=== PATIENT | female | born 1960 | race Caucasian/White ===

== ENCOUNTER 2018-01-28 08:03 | Inpatient (IN) | payer MEDICAID, SELFPAY ==
[2018-01-28 08:03] VITALS: BP 152/95; PULSE 106; RESP 16; TEMP 36.5; BMI 39.2
--- NOTE | 2018-01-28 08:17 | CT_ITS ---
STUDY: CT ABDOMEN AND PELVIS WITH CONTRAST REASON FOR EXAM: Female, 57 years old. Abdominal pain x months. Worse in the last 2 weeks. RADIATION DOSAGE (If Supplied By Facility): CTDIvol = ( 17.07 ) mGy, DLP = ( 1243.08 ) mGycm TECHNIQUE: Transaxial images were obtained from the dome of the diaphragm to the symphysis pubis with oral contrast. 100 ml of Isovue 300 contrast was administered. Sagittal and coronal images were reconstructed. Individualized dose optimization techniques were used for this CT. COMPARISON: None. FINDINGS: 11 mm pulmonary nodule versus infiltrate in the right lower lobe behind the left atrial chamber (series 2, image 1). Subsegmental atelectasis in the right posterior lung base with minimal groundglass infiltrate.. The visualized portions of the heart are within normal limits. Normal liver. Normal gallbladder and extrahepatic biliary system. Normal spleen. Normal pancreas. Left adrenal gland: Solid mass measuring 2.3 x 1.7 x 2.2 cm. Right adrenal gland: Normal. Normal right kidney. Normal left kidney. Suspicious thickening of the gastric antrum and possibly the duodenal bulb. Normal small intestine. Multiple diverticula along the sigmoid colon and fewer diverticula in the remainder of the colon. No diverticulitis. The appendix is visualized and appears normal. Normal abdominal aorta. Normal inferior vena cava. Normal retroperitoneum. Normal urinary bladder. Normal abdominal wall. Normal osseous structures. CT/Abdomen/Pelvis WITH Contrast IMPRESSION: 1. Suspicious thickening of the antral pyloric region and possibly the duodenal bulb. Endoscopy will be very helpful for further evaluation. 2. Colonic diverticulosis, more along the sigmoid colon and without diverticulitis. 2. 0.3 x 1.7 x 2.2 cm solid mass in the left adrenal gland. 3. 11 mm pulmonary nodule versus infiltrate in the right lower lobe behind the left atrial chamber (series 2, image 1). 4. Subsegmental atelectasis in right posterior lung base with minimal focal groundglass infiltrate. Electronically Signed: Abhishek Arizmendi MD at 10:44 EDT , Service support ,
[2018-01-28] MEDS: 0.9% Normal Saline 1,000 ML 1000 ML IV (08:50)
[2018-01-28 09:10] LABS: Prothrombin Time (Protime)PT. 13.4 SECONDS (11.7-14.9)
[2018-01-28 09:16] LABS: ALB/GLOB Ratio 0.7 RATIO (0.9-2.4); AST(SGOT) 17 U/L (15-37); Alanine Aminotransfer ALT/SGPT 13 U/L (13-56); Albumin, Serum 3.3 g/dL (3.2-5.0); Alkaline Phosphatase 79 U/L (45-117); Anion Gap 9 (5-15); BUN 19 mg/dL (7-18); Calcium,Total 8.2 mg/dL (8.5-10.1); Chloride 103 mmol/L (98-107); Creatinine, Serum 1.12 mg/dL (0.55-1.02); EST Glomerular Filtration Rate 53 mL/min (>60); Est Glom Filt Rate - Afr Amer 65 mL/min (>60); Estimated Creatinine Clearance 59.93 ml/min; Globulin 4.6 g/dL (2.2-4.2); Glucose 113 mg/dL (74-106); Lipase 5402 U/L (73-393); Potassium 4.5 mmol/L (3.5-5.1); Protein, Total 7.9 g/dL (6.4-8.2); Sodium Level 138 mmol/L (136-145)
[2018-01-28 09:28] LABS: Absolute Lymphocyte Count 0.88 X10^3/ul (0.83-4.51); Absolute Neutrophil Count 6.8 X10^3/uL (2.0-7.7); Basophil# 0.03 X10^3/uL; Basophil% 0.4 % (0-1); Eosinophil# 0.09 X10^3/uL; Eosinophils% 1.1 % (0-5); Hematocrit 40.5 % (37-47); Hemoglobin 12.8 g/dl (12.0-15.0); Lymphocyte # 0.88 X10^3/ul (4.0); Lymphocyte % 10.5 % (19-41); Mean Corp Hgb Conc 31.6 g/gl (32-36); Mean Corpuscular Hgb 28.1 pg (27.0-32.0); Mean Corpuscular Volume 88.8 fL (81-99); Mean Platelet Vol. 10.1 fl (6.2-12.0); Monocyte# 0.55 X10^3/uL; Monocyte% 6.5 % (0-10); Neutrophil # 6.83 X10^3/uL (2.7-7.7); Neutrophil % 81.1 % (47-70); Platelet Count 276 K/mm3 (150-450); RBC Distribution Width CV 14.6 % (11.6-14.6); RBC Distribution Width SD 46.5 fl (35.1-43.9); Red Blood Count 4.56 M/mm3 (4.2-5.4); White Blood Count 8.4 K/mm3 (4.4-11.0)
[2018-01-28 09:29] LABS: POSITIVE COUNT NO; POSITIVE DIFFERENTIAL NO; POSITIVE MORPHOLOGY NO
--- NOTE | 2018-01-28 10:57 | ED.VISSUMM ---
- ER Visit Summary Date of Service: 01/28/18 Chief Complaint: Abdominal pain History of Present Illness: The patient is a 57 F who complains of 2 weeks of abdominal pain. It is diffuse and nonfocal. She describes as sharp and dull and aching. She has had some relief with Mylanta. She also reports 2 weeks of loose watery diarrhea several episodes per day. She also notes that she has hemorrhoids. She has had bright red blood per rectum with increased bleeding recently. She denies any chest pain shortness of breath nausea vomiting fevers or chills. Physical Examination: Heart rate 106 vitals otherwise unremarkable Patient resting comfortably in no distress Moist mucous membranes Heart regular rhythm tachycardia Lungs are clear Abdomen soft nondistended she has diffuse nonfocal tenderness no guarding no rebound Rectal exam was tender there are multiple hemorrhoids light brown stool no gross blood Alert Test Results: Laboratory studies notable for BUN of 19 creatinine 1.12. Lipase is 5402 liver function tests otherwise normal. INR 1.0. Hemoccult positive. CT of the abdomen and pelvis shows suspicious thickening of the antral pyloric region and possibly of the duodenal bulb. There is diverticulosis. There is also an adrenal mass. There is a right lower lobe pulmonary nodule and a small area of groundglass infiltrate and atelectasis of the right posterior lung base. Pancreas was normal. Emergency Department Course and Treatment: Patient was treated with IV fluids Protonix morphine and Zofran. Given her thickening of the stomach and duodenal bulb as well as description of symptoms with relief with Mylanta this may be gastritis. It is possible that her pancreatitis is reactive. She will be admitted for further workup. She will also likely need an EGD. Patient to be discussed with the hospitalist and admitted to the medical service. Treatment Plan: [] Disposition: Admit Impression: Gastritis Pancreatitis Diarrhea This note was generated with [employer] dictation software. It may contain incorrect words, spelling, and punctuation that were not noted in review of the chart prior to signing ED Disposition - Plan for ED Patient: Chief Complaint: Abd Pain Referrals: Care Physician,No Primary [Primary Care Provider] -
--- NOTE | 2018-01-28 11:07 | PCM.HP.STD ---
Problem List (1) Acute pancreatitis Status: Acute (2) Acute gastritis Status: Acute (3) Tobacco dependence Status: Chronic (4) BMI 39.0-39.9,adult Status: Chronic History of Present Illness Date of Admission: 01/28/18 Chief Complaint: Abdominal pain The patient is a 57 year old F with past medical history significant for obesity with BMI of 39.2, tobacco dependence who presents with abdominal pain. Patient has experienced abdominal pain for almost a month pain is located in the epigastrium associated with nausea with some diarrhea. Patient denies any hematemesis, vomiting no melenic stools. Patient denies alcohol use. Denies any previous history of gallbladder disease issues. In view of the persistent nature of patient's symptoms she presented to the emergency department. Patient was found to have lipase levels greater than [address] of the abdomen obtained demonstrated Suspicious thickening of the antral pyloric region and possibly the duodenal bulb was started on Protonix and admitted to regular nursing floor for further management. Past Medical History Past Medical History (Chronic Problems): Chronic Problems Tobacco dependence (Chronic) BMI 39.0-39.9,adult (Chronic) Allergies Penicillins Allergy (Verified 01/28/18 08:05) Anaphylaxis Sulfa (Sulfonamide Antibiotics) Allergy (Verified 01/28/18 08:05) Unknown tetanus and diphtheria toxoids Allergy (Verified 01/28/18 08:05) Swelling Home Medications: Ambulatory Orders Medication Instructions Recorded NK [NK] 01/28/18 Smoking Status: Current every day smoker - *Family History Maternal History Items: No pertinent history Review of Systems Constitutional: Reports: Anorexia, Malaise HEENT: Denies: Head Aches, Sinus Congestion, Sinus Drainage Cardiovascular: Denies: Chest Pain, Orthopnea, Palpitations, Paroxysmal Noc. Dyspnea Respiratory: Denies: Cough, Shortness of breath at rest, Shortness of breath upon exertion, Sputum production Gastrointestinal: Reports: Abdominal Pain, Diarrhea, Nausea. Denies: Hematemesis, Hematochezia, Melena, Vomiting Genitourinary: Denies: Dysuria, Frequency, Hematuria, Urgency Musculoskeletal: Denies: Joint Pain, Joint Tenderness Skin: Denies: Rash Neurological: Denies: Focal weakness, Numbness, Tingling Psychiatric: Denies: Homicidal Ideations, Suicidal Ideations Hematologic/ Lymphatic: Denies: Easy Bruising, Easy Bleeding VTE Information - Inpt Only VTE Present on Admission: No VTE Mechan Device Prophylaxis: Knee High HARSH Hose VTE Pharm Prophylaxis ordered?: Yes Patient Problems: Active and Suspected Problems Acute pancreatitis (Acute) Acute gastritis (Acute) Subjective: GENERAL: cooperative HEENT: Clear conjunctiva, NECK; supple, normal thyroid, CHEST: Clear to auscultation bilaterally, HEART: Regular S1 S2, no audible murmurs ABDOMEN: Epigastric tenderness normoactive bowel sounds, RECTAL: deferred EXTREMITIES: No edema, no clubbing, no cyanosis. 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 SKIN: No Rash - Physical Exam Vital Signs Temp Pulse Resp BP 97.7 F L 106 H 16 152/95 H 01/28/18 08:03 01/28/18 08:03 01/28/18 08:03 01/28/18 08:03 Weight: 123.9 kg Body Mass Index (BMI) 39.2 Microbiology Past 72 Hours 01/28/18 08:40 Stool Occult Blood (MURALI) - Final Stool Occult Blood Positive Laboratory Tests Past 24 Hrs 01/28/18 01/28/18 01/28/18 08:35 08:35 08:35 WBC 8.4 RBC 4.56 Hgb 12.8 Hct 40.5 MCV 88.8 MCH 28.1 MCHC 31.6 L RDW 14.6 RDW Differential 46.5 H Plt Count 276 MPV 10.1 Immature Gran % (Auto) 0.400 Neut % (Auto) 81.1 H Lymph % (Auto) 10.5 L Carver % (Auto) 6.5 Eos % (Auto) 1.1 Baso % (Auto) 0.4 Absolute Neuts (auto) 6.8 Absolute Lymphs (auto) 0.88 Total Counted Not Reportable PT 13.4 INR 1.0 Sodium 138 Potassium 4.5 Chloride 103 Carbon Dioxide 26.0 Anion Gap 9 BUN 19 H Creatinine 1.12 H Estim Creat Clear Calc 59.93 Est GFR (MDRD) Af Amer 65 Est GFR (MDRD) Non-Af 53 L BUN/Creatinine Ratio 17.0 Glucose 113 H Calcium 8.2 L Total Bilirubin 0.30 AST 17 ALT 13 Alkaline Phosphatase 79 Total Protein 7.9 Albumin 3.3 Globulin 4.6 H Albumin/Globulin Ratio 0.7 L Lipase 5402 H Blood Type Antibody Screen 04/27/18 08:35 WBC RBC Hgb Hct MCV MCH MCHC RDW RDW Differential Plt Count MPV Immature Gran % (Auto) Neut % (Auto) Lymph % (Auto) Carver % (Auto) Eos % (Auto) Baso % (Auto) Absolute Neuts (auto) Absolute Lymphs (auto) Total Counted PT INR Sodium Potassium Chloride Carbon Dioxide Anion Gap BUN Creatinine Estim Creat Clear Calc Est GFR (MDRD) Af Amer Est GFR (MDRD) Non-Af BUN/Creatinine Ratio Glucose Calcium Total Bilirubin AST ALT Alkaline Phosphatase Total Protein Albumin Globulin Albumin/Globulin Ratio Lipase Blood Type B POSITIVE Antibody Screen NEGATIVE Assessment/Plan Active and Suspected Problems Acute pancreatitis (Acute) Acute gastritis (Acute) Patient is a 57-year-old lady presented with abdominal pain 1. Acute pancreatitis: Of undetermined etiology patient has been admitted to regular nursing floor kept n.p.o. started on IV fluids pain meds antinausea medication added ultrasound of the gallbladder for subsequent evaluation 2. Suspected gastritis. CT of the abdomen and pelvis demonstrated Suspicious thickening of the antral pyloric region and possibly the duodenal bulb also placed to general surgery for possible endoscopic evaluation prior to patient is discharged 3. 11 mm lung nodule patient informed plan is for her to follow-up with PCP for serial monitoring 4. Adrenal mass; patient informed plan is for her to follow-up with PCP for serial monitoring 4. Obesity with BMI of 39.2 low weight loss advised 5. Tobacco dependence counseled on cessation, offered nicotine patch for tobacco cravings 6. DVT prophylaxis; Lovenox Clinical Impression(s) from Imaging Studies Abdomen/Pelvis CT 01/28/18 08:17 IMPRESSION: 1. Suspicious thickening of the antral pyloric region and possibly the duodenal bulb. Endoscopy will be very helpful for further evaluation. 2. Colonic diverticulosis, more along the sigmoid colon and without diverticulitis. 2. 0.3 x 1.7 x 2.2 cm solid mass in the left adrenal gland. 3. 11 mm pulmonary nodule versus infiltrate in the right lower lobe behind the left atrial chamber (series 2, image 1). 4. Subsegmental atelectasis in right posterior lung base with minimal focal groundglass infiltrate. Electronically Signed: Abhishek Arizmendi MD at 10:44 EDT , Service support , Code Visit Inpatient E&M: 44155 Init Hosp L3
[2018-01-28] MEDS: Morphine 4 MG/ML Syringe IV (12:30)
[2018-01-28 12:33] VITALS: BP 162/91; PULSE 71; PULSE 74; RESP 16; RESP 17; O2SAT 96
[2018-01-28] MEDS: Ondansetron 4 MG/2 ML Vial IV ×2 (12:33→19:52)
[2018-01-28 13:12] VITALS: RESP 18; BMI 39.2
[2018-01-28 13:31] VITALS: BP 137/85; PULSE 81; RESP 18; TEMP 36.6; O2SAT 95
[2018-01-28] MEDS: Dext 5%-0.45% NS 1,000 ML 150 ML IV ×2 (15:00→21:24)
--- NOTE | 2018-01-28 15:11 | US_ITS ---
STUDY: ABDOMINAL ULTRASOUND - RIGHT UPPER QUADRANT REASON FOR VISIT: Female, 57 years old. Abdominal pain. TECHNIQUE: Ultrasound evaluation of the right upper quadrant was performed with real-time and static hudson-scale imaging. TECHNICAL QUALITY: Adequate. COMPARISON: CT scan 01/28/2018. FINDINGS: Liver: The liver measures 19.5 cm. There is increased echogenicity consistent with fatty infiltration. The bile ducts are mildly dilated. There is hepatic color flow. The direction of portal flow is hepatopetal. There is no demonstrated mass lesion. Gallbladder: There is a markedly distended gallbladder. The gallbladder wall measures 2 mm. There is a negative sonographic De La Garza's sign. There is no pericholecystic fluid. There are no gallstones. Common Bile Duct (C.B.D.): The common bile duct measures 18 mm. Echogenic material seen in the common bile duct. No definite focal stone. Pancreas: Normal size of the head, body and tail of the pancreas. There is normal echogenicity of the pancreas. There is no demonstrated pancreatic mass or cyst. Right Kidney: Normal size of the right kidney. The right kidney measures 11.7 cm. Normal renal cortex. The right cortex measures 1.2 cm. There is no demonstrated renal mass or cyst. There is no right hydronephrosis. US/Gallbladder IMPRESSION: Fatty liver and hepatomegaly with mild intrahepatic bile duct distention. Distended gallbladder without definite stones. Markedly distended common bile duct with some intraluminal echogenic material. Consider ERCP. Electronically Signed: Jose Alberto Garcia MD at 16:55 EDT , Service support ,
[2018-01-28] MEDS: Morphine 2 MG/ML Syringe IV ×2 (15:23→19:52)
[2018-01-28 19:38] VITALS: BP 109/58; PULSE 71; RESP 18; TEMP 37.6; O2SAT 92
[2018-01-29 01:45] VITALS: BP 122/83; PULSE 64; RESP 18; TEMP 37.1; O2SAT 92
[2018-01-29] MEDS: Morphine 2 MG/ML Syringe IV (04:29)
[2018-01-29] MEDS: Dext 5%-0.45% NS 1,000 ML 150 ML IV ×3 (04:29→18:24)
[2018-01-29 07:09] LABS: Hematocrit 37.4 % (37-47); Hemoglobin 11.4 g/dl (12.0-15.0); Mean Corp Hgb Conc 30.5 g/gl (32-36); Mean Corpuscular Hgb 27.3 pg (27.0-32.0); Mean Corpuscular Volume 89.7 fL (81-99); Mean Platelet Vol. 9.3 fl (6.2-12.0); Platelet Count 234 K/mm3 (150-450); RBC Distribution Width CV 14.5 % (11.6-14.6); RBC Distribution Width SD 47.4 fl (35.1-43.9); Red Blood Count 4.17 M/mm3 (4.2-5.4); White Blood Count 6.7 K/mm3 (4.4-11.0)
[2018-01-29 07:11] LABS: Scan Indicated on CBC? Y/N NO
--- NOTE | 2018-01-29 07:43 | PCM.PN.HOSP ---
Patient Problems: Active and Suspected Problems Acute pancreatitis (Acute) Acute gastritis (Acute) Subjective: Patient is a 57-year-old lady presented with abdominal pain patient had lipase levels greater than 5000. CT of the abdomen and pelvis obtained demonstrated features suspicious for gastritis admitted to regular nursing floor where patient is currently being managed. Consultation was placed to general surgery case discussed with Dr. Holcomb plan is for patient undergo endoscopic evaluation prior to discharge Objective: GENERAL: cooperative HEENT: Clear conjunctiva, NECK; supple, normal thyroid, CHEST: Clear to auscultation bilaterally, HEART: Regular S1 S2, no audible murmurs ABDOMEN: Epigastric tenderness normoactive bowel sounds, RECTAL: deferred EXTREMITIES: No edema, no clubbing, no cyanosis. 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 SKIN: No Rash Vitals/I&O's: Vital Signs Temp Pulse Resp BP Pulse Ox 98.8 F 64 18 122/83 H 92 01/29/18 01:45 01/29/18 01:45 01/29/18 01:45 01/29/18 01:45 01/29/18 01:45 Oxygen Delivery Method Room Air Weight: 123.831 kg Body Mass Index (BMI) 39.2 Intake and Output for Last 24 Hours 01/27/18 01/28/18 01/29/18 23:59 23:59 23:59 Intake Total 354 / 354 2102 Balance 354 / 354 2102 Laboratory Results 01/29/18 06:54: WBC 6.7, RBC 4.17 L, Hgb 11.4 L, Hct 37.4, MCV 89.7, MCH 27.3, MCHC 30.5 L, RDW 14.5, RDW Differential 47.4 H, Plt Count 234, MPV 9.3 01/29/18 06:54: Sodium Pending, Potassium Pending, Chloride Pending, Carbon Dioxide Pending, Anion Gap Pending, BUN Pending, Creatinine Pending, Est GFR (MDRD) Af Amer Pending, Est GFR (MDRD) Non-Af Pending, BUN/Creatinine Ratio Pending, Glucose Pending, Calcium Pending, Magnesium Pending, Lipase Pending Current Medications Acetaminophen (Tylenol) 650 mg PO Q6H PRN PRN PRN Reason: Mild Pain (scale 0-3)/T>100.7 Al Hydroxide/Mg Hydroxide (Mylanta Ii) 30 ml PO Q6H PRN PRN PRN Reason: Gastric Burning Docusate Sodium (Colace) 200 mg PO BID PRN PRN PRN Reason: Constipation Enoxaparin Sodium (Lovenox) 40 mg SC DAILY@1000 MARQUIS Dextrose/Sodium Chloride () 1,000 mls @ 150 mls/hr IV .Q6H40M [facility] Last Admin: 01/29/18 04:29 Dose: 150 mls/hr Pantoprazole Sodium 40 mg/ (Sodium Chloride) 110 mls @ 330 mls/hr IV Q12 [facility] Last Admin: 01/28/18 21:24 Dose: 330 mls/hr Magnesium Hydroxide (Milk Of Magnesia) 30 ml PO DAILY PRN PRN PRN Reason: Constipation Morphine Sulfate () 2 - 4 mg IV Q3H PRN PRN PRN Reason: Severe Pain (pain scale 6-10) Last Admin: 01/29/18 04:29 Dose: 2 mg Nicotine (Nicoderm Cq (Pbkc)) 21 mg TRANSDERM. DAILY [facility] Last Admin: 01/28/18 17:02 Dose: 21 mg Ondansetron HCl (Zofran) 4 mg IV Q8H PRN PRN PRN Reason: Nausea Last Admin: 01/28/18 19:52 Dose: 4 mg Oxycodone HCl (Oxyir) 5 mg PO Q4H PRN PRN PRN Reason: Moderate Pain (pain scale 4-5) Sodium Chloride () 5 - 30 ml IV UD PRN PRN Reason: SALINE FLUSH Zolpidem Tartrate (Ambien (Generic)) 5 mg PO QHS PRN PRN PRN Reason: INSOMNIA Medical Necessity - Tobacco Use Smoking Status: Current every day smoker Assessment/Plan Active and Suspected Problems Acute pancreatitis (Acute) Acute gastritis (Acute) Patient is a 57-year-old lady presented with abdominal pain 1. Acute pancreatitis: Of undetermined etiology patient has been admitted to regular nursing floor kept n.p.o. started on IV fluids pain meds antinausea medication added ultrasound of the gallbladder for subsequent evaluation 2. Suspected gastritis. CT of the abdomen and pelvis demonstrated Suspicious thickening of the antral pyloric region and possibly the duodenal bulb also placed to general surgery for possible endoscopic evaluation prior to patient is discharged 3. 11 mm lung nodule patient informed plan is for her to follow-up with PCP for serial monitoring 4. Adrenal mass; patient informed plan is for her to follow-up with PCP for serial monitoring 4. Obesity with BMI of 39.2 low weight loss advised 5. Tobacco dependence counseled on cessation, offered nicotine patch for tobacco cravings 6. DVT prophylaxis; Lovenox Clinical Impression(s) from Imaging Studies Abdomen/Pelvis CT 01/28/18 08:17 IMPRESSION: 1. Suspicious thickening of the antral pyloric region and possibly the duodenal bulb. Endoscopy will be very helpful for further evaluation. 2. Colonic diverticulosis, more along the sigmoid colon and without diverticulitis. 2. 0.3 x 1.7 x 2.2 cm solid mass in the left adrenal gland. 3. 11 mm pulmonary nodule versus infiltrate in the right lower lobe behind the left atrial chamber (series 2, image 1). 4. Subsegmental atelectasis in right posterior lung base with minimal focal groundglass infiltrate. Electronically Signed: Abhishek Arizmendi MD at 10:44 EDT , Service support , Code Visit Inpatient E&M: [id number] Subs Hosp L3
[2018-01-29 07:45] LABS: BUN 11 mg/dL (7-18); BUN/Creat Ratio 12.6 RATIO (10-20); Chloride 108 mmol/L (98-107); Creatinine, Serum 0.88 mg/dL (0.55-1.02); EST Glomerular Filtration Rate 71 mL/min (>60); Est Glom Filt Rate - Afr Amer 86 mL/min (>60); Estimated Creatinine Clearance 76.27 ml/min; Glucose 101 mg/dL (74-106); Lipase 3095 U/L (73-393); Magnesium 2.3 mg/dL (1.6-2.6); Potassium 4.3 mmol/L (3.5-5.1); Sodium Level 139 mmol/L (136-145)
[2018-01-29 07:46] LABS: Anion Gap 2 (5-15)
--- NOTE | 2018-01-29 07:52 | PN_ITS ---
Patient Problems: Active and Suspected Problems Acute pancreatitis (Acute) Acute gastritis (Acute) Subjective: Patient is a 57-year-old lady presented with abdominal pain patient had lipase levels greater than 5000. CT of the abdomen and pelvis obtained demonstrated features suspicious for gastritis admitted to regular nursing floor where patient is currently being managed. Consultation was placed to general surgery case discussed with Dr. Holcomb plan is for patient undergo endoscopic evaluation prior to discharge Objective: GENERAL: cooperative HEENT: Clear conjunctiva, NECK; supple, normal thyroid, CHEST: Clear to auscultation bilaterally, HEART: Regular S1 S2, no audible murmurs ABDOMEN: Epigastric tenderness normoactive bowel sounds, RECTAL: deferred EXTREMITIES: No edema, no clubbing, no cyanosis. 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 SKIN: No Rash Vitals/I&O's: Vital Signs Temp Pulse Resp BP Pulse Ox 98.8 F 64 18 122/83 H 92 01/29/18 01:45 01/29/18 01:45 01/29/18 01:45 01/29/18 01:45 01/29/18 01:45 Oxygen Delivery Method Room Air Weight: 123.831 kg Body Mass Index (BMI) 39.2 Intake and Output for Last 24 Hours 01/27/18 01/28/18 01/29/18 23:59 23:59 23:59 Intake Total 354 / 354 2102 Balance 354 / 354 2102 Laboratory Results 01/29/18 06:54: WBC 6.7, RBC 4.17 L, Hgb 11.4 L, Hct 37.4, MCV 89.7, MCH 27.3, MCHC 30.5 L, RDW 14.5, RDW Differential 47.4 H, Plt Count 234, MPV 9.3 01/29/18 06:54: Sodium Pending, Potassium Pending, Chloride Pending, Carbon Dioxide Pending, Anion Gap Pending, BUN Pending, Creatinine Pending, Est GFR ( MDRD) Af Amer Pending, Est GFR (MDRD) Non-Af Pending, BUN/Creatinine Ratio Pending, Glucose Pending, Calcium Pending, Magnesium Pending, Lipase Pending Current Medications Acetaminophen (Tylenol) 650 mg PO Q6H PRN PRN PRN Reason: Mild Pain (scale 0-3)/T>100.7 Al Hydroxide/Mg Hydroxide (Mylanta Ii) 30 ml PO Q6H PRN PRN PRN Reason: Gastric Burning Docusate Sodium (Colace) 200 mg PO BID PRN PRN PRN Reason: Constipation Enoxaparin Sodium (Lovenox) 40 mg SC DAILY@1000 MARQUIS Dextrose/Sodium Chloride () 1,000 mls @ 150 mls/hr IV .Q6H40M [facility] Last Admin: 01/29/18 04:29 Dose: 150 mls/hr Pantoprazole Sodium 40 mg/ (Sodium Chloride) 110 mls @ 330 mls/hr IV Q12 [facility] Last Admin: 01/28/18 21:24 Dose: 330 mls/hr Magnesium Hydroxide (Milk Of Magnesia) 30 ml PO DAILY PRN PRN PRN Reason: Constipation Morphine Sulfate () 2 - 4 mg IV Q3H PRN PRN PRN Reason: Severe Pain (pain scale 6-10) Last Admin: 01/29/18 04:29 Dose: 2 mg Nicotine (Nicoderm Cq (Pbkc)) 21 mg TRANSDERM. DAILY [facility] Last Admin: 01/28/18 17:02 Dose: 21 mg Ondansetron HCl (Zofran) 4 mg IV Q8H PRN PRN PRN Reason: Nausea Last Admin: 01/28/18 19:52 Dose: 4 mg Oxycodone HCl (Oxyir) 5 mg PO Q4H PRN PRN PRN Reason: Moderate Pain (pain scale 4-5) Sodium Chloride () 5 - 30 ml IV UD PRN PRN Reason: SALINE FLUSH Zolpidem Tartrate (Ambien (Generic)) 5 mg PO QHS PRN PRN PRN Reason: INSOMNIA Medical Necessity - Tobacco Use Smoking Status: Current every day smoker Assessment/Plan Active and Suspected Problems Acute pancreatitis (Acute) Acute gastritis (Acute) Patient is a 57-year-old lady presented with abdominal pain 1. Acute pancreatitis: Of undetermined etiology patient has been admitted to regular nursing floor kept n.p.o. started on IV fluids pain meds antinausea medication added ultrasound of the gallbladder for subsequent evaluation 2. Suspected gastritis. CT of the abdomen and pelvis demonstrated Suspicious thickening of the antral pyloric region and possibly the duodenal bulb also placed to general surgery for possible endoscopic evaluation prior to patient is discharged 3. 11 mm lung nodule patient informed plan is for her to follow-up with PCP for serial monitoring 4. Adrenal mass; patient informed plan is for her to follow-up with PCP for serial monitoring 4. Obesity with BMI of 39.2 low weight loss advised 5. Tobacco dependence counseled on cessation, offered nicotine patch for tobacco cravings 6. DVT prophylaxis; Lovenox Clinical Impression(s) from Imaging Studies Abdomen/Pelvis CT 01/28/18 08:17 IMPRESSION: 1. Suspicious thickening of the antral pyloric region and possibly the duodenal bulb. Endoscopy will be very helpful for further evaluation. 2. Colonic diverticulosis, more along the sigmoid colon and without diverticulitis. 2. 0.3 x 1.7 x 2.2 cm solid mass in the left adrenal gland. 3. 11 mm pulmonary nodule versus infiltrate in the right lower lobe behind the left atrial chamber (series 2, image 1). 4. Subsegmental atelectasis in right posterior lung base with minimal focal groundglass infiltrate. Electronically Signed: Abhishek Arizmendi MD at 10:44 EDT , Service support , Code Visit Inpatient E&M: [id number] Subs Hosp L3
[2018-01-29 08:58] VITALS: BP 119/59; PULSE 70; RESP 20; TEMP 36.8; O2SAT 92
--- NOTE | 2018-01-29 10:28 | PCM.CONS.GEN ---
Problem List (1) Acute pancreatitis Status: Acute Qualifiers: Pancreatitis type: unspecified pancreatitis type Acute pancreatitis complication: unspecified Qualified Code(s): K85.90 - Acute pancreatitis without necrosis or infection, unspecified (2) Acute gastritis Status: Acute Qualifiers: Gastritis type: unspecified gastritis Gastritis bleeding: with bleeding Qualified Code(s): K29.01 - Acute gastritis with bleeding Reason for Consult Date of Consultation: 01/29/18 History of Present Illness: The patient is a 57 year old F with past medical history significant for obesity with BMI of 39.2, tobacco dependence who presents with abdominal pain. Patient has experienced abdominal pain for almost a month pain is located in the epigastrium associated with nausea with some diarrhea. Patient denies any hematemesis, vomiting no melenic stools. Patient denies alcohol use. Denies any previous history of gallbladder disease issues. In view of the persistent nature of patient's symptoms she presented to the emergency department. Patient was found to have lipase levels greater than [address] of the abdomen obtained demonstrated Suspicious thickening of the antral pyloric region and possibly the duodenal bulb was started on Protonix and admitted to regular nursing floor for further management. Past Medical History Past Medical History (Chronic Problems): Chronic Problems Tobacco dependence (Chronic) BMI 39.0-39.9,adult (Chronic) Allergies Penicillins Allergy (Verified 01/28/18 08:05) Anaphylaxis Sulfa (Sulfonamide Antibiotics) Allergy (Verified 01/28/18 08:05) Unknown tetanus and diphtheria toxoids Allergy (Verified 01/28/18 08:05) Swelling Home Medications: Ambulatory Orders Medication Instructions Recorded NK [NK] 01/28/18 Smoking Status: Current every day smoker - *Family History Maternal History Items: No pertinent history Review of Systems Constitutional: Reports: Anorexia, Fatigue Cardiovascular: Denies: Chest Pain, Chest Pressure, Chest Tightness, Palpitations Respiratory: Denies: Cough, Hemoptysis, Shortness of breath at rest, Shortness of breath upon exertion, Wheezing Gastrointestinal: Reports: Abdominal Pain, Diarrhea, Hematochezia Genitourinary: Denies: Dysuria, Frequency, Hematuria, Urgency Musculoskeletal: Denies: Joint Pain Skin: Denies: Lesions, Rash, Wounds Patient Problems: Active and Suspected Problems Acute pancreatitis (Acute) Acute gastritis (Acute) - Physical Exam General: Alert, Oriented x3 Lungs: Clear to auscultation Cardiovascular: Regular rate, Regular Rhythm, No murmurs Abdomen: Tender - Patient has an obese abdomen. She is tender in the epigastric and right upper quadrant area. There is no rebound guarding or peritoneal signs identified. Extremities: No clubbing, No cyanosis, No edema Musculoskeletal: No Tenderness to Palpation of Joints or Extremities Neurological: Cranial nerves II-XII grossly intact Psych/Mental Status: Normal Affect, Appropriate Vital Signs Temp Pulse Resp BP Pulse Ox 98.3 F 70 20 H 119/59 L 92 01/29/18 08:58 01/29/18 08:58 01/29/18 08:58 01/29/18 08:58 01/29/18 08:58 Oxygen Delivery Method Room Air Weight: 273 lb 0.01 oz Body Mass Index (BMI) 39.2 Intake and Output for Last 24 Hours 01/27/18 01/28/18 01/29/18 23:59 23:59 23:59 Intake Total 354 / 354 2102 / 210 Balance 354 / 354 2102 / 2102 Laboratory Tests Past 24 Hrs 01/29/18 01/29/18 06:54 06:54 WBC 6.7 RBC 4.17 L Hgb 11.4 L Hct 37.4 MCV 89.7 MCH 27.3 MCHC 30.5 L RDW 14.5 RDW Differential 47.4 H Plt Count 234 MPV 9.3 Sodium 139 Potassium 4.3 Chloride 108 H Carbon Dioxide 29.0 Anion Gap 2 L BUN 11 Creatinine 0.88 Estim Creat Clear Calc 76.27 Est GFR (MDRD) Af Amer 86 Est GFR (MDRD) Non-Af 71 BUN/Creatinine Ratio 12.6 Glucose 101 Calcium 8.0 L Magnesium 2.3 Lipase 3095 H Assessment/Plan Active and Suspected Problems Acute pancreatitis (Acute) Acute gastritis (Acute) At this point I think am going to hold off on doing an upper endoscopy on her. Her common bile duct is 18 mm in diameter. Although her most likely diagnosis is having a duodenal ulcer here I think it would be best if we hold off to do the upper scope on Wednesday where if the duodenum is entirely normal she might undergo an ERCP to better evaluate the common bile duct.
[2018-01-29] MEDS: Enoxaparin 40 MG/0.4 ML Syringe SC (10:58)
[2018-01-29] MEDS: oxyCODONE 5 MG Tablet PO ×3 (12:52→21:58)
[2018-01-29 14:53] VITALS: BP 130/87; PULSE 72; RESP 20; TEMP 36.6; O2SAT 95
[2018-01-29] MEDS: Mag Hydrox/Al Hydrox/Simeth 30 ML UDC PO (18:36)
[2018-01-29 19:44] VITALS: BP 130/87; PULSE 70; RESP 16; TEMP 37; O2SAT 94
[2018-01-30] VITALS (9 sets, daily range): BP systolic 109–137; BP diastolic 62–91; PULSE 65–78; RESP 16–20; TEMP 36.7–36.9; O2SAT 92–97
[2018-01-30] MEDS: Dext 5%-0.45% NS 1,000 ML 150 ML IV ×3 (01:35→17:19)
[2018-01-30] MEDS: Morphine 2 MG/ML Syringe IV (02:45)
[2018-01-30 06:16] LABS: Hematocrit 33.5 % (37-47); Hemoglobin 10.5 g/dl (12.0-15.0); Mean Corp Hgb Conc 31.3 g/gl (32-36); Mean Corpuscular Hgb 28.2 pg (27.0-32.0); Mean Corpuscular Volume 89.8 fL (81-99); Mean Platelet Vol. 9.6 fl (6.2-12.0); Platelet Count 226 K/mm3 (150-450); RBC Distribution Width CV 14.5 % (11.6-14.6); RBC Distribution Width SD 46.2 fl (35.1-43.9); Red Blood Count 3.73 M/mm3 (4.2-5.4); White Blood Count 5.8 K/mm3 (4.4-11.0)
[2018-01-30 06:28] LABS: Anion Gap 5 (5-15); BUN 6 mg/dL (7-18); BUN/Creat Ratio 8.3 RATIO (10-20); Calcium,Total 7.8 mg/dL (8.5-10.1); Chloride 109 mmol/L (98-107); Creatinine, Serum 0.72 mg/dL (0.55-1.02); EST Glomerular Filtration Rate 88 mL/min (>60); Est Glom Filt Rate - Afr Amer 107 mL/min (>60); Estimated Creatinine Clearance 93.22 ml/min; Glucose 107 mg/dL (74-106); Potassium 3.8 mmol/L (3.5-5.1); Sodium Level 141 mmol/L (136-145)
[2018-01-30 06:43] LABS: Scan Indicated on CBC? Y/N NO
--- NOTE | 2018-01-30 07:54 | PCM.PN.HOSP ---
Patient Problems: Active and Suspected Problems Acute pancreatitis (Acute) Acute gastritis (Acute) Subjective: Patient seen currently rates in her pain 5 out of 10. Also has a cough which is persistent. Patient is scheduled to undergo EGD by Dr. Holcomb this a.m. Objective: GENERAL: cooperative HEENT: Clear conjunctiva, NECK; supple, normal thyroid, CHEST: Diminished to auscultation with some wheezing HEART: Regular S1 S2, no audible murmurs ABDOMEN: Epigastric tenderness normoactive bowel sounds, RECTAL: deferred EXTREMITIES: No edema, no clubbing, no cyanosis. [employer]ER: Awake, no lateralizing signs. SKIN: No Rash Vitals/I&O's: Vital Signs Temp Pulse Resp BP Pulse Ox 98.4 F 73 18 125/71 H 93 01/30/18 02:32 01/30/18 02:32 01/30/18 02:32 01/30/18 02:32 01/30/18 02:32 Oxygen Delivery Method Room Air Weight: 123.831 kg Body Mass Index (BMI) 39.2 Intake and Output for Last 24 Hours 01/28/18 01/29/18 01/30/18 23:59 23:59 23:59 Intake Total 354 / 354 3924 / 3924 1704 / 1704 Balance 354 / 354 3924 / 3924 1704 / 1704 Laboratory Results 01/30/18 05:48: WBC 5.8, RBC 3.73 L, Hgb 10.5 L, Hct 33.5 L, MCV 89.8, MCH 28.2, MCHC 31.3 L, RDW 14.5, RDW Differential 46.2 H, Plt Count 226, MPV 9.6 01/30/18 05:48: Sodium 141, Potassium 3.8, Chloride 109 H, Carbon Dioxide 27.0, Anion Gap 5, BUN 6 L, Creatinine 0.72, Estim Creat Clear Calc 93.22, Est GFR (MDRD) Af Amer 107, Est GFR (MDRD) Non-Af 88, BUN/Creatinine Ratio 8.3 L, Glucose 107 H, Calcium 7.8 L Current Medications Acetaminophen (Tylenol) 650 mg PO Q6H PRN PRN PRN Reason: Mild Pain (scale 0-3)/T>100.7 Al Hydroxide/Mg Hydroxide (Mylanta Ii) 30 ml PO Q6H PRN PRN PRN Reason: Gastric Burning Last Admin: 01/29/18 18:36 Dose: 30 ml Docusate Sodium (Colace) 200 mg PO BID PRN PRN PRN Reason: Constipation Enoxaparin Sodium (Lovenox) 40 mg SC DAILY@1000 [facility] Last Admin: 01/30/18 07:34 Dose: Not Given Dextrose/Sodium Chloride () 1,000 mls @ 150 mls/hr IV .Q6H40M [facility] Last Admin: 01/30/18 01:35 Dose: 150 mls/hr Pantoprazole Sodium 40 mg/ (Sodium Chloride) 110 mls @ 330 mls/hr IV Q12 [facility] Last Admin: 01/29/18 21:58 Dose: 330 mls/hr Magnesium Hydroxide (Milk Of Magnesia) 30 ml PO DAILY PRN PRN PRN Reason: Constipation Morphine Sulfate () 2 - 4 mg IV Q3H PRN PRN PRN Reason: Severe Pain (pain scale 6-10) Last Admin: 01/30/18 02:45 Dose: 2 mg Nicotine (Nicoderm Cq (Pbkc)) 21 mg TRANSDERM. DAILY [facility] Last Admin: 01/29/18 11:06 Dose: 21 mg Ondansetron HCl (Zofran) 4 mg IV Q8H PRN PRN PRN Reason: Nausea Last Admin: 01/28/18 19:52 Dose: 4 mg Oxycodone HCl (Oxyir) 5 mg PO Q4H PRN PRN PRN Reason: Moderate Pain (pain scale 4-5) Last Admin: 01/29/18 21:58 Dose: 5 mg Sodium Chloride () 5 - 30 ml IV UD PRN PRN Reason: SALINE FLUSH Zolpidem Tartrate (Ambien (Generic)) 5 mg PO QHS PRN PRN PRN Reason: INSOMNIA Medical Necessity - Tobacco Use Smoking Status: Current every day smoker Assessment/Plan Active and Suspected Problems Acute pancreatitis (Acute) Acute gastritis (Acute) Patient is a 57-year-old lady presented with abdominal pain 1. Acute pancreatitis: Of undetermined etiology patient has been admitted to regular nursing floor kept n.p.o. started on IV fluids pain meds antinausea medication added ultrasound of the gallbladder for subsequent evaluation. Patient's gallbladder obtained on admission demonstrated fatty liver and hepatomegaly with mild intrahepatic bile duct distention. Distended gallbladder without definite stones. Markedly distended common bile duct with some intraluminal echogenic material. Case was subsequently discussed with Dr. Holcomb who recommended obtaining consultation from Dr. Culver for possible ERCP on 01/31/[address]. [address] of the abdomen and pelvis demonstrated Suspicious thickening of the antral pyloric region and possibly the duodenal bulb also placed to general surgery for possible endoscopic evaluation prior to patient is discharged 3. 11 mm lung nodule patient informed plan is for her to follow-up with PCP for serial monitoring 4. Adrenal mass; patient informed plan is for her to follow-up with PCP for serial monitoring 4. Obesity with BMI of 39.2 low weight loss advised 5. Tobacco dependence counseled on cessation, offered nicotine patch for tobacco cravings 6. DVT prophylaxis; Lovenox 7. Suspected COPD given her years of smoking. Whezing this a.m. patient was started on inhaled bronchodilator therapy Clinical Impression(s) from Imaging Studies Abdomen/Pelvis CT 01/28/18 08:17 IMPRESSION: 1. Suspicious thickening of the antral pyloric region and possibly the duodenal bulb. Endoscopy will be very helpful for further evaluation. 2. Colonic diverticulosis, more along the sigmoid colon and without diverticulitis. 2. 0.3 x 1.7 x 2.2 cm solid mass in the left adrenal gland. 3. 11 mm pulmonary nodule versus infiltrate in the right lower lobe behind the left atrial chamber (series 2, image 1). 4. Subsegmental atelectasis in right posterior lung base with minimal focal groundglass infiltrate. Electronically Signed: Abhishek Arizmendi MD at 10:44 EDT , Service support , Gallbladder Ultrasound 01/28/18 15:11 IMPRESSION: Fatty liver and hepatomegaly with mild intrahepatic bile duct distention. Distended gallbladder without definite stones. Markedly distended common bile duct with some intraluminal echogenic material. Consider ERCP. Electronically Signed: Jose Alberto Garcia MD at 16:55 EDT , Service support , Code Visit Inpatient E&M: [id number] Subs Hosp L3
--- NOTE | 2018-01-30 07:57 | PN_ITS ---
Patient Problems: Active and Suspected Problems Acute pancreatitis (Acute) Acute gastritis (Acute) Subjective: Patient seen currently rates in her pain 5 out of 10. Also has a cough which is persistent. Patient is scheduled to undergo EGD by Dr. Holcomb this a.m. Objective: GENERAL: cooperative HEENT: Clear conjunctiva, NECK; supple, normal thyroid, CHEST: Diminished to auscultation with some wheezing HEART: Regular S1 S2, no audible murmurs ABDOMEN: Epigastric tenderness normoactive bowel sounds, RECTAL: deferred EXTREMITIES: No edema, no clubbing, no cyanosis. PROP SETTER: Awake, no lateralizing signs. SKIN: No Rash Vitals/I&O's: Vital Signs Temp Pulse Resp BP Pulse Ox 98.4 F 73 18 125/71 H 93 01/30/18 02:32 01/30/18 02:32 01/30/18 02:32 01/30/18 02:32 01/30/18 02:32 Oxygen Delivery Method Room Air Weight: 123.831 kg Body Mass Index (BMI) 39.2 Intake and Output for Last 24 Hours 01/28/18 01/29/18 01/30/18 23:59 23:59 23:59 Intake Total 354 / 354 3924 / 3924 1704 / 1704 Balance 354 / 354 3924 / 3924 1704 / 1704 Laboratory Results 01/30/18 05:48: WBC 5.8, RBC 3.73 L, Hgb 10.5 L, Hct 33.5 L, MCV 89.8, MCH 28.2 , MCHC 31.3 L, RDW 14.5, RDW Differential 46.2 H, Plt Count 226, MPV 9.6 01/30/18 05:48: Sodium 141, Potassium 3.8, Chloride 109 H, Carbon Dioxide 27.0, Anion Gap 5, BUN 6 L, Creatinine 0.72, Estim Creat Clear Calc 93.22, Est GFR ( MDRD) Af Amer 107, Est GFR (MDRD) Non-Af 88, BUN/Creatinine Ratio 8.3 L, Glucose 107 H, Calcium 7.8 L Current Medications Acetaminophen (Tylenol) 650 mg PO Q6H PRN PRN PRN Reason: Mild Pain (scale 0-3)/T>100.7 Al Hydroxide/Mg Hydroxide (Mylanta Ii) 30 ml PO Q6H PRN PRN PRN Reason: Gastric Burning Last Admin: 01/29/18 18:36 Dose: 30 ml Docusate Sodium (Colace) 200 mg PO BID PRN PRN PRN Reason: Constipation Enoxaparin Sodium (Lovenox) 40 mg SC DAILY@1000 [facility] Last Admin: 01/30/18 07:34 Dose: Not Given Dextrose/Sodium Chloride () 1,000 mls @ 150 mls/hr IV .Q6H40M [facility] Last Admin: 01/30/18 01:35 Dose: 150 mls/hr Pantoprazole Sodium 40 mg/ (Sodium Chloride) 110 mls @ 330 mls/hr IV Q12 [facility] Last Admin: 01/29/18 21:58 Dose: 330 mls/hr Magnesium Hydroxide (Milk Of Magnesia) 30 ml PO DAILY PRN PRN PRN Reason: Constipation Morphine Sulfate () 2 - 4 mg IV Q3H PRN PRN PRN Reason: Severe Pain (pain scale 6-10) Last Admin: 01/30/18 02:45 Dose: 2 mg Nicotine (Nicoderm Cq (Pbkc)) 21 mg TRANSDERM. DAILY [facility] Last Admin: 01/29/18 11:06 Dose: 21 mg Ondansetron HCl (Zofran) 4 mg IV Q8H PRN PRN PRN Reason: Nausea Last Admin: 01/28/18 19:52 Dose: 4 mg Oxycodone HCl (Oxyir) 5 mg PO Q4H PRN PRN PRN Reason: Moderate Pain (pain scale 4-5) Last Admin: 01/29/18 21:58 Dose: 5 mg Sodium Chloride () 5 - 30 ml IV UD PRN PRN Reason: SALINE FLUSH Zolpidem Tartrate (Ambien (Generic)) 5 mg PO QHS PRN PRN PRN Reason: INSOMNIA Medical Necessity - Tobacco Use Smoking Status: Current every day smoker Assessment/Plan Active and Suspected Problems Acute pancreatitis (Acute) Acute gastritis (Acute) Patient is a 57-year-old lady presented with abdominal pain 1. Acute pancreatitis: Of undetermined etiology patient has been admitted to regular nursing floor kept n.p.o. started on IV fluids pain meds antinausea medication added ultrasound of the gallbladder for subsequent evaluation. Patient's gallbladder obtained on admission demonstrated fatty liver and hepatomegaly with mild intrahepatic bile duct distention. Distended gallbladder without definite stones. Markedly distended common bile duct with some intraluminal echogenic material. Case was subsequently discussed with Dr. Holcomb who recommended obtaining consultation from Dr. Culver for possible ERCP on 01/31/[address]. [address] of the abdomen and pelvis demonstrated Suspicious thickening of the antral pyloric region and possibly the duodenal bulb also placed to general surgery for possible endoscopic evaluation prior to patient is discharged 3. 11 mm lung nodule patient informed plan is for her to follow-up with PCP for serial monitoring 4. Adrenal mass; patient informed plan is for her to follow-up with PCP for serial monitoring 4. Obesity with BMI of 39.2 low weight loss advised 5. Tobacco dependence counseled on cessation, offered nicotine patch for tobacco cravings 6. DVT prophylaxis; Lovenox 7. Suspected COPD given her years of smoking. Whezing this a.m. patient was started on inhaled bronchodilator therapy Clinical Impression(s) from Imaging Studies Abdomen/Pelvis CT 01/28/18 08:17 IMPRESSION: 1. Suspicious thickening of the antral pyloric region and possibly the duodenal bulb. Endoscopy will be very helpful for further evaluation. 2. Colonic diverticulosis, more along the sigmoid colon and without diverticulitis. 2. 0.3 x 1.7 x 2.2 cm solid mass in the left adrenal gland. 3. 11 mm pulmonary nodule versus infiltrate in the right lower lobe behind the left atrial chamber (series 2, image 1). 4. Subsegmental atelectasis in right posterior lung base with minimal focal groundglass infiltrate. Electronically Signed: Abhishek Arizmendi MD at 10:44 EDT , Service support , Gallbladder Ultrasound 01/28/18 15:11 IMPRESSION: Fatty liver and hepatomegaly with mild intrahepatic bile duct distention. Distended gallbladder without definite stones. Markedly distended common bile duct with some intraluminal echogenic material. Consider ERCP. Electronically Signed: Jose Alberto Garcia MD at 16:55 EDT , Service support , Code Visit Inpatient E&M: 24904 Subs Hosp L3
[2018-01-30] MEDS: Morphine 4 MG/ML Syringe IV (08:12)
--- NOTE | 2018-01-30 10:05 | NURSING ---
Gave verbal report to Endo at bedside upon roller picker.
--- NOTE | 2018-01-30 10:25 | PCM.OPRPT ---
Problem List (1) Acute pancreatitis Status: Acute Qualifiers: Pancreatitis type: unspecified pancreatitis type Acute pancreatitis complication: unspecified Qualified Code(s): K85.90 - Acute pancreatitis without necrosis or infection, unspecified (2) Acute gastritis Status: Acute Qualifiers: Gastritis type: unspecified gastritis Gastritis bleeding: with bleeding Qualified Code(s): K29.01 - Acute gastritis with bleeding Report of Operation Date of Procedure: 01/30/18 Pre-Operative Diagnosis: k85.90 pancreatitis. k29.01 acute gastritis with bleeding Post-Operative Diagnosis: Same with large duodenal ulcer Surgery/Procedure Performed:: [id number] esophagogastroduodenoscopy with biopsy Type of Anesthesia:: MAC Anesthesiologist: Chandu Pedro Description of Procedure: Patient was brought into the endoscopy suite. Back of her throat was sprayed with Cetacaine spray. A bite-block was placed. Patient was placed on the left lateral decubitus position. She was given graded anesthesia. The scope was inserted into the back of the oropharynx and directed down into the esophagus into the stomach and into the duodenum. Operative findings: 1. Duodenum: Large duodenal ulcer was located immediately upon entering the duodenal bulb on the posterior aspect. There was no visible vessel. It was not actively bleeding. There was no blood located within the duodenum or the duodenal bulb. There was no blood coming out of the ampulla. 2. Stomach: Gastritis in the prepyloric area was identified biopsy for H. pylori was obtained retroflexion did not show any signs of mass lesions there was no hiatal hernia identified. 3. Esophagus: Normal appearance no mass lesions no signs of esophagitis. The scope was withdrawn and the patient tolerated the procedure well. Patient will need to be placed on proton pump inhibitors as well as Carafate. With regards to her dilatation of her common bile duct given the fact that she has an active duodenal ulcer there are 2 ways we can go about this we can work her up as an outpatient possibly obtaining an MRCP or we can reevaluate the common bile duct with an ultrasound once we have treated her appropriately with proton pump inhibitors. - Admit VTE Documentation VTE Present on Admission: No VTE Mechan Device Prophylaxis: None VTE Pharm Prophylaxis ordered?: No Reason prophylaxis not ordered:: Treatment Not Indicated
[2018-01-30] MEDS: Doxycycline 100 MG CAPSULE PO (11:04)
[2018-01-30] MEDS: oxyCODONE 5 MG Tablet PO ×3 (12:59→22:02)
[2018-01-30] MEDS: Budesonide Respules 0.5 MG/2 ML AMPUL.NEB. INHALATION (18:30)
[2018-01-30] MEDS: Ipratropium/Albuterol Sulfate 3 ML AMPUL.NEB INHALATION (18:30)
[2018-01-30] MEDS: Sucralfate 1 GM Tablet PO (21:23)
[2018-01-31] MEDS: Dext 5%-0.45% NS 1,000 ML 150 ML IV ×2 (01:42→08:43)
[2018-01-31 03:14] VITALS: BP 128/80; PULSE 78; RESP 16; TEMP 36.8; O2SAT 97
[2018-01-31] MEDS: oxyCODONE 5 MG Tablet PO ×3 (03:21→13:06)
[2018-01-31 06:41] LABS: AST(SGOT) 13 U/L (15-37); Alanine Aminotransfer ALT/SGPT 12 U/L (13-56); Albumin, Serum 2.6 g/dL (3.2-5.0); Alkaline Phosphatase 61 U/L (45-117); Anion Gap 4 (5-15); BUN 8 mg/dL (7-18); BUN/Creat Ratio 10.1 RATIO (10-20); Bilirubin, Direct < 0.05 mg/dL (0.00-0.30); Chloride 109 mmol/L (98-107); Creatinine, Serum 0.79 mg/dL (0.55-1.02); EST Glomerular Filtration Rate 79 mL/min (>60); Est Glom Filt Rate - Afr Amer 96 mL/min (>60); Estimated Creatinine Clearance 84.96 ml/min; Globulin 3.9 g/dL (2.2-4.2); Glucose 100 mg/dL (74-106); Potassium 4.3 mmol/L (3.5-5.1); Protein, Total 6.5 g/dL (6.4-8.2); Sodium Level 143 mmol/L (136-145)
[2018-01-31] MEDS: Sucralfate 1 GM Tablet PO ×2 (06:43→11:39)
[2018-01-31 07:10] VITALS: PULSE 69; RESP 15
[2018-01-31] MEDS: Budesonide Respules 0.5 MG/2 ML AMPUL.NEB. INHALATION (07:18)
[2018-01-31] MEDS: Ipratropium/Albuterol Sulfate 3 ML AMPUL.NEB INHALATION (07:18)
[2018-01-31 08:46] VITALS: BP 113/70; PULSE 81; RESP 18; TEMP 37.9; O2SAT 93
[2018-01-31] MEDS: Enoxaparin 40 MG/0.4 ML Syringe SC (08:52)
--- NOTE | 2018-01-31 10:10 | PCM.PN.HOSP ---
Patient Problems: Active and Suspected Problems Acute pancreatitis (Acute) Acute gastritis (Acute) Subjective: Tolerating diet but still with some abdominal discomfort after she eats but overall much and improved. Vitals/I&O's: Vital Signs Temp Pulse Resp BP Pulse Ox 37.9 C H 81 18 113/70 93 01/31/18 08:46 01/31/18 08:46 01/31/18 08:46 01/31/18 08:46 01/31/18 08:46 Oxygen Delivery Method Room Air Weight: 123.831 kg Body Mass Index (BMI) 39.2 Intake and Output for Last 24 Hours 01/29/18 01/30/18 01/31/18 23:59 23:59 23:59 Intake Total 3924 / 3924 3873 / 3873 2427 / 2427 Balance 3924 / 3924 3873 / 3873 2427 / 2427 General: Alert, Cooperative, No apparent distress HEENT: Atraumatic, Normocephalic Oral: Moist Mucosa, - - Poor dentition Neck: No Nodes, Thyroid Normal Size and Texture Lungs: Clear to auscultation, Normal air movement, No rhonchi, No wheeze Cardiovascular: Regular rate, Regular Rhythm, Normal S1, Normal S2, No murmurs Abdomen: Bowel Sounds Present, Soft, Non-Distended, No Hepato-splenomegaly, - - Some mild epigastric discomfort Extremities: No edema, No Calf Tenderness Skin: No rashes, No breakdown Laboratory Results 01/31/18 05:40: Sodium 143, Potassium 4.3, Chloride 109 H, Carbon Dioxide 30.0, Anion Gap 4 L, BUN 8, Creatinine 0.79, Estim Creat Clear Calc 84.96, Est GFR (MDRD) Af Amer 96, Est GFR (MDRD) Non-Af 79, BUN/Creatinine Ratio 10.1, Glucose 100, Calcium 8.0 L, Total Bilirubin 0.10 L, Direct Bilirubin < 0.05, AST 13 L, ALT 12 L, Alkaline Phosphatase 61, Total Protein 6.5, Albumin 2.6 L, Globulin 3.9 Current Medications Acetaminophen (Tylenol) 650 mg PO Q6H PRN PRN PRN Reason: Mild Pain (scale 0-3)/T>100.7 Al Hydroxide/Mg Hydroxide (Mylanta Ii) 30 ml PO Q6H PRN PRN PRN Reason: Gastric Burning Last Admin: 01/29/18 18:36 Dose: 30 ml Albuterol Sulfate (Ventolin Aerosols) 2.5 mg INHALATION Q2H PRN PRN PRN Reason: DYSPNEA/WHEEZING/SOB Albuterol/Ipratropium (Duoneb) 3 ml INHALATION Q6HWA.RT [facility] Last Admin: 01/31/18 07:18 Dose: 3 ml Budesonide (Pulmicort Aerosol) 0.5 mg INHALATION BID.RT [facility] Last Admin: 01/31/18 07:18 Dose: 0.5 mg Docusate Sodium (Colace) 200 mg PO BID PRN PRN PRN Reason: Constipation Enoxaparin Sodium (Lovenox) 40 mg SC DAILY@1000 [facility] Last Admin: 01/31/18 08:52 Dose: 40 mg Dextrose/Sodium Chloride () 1,000 mls @ 150 mls/hr IV .Q6H40M [facility] Last Admin: 01/31/18 08:43 Dose: 150 mls/hr Pantoprazole Sodium 40 mg/ (Sodium Chloride) 110 mls @ 330 mls/hr IV Q12 [facility] Last Admin: 01/31/18 08:51 Dose: 330 mls/hr Magnesium Hydroxide (Milk Of Magnesia) 30 ml PO DAILY PRN PRN PRN Reason: Constipation Morphine Sulfate () 2 - 4 mg IV Q3H PRN PRN PRN Reason: Severe Pain (pain scale 6-10) Last Admin: 01/30/18 02:45 Dose: 2 mg Morphine Sulfate () 2 - 4 mg IV Q3H PRN PRN PRN Reason: Severe Pain (pain scale 6-10) Last Admin: 01/30/18 08:12 Dose: 2 mg Nicotine (Nicoderm Cq (Pbkc)) 21 mg TRANSDERM. DAILY [facility] Last Admin: 01/31/18 08:52 Dose: 21 mg Ondansetron HCl (Zofran) 4 mg IV Q8H PRN PRN PRN Reason: Nausea Last Admin: 01/28/18 19:52 Dose: 4 mg Oxycodone HCl (Oxyir) 5 mg PO Q4H PRN PRN PRN Reason: Moderate Pain (pain scale 4-5) Last Admin: 01/31/18 08:51 Dose: 5 mg Sodium Chloride () 5 - 30 ml IV UD PRN PRN Reason: SALINE FLUSH Sucralfate (Carafate) 1 gm PO 1HR_ACHS [facility] Last Admin: 01/31/18 06:43 Dose: 1 gm Zolpidem Tartrate (Ambien (Generic)) 5 mg PO QHS PRN PRN PRN Reason: INSOMNIA Medical Necessity - Tobacco Use Smoking Status: Current every day smoker Assessment/Plan Active and Suspected Problems Acute pancreatitis (Acute) Acute gastritis (Acute) 1. Acute pancreatitis Weekly improving. Lipase was down to 3095 from 5402 on the . No subsequent lipase levels have been checked but patient overall is feeling better. Noted mild intrahepatic bile duct distention and a markedly distended, bile duct with some intraluminal echogenic material. Outpt MRCP, and then depending on results, possibly an ERCP DW Dr. Culver, no urgency for an ERCP in the absence of stones and normal LFTs 2. PUD: on PPI and carafate pt was taking 8-12 Ibuprofen/day. advised to stop completely, for the time being. follow up EGD w Dr. Holcomb in 8 weeks 3. Gastritis: as above for PUD 4. Lung nodule 11mm nodule v infiltrate follow up CT in 3 months 5. Left adrenal incidentaloma follow up CT in 6-12 months.
--- NOTE | 2018-01-31 10:26 | PN_ITS ---
Patient Problems: Active and Suspected Problems Acute pancreatitis (Acute) Acute gastritis (Acute) Subjective: Tolerating diet but still with some abdominal discomfort after she eats but overall much and improved. Vitals/I&O's: Vital Signs Temp Pulse Resp BP Pulse Ox 37.9 C H 81 18 113/70 93 01/31/18 08:46 01/31/18 08:46 01/31/18 08:46 01/31/18 08:46 01/31/18 08:46 Oxygen Delivery Method Room Air Weight: 123.831 kg Body Mass Index (BMI) 39.2 Intake and Output for Last 24 Hours 01/29/18 01/30/18 01/31/18 23:59 23:59 23:59 Intake Total 3924 / 3924 3873 / 3873 2427 / 2427 Balance 3924 / 3924 3873 / 3873 2427 / 2427 General: Alert, Cooperative, No apparent distress HEENT: Atraumatic, Normocephalic Oral: Moist Mucosa, - - Poor dentition Neck: No Nodes, Thyroid Normal Size and Texture Lungs: Clear to auscultation, Normal air movement, No rhonchi, No wheeze Cardiovascular: Regular rate, Regular Rhythm, Normal S1, Normal S2, No murmurs Abdomen: Bowel Sounds Present, Soft, Non-Distended, No Hepato-splenomegaly, - - Some mild epigastric discomfort Extremities: No edema, No Calf Tenderness Skin: No rashes, No breakdown Laboratory Results 01/31/18 05:40: Sodium 143, Potassium 4.3, Chloride 109 H, Carbon Dioxide 30.0, Anion Gap 4 L, BUN 8, Creatinine 0.79, Estim Creat Clear Calc 84.96, Est GFR ( MDRD) Af Amer 96, Est GFR (MDRD) Non-Af 79, BUN/Creatinine Ratio 10.1, Glucose 100, Calcium 8.0 L, Total Bilirubin 0.10 L, Direct Bilirubin < 0.05, AST 13 L, ALT 12 L, Alkaline Phosphatase 61, Total Protein 6.5, Albumin 2.6 L, Globulin 3.9 Current Medications Acetaminophen (Tylenol) 650 mg PO Q6H PRN PRN PRN Reason: Mild Pain (scale 0-3)/T>100.7 Al Hydroxide/Mg Hydroxide (Mylanta Ii) 30 ml PO Q6H PRN PRN PRN Reason: Gastric Burning Last Admin: 01/29/18 18:36 Dose: 30 ml Albuterol Sulfate (Ventolin Aerosols) 2.5 mg INHALATION Q2H PRN PRN PRN Reason: DYSPNEA/WHEEZING/SOB Albuterol/Ipratropium (Duoneb) 3 ml INHALATION Q6HWA.RT [facility] Last Admin: 01/31/18 07:18 Dose: 3 ml Budesonide (Pulmicort Aerosol) 0.5 mg INHALATION BID.RT [facility] Last Admin: 01/31/18 07:18 Dose: 0.5 mg Docusate Sodium (Colace) 200 mg PO BID PRN PRN PRN Reason: Constipation Enoxaparin Sodium (Lovenox) 40 mg SC DAILY@1000 [facility] Last Admin: 01/31/18 08:52 Dose: 40 mg Dextrose/Sodium Chloride () 1,000 mls @ 150 mls/hr IV .Q6H40M [facility] Last Admin: 01/31/18 08:43 Dose: 150 mls/hr Pantoprazole Sodium 40 mg/ (Sodium Chloride) 110 mls @ 330 mls/hr IV Q12 [facility] Last Admin: 01/31/18 08:51 Dose: 330 mls/hr Magnesium Hydroxide (Milk Of Magnesia) 30 ml PO DAILY PRN PRN PRN Reason: Constipation Morphine Sulfate () 2 - 4 mg IV Q3H PRN PRN PRN Reason: Severe Pain (pain scale 6-10) Last Admin: 01/30/18 02:45 Dose: 2 mg Morphine Sulfate () 2 - 4 mg IV Q3H PRN PRN PRN Reason: Severe Pain (pain scale 6-10) Last Admin: 01/30/18 08:12 Dose: 2 mg Nicotine (Nicoderm Cq (Pbkc)) 21 mg TRANSDERM. DAILY [facility] Last Admin: 01/31/18 08:52 Dose: 21 mg Ondansetron HCl (Zofran) 4 mg IV Q8H PRN PRN PRN Reason: Nausea Last Admin: 01/28/18 19:52 Dose: 4 mg Oxycodone HCl (Oxyir) 5 mg PO Q4H PRN PRN PRN Reason: Moderate Pain (pain scale 4-5) Last Admin: 01/31/18 08:51 Dose: 5 mg Sodium Chloride () 5 - 30 ml IV UD PRN PRN Reason: SALINE FLUSH Sucralfate (Carafate) 1 gm PO 1HR_ACHS [facility] Last Admin: 01/31/18 06:43 Dose: 1 gm Zolpidem Tartrate (Ambien (Generic)) 5 mg PO QHS PRN PRN PRN Reason: INSOMNIA Medical Necessity - Tobacco Use Smoking Status: Current every day smoker Assessment/Plan Active and Suspected Problems Acute pancreatitis (Acute) Acute gastritis (Acute) 1. Acute pancreatitis * Weekly improving. Lipase was down to 3095 from 5402 on the . No subsequent lipase levels have been checked but patient overall is feeling better. * Noted mild intrahepatic bile duct distention and a markedly distended, bile duct with some intraluminal echogenic material. * Outpt MRCP, and then depending on results, possibly an ERCP * DW Dr. Culver, no urgency for an ERCP in the absence of stones and normal LFTs 2. PUD: * on PPI and carafate * pt was taking 8-12 Ibuprofen/day. advised to stop completely, for the time being. * follow up EGD w Dr. Holcomb in 8 weeks 3. Gastritis: * as above for PUD 4. Lung nodule * 11mm * nodule v infiltrate * follow up CT in 3 months 5. Left adrenal incidentaloma * follow up CT in 6-12 months.
--- NOTE | 2018-01-31 10:34 | PCM.DC ---
- Discharge Diagnoses Current Active Problems: Current Active and Chronic Problems Acute pancreatitis (Acute) Acute gastritis (Acute) Tobacco dependence (Chronic) BMI 39.0-39.9,adult (Chronic) You will use the following diet at home:: Other - bland, advance as tolerated. Your food should be the consistency of: Regular Your liquids should be the consistency of: Regular/Thin Call your doctor if you observe: Fever of 101 or Higher, Shortness of breath, - - blood in stool. dark, tarry stools. Additional Instructions: Do not take ibuprofen, nor naprosyn Allergies/Adverse Reactions: Allergies Penicillins Allergy (Verified 01/28/18 08:05) Anaphylaxis Sulfa (Sulfonamide Antibiotics) Allergy (Verified 01/28/18 08:05) Unknown tetanus and diphtheria toxoids Allergy (Verified 01/28/18 08:05) Swelling Medications to take at Discharge Acetaminophen [Tylenol Tablet] 650 mg PO Q6H PRN PRN tablet 01/31/18 Albuterol Inhaler [Ventolin Hfa] 1 - 2 puff INHALATION Q4H PRN PRN #1 inhaler 01/31/18 Oxycodone [Oxyir] 5 mg PO Q6H PRN 3 Days #12 tablet 01/31/18 Pantoprazole Sodium [Protonix] 40 mg PO BID #60 tab 01/31/18 Sucralfate [Carafate] 1 gm PO 1HR_ACHS #30 tab 01/31/18 The following prescriptions were given: Albuterol Inhaler [Ventolin Hfa] 1 - 2 puff INHALATION Q4H PRN PRN #1 inhaler PRN Reason: Shortness Of Breath Sucralfate [Carafate] 1 gm PO 1HR_ACHS #30 tab Pantoprazole Sodium [Protonix] 40 mg PO BID #60 tab Oxycodone [Oxyir] 5 mg PO Q6H PRN 3 Days #12 tablet PRN Reason: Moderate Pain (pain scale 4-5) Primary Care Physician: Care Physician,No Primary [Primary Care Provider] - Please Follow Up With: Rashawn Holcomb MD When: 6-8 weeks Proposed Discharge Date: 01/31/18
--- NOTE | 2018-01-31 10:35 | PCM.PN.SRG ---
Patient Problems: Active and Suspected Problems Acute pancreatitis (Acute) Acute gastritis (Acute) Subjective: Patient evaluated resting comfortably in bed. She notes minimal epigastric discomfort. She notes this is much improved since admission. She denies nausea, vomiting. Dr. Holcomb performed an upper scope on 01/30/18 which demonstrated a large duodenal ulcer. She was placed on Carafate and PPI. - Physical Exam General: Alert, Oriented x3, Cooperative Abdomen: Soft, Hypoactive Bowel Sounds, Obese, Tender - slight tenderness epigastric region Vital Signs Temp Pulse Resp BP Pulse Ox 100.2 F H 81 18 113/70 93 01/31/18 08:46 01/31/18 08:46 01/31/18 08:46 01/31/18 08:46 01/31/18 08:46 Oxygen Delivery Method Room Air Weight: 273 lb 0.01 oz Body Mass Index (BMI) 39.2 Intake and Output for Last 24 Hours 01/29/18 01/30/18 01/31/18 23:59 23:59 23:59 Intake Total 3924 / 3924 3873 / 3873 2427 / 2427 Balance 3924 / 3924 3873 / 3873 2427 / 2427 Laboratory Tests Past 24 Hrs 01/31/18 05:40 Sodium 143 Potassium 4.3 Chloride 109 H Carbon Dioxide 30.0 Anion Gap 4 L BUN 8 Creatinine 0.79 Estim Creat Clear Calc 84.96 Est GFR (MDRD) Af Amer 96 Est GFR (MDRD) Non-Af 79 BUN/Creatinine Ratio 10.1 Glucose 100 Calcium 8.0 L Total Bilirubin 0.10 L Direct Bilirubin < 0.05 AST 13 L ALT 12 L Alkaline Phosphatase 61 Total Protein 6.5 Albumin 2.6 L Globulin 3.9 Medical Necessity - Tobacco Use Smoking Status: Current every day smoker Assessment/Plan Active and Suspected Problems Acute pancreatitis (Acute) Acute gastritis (Acute) I am following this patient in conjunction with Dr. Holcomb Impression: Epigastric pain. Large duodenal ulcer found on EGD. Acute pancreatitis. Discussed patient with Dr. Holcmob Labs reviewed Continue PPI and Carafate Follow-up for repeat EGD in 6-8 weeks Obtain MRCP at that time
[2018-01-31 10:36] VITALS: BP 142/73; PULSE 83; RESP 18; TEMP 37.7; O2SAT 94
--- NOTE | 2018-01-31 10:37 | PCM.DC.SUM ---
Discharge Date and Diagnosis - Problem List Patient Problems: Active and Suspected Problems Peptic ulcer disease (Acute) Acute pancreatitis (Acute) Acute gastritis (Acute) Date of Admission: 01/28/18 Date of Discharge: 01/31/18 - Primary Discharge Diagnosis Active and Suspected Problems Peptic ulcer disease (Acute) Acute pancreatitis (Acute) Acute gastritis (Acute) - Secondary Discharge Diagnosis Chronic Problems Tobacco dependence (Chronic) BMI 39.0-39.9,adult (Chronic) Hospital Course and Treatment Imaging Results: Clinical Impression(s) from Imaging Studies Abdomen/Pelvis CT 01/28/18 08:17 IMPRESSION: 1. Suspicious thickening of the antral pyloric region and possibly the duodenal bulb. Endoscopy will be very helpful for further evaluation. 2. Colonic diverticulosis, more along the sigmoid colon and without diverticulitis. 2. 0.3 x 1.7 x 2.2 cm solid mass in the left adrenal gland. 3. 11 mm pulmonary nodule versus infiltrate in the right lower lobe behind the left atrial chamber (series 2, image 1). 4. Subsegmental atelectasis in right posterior lung base with minimal focal groundglass infiltrate. Electronically Signed: Abhishek Arizmendi MD at 10:44 EDT , Service support , Gallbladder Ultrasound 01/28/18 15:11 IMPRESSION: Fatty liver and hepatomegaly with mild intrahepatic bile duct distention. Distended gallbladder without definite stones. Markedly distended common bile duct with some intraluminal echogenic material. Consider ERCP. Electronically Signed: Jose Alberto Garcia MD at 16:55 EDT , Service support , Operations: None Procedures: EGD Summary of Care Provided: The patient is a 57 year old F My with acute pancreatitis. CAT scan was unremarkable ultrasound showed mildly dilated intrahepatic ducts but also dilated common bile duct. No stones were needed noted. CAT scan also showed a pulmonary nodule as well incidental [place]. This shows some possible gastritis. Patient underwent an EGD that showed gastritis but also a duodenal ulcer. Patient noted taking ibuprofen approximately 8-12 tablets per day. Patient was started on Protonix as well as Carafate. Patient is currently tolerating diet and is having some discomfort but overall feels better. Patient will need follow-up with her primary care doctor in regards to having follow-up in regards to his scans for the nodules in her adrenal gland and lung. Patient also need follow-up with Dr. Holcomb regards to repeat EGD. At a later point patient will require an MRCP to evaluate the etiology of her pancreatitis but that will be on hold until patient has a repeat EGD. 1. Acute pancreatitis Weekly improving. Lipase was down to 3095 from 5402 on the . No subsequent lipase levels have been checked but patient overall is feeling better. Noted mild intrahepatic bile duct distention and a markedly distended, bile duct with some intraluminal echogenic material. Outpt MRCP, and then depending on results, possibly an ERCP DW Dr. Culver, no urgency for an ERCP in the absence of stones and normal LFTs 2. PUD: on PPI and carafate pt was taking 8-12 Ibuprofen/day. advised to stop completely, for the time being. follow up EGD w Dr. Holcomb in 8 weeks 3. Gastritis: as above for PUD 4. Lung nodule 11mm nodule v infiltrate follow up CT in 3 months 5. Left adrenal incidentaloma follow up CT in 6-12 months.[] Discharge Diet: No Restrictions Discharge Activity: Return to Normal Activity Call your doctor if you observe: Fever of 101 or Higher, Shortness of breath, - - blood in stool. dark, tarry stools. Home Medications: Medications to take at Discharge Acetaminophen [Tylenol Tablet] 650 mg PO Q6H PRN PRN tablet 01/31/18 Albuterol Inhaler [Ventolin Hfa] 1 - 2 puff INHALATION Q4H PRN PRN #1 inhaler 01/31/18 Oxycodone [Oxyir] 5 mg PO Q6H PRN 3 Days #12 tablet 01/31/18 Pantoprazole Sodium [Protonix] 40 mg PO BID #60 tab 01/31/18 Sucralfate [Carafate] 1 gm PO 1HR_ACHS #30 tab 01/31/18 Following Prescrptions Were Given to Patient: Albuterol Inhaler [Ventolin Hfa] 1 - 2 puff INHALATION Q4H PRN PRN #1 inhaler PRN Reason: Shortness Of Breath Sucralfate [Carafate] 1 gm PO 1HR_ACHS #30 tab Pantoprazole Sodium [Protonix] 40 mg PO BID #60 tab Oxycodone [Oxyir] 5 mg PO Q6H PRN 3 Days #12 tablet PRN Reason: Moderate Pain (pain scale 4-5) Primary Care Physician: Care Physician,No Primary [Primary Care Provider] - Please Follow Up With: Rashawn Holcomb MD When: 6-8 weeks Disposition: Home Minutes spent on discharge:: 35 Patient Condition:: Good Medical Necessity - Tobacco Use Smoking Status: Current every day smoker Meaningful Use Info Meaningful Use Diagnoses (Choose all that apply): None applicable Code Visit Inpatient E&M: 45624 Disch Hosp
--- NOTE | 2018-01-31 10:40 | DS.PCM_ITS ---
Discharge Date and Diagnosis - Problem List Patient Problems: Active and Suspected Problems Peptic ulcer disease (Acute) Acute pancreatitis (Acute) Acute gastritis (Acute) Date of Admission: 01/28/18 Date of Discharge: 01/31/18 - Primary Discharge Diagnosis Active and Suspected Problems Peptic ulcer disease (Acute) Acute pancreatitis (Acute) Acute gastritis (Acute) - Secondary Discharge Diagnosis Chronic Problems Tobacco dependence (Chronic) BMI 39.0-39.9,adult (Chronic) Hospital Course and Treatment Imaging Results: Clinical Impression(s) from Imaging Studies Abdomen/Pelvis CT 01/28/18 08:17 IMPRESSION: 1. Suspicious thickening of the antral pyloric region and possibly the duodenal bulb. Endoscopy will be very helpful for further evaluation. 2. Colonic diverticulosis, more along the sigmoid colon and without diverticulitis. 2. 0.3 x 1.7 x 2.2 cm solid mass in the left adrenal gland. 3. 11 mm pulmonary nodule versus infiltrate in the right lower lobe behind the left atrial chamber (series 2, image 1). 4. Subsegmental atelectasis in right posterior lung base with minimal focal groundglass infiltrate. Electronically Signed: Abhishek Arizmendi MD at 10:44 EDT , Service support , Gallbladder Ultrasound 01/28/18 15:11 IMPRESSION: Fatty liver and hepatomegaly with mild intrahepatic bile duct distention. Distended gallbladder without definite stones. Markedly distended common bile duct with some intraluminal echogenic material. Consider ERCP. Electronically Signed: Jose Alberto Garcia MD at 16:55 EDT , Service support , Operations: None Procedures: EGD Summary of Care Provided: The patient is a 57 year old F My with acute pancreatitis. CAT scan was unremarkable ultrasound showed mildly dilated intrahepatic ducts but also dilated common bile duct. No stones were needed noted. CAT scan also showed a pulmonary nodule as well incidental [place]. This shows some possible gastritis. Patient underwent an EGD that showed gastritis but also a duodenal ulcer. Patient noted taking ibuprofen approximately 8-12 tablets per day. Patient was started on Protonix as well as Carafate. Patient is currently tolerating diet and is having some discomfort but overall feels better. Patient will need follow-up with her primary care doctor in regards to having follow-up in regards to his scans for the nodules in her adrenal gland and lung. Patient also need follow-up with Dr. Holcomb regards to repeat EGD. At a later point patient will require an MRCP to evaluate the etiology of her pancreatitis but that will be on hold until patient has a repeat EGD. 1. Acute pancreatitis * Weekly improving. Lipase was down to 3095 from 5402 on the . No subsequent lipase levels have been checked but patient overall is feeling better. * Noted mild intrahepatic bile duct distention and a markedly distended, bile duct with some intraluminal echogenic material. * Outpt MRCP, and then depending on results, possibly an ERCP * DW Dr. Culver, no urgency for an ERCP in the absence of stones and normal LFTs 2. PUD: * on PPI and carafate * pt was taking 8-12 Ibuprofen/day. advised to stop completely, for the time being. * follow up EGD w Dr. Holcomb in 8 weeks 3. Gastritis: * as above for PUD 4. Lung nodule * 11mm * nodule v infiltrate * follow up CT in 3 months 5. Left adrenal incidentaloma * follow up CT in 6-12 months.[] Discharge Diet: No Restrictions Discharge Activity: Return to Normal Activity Call your doctor if you observe: Fever of 101 or Higher, Shortness of breath, - - blood in stool. dark, tarry stools. Home Medications: Medications to take at Discharge Acetaminophen [Tylenol Tablet] 650 mg PO Q6H PRN PRN tablet 01/31/18 Albuterol Inhaler [Ventolin Hfa] 1 - 2 puff INHALATION Q4H PRN PRN #1 inhaler Oxycodone [Oxyir] 5 mg PO Q6H PRN 3 Days #12 tablet 01/31/18 Pantoprazole Sodium [Protonix] 40 mg PO BID #60 tab 01/31/18 Sucralfate [Carafate] 1 gm PO 1HR_ACHS #30 tab 01/31/18 Following Prescrptions Were Given to Patient: Albuterol Inhaler [Ventolin Hfa] 1 - 2 puff INHALATION Q4H PRN PRN #1 inhaler PRN Reason: Shortness Of Breath Sucralfate [Carafate] 1 gm PO 1HR_ACHS #30 tab Pantoprazole Sodium [Protonix] 40 mg PO BID #60 tab Oxycodone [Oxyir] 5 mg PO Q6H PRN 3 Days #12 tablet PRN Reason: Moderate Pain (pain scale 4-5) Primary Care Physician: Care Physician,No Primary [Primary Care Provider] - Please Follow Up With: Rashawn Holcomb MD When: 6-8 weeks Disposition: Home Minutes spent on discharge:: 35 Patient Condition:: Good Medical Necessity - Tobacco Use Smoking Status: Current every day smoker Meaningful Use Info Meaningful Use Diagnoses (Choose all that apply): None applicable Code Visit Inpatient E&M: 20662 Disch Hosp
[2018-01-31 13:02] VITALS: BP 142/73; PULSE 83; RESP 18; TEMP 37.7; O2SAT 94
== END 2018-01-31 13:10 | disposition home or self-care (01) | DRG 204 ==
LOC: ED 08:33 → MS2 11:38 → MS3 01-29 14:20
PROVIDERS: Surgery; Admitting Provider Internal Medicine; Emergency Provider Emergency Medicine
PROC: 0DJD8ZZ Inspection of Lower Intestinal Tract, Via Natural or Artificial Opening Endoscopic (ICD-10-PCS; CPT 45378; principal; 2018-01-30 10:00)
DX: K85.90 Acute pancreatitis without necrosis or infection, unspecified (principal); J44.9 Chronic obstructive pulmonary disease, unspecified; K29.01 Acute gastritis with bleeding; K26.3 Acute duodenal ulcer without hemorrhage or perforation; E66.9 Obesity, unspecified; Z68.39 Body mass index [BMI] 39.0-39.9, adult; E27.8 Other specified disorders of adrenal gland; R91.1 Solitary pulmonary nodule; F17.200 Nicotine dependence, unspecified, uncomplicated; G25.81 Restless legs syndrome; M06.9 Rheumatoid arthritis, unspecified; F12.90 Cannabis use, unspecified, uncomplicated
CPT/HCPCS: 36415; 74177; 76705; 80048; 80053; 80076; 82274; 83690; 83735; 85025; 85027; 85610; 86850; 86900; 93005; 94640; 97802; 99284; 99406; J7030; Q9967; A4216; J2405; J7799

== ENCOUNTER → 2018-02-18 11:11 | Outpatient (CLI) | payer MEDICAID, SELFPAY ==
[2018-02-18 11:33] LABS: Absolute Lymphocyte Count 0.89 X10^3/ul (0.83-4.51); Absolute Neutrophil Count 5.8 X10^3/uL (2.0-7.7); Basophil# 0.04 X10^3/uL; Basophil% 0.5 % (0-1); Eosinophil# 0.16 X10^3/uL; Eosinophils% 2.1 % (0-5); Hematocrit 40.5 % (37-47); Hemoglobin 12.3 g/dl (12.0-15.0); Lymphocyte # 0.89 X10^3/ul (4.0); Lymphocyte % 11.9 % (19-41); Mean Corp Hgb Conc 30.4 g/gl (32-36); Mean Corpuscular Volume 85.6 fL (81-99); Mean Platelet Vol. 9.1 fl (6.2-12.0); Monocyte# 0.55 X10^3/uL; Monocyte% 7.4 % (0-10); Neutrophil # 5.82 X10^3/uL (2.7-7.7); Platelet Count 270 K/mm3 (150-450); RBC Distribution Width CV 14.6 % (11.6-14.6); RBC Distribution Width SD 46.3 fl (35.1-43.9); Red Blood Count 4.73 M/mm3 (4.2-5.4); White Blood Count 7.5 K/mm3 (4.4-11.0)
[2018-02-18 11:34] LABS: POSITIVE COUNT NO; POSITIVE DIFFERENTIAL NO; POSITIVE MORPHOLOGY NO
[2018-02-18 12:09] LABS: ALB/GLOB Ratio 0.7 RATIO (0.9-2.4); AST(SGOT) 12 U/L (15-37); Alanine Aminotransfer ALT/SGPT 13 U/L (13-56); Albumin, Serum 3.4 g/dL (3.2-5.0); Alkaline Phosphatase 91 U/L (45-117); Anion Gap 3 (5-15); BUN 14 mg/dL (7-18); BUN/Creat Ratio 14.5 RATIO (10-20); Calcium,Total 8.6 mg/dL (8.5-10.1); Chloride 107 mmol/L (98-107); Creatinine, Serum 0.96 mg/dL (0.55-1.02); EST Glomerular Filtration Rate 63 mL/min (>60); Est Glom Filt Rate - Afr Amer 77 mL/min (>60); Globulin 4.9 g/dL (2.2-4.2); Glucose 104 mg/dL (74-106); Potassium 4.6 mmol/L (3.5-5.1); Protein, Total 8.3 g/dL (6.4-8.2); Sodium Level 140 mmol/L (136-145)
== END ==
PROVIDERS: Family Provider Internal Medicine; PCP Internal Medicine; Visit Provider Internal Medicine
DX: K85.90 Acute pancreatitis without necrosis or infection, unspecified (principal)
CPT/HCPCS: 36415; 80053; 85025

== ENCOUNTER → 2018-04-23 08:33 | Outpatient (CLI) | payer MEDICAID, SELFPAY ==
--- NOTE | 2018-04-23 08:30 | MASS_PTH ---
PATIENT: DANIEL BURTON LOC: [facility] U#:[id number] AGE/SX: 64/F ROOM: RE04/23/[address]: Dr. Rashawn Holcomb MD : 1960 BED: DIS: SPEC #: [id number] RECD: 04/23/18 11:19 STATUS: JONATHON ELLEN #: [id number] KALEE: 04/23/18 08:[address]: Rashawn Holcomb DEPT: SURGICAL PATHOLOGY RECD BY: Carlota Adamson ENTERED: 04/25/18 11:03 SP TYPE: Mass OTHR DR: Dr. Chino Encinas MD Tissues: Shoulder, NOS Procedures: Surgery Specimen Level IV HEADER OPERATION: Excision of right shoulder subcutaneous mass PRE-OP DIAGNOSIS: Subcutaneous mass TISSUE SUBMITTED: Right shoulder subcutaneous mass MICROSCOPIC DIAGNOSIS Right shoulder subcutaneous mass, excision: Mature adipose tissue, consistent with lipoma. SJ:lucía 7/24/18 MICROSCOPIC DESCRIPTION Slides are reviewed. GROSS DESCRIPTION Received in fixative is one container labeled with the patient's name and designated right shoulder subcutaneous mass. The specimen consists of two pieces of yellow adipose tissue measuring in aggregate 7 x 6 x 4 cm. Sections reveal yellow adipose cut surfaces without area of hemorrhage, necrosis or cystic degeneration. [employer] sections are submitted in two cassettes. / SJ:lucía 04/25/18 TC:1 CPT: 75674
== END ==
PROVIDERS: Family Provider Internal Medicine; PCP Internal Medicine; Visit Provider Surgery
DX: R22.31 Localized swelling, mass and lump, right upper limb (principal)
CPT/HCPCS: 88305

== ENCOUNTER 2018-05-11 05:55 | Day surgery (SDC) | payer MEDICAID, SELFPAY ==
[2018-05-11 06:14] VITALS: BP 125/90; PULSE 82; RESP 16; TEMP 36.4; O2SAT 93; BMI 42.8
[2018-05-11 07:30] VITALS: BP 106/71; BP 125/90; PULSE 74; RESP 16; TEMP 36.4; O2SAT 97
--- NOTE | 2018-05-11 07:30 | PCM.OPRPT ---
Problem List (1) Anorectal hemorrhage Status: Acute (2) Duodenal ulcer Status: Acute Report of Operation Date of Procedure: 05/11/18 Pre-Operative Diagnosis: K62.5 rectal bleeding. K26.9 duodenal ulcer Post-Operative Diagnosis: Same Surgery/Procedure Performed:: 23345 esophagogastroduodenoscopy. 46148 colonoscopy Type of Anesthesia:: MAC Description of Procedure: Patient was brought into the endoscopy suite. Back of her throat was sprayed with Cetacaine spray. Bite-block was placed. He was placed in the left lateral decubitus position. Rated anesthesia was given. Scope was inserted into the back of the oropharynx and directed down through the esophagus into the stomach and into the duodenum without difficulty. Operative findings: 1. Duodenum: Area with previous ulcer was identified is completely healed duodenum looks good there is no signs of ulcers is no signs of mass lesions there is no signs of any recent bleeding. 2. Stomach: Normal appearance no mass lesions no ulcerations. 3. Esophagus: Normal appearance no mass lesions normal ZE line no signs of esophagitis no signs of ulcers. Colonoscope was inserted into the rectum directed to the rectum, sigmoid colon, descending colon, transverse colon, ascending colon, to the cecum. Operative findings: 1. Cecum: Normal appearance no mass lesions normal ileocecal valve. 2. Ascending colon: Normal appearance no mass lesions. 3. Transverse colon: Normal appearance no mass lesions. 4. Descending colon: Normal appearance no mass lesions. #5 sigmoid colon: Normal appearance no mass lesions. 6. Rectum: Normal appearance retroflexion did so some irritation in the perianal area and internal hemorrhoids were identified. I would say this is the most obvious source of her rectal bleeding. This could be treated conservatively with Anusol HC suppositories. She will need another colonoscopy in 10 years. - Admit VTE Documentation VTE Present on Admission: No VTE Mechan Device Prophylaxis: None VTE Pharm Prophylaxis ordered?: No Reason prophylaxis not ordered:: Treatment Not Indicated
[2018-05-11 07:35] VITALS: BP 125/90; BP 131/92; PULSE 77; RESP 16; O2SAT 96
[2018-05-11 07:40] VITALS: BP 111/82; BP 125/90; PULSE 69; RESP 16; O2SAT 95
[2018-05-11 07:45] VITALS: BP 124/74; BP 125/90; PULSE 65; RESP 16; TEMP 36.3; O2SAT 98
[2018-05-11 08:06] VITALS: BP 125/90
== END 2018-05-11 08:07 | disposition home or self-care (01) ==
LOC: EN 05:56 → AC 05:58
PROVIDERS: Family Provider Internal Medicine; PCP Internal Medicine; Visit Provider Surgery
PROC: 0DJD8ZZ Inspection of Lower Intestinal Tract, Via Natural or Artificial Opening Endoscopic (ICD-10-PCS; CPT 45378; principal; 2018-05-11 06:55)
DX: K26.9 Duodenal ulcer, unspecified as acute or chronic, without hemorrhage or perforation (principal); K64.8 Other hemorrhoids; K62.5 Hemorrhage of anus and rectum; J44.9 Chronic obstructive pulmonary disease, unspecified; F41.9 Anxiety disorder, unspecified; F32.9 Major depressive disorder, single episode, unspecified; E66.01 Morbid (severe) obesity due to excess calories; Z68.41 Body mass index [BMI] 40.0-44.9, adult; Z87.891 Personal history of nicotine dependence; Z79.51 Long term (current) use of inhaled steroids; Z79.899 Other long term (current) drug therapy
CPT/HCPCS: 43235; 45378; J7120

== ENCOUNTER → 2019-08-03 | Outpatient (CLI) | payer MEDICAID, SELFPAY ==
[2019-07-24 14:07] VITALS: BMI 45.8
--- NOTE | 2019-08-03 12:13 | BI_ITS ---
MAMMOGRAPHY - BILATERAL SCREENING REASON FOR EXAM: Female, 58 years old. Routine annual screening examination. PERTINENT HISTORY: Non-contributory. TECHNIQUE: Digital bilateral breast kirill (3D mammographic acquisition) in the CC and MLO projections. 2-D mediolateral oblique (MLO) and craniocaudad (CC) views of both breasts were obtained. CAD: Full Field Digital Mammography with Computer Added Detection was performed. COMPARISON: Comparison is made with prior examination dated October 18, 2012. FINDINGS: Breast Composition: The breasts are heterogeneously dense, which may obscure small masses. 1 significant, there is asymmetry of breast tissue with more breast tissue is seen in the upper-outer quadrant of the left breast as compared to the right side. A tissue clip marker is once again seen in the upper outer aspect of the left breast. No other significant abnormalities are identified. There has been no significant change since the prior study. BI/SCREEN MAMM (CAD) W/KIRILL BILAT IMPRESSION: Stable bilateral screening mammogram. Yearly follow-up mammogram recommended. (A) ASSESSMENT CATEGORY: BIRADS Category 2: Benign. A letter regarding these results will be sent to the patient by the facility within 30 days. Approximately 10% of breast cancers are not detected by mammography. A normal mammogram should not delay biopsy of a clinically suspicious abnormality. [id number] Electronically Signed: Isauro Sterling, at 14:58 EDT , Service support ,
== END | disposition home or self-care (01) ==
LOC: OPBI 12:11
PROVIDERS: Family Provider Internal Medicine; PCP Internal Medicine; Referring Provider Internal Medicine; Visit Provider Internal Medicine
DX: Z12.31 Encounter for screening mammogram for malignant neoplasm of breast (principal)
CPT/HCPCS: 77063; 77067

== ENCOUNTER → 2019-08-15 | Outpatient (CLI) | payer MEDICAID, SELFPAY ==
[2019-07-24 14:07] VITALS: BMI 45.8
[2019-08-15 13:03] VITALS: BMI 46.7
--- NOTE | 2019-08-15 13:38 | CT_ITS ---
STUDY: LOW DOSE CT LUNG CANCER SCREENING REASON FOR EXAM: Female, 58 years old. Patient has a history of 40+ years of smoking half a pack per day. RADIATION DOSAGE (If Supplied By Facility): CTDIvol = ( 4.02 ) mGy, DLP = ( 132.90 ) mGycm TECHNIQUE: No contrast was administered. Low dose technique was utilized (average mAS-38 and kVp 120). 1.25 mm axial source images with a slice interval of 1.25-mm were reconstructed in lung windows. 2.5 mm axial source images with a slice interval of 2.5-mm were reconstructed in lung windows. 5.0 mm axial source images with a slice interval of 5.0-mm were reconstructed in soft tissue windows. Nodule measured using lung windows on PACS and/or independent workstation with automated measurement of minimum and maximum diameter. Nodule measurement reported as average diameter rounded to the nearest whole number. Growth is defined as an increase ins size of greater than 1.5 mm. COMPARISON: None. NODULES: There is a 9.2 mm x 9.4 mm well-defined rounded nodular density with faint calcifications in the anterior aspect of the left upper lobe. This may present a partially calcified granuloma. Emphysema: Minimal degree of emphysematous changes. Increased markings at the lung bases suggestive of scarring. Aorta: Atherosclerotic calcification of the aortic arch. Coronary arteries: Coronary artery calcification. Mediastinal nodes: Small needs tunnel lymph nodes. Other chest and abdominal findings: Small hiatal hernia. CT/Low Dose CT Lung Screening IMPRESSION: Lung-RADS category 3 - Continue screening with LDCT in 6 months. IMPORTANT NOTES FOR USE: ACR Lung-RADS Version 1.0 Assessment Categories Release Date: January 29, 2014 Category: Coded 0-4 bases on nodule(s) with highest degree of suspicion. Negative screen is defined as categories 1 and 2; a positive screen is defined as categories 3 and 4. Category 3 and 4A nodules that are unchanged on interval CT should be coded as category 2, and individuals returned to screening in 12 months. Category 4X: Category 3 or 4 nodules with additional imaging findings that increase the suspicion of lung cancer, such as spiculation, GGN that doubles in size in 1 year, enlarged lymph notes, etc. Category Modifiers: S (significant finding unrelated to lung cancer) and C (prior history of treated lung cancer) may be added to the 0-4 Lung-RADS Electronically Signed: Isauro Sterling, at 14:34 EST , Service support ,
== END | disposition home or self-care (01) ==
LOC: CT 13:37
PROVIDERS: Family Provider Internal Medicine; PCP Internal Medicine; Referring Provider Internal Medicine; Visit Provider Internal Medicine
DX: Z87.891 Personal history of nicotine dependence (principal); Z12.2 Encounter for screening for malignant neoplasm of respiratory organs
CPT/HCPCS: G0297

== ENCOUNTER → 2019-08-22 07:37 | Outpatient (CLI) | payer MEDICAID, SELFPAY ==
[2019-08-16 08:19] VITALS: BMI 46.6
[2019-08-22 08:02] LABS: Absolute Lymphocyte Count 0.58 X10^3/uL (0.83-4.51); Absolute Neutrophil Count 7.1 X10^3/uL (2.0-7.7); Basophil# 0.06 X10^3/uL; Basophil% 0.7 % (0-1); Eosinophil# 0.07 X10^3/uL; Eosinophils% 0.8 % (0-5); Hematocrit 48.4 % (37-47); Hemoglobin 12.9 g/dL (12.0-15.0); Lymphocyte # 0.58 X10^3/ul (4.0); Lymphocyte % 6.8 % (19-41); Mean Corp Hgb Conc 26.7 g/dL (32-36); Mean Corpuscular Volume 86.4 fL (81-99); Mean Platelet Vol. 9.5 fl (6.2-12.0); Monocyte# 0.73 X10^3/uL; Monocyte% 8.5 % (0-10); NRBC Flagged by Analyzer 0.5 % (0-5); Neutrophil # 7.07 X10^3/uL (2.7-7.7); Neutrophil % 82.5 % (47-70); POSITIVE DIFFERENTIAL YES; Platelet Count 258 K/mm3 (150-450); RBC Distribution Width CV 18.6 % (11.6-14.6); RBC Distribution Width SD 55.9 fl (35.1-43.9); White Blood Count 8.6 K/mm3 (4.4-11.0)
[2019-08-22 08:04] LABS: Differential Indicated SCAN CRITERIA MET
[2019-08-22 08:08] LABS: Prothrombin Time (Protime)PT. 13.4 SECONDS (11.7-14.9)
[2019-08-22 08:19] LABS: Hemoglobin A1c 6.3 % (4.2-6.3)
[2019-08-22 08:21] LABS: ALB/GLOB Ratio 0.6 RATIO (0.9-2.4); AST(SGOT) 15 U/L (15-37); Alanine Aminotransfer ALT/SGPT 15 U/L (13-56); Albumin, Serum 2.9 g/dL (3.2-5.0); Alkaline Phosphatase 78 U/L (45-117); Anion Gap 4 (5-15); BUN 23 mg/dL (7-18); BUN/Creat Ratio 20.9 RATIO (10-20); Calcium,Total 7.9 mg/dL (8.5-10.1); Chloride 104 mmol/L (98-107); Cholesterol 142 mg/dL (200); EST Glomerular Filtration Rate 54 mL/min (>60); Est Glom Filt Rate - Afr Amer 65 mL/min (>60); Globulin 4.8 g/dL (2.2-4.2); Glucose 118 mg/dL (74-106); High Density Lipoprotein 37 mg/dL; Potassium 4.8 mmol/L (3.5-5.1); Protein, Total 7.7 g/dL (6.4-8.2); Sodium Level 140 mmol/L (136-145); Triglycerides 149 mg/dL; Very Low Density Lipoprotein 30 mg/dL (5-40)
--- NOTE | 2019-08-22 08:25 | NURSING ---
Pt's SPO2 on room air was between 74-79%. Pt took deep breaths able to bring SPO2 to 84%. Immediately placed on 2L NC and SPO2 was up to 88%. KAITLYNN Frank then placed pt on 4L NC and SPO2 at 99%. Pt reports feeling more short of breath than normal. Denies feeling dizzy. Pt reports having multiple episodes of randomly falling asleep for the past few months.
[2019-08-22 08:31] VITALS: BP 144/84; PULSE 75; RESP 24; TEMP 37.1; O2SAT 98; BMI 46.3
--- NOTE | 2019-08-22 09:03 | NURSING ---
After initially checking in patient, KAITLYNN Frank called Dr. Hernandes's office. Dr. Hernandes wants the patient to go to ER and not have the biopsy done. KAITLYNN Frank called report to ED, told patient and patient's that they will be going to ED for further evaluation. Dr. Sterling, CT and XRay teams made aware that biopsy is cancelled.
== END ==
PROVIDERS: Family Provider Internal Medicine; PCP Internal Medicine; Referring Provider Internal Medicine Critical Care Medicine; Visit Provider Internal Medicine Critical Care Medicine
DX: R91.1 Solitary pulmonary nodule (principal); J44.9 Chronic obstructive pulmonary disease, unspecified; K58.9 Irritable bowel syndrome, unspecified; E66.01 Morbid (severe) obesity due to excess calories; Z68.42 Body mass index [BMI] 45.0-49.9, adult
CPT/HCPCS: 36415; 80053; 80061; 83036; 85025; 85610

== ENCOUNTER 2019-08-22 08:58 | Inpatient (IN) | payer MEDICAID, SELFPAY ==
[2019-08-22] VITALS (15 sets, daily range): BP systolic 104–156; BP diastolic 73–96; PULSE 69–91; RESP 14–24; TEMP 36.6–37.3; O2SAT 85–100; BMI 46.3; BMI 45.4; BMI 46.4
--- NOTE | 2019-08-22 09:06 | RAD_ITS ---
STUDY: X-RAY CHEST REASON FOR EXAM: Female, 58 years old. Shortness of breath, hypoxia TECHNIQUE: Single AP portable view of the chest. COMPARISON: 02/23/2005 FINDINGS: Poor inspiration with some bibasilar atelectasis. There is no demonstrated pleural abnormality. There is moderate cardiac enlargement. Normal mediastinum and dipika. Normal visualized pulmonary arteries. Normal visualized aortic arch and descending thoracic aorta. Normal visualized thoracic spine. Normal visualized ribs, clavicles, and shoulders. There is no demonstrated abnormality of the visualized soft tissue structures of the upper abdomen. RAD/Chest 1 View (Portable) IMPRESSION: Poor inspiration with some bibasilar atelectasis. Electronically Signed: Osmany Trinidad MD at 9:57 EST Tel , Service support ,
--- NOTE | 2019-08-22 09:06 | EKG12_ITS ---
Test Reason : SOB Blood Pressure : / mmHG Vent. Rate : 071 BPM Atrial Rate : 071 BPM P-R Int : 162 ms QRS Dur : 082 ms QT Int : 370 ms P-R-T Axes : 058 052 053 degrees QTc Int : 402 ms Normal sinus rhythm Possible Left atrial enlargement Borderline ECG Confirmed by AYDEE MAURICE, TALAT ([id number]), rewrite editor JESSICA SORIANO ([id number]) on 08/25/2019 12:17:46 PM Referred By: Memo Garner Confirmed By:JJ BAJWA MD
[2019-08-22] MEDS: MethylPREDNISolone 125 MG/2 ML Vial 60 MG IV (09:22)
[2019-08-22] MEDS: Ipratropium/Albuterol Sulfate 3 ML AMPUL.NEB INHALATION ×4 (09:24→23:24)
[2019-08-22] MEDS: Albuterol 2.5 MG/3 ML VIAL.NEB. INHALATION (09:24)
[2019-08-22 09:40] LABS: Absolute Neutrophil Count 6.4 X10^3/uL (2.0-7.7); Basophil# 0.05 X10^3/uL; Basophil% 0.6 % (0-1); Differential Indicated SCAN CRITERIA MET; Eosinophil# 0.08 X10^3/uL; Hematocrit 48.4 % (37-47); Hemoglobin 12.9 g/dL (12.0-15.0); Lymphocyte % 7.7 % (19-41); Mean Corp Hgb Conc 26.7 g/dL (32-36); Mean Corpuscular Hgb 22.9 pg (27.0-32.0); Mean Platelet Vol. 8.8 fl (6.2-12.0); Monocyte# 0.63 X10^3/uL; NRBC Flagged by Analyzer 0.5 % (0-5); Neutrophil # 6.42 X10^3/uL (2.7-7.7); Neutrophil % 81.9 % (47-70); POSITIVE DIFFERENTIAL YES; Platelet Count 237 K/mm3 (150-450); RBC Distribution Width SD 54.9 fl (35.1-43.9); Red Blood Count 5.63 M/mm3 (4.2-5.4); White Blood Count 7.8 K/mm3 (4.4-11.0)
[2019-08-22 09:46] LABS: Anion Gap 3 (5-15); BUN 23 mg/dL (7-18); BUN/Creat Ratio 21.5 RATIO (10-20); Calcium,Total 7.8 mg/dL (8.5-10.1); Chloride 104 mmol/L (98-107); Creatinine, Serum 1.07 mg/dL (0.55-1.02); EST Glomerular Filtration Rate 56 mL/min (>60); Est Glom Filt Rate - Afr Amer 68 mL/min (>60); Estimated Creatinine Clearance 61.97 ml/min; Glucose 104 mg/dL (74-106); Sodium Level 142 mmol/L (136-145)
[2019-08-22 09:57] LABS: D-Dimer Quantitative (DVT/PE) 1.42 FEU/ug/m (0.27-0.49)
--- NOTE | 2019-08-22 09:58 | CT_ITS ---
STUDY: CTA CHEST REASON FOR EXAM: Female, 58 years old. Hypoxia, rheumatoid arthritis, smoking RADIATION DOSAGE (If Supplied By Facility): CTDIvol = ( 19.79 ) mGy, DLP = ( 516.40 ) mGycm TECHNIQUE: The examination was performed with the intravenous administration of IV Isovue 370 100mL. Post-processing of the angiographic images was performed, with multiplanar reformation and 3D reconstruction. Individualized dose optimization techniques were used for this CT. COMPARISON: 08/15/2019 FINDINGS: Normal enhancement of the main pulmonary artery and right and left pulmonary arteries. Normal enhancement of the bilateral peripheral pulmonary arteries. There is no demonstrated pulmonary embolism. Normal thoracic aorta and visualized great vessels. There is no demonstrated aortic dissection. Normal heart and pericardium. Normal mediastinum. Normal hilar regions. Normal visualized trachea and bronchi. The lungs are well expanded. Mild emphysematous changes with some subpleural blebs. 1 cm noncalcified nodule in the lingula of the left lung on image 151 and correlation with PET CT scan is recommended. Normal pleura. Normal chest wall structures. Normal osseous structures. Normal visualized upper abdomen. CT/CTA Chest W/WO Contrast IMPRESSION: 1. Normal CTA chest examination, without a demonstrated pulmonary embolism or arterial dissection. 2. Mild emphysema with a 1 cm noncalcified lingular nodule for which PET CT scan is recommended. Electronically Signed: Osmany Trinidad MD at 10:59 EST Tel , Service support ,
[2019-08-22 10:10] LABS: BNP,B-Type NATRIURETIC PEPTIDE 533.2 pg/mL (0-100)
--- NOTE | 2019-08-22 11:29 | NURSING ---
MED SURG COPD EXAM, ACUTE HYPOXIC RESP FAILURE МАРИНА
--- NOTE | 2019-08-22 11:36 | ED.DCSUM_ITS ---
- ER Visit Summary Date of Service: 08/22/19 Chief Complaint: [Shortness of breath] History of Present Illness: The patient is a 58 F [the emergency department with increasing shortness of breath over the last 2 months. Little bit of a cough and at times bringing up some light-colored green to brown sputum. Patient is noticed some swelling in her legs over last 3 months. Patient denies any chest pain. She does complain of dyspnea on exertion. Patient complains of generalized fatigue. She was in outpatient radiology and was about to have a lung biopsy when it was noted that her oxygen sat was in the 70s and she was referred to the emergency department. Patient does not wear home O2. Patient d oes have history of asthma as well as COPD. Patient has history of depression, IBS, and pancreatitis. Patient does see a portal administrator Dr. Hernandes. Denies recent travel or surgery. She has no history of PE or DVT.] Physical Examination: [HEENT-PERRLA, EOMI. Cranial nerves II through XII grossly intact. TMs clear. Mucous membranes moist. No adenopathy. Cardiovascular-regular rate and rhythm without murmur or ectopy Lungs-diminished breath sounds bilaterally with some faint expiratory wheezes noted. Patient has some rales in the right base especially. Mild tachypnea. No accessory muscle use or retractions. Abdomen-normoactive bowel sounds, soft, nontender, no rebound or rigidity, no peritoneal signs. Extremities-intact ?4, normal range of motion, normal pulses, atraumatic] patient has trace edema both lower extremities. Test Results: [EKG obtained on arrival showed a sinus rhythm with a ventricular rate of 71 bpm with left atrial enlargement. CBC with differential shows a white count 7.8, hemoglobin 12.9, hematocrit 48, platelets 237. History is unremarkable. BUN 23 and creatinine 1.07. Troponin was less than 0.15. D-dimer was elevated 1.42. Chest x-ray showed poor inspiration and bibasilar atelectasis. CTA of the chest obtained showed no evidence of PE or dissection. Patient did have a mediastinal enlarged node.] Emergency Department Course and Treatment: [She was given DuoNeb aerosol. Patient given Solu-Medrol 60 mg IV. Patient placed on continuous personnel monitor and placed on oxygen at 4 L.] Treatment Plan: [Admit] Disposition: [Admit] Impression: [COPD exacerbation Hypoxemia] This note was generated with [employer] dictation software. It may contain incorrect words, spelling, and punctuation that were not noted in review of the chart prior to signing ED Disposition - Plan for ED Patient: Referrals: Chino Encinas MD [Primary Care Provider] -
--- NOTE | 2019-08-22 12:14 | NURSING ---
pt admits to falling at home due to falling asleep in a chair and falling out.
--- NOTE | 2019-08-22 12:44 | PCM.HP.STD ---
Problem List (1) COPD exacerbation Status: Acute (2) Acute hypoxic respiratory failure Status: Acute (3) Anorectal hemorrhage Status: Chronic (4) Depression Status: Chronic (5) Tobacco abuse counseling Status: Chronic (6) Duodenal ulcer Status: Chronic (7) History of pneumonia Status: Inactive Comment: with complications that required drainage tubes in the lungs, 1992 (8) Chronic bronchitis Status: Chronic (9) COPD (chronic obstructive pulmonary disease) Status: Chronic (10) Frequent headaches Status: Acute (11) IBS (irritable bowel syndrome) Status: Chronic (12) Asthma Status: Chronic (13) Peptic ulcer disease Status: Chronic (14) Acute pancreatitis Status: Inactive Qualifiers: (15) Acute gastritis Status: Chronic Qualifiers: (16) Tobacco dependence Status: Chronic (17) BMI 39.0-39.9,adult Status: Chronic History of Present Illness Date of Admission: 08/22/19 Chief Complaint: Found hypoxic in CT biopsy suite. The patient is a 58 year old F with history of chronic smoking 2 packs/day for 45 years cut down to half pack daily was admitted from ER after she was found hypoxic in CAT scan biopsy suite for CT-guided lung nodule biopsy. She has 9.2 x 9.4 mm well-differentiated rounded nodular density left upper lobe as per CT on 08/15/2019. she was scheduled for left upper lobe nodule biopsy referred from Dr. Hernandes office. She also has chronic cough which has gotten worse in last 1 week, productive in nature brownish-yellow in color. She has shortness of breath on exertion but not at rest. Denies fever or chills, postnasal drip or sore throat. In ED, she was found 85% on room air and 93% on 3 L of oxygen. D-dimer was positive therefore's CTPA was done which was negative for PE. Other findings were similar to previous CT chest. Mild emphysema with 1 cm noncalcified lingular nodule. Past Medical History Past Medical History (Chronic Problems): Chronic Problems (Last Reviewed 08/16/19 @ 12:40 by Nita Owusu) Anorectal hemorrhage (Chronic) Depression (Chronic) Tobacco abuse counseling (Chronic) Duodenal ulcer (Chronic) Chronic bronchitis (Chronic) COPD (chronic obstructive pulmonary disease) (Chronic) IBS (irritable bowel syndrome) (Chronic) Asthma (Chronic) Peptic ulcer disease (Chronic) Acute gastritis (Chronic) Tobacco dependence (Chronic) BMI 39.0-39.9,adult (Chronic) Medical History: Medical History (Last Reviewed 08/16/19 @ 12:40 by Nita Owusu) History of pneumonia (Acute) Z87.01 with complications that required drainage tubes in the lungs, 1992 Chronic bronchitis (Chronic) J42 COPD (chronic obstructive pulmonary disease) (Chronic) J44.9 Frequent headaches (Acute) R51 IBS (irritable bowel syndrome) (Chronic) K58.9 Asthma (Chronic) J45.909 Normal colonoscopy 2017 Allergies Latex, Natural Rubber Allergy (Severe, Verified 08/22/19 09:04) unknown Penicillins Allergy (Verified 08/22/19 09:04) Anaphylaxis Sulfa (Sulfonamide Antibiotics) Allergy (Verified 08/22/19 09:04) Unknown tetanus and diphtheria toxoids Allergy (Verified 08/22/19 09:04) Swelling Home Medications: Ambulatory Orders Medication Instructions Recorded Acetaminophen [Tylenol Tablet] 650 mg PO Q6H PRN PRN tab 01/31/18 Hydrocortisone [Anusol Hc] 25 mg RECTAL BID PRN PRN #20 05/11/18 suppos. compression stocking,knee See Rx Instructions .ROUTE 07/07/19 high,regular,large circumfer. .MEDSUPPLY #2 ea famotidine 20 mg tablet 20 mg PO DAILY #90 tab 07/07/19 bupropion HCl SR 150 mg tablet,12 150 mg PO BID #180 tab 07/24/19 hr sustained-release fluticasone furoate 100 1 inh INHALATION QDAY #60 ea 07/24/19 mcg-vilanterol 25 mcg/dose inhalation powder albuterol sulfate HFA 90 2 puff INHALATION Q4H PRN #1 device 08/16/19 mcg/actuation aerosol inhaler Surgical History: Surgical History (Last Reviewed 08/16/19 @ 12:40 by Nita Owusu) History of breast biopsy Z98.890 History of removal of cyst Z98.890 Rt Scapular area 2018 History of tonsillectomy Z90.89 history of right hand surgery Smoking Status: Current every day smoker - *Family History Maternal Family History: Family History (Last Reviewed 08/16/19 @ 12:40 by Nita Owusu) Other Adopted History Items: No pertinent history Review of Systems Constitutional: Denies: Chills, Fever, Weight Change HEENT: Denies: Head Aches, Sinus Congestion, Sinus Drainage Cardiovascular: Denies: Chest Pain, Palpitations Respiratory: Reports: Cough, Shortness of breath upon exertion, Sputum production. Denies: Shortness of breath at rest Gastrointestinal: Denies: Abdominal Pain, Nausea, Vomiting Genitourinary: Denies: Dysuria Musculoskeletal: Reports: Joint Pain. Denies: Joint Tenderness Skin: Denies: Rash, Wounds Neurological: Denies: Numbness, Tingling, Focal weakness Psychiatric: Denies: Anxiety, Depression, Homicidal Ideations, Suicidal Ideations Hematologic/ Lymphatic: Denies: Easy Bruising, Easy Bleeding VTE Information - Inpt Only VTE Present on Admission: No VTE Mechan Device Prophylaxis: None VTE Pharm Prophylaxis ordered?: Yes Patient Problems: Active and Suspected Problems (Last Reviewed 08/16/19 @ 12:40 by Nita Owusu) COPD exacerbation (Acute) Acute hypoxic respiratory failure (Acute) - Physical Exam Vitals/I&O's: Vital Signs Temp Pulse Resp BP Pulse Ox 98.5 F 78 18 156/90 H 94 08/22/19 12:13 08/22/19 12:13 08/22/19 12:13 08/22/19 12:13 08/22/19 12:13 Oxygen Flow Rate (L/min) 3 Oxygen Delivery Method Nasal Cannula Weight: 313 lb 15.012 oz Body Mass Index (BMI) 46.3 General: Alert, Oriented x3, Cooperative HEENT: Atraumatic, PERRLA, EOMI, Normocephalic Oral: Dry Mucosa Neck: Supple, No JVD, Negative Carotid Bruits Lungs: Diminished - Air entry is diminished in all lung marques., Rhonchi - Expiratory rhonchi present Cardiovascular: Regular rate, Regular Rhythm, Normal S1, Normal S2, No murmurs Abdomen: Bowel Sounds Present, Soft, Non Tender, Non-Distended Extremities: No edema, Capillary Refill Less than 3 Seconds Skin: No rashes, No breakdown Musculoskeletal: No Tenderness to Palpation of Joints or Extremities, Arthritic Changes Neurological: Cranial nerves II-XII grossly intact, Deep Tendon Reflexes 2+/4 and Symmetrical, Neuro grossly intact Psych/Mental Status: Normal Affect, Appropriate Laboratory Results 08/22/19 09:15: WBC 7.8, RBC 5.63 H, Hgb 12.9, Hct 48.4 H, MCV 86.0, MCH 22.9 L, MCHC 26.7 L, RDW Std Deviation 54.9 H, RDW Coeff of Seble 18.0 H, Plt Count 237, MPV 8.8, Immature Gran % (Auto) 0.800, Neut % (Auto) 81.9 H, Lymph % (Auto) 7.7 L, Meriwether % (Auto) 8.0, Eos % (Auto) 1.0, Baso % (Auto) 0.6, Absolute Neuts (auto) 6.4, Absolute Lymphs (auto) 0.60 L, Nucleated RBC % 0.5, Differential Comment COMMENT 08/22/19 09:15: D-Dimer Quant (PE/DVT) 1.42 H* 08/22/19 09:15: Sodium 142, Potassium 5.0, Chloride 104, Carbon Dioxide 35.0 H, Anion Gap 3 L, BUN 23 H, Creatinine 1.07 H, Estim Creat Clear Calc 61.97, Est GFR (MDRD) Af Amer 68, Est GFR (MDRD) Non-Af 56 L, BUN/Creatinine Ratio 21.5 H, Glucose 104, Calcium 7.8 L, Troponin I < 0.015 08/22/19 09:15: B-Natriuretic Peptide 533.2 H Current Medications Acetaminophen (Tylenol) 650 mg PO Q6H PRN PRN PRN Reason: Pain Score 1-3/Temp > 100.7 F Albuterol Sulfate (Ventolin Aerosols) 2.5 mg INHALATION Q2H PRN PRN PRN Reason: SOB/Wheezing Albuterol/Ipratropium (Duoneb) 3 ml INHALATION Q4H [facility] Bisacodyl (Dulcolax) 10 mg RECTAL DAILY PRN PRN PRN Reason: Constipation Bupropion HCl (Wellbutrin Sr (150mg Tablets)) 150 mg PO BID [facility] Dextrose (D50w Syringe) 0 gm IV X1 PRN; Protocol PRN Reason: Hypoglycemia Docusate Sodium (Colace) 200 mg PO BID PRN PRN PRN Reason: Constipation Enoxaparin Sodium (Lovenox) 40 mg SC DAILY [facility] Famotidine (Pepcid) 20 mg PO DAILY [facility] Glucagon () 1 mg IM .X1 PRN PRN Reason: Hypoglycemia Guaifenesin (Mucinex) 1,200 mg PO BID [facility] Influenza Virus Vaccine Quadrival (Flucelvax /Fluzone ) 0.5 ml IM .ONCE ONE Stop: 08/22/19 12:12 Melatonin (Melatonin) 3 mg PO QHS PRN PRN PRN Reason: INSOMNIA Methylprednisolone (Solu-Medrol) 40 mg IV Q8 [place] Morphine Sulfate () 2 mg IV Q3H PRN PRN PRN Reason: Pain Score 6-10/10 Nitroglycerin (Nitrostat) 0.4 mg SUBLINGUAL Q5M PRN PRN Reason: CARDIAC/CHEST PAIN Non-Formulary Medication (Hydrocortisone [Anusol Hc]) 25 mg RECTAL BID PRN PRN PRN Reason: BLEEDING Oxycodone HCl (Oxyir) 5 mg PO Q4H PRN PRN PRN Reason: Pain Score 4-5/10 Polyethylene Glycol (Miralax) 17 gm PO DAILY [facility] Prochlorperazine Edisylate (Compazine Iv) 5 mg IV Q4H PRN PRN PRN Reason: Breakthrough Nausea/Vomiting Sodium Chloride () 10 - 40 ml IV UD PRN PRN Reason: SALINE FLUSH Assessment/Plan All Active Problems (Last Reviewed 08/16/19 @ 12:40 by Nita Owusu) COPD exacerbation (Acute) Acute hypoxic respiratory failure (Acute) Frequent headaches (Acute) The patient is a 58 year old F with history of chronic smoking 2 packs/day for 45 years cut down to half pack daily was admitted from ER after she was found hypoxic in CAT scan biopsy suite for CT-guided lung nodule biopsy. She has 9.2 x 9.4 mm well-differentiated rounded nodular density left upper lobe as per CT on 08/15/2019. she was scheduled for left upper lobe nodule biopsy referred from Dr. Hernandes office. She also has chronic cough which has gotten worse in last 1 week, productive in nature brownish-yellow in color. She has shortness of breath on exertion but not at rest. Denies fever or chills, postnasal drip or sore throat. In ED, she was found 85% on room air and 93% on 3 L of oxygen. D-dimer was positive therefore's CTPA was done which was negative for PE. Other findings were similar to previous CT chest. Mild emphysema with 1 cm noncalcified lingular nodule. 1. Acute hypoxic respiratory failure mostly secondary to COPD/asthma exacerbation: Patient is being admitted in PCU. Started on bronchodilator every 4 hourly, albuterol as needed, IV Solu-Medrol, incentive spirometry and chest physiotherapy. Respiratory panel ordered. Sputum culture ordered. Patient does not have fever. CT chest reviewed and negative for pulmonary consolidation. 2. Asthmatic/COPD exacerbation: As mentioned above 3. Chronic smoker active with nicotine dependence: Encouraged smoking cessation. On Wellbutrin. Patient prefers, can use nicotine patch 4. She was admitted in January 2018 for acute pancreatitis/gastritis and was found duodenal ulcer and gastritis and EGD. She denies drinking alcohol. Please stable no abdominal pain. Also has history of pneumonia. 5. Other chronic comorbidities include IBS, frequent headache and anorectal hemorrhage: Home medication reconciliation done. Patient is on hemorrhoidal cream. DVT prophylaxis: Lovenox 40 Mg subcu daily. Laboratory Results 08/22/19 09:15: WBC 7.8, RBC 5.63 H, Hgb 12.9, Hct 48.4 H, MCV 86.0, MCH 22.9 L, MCHC 26.7 L, RDW Std Deviation 54.9 H, RDW Coeff of Seble 18.0 H, Plt Count 237, MPV 8.8, Immature Gran % (Auto) 0.800, Neut % (Auto) 81.9 H, Lymph % (Auto) 7.7 L, Meriwether % (Auto) 8.0, Eos % (Auto) 1.0, Baso % (Auto) 0.6, Absolute Neuts (auto) 6.4, Absolute Lymphs (auto) 0.60 L, Nucleated RBC % 0.5, Differential Comment COMMENT 08/22/19 09:15: D-Dimer Quant (PE/DVT) 1.42 H* 08/22/19 09:15: Sodium 142, Potassium 5.0, Chloride 104, Carbon Dioxide 35.0 H, Anion Gap 3 L, BUN 23 H, Creatinine 1.07 H, Estim Creat Clear Calc 61.97, Est GFR (MDRD) Af Amer 68, Est GFR (MDRD) Non-Af 56 L, BUN/Creatinine Ratio 21.5 H, Glucose 104, Calcium 7.8 L, Troponin I < 0.015 08/22/19 09:15: B-Natriuretic Peptide 533.2 H Clinical Impression(s) from Imaging Studies Chest X-Ray 08/22/19 09:06 IMPRESSION: Poor inspiration with some bibasilar atelectasis. Chest CTA 08/22/19 09:58 IMPRESSION: 1. Normal CTA chest examination, without a demonstrated pulmonary embolism or arterial dissection. 2. Mild emphysema with a 1 cm noncalcified lingular nodule for which PET CT scan is recommended. Code Visit Inpatient E&M: 10826 Init Hosp L3
[2019-08-22] MEDS: Enoxaparin 40 MG/0.4 ML Syringe SC (14:05)
[2019-08-22] MEDS: Famotidine 20 MG Tablet PO (14:05)
[2019-08-22] MEDS: buPROPion (SR) 150 MG Tablet.SA PO ×2 (14:05→21:30)
[2019-08-22] MEDS: Docusate Sodium 100 MG Capsule 200 MG PO (14:07)
--- NOTE | 2019-08-22 16:13 | ECHOD_ITS ---
Reason For Study: SOB Procedure This was a 2D Doppler, Color Flow transthoracic echocardiogram. The study was technically difficult. The study was technically limited. Exam performed portable in patient room. Left Ventricle Normal size and thickness. D shaped septum in diastole. The estimated ejection fraction is 65 %. Stage 1 diastolic dysfunction. No regional wall motion abnormalities noted. Right Ventricle Severely dilated right ventricle. A moderator band is seen in the right ventricle. Mild global right ventricular systolic dysfunction. Atria The left atrium is moderately enlarged. The right atrium is moderately enlarged. Normal atrial septum. Mitral Valve The mitral valve is structurally normal. No prolapse or stenosis seen. Tricuspid Valve Normal tricuspid valve. Moderate (2+) tricuspid valve insufficiency. Right ventricular systolic pressure estimated to be 63 mmHg. Severe pulmonary hypertension. Aortic Valve Trisinus/trileaflet aortic valve. Normal aortic valve. Pulmonic Valve Normal pulmonic valve. Great Vessels Normal aortic root. Normal arch. The inferior vena cava is dilated. No collapse of the inferior vena cava. Pericardium/Pleural No pericardial effusion. Medication Unable to administer Definity due to elevated PAP. MMode/2D Measurements & Calculations LVIDd: 6.0 cm IVSd: 1.2 cm Ao root diam: 3.8 cm LVIDs: 4.0 cm LVPWd: 1.2 cm RVDd: 4.8 cm FS: 33.6 % LAV(MOD-bp): 73.8 ml LA A4 area: 24.4 cm2 LA dimension(2D): 5.5 cm LAV(MOD-bp) Indexed: 29.5 ml/m2 LAV(MOD-sp2): 68.9 ml LAV(MOD-sp4): 74.6 ml RA A4 area: 22.7 cm2 Doppler Measurements & Calculations Lat Peak E' Logan: 9.4 cm/sec Med Peak E' Logan: 5.8 cm/sec PA V2 max: 129.8 cm/sec TR max logan: 380.7 cm/sec TR max P.1 mmHg Interpretation Summary D shaped septum in diastole. The estimated ejection fraction is 65 %. Stage 1 diastolic dysfunction. Severely dilated right ventricle. Mild global right ventricular systolic dysfunction. The left atrium is moderately enlarged. The right atrium is moderately enlarged. Moderate (2+) tricuspid valve insufficiency. Right ventricular systolic pressure estimated to be 63 mmHg. Severe pulmonary hypertension. The inferior vena cava is dilated There is no comparison study available. Ordering Physician: Memo Garner Referring Physician: Chino Encinas Performed By: Kaleigh Low RDCS, RVT
[2019-08-22] MEDS: 0.9% Normal Saline 1,000 ML 50 ML IV (16:38)
[2019-08-22] MEDS: Acetaminophen 325 MG Tablet 650 MG PO (19:59)
[2019-08-22] MEDS: oxyCODONE 5 MG Tablet PO (19:59)
[2019-08-22] MEDS: guaiFENesin 1,200 MG Tablet 1200 MG PO (21:30)
[2019-08-23] VITALS (10 sets, daily range): BP systolic 121–134; BP diastolic 70–83; PULSE 73–88; RESP 16–20; TEMP 36.8–36.9; O2SAT 73–96
[2019-08-23] MEDS: oxyCODONE 5 MG Tablet PO ×3 (03:43→20:32)
[2019-08-23] MEDS: Acetaminophen 325 MG Tablet 650 MG PO ×2 (03:43→14:18)
[2019-08-23] MEDS: Ipratropium/Albuterol Sulfate 3 ML AMPUL.NEB INHALATION ×6 (04:11→22:53)
[2019-08-23 06:45] LABS: Anion Gap 0 (5-15); BUN 23 mg/dL (7-18); BUN/Creat Ratio 27.5 RATIO (10-20); Calcium,Total 7.7 mg/dL (8.5-10.1); Chloride 105 mmol/L (98-107); Creatinine, Serum 0.84 mg/dL (0.55-1.02); EST Glomerular Filtration Rate 74 mL/min (>60); Est Glom Filt Rate - Afr Amer 90 mL/min (>60); Estimated Creatinine Clearance 76.29 ml/min; Glucose 128 mg/dL (74-106); Potassium 5.3 mmol/L (3.5-5.1); Sodium Level 138 mmol/L (136-145); Thyroid Stim Hormone (TSH) 0.43 uIU/mL (0.358-3.74)
[2019-08-23] MEDS: Enoxaparin 40 MG/0.4 ML Syringe SC (09:22)
[2019-08-23] MEDS: Polyethylene Glycol 3350 17 GM PACKET PO (09:22)
[2019-08-23] MEDS: buPROPion (SR) 150 MG Tablet.SA PO ×2 (09:22→21:00)
[2019-08-23] MEDS: guaiFENesin 1,200 MG Tablet 1200 MG PO ×2 (09:23→21:00)
[2019-08-23] MEDS: Famotidine 20 MG Tablet PO (09:23)
--- NOTE | 2019-08-23 11:13 | CPS ---
pt was found with nasal cannula in nose however, tubing had become disconnected from humidifier. pt was 73%. tubing reconnected and saturation up to 93%. Dr Garner aware
--- NOTE | 2019-08-23 12:52 | CASEMGMT ---
KAITLYNN PATEL assessment: Face to Face with patient for initial transition planning/care coordination assessment. KAITLYNN PATEL introduced self and role at [facility], pt voices understanding and consents to assessment at this time. Pt is sitting up in bed in no distress at this time. Pt is A/Ox4 at this time and answers all questions appropriately at this time. Pt's daughter is at bedside during assessment. Care providers, pharmacy, and demographics verified/updated at this time. PCP: Huang Specialists: seth Hernandes Preferred Pharmacy: [facility] Insurance: [facility] Prescription Benefit: [facility] Living Will/HPOA: Pt states does not have LW/HPOA and declines info at this time. Pt is aware that [facility] SW can complete for her, if she prefers, voices understanding. LNOK: Jg Resendiz, ; Irish Resendiz, daughter Living Arrangements: Pt states lives with and daughter in 1 story duplex with 3 steps in and states no concerns at home at this time. Pt states is normally independent with ADL's. Transportation: Pt states drives self and states no transportation concerns at this time. DME/HHC: Pt states no current DME and denies need for any at this time. Pt may qualify for home oxygen at discharge and this KAITLYNN PATEL provided list of in-network DME companies to pt at this time. Pt states no hx of HHC or SNF in the past. Pt states no concerns with going home at time of discharge. Pt states is currently unemployed. Pt states smokes about 1/2pk/day but plans on quitting and denies ETOH abuse. Pt states no further questions/concerns/needs at this time. CM to follow for home oxygen qualification and for any further discharge planning/needs. Advised pt to ask for CM if any further questions/concerns/needs arise, voices understanding. Pt Goal: Home Plan: Home w/ possible home oxygen, pending qualification. [place] KAITLYNN PATEL
[2019-08-23] MEDS: 0.9% Saline Lock 10 ML Syringe IV (14:18)
--- NOTE | 2019-08-23 15:18 | PCM.PN.HOSP ---
Patient Problems: Active and Suspected Problems (Last Reviewed 08/16/19 @ 12:40 by Nita Owusu) COPD exacerbation (Acute) Acute hypoxic respiratory failure (Acute) Subjective: CC: Follow-up for COPD exacerbation with hypoxia, acute hypoxic respiratory insufficiency. Patient was found short of breath and wheezing. On bronchodilator. Still hypoxic. Vitals/I&O's: Vital Signs Temp Pulse Resp BP Pulse Ox 98.4 F 88 16 125/78 H 96 08/23/19 14:29 08/23/19 14:29 08/23/19 14:29 08/23/19 14:29 08/23/19 14:29 Oxygen Flow Rate (L/min) 3 Oxygen Delivery Method Nasal Cannula Weight: 319 lb 0.142 oz Body Mass Index (BMI) 46.3 Intake and Output for Last 24 Hours 08/21/19 08/22/19 08/23/19 23:59 23:59 23:59 Intake Total 1264.17 / 1264.17 970.83 / 970.83 Balance 1264.17 / 1264.17 970.83 / 970.83 General: Alert, Oriented x3, Cooperative HEENT: Atraumatic, PERRLA, EOMI, Normocephalic Neck: Supple, No JVD, Negative Carotid Bruits Lungs: Diminished - Air entry is diminished bilaterally., Rhonchi - Expiratory rhonchi and wheezing present, Short of Breath, Wheezes, - - On 3 L of oxygen Cardiovascular: Regular rate, Regular Rhythm, Normal S1, Normal S2, No murmurs Abdomen: Bowel Sounds Present, Soft, Non Tender, Non-Distended Extremities: No edema, Capillary Refill Less than 3 Seconds Skin: No rashes, No breakdown Musculoskeletal: No Tenderness to Palpation of Joints or Extremities Neurological: Cranial nerves II-XII grossly intact Psych/Mental Status: Normal Affect, Appropriate Microbiology Past 72 Hours 08/22/19 19:40 Sputum, Expectorated/Coughed Gram Stain - Final 08/22/19 19:40 Sputum, Expectorated/Coughed Respiratory Culture - Preliminary Appears to be normal respiratory jimmy. Further studies to follow. 08/22/19 14:31 Mucosa - Nasopharyngeal Respiratory Panel (PCR) - Final Laboratory Results 08/23/19 05:55: Sodium 138, Potassium 5.3 H, Chloride 105, Carbon Dioxide 33.0 H, Anion Gap 0 L, BUN 23 H, Creatinine 0.84, Estim Creat Clear Calc 76.29, Est GFR (MDRD) Af Amer 90, Est GFR (MDRD) Non-Af 74, BUN/Creatinine Ratio 27.5 H, Glucose 128 H, Calcium 7.7 L, TSH 0.43 Current Medications Acetaminophen (Tylenol) 650 mg PO Q6H PRN PRN PRN Reason: Pain Score 1-3/Temp > 100.7 F Last Admin: 08/23/19 14:18 Dose: 650 mg Documented by: Albuterol Sulfate (Ventolin Aerosols) 2.5 mg INHALATION Q2H PRN PRN PRN Reason: SOB/Wheezing Albuterol/Ipratropium (Duoneb) 3 ml INHALATION Q4H.RT [facility] Last Admin: 08/23/19 14:47 Dose: 3 ml Documented by: Bisacodyl (Dulcolax) 10 mg RECTAL DAILY PRN PRN PRN Reason: Constipation Bupropion HCl (Wellbutrin Sr (150mg Tablets)) 150 mg PO BID [facility] Last Admin: 08/23/19 09:22 Dose: 150 mg Documented by: Dextrose (D50w Syringe) 0 gm IV X1 PRN; Protocol PRN Reason: Hypoglycemia Docusate Sodium (Colace) 200 mg PO BID PRN PRN PRN Reason: Constipation Last Admin: 08/22/19 14:07 Dose: 200 mg Documented by: Enoxaparin Sodium (Lovenox) 40 mg SC DAILY [facility] Last Admin: 08/23/19 09:22 Dose: 40 mg Documented by: Famotidine (Pepcid) 20 mg PO DAILY [facility] Last Admin: 08/23/19 09:23 Dose: 20 mg Documented by: Glucagon () 1 mg IM .X1 PRN PRN Reason: Hypoglycemia Guaifenesin (Mucinex) 1,200 mg PO BID [facility] Last Admin: 08/23/19 09:23 Dose: 1,200 mg Documented by: Hydrocortisone Acetate (Anusol Hc) 25 mg RECTAL BID PRN PRN Reason: BLEEDING Melatonin (Melatonin) 3 mg PO QHS PRN PRN PRN Reason: INSOMNIA Methylprednisolone (Solu-Medrol) 40 mg IV Q8 [facility] Last Admin: 08/23/19 14:15 Dose: 40 mg Documented by: Morphine Sulfate () 2 mg IV Q3H PRN PRN PRN Reason: Pain Score 6-10/10 Nitroglycerin (Nitrostat) 0.4 mg SUBLINGUAL Q5M PRN PRN Reason: CARDIAC/CHEST PAIN Oxycodone HCl (Oxyir) 5 mg PO Q4H PRN PRN PRN Reason: Pain Score 4-5/10 Last Admin: 08/23/19 14:18 Dose: 5 mg Documented by: Polyethylene Glycol (Miralax) 17 gm PO DAILY [facility] Last Admin: 08/23/19 09:22 Dose: 17 gm Documented by: Prochlorperazine Edisylate (Compazine Iv) 5 mg IV Q4H PRN PRN PRN Reason: Breakthrough Nausea/Vomiting Sodium Chloride () 10 - 40 ml IV UD PRN PRN Reason: SALINE FLUSH Last Admin: 08/23/19 14:18 Dose: 10 ml Documented by: STROKE Vital Signs/Narrative: Vital Signs Temp Pulse Resp BP Pulse Ox 08/23/19 14:29 98.4 F 88 16 125/78 H 96 Medical Necessity - Tobacco Use Smoking Status: Current every day smoker Assessment/Plan All Active Problems (Last Reviewed 08/16/19 @ 12:40 by Nita Owusu) COPD exacerbation (Acute) Acute hypoxic respiratory failure (Acute) Frequent headaches (Acute) The patient is a 58 year old F with history of chronic smoking 2 packs/day for 45 years cut down to half pack daily was admitted from ER after she was found hypoxic in CAT scan biopsy suite for CT-guided lung nodule biopsy. She has 9.2 x 9.4 mm well-differentiated rounded nodular density left upper lobe as per CT on 08/15/2019. she was scheduled for left upper lobe nodule biopsy referred from Dr. Hernandes office. She also has chronic cough which has gotten worse in last 1 week, productive in nature brownish-yellow in color. She has shortness of breath on exertion but not at rest. Denies fever or chills, postnasal drip or sore throat. In ED, she was found 85% on room air and 93% on 3 L of oxygen. D-dimer was positive therefore's CTPA was done which was negative for PE. Other findings were similar to previous CT chest. Mild emphysema with 1 cm noncalcified lingular nodule. 1. Acute hypoxic respiratory failure mostly secondary to COPD/asthma exacerbation: Patient is being admitted in PCU. Started on bronchodilator every 4 hourly, albuterol as needed, IV Solu-Medrol, incentive spirometry and chest physiotherapy. Respiratory panel ordered. Sputum culture ordered. Patient does not have fever. CT chest reviewed and negative for pulmonary consolidation. 08/23: Patient is still on 3 L of oxygen short of breath. Continue bronchodilator, IV Solu-Medrol, Mucinex. Sputum culture preliminary appears to be normal respiratory jimmy. Respiratory panel negative. Urinary antigens ordered. Zithromax 500 mg daily for 3 days. 2. Asthmatic/COPD exacerbation: As mentioned above. CT chest is suggestive of emphysema 3. Chronic smoker active with nicotine dependence: Encouraged smoking cessation. On Wellbutrin. Patient prefers, can use nicotine patch 4. Left upper lobe nodule about 1 cm as mentioned above: Discussed with Dr. Hernandes in the preferred inpatient CT-guided lung biopsy as patient gets short of breath and difficulty with food as patient. I called Dr. Wetzel and he agreed to do it while inpatient. If patient respiratory status is stable, CT-guided lung biopsy for tomorrow. 5. She was admitted in January 2018 for acute pancreatitis/gastritis and was found duodenal ulcer and gastritis and EGD. She denies drinking alcohol. Please stable no abdominal pain. Also has history of pneumonia. 6. Other chronic comorbidities include IBS, frequent headache and anorectal hemorrhage: Home medication reconciliation done. Patient is on hemorrhoidal cream. DVT prophylaxis: Lovenox 40 Mg subcu daily. Microbiology Past 72 Hours 08/22/19 19:40 Sputum, Expectorated/Coughed Gram Stain - Final 08/22/19 19:40 Sputum, Expectorated/Coughed Respiratory Culture - Preliminary Appears to be normal respiratory jimmy. Further studies to follow. 08/22/19 14:31 Mucosa - Nasopharyngeal Respiratory Panel (PCR) - Final Laboratory Results 08/23/19 05:55: Sodium 138, Potassium 5.3 H, Chloride 105, Carbon Dioxide 33.0 H, Anion Gap 0 L, BUN 23 H, Creatinine 0.84, Estim Creat Clear Calc 76.29, Est GFR (MDRD) Af Amer 90, Est GFR (MDRD) Non-Af 74, BUN/Creatinine Ratio 27.5 H, Glucose 128 H, Calcium 7.7 L, TSH 0.43 Clinical Impression(s) from Imaging Studies Chest X-Ray 08/22/19 09:06 IMPRESSION: Poor inspiration with some bibasilar atelectasis. Chest CTA 08/22/19 09:58 IMPRESSION: 1. Normal CTA chest examination, without a demonstrated pulmonary embolism or arterial dissection. 2. Mild emphysema with a 1 cm noncalcified lingular nodule for which PET CT scan is recommended. Code Visit Inpatient E&M: 01475 Subs Hosp L2
[2019-08-23] MEDS: Sodium Polystyrene Sulfonate 15 GM/60 ML UDC PO (15:53)
[2019-08-23] MEDS: Azithromycin 250 MG Tablet 500 MG PO (15:53)
[2019-08-24] VITALS (9 sets, daily range): BP systolic 135–158; BP diastolic 59–102; PULSE 73–86; RESP 16–20; TEMP 36.4–36.8; O2SAT 92–97
[2019-08-24] MEDS: Acetaminophen 325 MG Tablet 650 MG PO (03:54)
[2019-08-24 05:32] LABS: Prothrombin Time (Protime)PT. 12.8 SECONDS (11.7-14.9)
[2019-08-24 05:37] LABS: Anion Gap 2 (5-15); BUN 24 mg/dL (7-18); BUN/Creat Ratio 26.4 RATIO (10-20); Calcium,Total 7.5 mg/dL (8.5-10.1); Chloride 103 mmol/L (98-107); Creatinine, Serum 0.91 mg/dL (0.55-1.02); EST Glomerular Filtration Rate 68 mL/min (>60); Est Glom Filt Rate - Afr Amer 82 mL/min (>60); Estimated Creatinine Clearance 70.42 ml/min; Glucose 120 mg/dL (74-106); Potassium 5.1 mmol/L (3.5-5.1); Sodium Level 140 mmol/L (136-145)
[2019-08-24] MEDS: Ipratropium/Albuterol Sulfate 3 ML AMPUL.NEB INHALATION ×4 (07:17→21:33)
[2019-08-24] MEDS: buPROPion (SR) 150 MG Tablet.SA PO ×2 (09:39→22:59)
[2019-08-24] MEDS: guaiFENesin 1,200 MG Tablet 1200 MG PO ×2 (09:39→22:59)
[2019-08-24] MEDS: Famotidine 20 MG Tablet PO (09:39)
[2019-08-24] MEDS: Azithromycin 250 MG Tablet 500 MG PO (09:45)
[2019-08-24] MEDS: oxyCODONE 5 MG Tablet PO ×2 (09:45→23:05)
[2019-08-24] MEDS: 0.9% Saline Lock 10 ML Syringe IV ×3 (15:54→23:01)
--- NOTE | 2019-08-24 16:47 | PN_ITS ---
Patient Problems: Active and Suspected Problems (Last Reviewed 08/16/19 @ 12:40 by Nita Owusu) COPD exacerbation (Acute) Acute hypoxic respiratory failure (Acute) Subjective: CC: Follow-up for hypoxia with COPD exacerbation, cor pulmonale seems acute on chronic with severe pulmonary hypertension Patient still has cough and wheezing shortness of breath but it is getting better. BNP elevated. Echo reviewed. Vitals/I&O's: Vital Signs Temp Pulse Resp BP Pulse Ox 98 F 81 16 149/59 H 93 08/24/19 14:15 08/24/19 15:25 08/24/19 15:25 08/24/19 14:15 08/24/19 14:15 Oxygen Flow Rate (L/min) 4 Oxygen Delivery Method Nasal Cannula Weight: 320 lb 15.889 oz Body Mass Index (BMI) 46.3 Intake and Output for Last 24 Hours 08/22/19 08/23/19 08/24/19 23:59 23:59 23:59 Intake Total 1264.17 / 1264.17 1430.83 / 1730.83 540 / 540 Balance 1264.17 / 1264.17 1430.83 / 1730.83 540 / 540 General: Alert, Oriented x3, Cooperative HEENT: Atraumatic, PERRLA, EOMI, Normocephalic Neck: Supple, No JVD, Negative Carotid Bruits Lungs: Diminished - Air entry is diminished in both lung bases but bilateral equal, Rhonchi, Short of Breath, Wheezes Cardiovascular: Regular rate, Regular Rhythm, Normal S1, Normal S2, Murmur - Systolic murmur present over left lower sternal border Abdomen: Bowel Sounds Present, Soft, Non Tender, Non-Distended Extremities: No edema, Capillary Refill Less than 3 Seconds Skin: No rashes, No breakdown Musculoskeletal: No Tenderness to Palpation of Joints or Extremities, Arthritic Changes Neurological: Cranial nerves II-XII grossly intact, Deep Tendon Reflexes 2+/4 and Symmetrical, Neuro grossly intact Psych/Mental Status: Normal Affect, Appropriate Microbiology Past 72 Hours 08/22/19 19:40 Sputum, Expectorated/Coughed Gram Stain - Final 08/22/19 19:40 Sputum, Expectorated/Coughed Respiratory Culture - Preliminary Appears to be normal respiratory jimmy. Further studies to follow. 08/23/19 Unknown Urine, Clean Catch Streptococcus pneumoniae Antigen (M - Final 08/23/19 Unknown Urine, Clean Catch Legionella Antigen - Final 08/22/19 14:31 Mucosa - Nasopharyngeal Respiratory Panel (PCR) - Final Laboratory Results 08/24/19 05:10: PT 12.8, INR 1.0 08/24/19 05:10: Sodium 140, Potassium 5.1, Chloride 103, Carbon Dioxide 35.0 H, Anion Gap 2 L, BUN 24 H, Creatinine 0.91, Estim Creat Clear Calc 70.42, Est GFR (MDRD) Af Amer 82, Est GFR (MDRD) Non-Af 68, BUN/Creatinine Ratio 26.4 H, Glucose 120 H, Calcium 7.5 L Current Medications Acetaminophen (Tylenol) 650 mg PO Q6H PRN PRN PRN Reason: Pain Score 1-3/Temp > 100.7 F Last Admin: 08/24/19 03:54 Dose: 650 mg Documented by: Albuterol Sulfate (Ventolin Aerosols) 2.5 mg INHALATION Q2H PRN PRN PRN Reason: SOB/Wheezing Albuterol/Ipratropium (Duoneb) 3 ml INHALATION Q4H.RT [facility] Last Admin: 08/24/19 15:25 Dose: 3 ml Documented by: Azithromycin (Zithromax) 500 mg PO Q24 [facility] Stop: 08/25/19 10:01 Last Admin: 08/24/19 09:45 Dose: 500 mg Documented by: Bisacodyl (Dulcolax) 10 mg RECTAL DAILY PRN PRN PRN Reason: Constipation Bupropion HCl (Wellbutrin Sr (150mg Tablets)) 150 mg PO BID [facility] Last Admin: 08/24/19 09:39 Dose: 150 mg Documented by: Dextrose (D50w Syringe) 0 gm IV X1 PRN; Protocol PRN Reason: Hypoglycemia Docusate Sodium (Colace) 200 mg PO BID PRN PRN PRN Reason: Constipation Last Admin: 08/22/19 14:07 Dose: 200 mg Documented by: Enoxaparin Sodium (Lovenox) 40 mg SC DAILY [facility] Last Admin: 08/24/19 09:38 Dose: Not Given Documented by: Famotidine (Pepcid) 20 mg PO DAILY [facility] Last Admin: 08/24/19 09:39 Dose: 20 mg Documented by: Furosemide (Lasix) 40 mg IV DAILY [facility] Glucagon () 1 mg IM .X1 PRN PRN Reason: Hypoglycemia Guaifenesin (Mucinex) 1,200 mg PO BID [facility] Last Admin: 08/24/19 09:39 Dose: 1,200 mg Documented by: Hydrocortisone Acetate (Anusol Hc) 25 mg RECTAL BID PRN PRN Reason: BLEEDING Melatonin (Melatonin) 3 mg PO QHS PRN PRN PRN Reason: INSOMNIA Methylprednisolone (Solu-Medrol) 40 mg IV Q8 [facility] Last Admin: 08/24/19 15:54 Dose: 40 mg Documented by: Morphine Sulfate () 2 mg IV Q3H PRN PRN PRN Reason: Pain Score 6-10/10 Nitroglycerin (Nitrostat) 0.4 mg SUBLINGUAL Q5M PRN PRN Reason: CARDIAC/CHEST PAIN Oxycodone HCl (Oxyir) 5 mg PO Q4H PRN PRN PRN Reason: Pain Score 4-5/10 Last Admin: 08/24/19 09:45 Dose: 5 mg Documented by: Polyethylene Glycol (Miralax) 17 gm PO DAILY PRN PRN Reason: Constipation Prochlorperazine Edisylate (Compazine Iv) 5 mg IV Q4H PRN PRN PRN Reason: Breakthrough Nausea/Vomiting Sodium Chloride () 10 - 40 ml IV UD PRN PRN Reason: SALINE FLUSH Last Admin: 08/24/19 15:54 Dose: 10 ml Documented by: STROKE Vital Signs/Narrative: Vital Signs Temp Pulse Resp BP Pulse Ox 08/24/19 15:25 81 16 08/24/19 14:15 98 F 84 16 149/59 H 93 Medical Necessity - Tobacco Use Smoking Status: Current every day smoker Assessment/Plan All Active Problems (Last Reviewed 08/16/19 @ 12:40 by Nita Owusu) COPD exacerbation (Acute) Acute hypoxic respiratory failure (Acute) Frequent headaches (Acute) The patient is a 58 year old F with history of chronic smoking 2 packs/day for 45 years cut down to half pack daily was admitted from ER after she was found hypoxic in CAT scan biopsy suite for CT-guided lung nodule biopsy. She has 9.2 x 9.4 mm well-differentiated rounded nodular density left upper lobe as per CT on 08/15/2019. she was scheduled for left upper lobe nodule biopsy referred from Dr. Hernandes office. She also has chronic cough which has gotten worse in last 1 week, productive in nature brownish-yellow in color. She has shortness of breath on exertion but not at rest. Denies fever or chills, postnasal drip or sore throat. In ED, she was found 85% on room air and 93% on 3 L of oxygen. D-dimer was positive therefore's CTPA was done which was negative for PE. Other findings were similar to previous CT chest. Mild emphysema with 1 cm noncal cified lingular nodule. 1. Acute hypoxic respiratory failure mostly secondary to COPD/asthma exacerbation and right-sided systolic heart failure with acute on chronic cor pulmonale and pulmonary hypertension: Patient is being admitted in PCU. Started on bronchodilator every 4 hourly, albuterol as needed, IV Solu-Medrol, incentive spirometry and chest physiotherapy. Respiratory panel ordered. Sputum culture ordered. Patient does not have fever. CT chest reviewed and negative for pulmonary consolidation. 08/23: Patient is still on 3 L of oxygen short of breath. Continue bronchodilator, IV Solu-Medrol, Mucinex. Sputum culture preliminary appears to be normal respiratory jimmy. Respiratory panel negative. Urinary antigens ordered. Zithromax 500 mg daily for 3 days. 08/24: BNP is elevated. 2D echo reviewed. Shows severely dilated RV with mild global RV systolic dysfunction. Moderate or banding RV. Moderate RA and LA enlargement. 2+ TR, RVSP 63 mmHg's history of severe pulmonary hypertension. Started on Lasix 40 mg IV daily first dose now. Monitor intake and output. CT-guided biopsy tomorrow a.m. 2. Asthmatic/COPD exacerbation: As mentioned above. CT chest is suggestive of emphysema 3. Chronic smoker active with nicotine dependence: Encouraged smoking cessation. On Wellbutrin. Patient prefers, can use nicotine patch 4. Left upper lobe nodule about 1 cm as mentioned above: Discussed with Dr. Hernandes in the preferred inpatient CT-guided lung biopsy as patient gets short of breath and difficulty with food as patient. I called Dr. Wetzel and he agreed to do it while inpatient. 08/24 if patient respiratory status is stable, CT-guided lung biopsy for tomorrow. 5. She was admitted in January 2018 for acute pancreatitis/gastritis and was found duodenal ulcer and gastritis and EGD. She denies drinking alcohol. Please stable no abdominal pain. Also has history of pneumonia. 6. Other chronic comorbidities include IBS, frequent headache and anorectal hemorrhage: Home medication reconciliation done. Patient is on hemorrhoidal cream. DVT prophylaxis: Lovenox 40 Mg subcu daily. Signout: Echo reviewed. Patient has severe pulmonary hypertension with severe RV dysfunction and dilatation. On Lasix. Already discussed with Dr. Sterling and plan for CT-guided biopsy. Microbiology Past 72 Hours 08/22/19 19:40 Sputum, Expectorated/Coughed Gram Stain - Final 08/22/19 19:40 Sputum, Expectorated/Coughed Respiratory Culture - Preliminary Appears to be normal respiratory jimmy. Further studies to follow. 08/22/19 14:31 Mucosa - Nasopharyngeal Respiratory Panel (PCR) - Final Laboratory Results 08/23/19 05:55: Sodium 138, Potassium 5.3 H, Chloride 105, Carbon Dioxide 33.0 H , Anion Gap 0 L, BUN 23 H, Creatinine 0.84, Estim Creat Clear Calc 76.29, Est GFR (MDRD) Af Amer 90, Est GFR (MDRD) Non-Af 74, BUN/Creatinine Ratio 27.5 H, Glucose 128 H, Calcium 7.7 L, TSH 0.43 08/24/19 05:10: PT 12.8, INR 1.0 08/24/19 05:10: Sodium 140, Potassium 5.1, Chloride 103, Carbon Dioxide 35.0 H, Anion Gap 2 L, BUN 24 H, Creatinine 0.91, Estim Creat Clear Calc 70.42, Est GFR (MDRD) Af Amer 82, Est GFR (MDRD) Non-Af 68, BUN/Creatinine Ratio 26.4 H, Glucose 120 H, Calcium 7.5 L Clinical Impression(s) from Imaging Studies Chest X-Ray 08/22/19 09:06 IMPRESSION: Poor inspiration with some bibasilar atelectasis. Chest CTA 08/22/19 09:58 IMPRESSION: 1. Normal CTA chest examination, without a demonstrated pulmonary embolism or arterial dissection. 2. Mild emphysema with a 1 cm noncalcified lingular nodule for which PET CT scan is recommended. Code Visit Inpatient E&M: 43856 Subs Hosp L2
[2019-08-24] MEDS: Furosemide 40 MG/4 ML Vial IV (18:03)
[2019-08-25] VITALS (20 sets, daily range): BP systolic 91–181; BP diastolic 62–115; PULSE 71–92; RESP 16–30; TEMP 36.1–37.1; O2SAT 87–98; BMI 46.4
[2019-08-25] MEDS: Ipratropium/Albuterol Sulfate 3 ML AMPUL.NEB INHALATION ×5 (01:15→23:47)
[2019-08-25 05:58] LABS: Absolute Lymphocyte Count 0.26 X10^3/uL (0.83-4.51); Absolute Neutrophil Count 8.1 X10^3/uL (2.0-7.7); Basophil# 0.02 X10^3/uL; Basophil% 0.2 % (0-1); Hematocrit 46.8 % (37-47); Hemoglobin 12.4 g/dL (12.0-15.0); Lymphocyte # 0.26 X10^3/ul (4.0); Lymphocyte % 2.9 % (19-41); Mean Corp Hgb Conc 26.5 g/dL (32-36); Mean Corpuscular Hgb 23.1 pg (27.0-32.0); Mean Corpuscular Volume 87.2 fL (81-99); Mean Platelet Vol. 9.4 fl (6.2-12.0); Monocyte# 0.45 X10^3/uL; NRBC Flagged by Analyzer 0.2 % (0-5); Neutrophil # 8.07 X10^3/uL (2.7-7.7); Neutrophil % 90.2 % (47-70); POSITIVE DIFFERENTIAL YES; Platelet Count 231 K/mm3 (150-450); RBC Distribution Width SD 55.3 fl (35.1-43.9); Red Blood Count 5.37 M/mm3 (4.2-5.4)
[2019-08-25 06:15] LABS: Anion Gap 1 (5-15); BUN 24 mg/dL (7-18); BUN/Creat Ratio 25.3 RATIO (10-20); Calcium,Total 7.9 mg/dL (8.5-10.1); Chloride 99 mmol/L (98-107); Creatinine, Serum 0.95 mg/dL (0.55-1.02); EST Glomerular Filtration Rate 64 mL/min (>60); Est Glom Filt Rate - Afr Amer 78 mL/min (>60); Estimated Creatinine Clearance 67.46 ml/min; Glucose 132 mg/dL (74-106); Potassium 5.2 mmol/L (3.5-5.1); Sodium Level 139 mmol/L (136-145)
[2019-08-25] MEDS: 0.9% Saline Lock 10 ML Syringe IV (06:27)
[2019-08-25 06:35] LABS: Differential Indicated SCAN CRITERIA MET
[2019-08-25] MEDS: oxyCODONE 5 MG Tablet PO ×2 (06:35→18:12)
--- NOTE | 2019-08-25 11:00 | CT_ITS ---
PROCEDURE: CT GUIDED CORE NEEDLE BIOPSY OF A left upper lobe LUNG LESION INDICATION: Female, 58 years old. Left upper lobe nodule. PHYSICIAN: Dr. Asher Cuenca CONSENT: Written informed consent was obtained having explained the risks, benefits and alternatives in detail with the patient who accepted the risks and agreed to proceed. Laboratory review and clinical assessment was performed. CONSCIOUS SEDATION PROTOCOL: The Drugs used were: 2 mg Versed, IV., and 50 mcg Fentanyl, IV. The sedation time was: 15 minutes. Conscious sedation was started 11:16 AM and terminated at 11:30 AM. The conscious sedation protocol was independently monitored. RADIATION DOSAGE (If Supplied By Facility): CTDIvol = ( 18.7 ) mGy, DLP = ( 490.42 ) mGycm Individualized dose optimization techniques were used for this CT. TECHNIQUE: The patient was placed in the supine position. A noncontrast CT was performed to localize the lesion in the left upper lobe . The skin surface was prepped and draped in a sterile fashion. 1% lidocaine was used for local anesthesia. Using CT guidance, a 20-gauge coaxial biopsy device, several attempts were made to access the small nodule in the left upper lobe. Due to the position of the nodule deep to a rib and the patient's respiratory condition, the biopsy was not successful. A post procedure CT demonstrated no adverse sequelae or pneumothorax. The patient tolerated the procedure well without adverse event. CT/Limited or Localized F/U CT IMPRESSION: 1. Attempted biopsy of the left upper lobe nodule. 2. Conscious Sedation protocol utilized with independent monitoring. Electronically Signed: Isauro Sterling, at 13:52 EST , Service support ,
[2019-08-25] MEDS: Midazolam 2 MG/2 ML Syringe IV (11:16)
[2019-08-25] MEDS: fentaNYL 100 MCG/2 ML Ampul IV (11:18)
--- NOTE | 2019-08-25 12:10 | RAD_ITS ---
STUDY: X-RAY CHEST REASON FOR EXAM: Female, 58 years old. Lung biopsy. Evaluate for pneumothorax. TECHNIQUE: Frontal view of the chest COMPARISON: 08/22/2019 FINDINGS: There are mild congestive changes noted. The lungs are otherwise clear. There are no pleural effusions. There is no pneumothorax. The heart is enlarged, but stable. The visualized osseous structures are within normal limits. RAD/Chest Insp/Exp 2 View IMPRESSION: Mild pulmonary vascular congestion. Stable cardiomegaly. No pneumothorax. Electronically Signed: Scott Ritter, at 10:55 EST Tel , Service support ,
[2019-08-25] MEDS: Morphine 2 MG/ML Syringe IV (12:44)
[2019-08-25] MEDS: Furosemide 40 MG/4 ML Vial IV ×2 (12:45→18:12)
[2019-08-25] MEDS: guaiFENesin 1,200 MG Tablet 1200 MG PO ×2 (12:46→21:43)
[2019-08-25] MEDS: Azithromycin 250 MG Tablet 500 MG PO (12:46)
[2019-08-25] MEDS: buPROPion (SR) 150 MG Tablet.SA PO ×2 (12:47→21:43)
[2019-08-25] MEDS: Famotidine 20 MG Tablet PO (12:47)
--- NOTE | 2019-08-25 13:18 | NURSING ---
Report called to KAITLYNN Rosales at 1205. KAITLYNN Rosales is aware biopsy was attempted, but unsuccessful due to location of nodule. KAITLYNN Frank advised KAITLYNN Rosales to complete recovery vs at 1235. Pt reported 10/10 left upper chest pain during recovery. Per Dr. Sterling pt initial chest xray shows no signs of pneumothorax.
--- NOTE | 2019-08-25 14:26 | CASEMGMT ---
Pt states that she would like [facility] for DME company, if/when she qualifies for home oxygen at discharge. Pt had previously been given list of in-network DME companies. Green sheet on chart for home oxygen qualification with home oxygen instructions, facesheet, and order with highlighted areas that need to be completed. Pt states that lung bx was not able to be completed at this time. Pt states no further concerns/needs at this time. Charlotte CALDERÓN CM
[2019-08-25] MEDS: metOLazone 5 MG Tablet PO (18:12)
--- NOTE | 2019-08-25 19:54 | PN_ITS ---
Patient Problems: Active and Suspected Problems (Last Reviewed 08/16/19 @ 12:40 by Nita Owusu) COPD exacerbation (Acute) Acute hypoxic respiratory failure (Acute) Subjective: Seen and examined today, she went down for a CT-guided needle biopsy but a good window was unable to be obtained and this biopsy was not performed. I have reviewed the patient's echocardiogram which shows evidence of pulmonary hypertension, I have decided to increase the patient's Lasix and give her 1 dose of Zaroxolyn today. Patient still requires supplemental O2 via nasal cannula, she will more than likely need oxygen when she is discharged home. I briefly talked with her today, patient does not want to go to a residential facility and she is walking without assistance according to the patient today. - Physical Exam Vitals/I&O's: Vital Signs Temp Pulse Resp BP Pulse Ox 97 F L 92 20 H 138/76 H 94 08/25/19 18:14 08/25/19 18:14 08/25/19 18:14 08/25/19 18:14 08/25/19 18:14 Oxygen Flow Rate (L/min) [5] 15 Oxygen Flow Rate (L/min) [4] 6 Oxygen Flow Rate (L/min) [3] 6 Oxygen Flow Rate (L/min) [2] 4 Oxygen Flow Rate (L/min) [1 ( 4 Initial Baseline)] Oxygen Flow Rate (L/min) 4 Oxygen Delivery Method [5] Non-Rebreather Oxygen Delivery Method [4] Nasal Cannula Oxygen Delivery Method [3] Nasal Cannula Oxygen Delivery Method [2] Nasal Cannula Oxygen Delivery Method [1 ( Nasal Cannula Initial Baseline)] Oxygen Delivery Method Nasal Cannula Weight: 142.7 kg Body Mass Index (BMI) 46.4 Intake and Output for Last 24 Hours 08/23/19 08/24/19 08/25/19 23:59 23:59 23:59 Intake Total 1430.83 / 1730.83 930 / 930 439.17 / 439.17 Balance 1430.83 / 1730.83 930 / 930 439.17 / 439.17 General: Alert, Oriented x3, Cooperative, No apparent distress HEENT: Atraumatic, PERRLA, EOMI, Normocephalic Oral: Moist Mucosa Neck: Supple, Trachea Midline, Thyroid Normal Size and Texture Lungs: Clear to auscultation, No rhonchi, No wheeze, No rales, Diminished Cardiovascular: Regular rate, Regular Rhythm, Normal S1, Normal S2, No murmurs Abdomen: Bowel Sounds Present, Soft, Non Tender, Non-Distended, Obese Extremities: No clubbing, No cyanosis, No edema, Capillary Refill Less than 3 Seconds Skin: No rashes, No breakdown Musculoskeletal: No Tenderness to Palpation of Joints or Extremities Neurological: Cranial nerves II-XII grossly intact, Neuro grossly intact, Sensory exam intact to light touch and pain, Coordination normal Psych/Mental Status: Normal Affect, Appropriate, Alert and oriented to time, place, person, mood and affect Microbiology Past 72 Hours 08/22/19 19:40 Sputum, Expectorated/Coughed Gram Stain - Final 08/22/19 19:40 Sputum, Expectorated/Coughed Respiratory Culture - Final 08/23/19 Unknown Urine, Clean Catch Streptococcus pneumoniae Antigen (M - Final 08/23/19 Unknown Urine, Clean Catch Legionella Antigen - Final 08/22/19 14:31 Mucosa - Nasopharyngeal Respiratory Panel (PCR) - Final Laboratory Results 08/25/19 05:25: WBC 9.0, RBC 5.37, Hgb 12.4, Hct 46.8, MCV 87.2, MCH 23.1 L, MCHC 26.5 L, RDW Std Deviation 55.3 H, RDW Coeff of Seble 18.0 H, Plt Count 231, MPV 9.4, Immature Gran % (Auto) 1.700 H, Neut % (Auto) 90.2 H, Lymph % (Auto) 2.9 L, Mellette % (Auto) 5.0, Eos % (Auto) 0.0, Baso % (Auto) 0.2, Absolute Neuts (auto) 8.1 H, Absolute Lymphs (auto) 0.26 L, Nucleated RBC % 0.2 08/25/19 05:25: Sodium 139, Potassium 5.2 H, Chloride 99, Carbon Dioxide 39.0 H, Anion Gap 1 L, BUN 24 H, Creatinine 0.95, Estim Creat Clear Calc 67.46, Est GFR (MDRD) Af Amer 78, Est GFR (MDRD) Non-Af 64, BUN/Creatinine Ratio 25.3 H, Glucose 132 H, Calcium 7.9 L Current Medications Acetaminophen (Tylenol) 650 mg PO Q6H PRN PRN PRN Reason: Pain Score 1-3/Temp > 100.7 F Last Admin: 08/24/19 03:54 Dose: 650 mg Documented by: Albuterol Sulfate (Ventolin Aerosols) 2.5 mg INHALATION Q2H PRN PRN PRN Reason: SOB/Wheezing Albuterol/Ipratropium (Duoneb) 3 ml INHALATION Q4H.RT [facility] Last Admin: 08/25/19 15:07 Dose: 3 ml Documented by: Bisacodyl (Dulcolax) 10 mg RECTAL DAILY PRN PRN PRN Reason: Constipation Bupropion HCl (Wellbutrin Sr (150mg Tablets)) 150 mg PO BID [facility] Last Admin: 08/25/19 12:47 Dose: 150 mg Documented by: Dextrose (D50w Syringe) 0 gm IV X1 PRN; Protocol PRN Reason: Hypoglycemia Docusate Sodium (Colace) 200 mg PO BID PRN PRN PRN Reason: Constipation Last Admin: 08/22/19 14:07 Dose: 200 mg Documented by: Enoxaparin Sodium (Lovenox) 40 mg SC DAILY [facility] Last Admin: 08/24/19 09:38 Dose: Not Given Documented by: Famotidine (Pepcid) 20 mg PO DAILY [facility] Last Admin: 08/25/19 12:47 Dose: 20 mg Documented by: Furosemide (Lasix) 40 mg IV BID@1000,1800 [facility] Last Admin: 08/25/19 18:12 Dose: 40 mg Documented by: Glucagon () 1 mg IM .X1 PRN PRN Reason: Hypoglycemia Guaifenesin (Mucinex) 1,200 mg PO BID [facility] Last Admin: 08/25/19 12:46 Dose: 1,200 mg Documented by: Hydrocortisone Acetate (Anusol Hc) 25 mg RECTAL BID PRN PRN Reason: BLEEDING Sodium Chloride () 500 mls @ 0 mls/hr IV .Q0M [facility] Stop: 08/25/19 23:59 Last Infusion: 08/25/19 15:09 Dose: Infused Documented by: Melatonin (Melatonin) 3 mg PO QHS PRN PRN PRN Reason: INSOMNIA Methylprednisolone (Solu-Medrol) 40 mg IV Q8 [facility] Last Admin: 08/25/19 12:45 Dose: 40 mg Documented by: Morphine Sulfate () 2 mg IV Q3H PRN PRN PRN Reason: Pain Score 6-10/10 Last Admin: 08/25/19 12:44 Dose: 2 mg Documented by: Nicotine (Nicoderm Cq (Pbkc)) 21 mg TRANSDERM. DAILY [facility] Last Admin: 08/25/19 12:46 Dose: 21 mg Documented by: Nitroglycerin (Nitrostat) 0.4 mg SUBLINGUAL Q5M PRN PRN Reason: CARDIAC/CHEST PAIN Oxycodone HCl (Oxyir) 5 mg PO Q4H PRN PRN PRN Reason: Pain Score 4-5/10 Last Admin: 08/25/19 18:12 Dose: 5 mg Documented by: Polyethylene Glycol (Miralax) 17 gm PO DAILY PRN PRN Reason: Constipation Prochlorperazine Edisylate (Compazine Iv) 5 mg IV Q4H PRN PRN PRN Reason: Breakthrough Nausea/Vomiting Sodium Chloride () 10 - 40 ml IV UD PRN PRN Reason: SALINE FLUSH Last Admin: 08/25/19 06:27 Dose: 10 ml Documented by: Medical Necessity - Tobacco Use Smoking Status: Current every day smoker Assessment/Plan All Active Problems (Last Reviewed 08/16/19 @ 12:40 by Nita Owusu) COPD exacerbation (Acute) Acute hypoxic respiratory failure (Acute) Frequent headaches (Acute) #1 acute COPD exacerbation-continue present medications #2 severe pulmonary hypertension #3 acute diastolic congestive heart failure continue IV Lasix, monitor urine output #4 hypoxia secondary to COPD exacerbation-patient may need home O2 when she is discharged home #5 left lung nodule-not able to be biopsied via CT needle guided biopsy, follow- up with pulmonary medicine #6 morbid obesity Code Visit Inpatient E&M: 59894 Subs Hosp L2
[2019-08-25] MEDS: Acetaminophen 325 MG Tablet 650 MG PO (21:49)
[2019-08-26] VITALS (11 sets, daily range): BP systolic 102–135; BP diastolic 63–85; PULSE 74–90; RESP 18–94; TEMP 36.6–37.5; O2SAT 90–95
[2019-08-26] MEDS: oxyCODONE 5 MG Tablet PO ×4 (03:32→19:29)
[2019-08-26] MEDS: 0.9% Saline Lock 10 ML Syringe IV ×5 (05:25→22:18)
[2019-08-26 07:16] LABS: Anion Gap 3 (5-15); BUN 35 mg/dL (7-18); BUN/Creat Ratio 30.4 RATIO (10-20); Calcium,Total 8.1 mg/dL (8.5-10.1); Chloride 97 mmol/L (98-107); Creatinine, Serum 1.15 mg/dL (0.55-1.02); EST Glomerular Filtration Rate 51 mL/min (>60); Est Glom Filt Rate - Afr Amer 62 mL/min (>60); Estimated Creatinine Clearance 55.73 ml/min; Glucose 114 mg/dL (74-106); Potassium 4.6 mmol/L (3.5-5.1); Sodium Level 137 mmol/L (136-145)
[2019-08-26] MEDS: Ipratropium/Albuterol Sulfate 3 ML AMPUL.NEB INHALATION ×5 (07:22→23:30)
[2019-08-26] MEDS: Enoxaparin 40 MG/0.4 ML Syringe SC (08:46)
[2019-08-26] MEDS: Furosemide 40 MG/4 ML Vial IV ×3 (08:46→22:19)
[2019-08-26] MEDS: guaiFENesin 1,200 MG Tablet 1200 MG PO ×2 (08:46→22:17)
[2019-08-26] MEDS: Famotidine 20 MG Tablet PO (08:48)
[2019-08-26] MEDS: buPROPion (SR) 150 MG Tablet.SA PO ×2 (08:49→22:17)
[2019-08-26] MEDS: Acetaminophen 325 MG Tablet 650 MG PO ×2 (08:58→22:17)
--- NOTE | 2019-08-26 11:43 | PCM.PROGNOTE ---
Patient Problems: Active and Suspected Problems (Last Reviewed 08/16/19 @ 12:40 by Nita Owusu) COPD exacerbation (Acute) Acute hypoxic respiratory failure (Acute) Subjective: Patient was seen and examined today, she is still requiring 4 L nasal cannula oxygen. Patient's chest x-ray today showed continued vascular congestion, I feel she remains in diastolic CHF and I have decided to increase her IV Lasix. Patient will need to go home on oxygen, I notified her of this. Objective: General: Alert, Oriented x3, Cooperative, No apparent distress HEENT: Atraumatic, PERRLA, EOMI, Normocephalic Oral: Moist Mucosa Neck: Supple, Trachea Midline, Thyroid Normal Size and Texture Lungs: Clear to auscultation, No rhonchi, No wheeze, No rales, Diminished Cardiovascular: Regular rate, Regular Rhythm, Normal S1, Normal S2, No murmurs Abdomen: Bowel Sounds Present, Soft, Non Tender, Non-Distended, Obese Extremities: No clubbing, No cyanosis, No edema, Capillary Refill Less than 3 Seconds Skin: No rashes, No breakdown Musculoskeletal: No Tenderness to Palpation of Joints or Extremities Neurological: Cranial nerves II-XII grossly intact, Neuro grossly intact, Sensory exam intact to light touch and pain, Coordination normal Psych/Mental Status: Normal Affect, Appropriate, Alert and oriented to time, place, person, mood and affect - Physical Exam Vitals/I&O's: Vital Signs Temp Pulse Resp BP Pulse Ox 98.4 F 84 18 102/63 93 08/26/19 10:10 08/26/19 10:10 08/26/19 10:10 08/26/19 10:10 08/26/19 10:10 Oxygen Flow Rate (L/min) [5] 15 Oxygen Flow Rate (L/min) [4] 6 Oxygen Flow Rate (L/min) [3] 6 Oxygen Flow Rate (L/min) [2] 4 Oxygen Flow Rate (L/min) [1 ( 4 Initial Baseline)] Oxygen Flow Rate (L/min) 4 Oxygen Delivery Method [5] Non-Rebreather Oxygen Delivery Method [4] Nasal Cannula Oxygen Delivery Method [3] Nasal Cannula Oxygen Delivery Method [2] Nasal Cannula Oxygen Delivery Method [1 ( Nasal Cannula Initial Baseline)] Oxygen Delivery Method Nasal Cannula Weight: 142.9 kg Body Mass Index (BMI) 46.4 Intake and Output for Last 24 Hours 08/24/19 08/25/19 08/26/19 23:59 23:59 23:59 Intake Total 930 / 930 679.17 / 679.17 120 / 120 Output Total 225 / 225 700 / 700 Balance 930 / 930 454.17 / 454.17 -580 / -580 Microbiology Past 72 Hours 08/22/19 19:40 Sputum, Expectorated/Coughed Gram Stain - Final 08/22/19 19:40 Sputum, Expectorated/Coughed Respiratory Culture - Final 08/23/19 Unknown Urine, Clean Catch Streptococcus pneumoniae Antigen (M - Final 08/23/19 Unknown Urine, Clean Catch Legionella Antigen - Final 08/22/19 14:31 Mucosa - Nasopharyngeal Respiratory Panel (PCR) - Final Laboratory Results 08/26/19 06:08: Sodium 137, Potassium 4.6, Chloride 97 L, Carbon Dioxide 37.0 H, Anion Gap 3 L, BUN 35 H, Creatinine 1.15 H, Estim Creat Clear Calc 55.73, Est GFR (MDRD) Af Amer 62, Est GFR (MDRD) Non-Af 51 L, BUN/Creatinine Ratio 30.4 H, Glucose 114 H, Calcium 8.1 L Current Medications Acetaminophen (Tylenol) 650 mg PO Q6H PRN PRN PRN Reason: Pain Score 1-3/Temp > 100.7 F Last Admin: 08/26/19 08:58 Dose: 650 mg Documented by: Albuterol Sulfate (Ventolin Aerosols) 2.5 mg INHALATION Q2H PRN PRN PRN Reason: SOB/Wheezing Albuterol/Ipratropium (Duoneb) 3 ml INHALATION Q4H.RT [facility] Last Admin: 08/26/19 11:39 Dose: 3 ml Documented by: Bisacodyl (Dulcolax) 10 mg RECTAL DAILY PRN PRN PRN Reason: Constipation Bupropion HCl (Wellbutrin Sr (150mg Tablets)) 150 mg PO BID [facility] Last Admin: 08/26/19 08:49 Dose: 150 mg Documented by: Dextrose (D50w Syringe) 0 gm IV X1 PRN; Protocol PRN Reason: Hypoglycemia Docusate Sodium (Colace) 200 mg PO BID PRN PRN PRN Reason: Constipation Last Admin: 08/22/19 14:07 Dose: 200 mg Documented by: Enoxaparin Sodium (Lovenox) 40 mg SC DAILY [facility] Last Admin: 08/26/19 08:46 Dose: 40 mg Documented by: Famotidine (Pepcid) 20 mg PO DAILY [facility] Last Admin: 08/26/19 08:48 Dose: 20 mg Documented by: Furosemide (Lasix) 40 mg IV Q8 [facility] Glucagon () 1 mg IM .X1 PRN PRN Reason: Hypoglycemia Guaifenesin (Mucinex) 1,200 mg PO BID [facility] Last Admin: 08/26/19 08:46 Dose: 1,200 mg Documented by: Hydrocortisone Acetate (Anusol Hc) 25 mg RECTAL BID PRN PRN Reason: BLEEDING Melatonin (Melatonin) 3 mg PO QHS PRN PRN PRN Reason: INSOMNIA Methylprednisolone (Solu-Medrol) 40 mg IV Q8 [facility] Last Admin: 08/26/19 05:25 Dose: 40 mg Documented by: Morphine Sulfate () 2 mg IV Q3H PRN PRN PRN Reason: Pain Score 6-10/10 Last Admin: 08/25/19 12:44 Dose: 2 mg Documented by: Nicotine (Nicoderm Cq (Pbkc)) 21 mg TRANSDERM. DAILY [facility] Last Admin: 08/26/19 08:47 Dose: 21 mg Documented by: Nitroglycerin (Nitrostat) 0.4 mg SUBLINGUAL Q5M PRN PRN Reason: CARDIAC/CHEST PAIN Oxycodone HCl (Oxyir) 5 mg PO Q4H PRN PRN PRN Reason: Pain Score 4-5/10 Last Admin: 08/26/19 08:39 Dose: 5 mg Documented by: Polyethylene Glycol (Miralax) 17 gm PO DAILY PRN PRN Reason: Constipation Prochlorperazine Edisylate (Compazine Iv) 5 mg IV Q4H PRN PRN PRN Reason: Breakthrough Nausea/Vomiting Sodium Chloride () 10 - 40 ml IV UD PRN PRN Reason: SALINE FLUSH Last Admin: 08/26/19 08:49 Dose: 10 ml Documented by: Medical Necessity - Tobacco Use Smoking Status: Current every day smoker Assessment/Plan All Active Problems (Last Reviewed 08/16/19 @ 12:40 by Nita Owusu) COPD exacerbation (Acute) Acute hypoxic respiratory failure (Acute) Frequent headaches (Acute) #1 acute COPD exacerbation-continue present medications #2 severe pulmonary hypertension #3 acute diastolic congestive heart failure continue IV Lasix, increase to every 8 hours, monitor urine output #4 hypoxia secondary to COPD exacerbation-patient may need home O2 when she is discharged home #5 left lung nodule-not able to be biopsied via CT needle guided biopsy, follow-up with pulmonary medicine #6 morbid obesity Code Visit Inpatient E&M: 99144 Subs Hosp L2
[2019-08-26 14:31] LABS: Anion Gap 4 (5-15); BUN 39 mg/dL (7-18); BUN/Creat Ratio 32.8 RATIO (10-20); Calcium,Total 7.9 mg/dL (8.5-10.1); Chloride 98 mmol/L (98-107); Creatinine, Serum 1.19 mg/dL (0.55-1.02); EST Glomerular Filtration Rate 49 mL/min (>60); Est Glom Filt Rate - Afr Amer 60 mL/min (>60); Estimated Creatinine Clearance 53.85 ml/min; Glucose 128 mg/dL (74-106); Magnesium 2.2 mg/dL (1.6-2.6); Potassium 4.3 mmol/L (3.5-5.1); Sodium Level 139 mmol/L (136-145)
--- NOTE | 2019-08-26 14:42 | NURSING ---
This nurse reviewed charting of [facility]
--- NOTE | 2019-08-26 14:48 | NURSING ---
This nurse reviewed charting of [facility]
--- NOTE | 2019-08-26 14:56 | NURSING ---
pt voided 4 times today since 6am but only 100cc in measuring hat. pt stated I keep missing the hat. Dr. Dalton aware of this.
--- NOTE | 2019-08-26 14:58 | NURSING ---
Aware that MG and potassium are wnl.
[2019-08-26] MEDS: diazePAM 5 MG Tablet PO (17:40)
[2019-08-26] MEDS: Morphine 2 MG/ML Syringe IV (22:18)
[2019-08-27] VITALS (11 sets, daily range): BP systolic 118–161; BP diastolic 60–83; PULSE 74–91; RESP 16–20; TEMP 36.6–36.8; O2SAT 71–100
[2019-08-27] MEDS: oxyCODONE 5 MG Tablet PO ×2 (00:06→05:51)
[2019-08-27] MEDS: 0.9% Saline Lock 10 ML Syringe IV ×3 (02:30→14:12)
[2019-08-27] MEDS: Morphine 2 MG/ML Syringe IV (02:30)
[2019-08-27] MEDS: Ipratropium/Albuterol Sulfate 3 ML AMPUL.NEB INHALATION ×4 (02:47→15:29)
[2019-08-27] MEDS: Furosemide 40 MG/4 ML Vial IV ×2 (05:50→14:12)
[2019-08-27] MEDS: Famotidine 20 MG Tablet PO (10:25)
[2019-08-27] MEDS: buPROPion (SR) 150 MG Tablet.SA PO (10:25)
[2019-08-27] MEDS: guaiFENesin 1,200 MG Tablet 1200 MG PO (10:25)
[2019-08-27] MEDS: Enoxaparin 40 MG/0.4 ML Syringe SC (10:25)
--- NOTE | 2019-08-27 13:08 | DCINST_ITS ---
- Discharge Diagnoses Current Active Problems: Current Active and Chronic Problems (Last Reviewed 08/16/19 @ 12:40 by Nita Owusu) COPD exacerbation (Acute) Acute hypoxic respiratory failure (Acute) You will use the following diet at home:: No restrictions Your food should be the consistency of: Regular Your liquids should be the consistency of: Regular/Thin Discharge Activity: Return to Normal Activity Weight Bearing Status: Full weight bearing Instructions: CT-Guided Lung Biopsy, Discharge Instructions Needle Biopsy: Lung Additional Instructions: use oxygen continuously at prescribed setting Allergies/Adverse Reactions: Allergies Latex, Natural Rubber Allergy (Severe, Verified 08/22/19 09:04) unknown Penicillins Allergy (Verified 08/22/19 09:04) Anaphylaxis Sulfa (Sulfonamide Antibiotics) Allergy (Verified 08/22/19 09:04) Unknown tetanus and diphtheria toxoids Allergy (Verified 08/22/19 09:04) Swelling Medications to take at Discharge Acetaminophen [Tylenol Tablet] 650 mg PO Q6H PRN PRN tab 01/31/18 Hydrocortisone [Anusol Hc] 25 mg RECTAL BID PRN PRN #20 suppos. 05/11/18 compression stocking,knee high,regular,large circumfer. See Rx Instructions .ROUTE .MEDSUPPLY #2 ea 07/07/19 famotidine 20 mg tablet 20 mg PO DAILY #90 tab 07/07/19 bupropion HCl SR 150 mg tablet,12 hr sustained-release 150 mg PO BID #180 tab 07/24/19 fluticasone furoate 100 mcg-vilanterol 25 mcg/dose inhalation powder 1 inh INHALATION QDAY #60 ea 07/24/19 albuterol sulfate HFA 90 mcg/actuation aerosol inhaler 2 puff INHALATION Q4H PRN #1 device 08/16/19 Acetaminophen [Tylenol Tablet] 650 mg PO Q6H PRN PRN tablet 08/27/19 Furosemide [Lasix] 40 mg PO BIDLX #60 tab 08/27/19 Nicotine [Nicoderm Cq] 21 mg TRANSDERM. DAILY #30 patch 08/27/19 Potassium Chloride 20 meq PO DAILY #60 capsule.er 08/27/19 The following prescriptions were given: Furosemide [Lasix] 40 mg PO BIDLX #60 tab Transmission Status: Pending to [id number] Nicotine [Nicoderm Cq] 21 mg TRANSDERM. DAILY #30 patch [facility]: [id number] Potassium Chloride 20 meq PO DAILY #60 capsule.er Transmission Status: Pending to [facility] Primary Care Physician: Chino Encinas MD [Primary Care Provider] - Test Results: Test results from this visit will be discussed in further detail at your follow- up appointment, if applicable. Please Follow Up With: Chino Encinas MD Please Follow Up With: Koko Hernandse, DO When: in two weeks
--- NOTE | 2019-08-27 14:04 | NURSING ---
Oxygen ordered from [facility].
--- NOTE | 2019-08-27 18:19 | PCM.DC.SUM ---
Discharge Date and Diagnosis Date of Admission: 08/22/19 Date of Discharge: 08/27/19 - Primary Discharge Diagnosis #1 acute COPD exacerbation #2 severe pulmonary hypertension #3 acute diastolic congestive heart failure #4 hypoxia secondary to COPD exacerbation #5 left lung nodule-not able to be biopsied via CT needle guided biopsy #6 morbid obesity - Secondary Discharge Diagnosis Chronic Problems (Last Reviewed 08/16/19 @ 12:40 by Nita Owusu) Anorectal hemorrhage (Chronic) Depression (Chronic) Tobacco abuse counseling (Chronic) Duodenal ulcer (Chronic) Chronic bronchitis (Chronic) COPD (chronic obstructive pulmonary disease) (Chronic) IBS (irritable bowel syndrome) (Chronic) Asthma (Chronic) Peptic ulcer disease (Chronic) Acute gastritis (Chronic) Tobacco dependence (Chronic) BMI 39.0-39.9,adult (Chronic) Hospital Course and Treatment Operations: None Procedures: 2-D Echocardiogram Summary of Care Provided: The patient is a 58 year old F was seen in the emergency room at [facility] with a chief complaint of shortness of breath x2 months. She was due to have a lung biopsy performed and her oxygen sat was 74% on room air in outpatient radiology and she was referred to the emergency room for evaluation. Lab obtained in the emergency room showed a normal CBC, BUN was 23 creatinine was 1.07, d-dimer was elevated at 1.42, CT of the chest was obtained and showed no evidence of PE or aortic dissection, there was noted to be mild emphysema with a 1 cm noncalcified lingular nodule. She was placed on 4 L of oxygen with an increase in her O2 sat above 90%, she received IV Solu-Medrol and was given a DuoNeb aerosol. Patient was admitted to PCU for further treatment, she was given aggressive aerosol treatments and IV Solu-Medrol, and attempt was made to perform a lung biopsy but an adequate window could not be acquired in the lung biopsy was not performed. Patient had an echocardiogram which showed severe pulmonary hypertension, patient was given IV Lasix with some suggestive improvement of her shortness of breath. On 08/27/2019, patient was seen and examined: On examination she appeared in good health and spirits. Vital signs as documented. Skin warm and dry and without overt rashes. Neck without JVD. Lungs-breath sounds are distant bilaterally. Heart exam notable for regular rhythm, normal sounds and absence of murmurs, rubs or gallops. Abdomen unremarkable and without evidence of organomegaly, masses, or abdominal aortic enlargement. Extremities nonedematous. Neuro: Cranial nerves II through XII are grossly intact, no focal motor deficits were noted, sensation to light touch and pinprick is intact. Psych: Patient is alert and oriented x3, she does not appear anxious or depressed On 08/27/2019, patient was seen and examined and felt to be stable for discharge home, she required 4 L of O2 to maintain her pulse ox at rest, her pulse ox on room air was 71, on ambulation, patient required 6 L via nasal cannula to maintain her pulse ox. Patient was set up for home oxygen and was expected to use home oxygen at rest and on ambulation, she was expected to use oxygen outside the home when ambulating. - Physical Exam Vitals/I&O's: Vital Signs Temp Pulse Resp BP Pulse Ox 98 F 85 20 H 126/65 H 97 08/27/19 14:00 08/27/19 15:29 08/27/19 15:29 08/27/19 14:00 08/27/19 14:00 Oxygen Flow Rate (L/min) [5] 15 Oxygen Flow Rate (L/min) [4] 6 Oxygen Flow Rate (L/min) [3] 6 Oxygen Flow Rate (L/min) [2] 4 Oxygen Flow Rate (L/min) [1 ( 4 Initial Baseline)] Oxygen Flow Rate (L/min) [ 6 AMBULATION with Oxygen] Oxygen Flow Rate (L/min) [At 0 REST on Room Air] Oxygen Flow Rate (L/min) 4 Oxygen Delivery Method [5] Non-Rebreather Oxygen Delivery Method [4] Nasal Cannula Oxygen Delivery Method [3] Nasal Cannula Oxygen Delivery Method [2] Nasal Cannula Oxygen Delivery Method [1 ( Nasal Cannula Initial Baseline)] Oxygen Delivery Method Nasal Cannula Weight: 139.4 kg Body Mass Index (BMI) 46.4 Intake and Output for Last 24 Hours 08/25/19 08/26/19 08/27/19 23:59 23:59 23:59 Intake Total 679.17 / 679.17 420 / 1110 860 / 860 Output Total 225 / 225 1350 / 4050 4600 / 4600 Balance 454.17 / 454.17 -930 / -2940 -3740 / -3740 Microbiology Past 72 Hours 08/22/19 19:40 Sputum, Expectorated/Coughed Gram Stain - Final 08/22/19 19:40 Sputum, Expectorated/Coughed Respiratory Culture - Final Discharge Activity: Return to Normal Activity Weight Bearing Status: Full weight bearing Home Medications: Medications to take at Discharge Acetaminophen [Tylenol Tablet] 650 mg PO Q6H PRN PRN tab 01/31/18 Hydrocortisone [Anusol Hc] 25 mg RECTAL BID PRN PRN #20 suppos. 05/11/18 compression stocking,knee high,regular,large circumfer. See Rx Instructions .ROUTE .MEDSUPPLY #2 ea 07/07/19 famotidine 20 mg tablet 20 mg PO DAILY #90 tab 07/07/19 bupropion HCl SR 150 mg tablet,12 hr sustained-release 150 mg PO BID #180 tab 07/24/19 fluticasone furoate 100 mcg-vilanterol 25 mcg/dose inhalation powder 1 inh INHALATION QDAY #60 ea 07/24/19 albuterol sulfate HFA 90 mcg/actuation aerosol inhaler 2 puff INHALATION Q4H PRN #1 device 08/16/19 Acetaminophen [Tylenol Tablet] 650 mg PO Q6H PRN PRN tab 08/27/19 Furosemide [Lasix] 40 mg PO BIDLX #60 tab 08/27/19 Nicotine [Nicoderm Cq] 21 mg TRANSDERM. DAILY #30 patch 08/27/19 Potassium Chloride 20 meq PO DAILY #60 capsule.er 08/27/19 Following Prescrptions Were Given to Patient: Furosemide [Lasix] 40 mg PO BIDLX #60 tab Transmission Status: Received by [id number] Nicotine [Nicoderm Cq] 21 mg TRANSDERM. DAILY #30 patch Transmission Status: Received by [id number] Potassium Chloride 20 meq PO DAILY #60 capsule.er Transmission Status: Received by [facility] Primary Care Physician: Chino Encinas MD [Primary Care Provider] - Please Follow Up With: Chino Encinas MD Please Follow Up With: Koko Hernandes DO When: in two weeks Patient Instructions: CT-Guided Lung Biopsy, Discharge Instructions Needle Biopsy: Lung Disposition: Home Minutes spent on discharge:: 34 Patient Condition:: Stable Medical Necessity - Tobacco Use Smoking Status: Current every day smoker Meaningful Use Info Meaningful Use Diagnoses (Choose all that apply): None applicable Code Visit Inpatient E&M: 14343 Disch Hosp
--- NOTE | 2019-08-28 14:16 | CASEMGMT ---
KAITLYNN PATEL DC PHONE CALL DC DATE: 08/27/19 DC Disposition: Home Diagnosis on Discharge: COPD exacerbation LACE/STRATA: 09/06 Intro role of CM to patient's family member. Per family member pt is doing fine, is sleeping and can not speak at this time. Ngozi LAMBN RN ACM
== END 2019-08-27 17:26 | disposition home or self-care (01) | DRG 140 ==
LOC: ED 11:13 → PCU 11:46
PROVIDERS: Admitting Provider Internal Medicine; Emergency Provider Emergency Medicine; Family Provider Internal Medicine; PCP Internal Medicine; Referring Provider Internal Medicine; Visit Provider Internal Medicine
DX: J44.1 Chronic obstructive pulmonary disease with (acute) exacerbation (principal); J96.01 Acute respiratory failure with hypoxia; I50.31 Acute diastolic (congestive) heart failure; J45.901 Unspecified asthma with (acute) exacerbation; I27.20 Pulmonary hypertension, unspecified; F17.210 Nicotine dependence, cigarettes, uncomplicated; Z23 Encounter for immunization; E66.01 Morbid (severe) obesity due to excess calories; K58.9 Irritable bowel syndrome, unspecified; R91.1 Solitary pulmonary nodule; F32.9 Major depressive disorder, single episode, unspecified; Z68.42 Body mass index [BMI] 45.0-49.9, adult
CPT/HCPCS: 36415; 71045; 71046; 71275; 76380; 80048; 80053; 80061; 83036; 83735; 83880; 84443; 84484; 85025; 85379; 85610; 87070; 87205; 87449; 87633; 93005; 93306; 94640; 94667; 94668; 99156; 99251; 99285; 99406; J7030; J7040; Q9957; Q9967; 90686; A4216; G0463; J1940

== ENCOUNTER → 2019-08-29 10:32 | Outpatient (CLI) | payer MEDICAID, SELFPAY ==
[2019-08-29 09:51] VITALS: BMI 44.1
[2019-08-29 13:17] LABS: Anion Gap 2 (5-15); BUN 29 mg/dL (7-18); BUN/Creat Ratio 28.2 RATIO (10-20); Calcium,Total 8.2 mg/dL (8.5-10.1); Chloride 94 mmol/L (98-107); Creatinine, Serum 1.03 mg/dL (0.55-1.02); EST Glomerular Filtration Rate 58 mL/min (>60); Est Glom Filt Rate - Afr Amer 71 mL/min (>60); Glucose 96 mg/dL (74-106); Potassium 4.6 mmol/L (3.5-5.1); Sodium Level 140 mmol/L (136-145)
== END ==
PROVIDERS: Family Provider Internal Medicine; PCP Internal Medicine; Visit Provider Nurse Practitioner Family
DX: I27.20 Pulmonary hypertension, unspecified (principal)
CPT/HCPCS: 36415; 80048

== ENCOUNTER → 2019-08-30 09:02 | Outpatient (CLI) | payer MEDICAID, SELFPAY ==
[2019-08-16 08:19] VITALS: BMI 46.6
[2019-08-29 09:51] VITALS: BMI 44.1
[2019-08-30 09:27] VITALS: PULSE 100; PULSE 81; PULSE 85; PULSE 94; PULSE 95; PULSE 96; PULSE 97; O2SAT 82; O2SAT 88; O2SAT 89; O2SAT 90; O2SAT 94; O2SAT 96
--- NOTE | 2019-08-30 15:10 | PCM.PSN.6M ---
PSN 6 Minute Walk Test - 6 Minute Walk Test 6 Minute Walk Test: 6 Minute Walk Test PSN:6-Minute Walk Test Start: 08/30/19 09:27 Freq: Status: Active Protocol: RESP.6MINW Document 08/30/19 09:27 [facility] (Rec: 08/30/19 09:30 B [id number]) 6 Minute Walk Test Date Performed 08/30/19 Time Performed 09:09 Height 5 ft 9 in Weight: 136.078 kg Weight in Pounds 300.[address]: Koko Hernandes Assistive device used: None Pre-test Oxygen Flow Rate (L/min) (L/min) 2 Oxygen Delivery Method Nasal Cannula Pulse Ox (%) 94 Pulse Rate (60-100 beats/min) 81 Dyspnea Shawn Scale (0-10) 0 Exertion Shawn Scale (6-20) 11 1st minute Oxygen Flow Rate (L/min) (L/min) 4 Oxygen Delivery Method Nasal Cannula Pulse Ox (%) 82 Pulse Rate (60-100 beats/min) 100 2nd minute Oxygen Flow Rate (L/min) (L/min) 6 Oxygen Delivery Method Nasal Cannula Pulse Ox (%) 89 Pulse Rate (60-100 beats/min) 94 3rd minute Oxygen Flow Rate (L/min) (L/min) 6 Oxygen Delivery Method Nasal Cannula Pulse Ox (%) 90 Pulse Rate (60-100 beats/min) 94 4th minute Oxygen Flow Rate (L/min) (L/min) 6 Oxygen Delivery Method Nasal Cannula Pulse Ox (%) 88 Pulse Rate (60-100 beats/min) 97 5th minute Oxygen Flow Rate (L/min) (L/min) 6 Oxygen Delivery Method Nasal Cannula Pulse Ox (%) 90 Pulse Rate (60-100 beats/min) 95 6th minute Oxygen Flow Rate (L/min) (L/min) 6 Oxygen Delivery Method Nasal Cannula Pulse Ox (%) 89 Pulse Rate (60-100 beats/min) 96 Post-test Oxygen Flow Rate (L/min) (L/min) 6 Oxygen Delivery Method Nasal Cannula Pulse Ox (%) 96 Pulse Rate (60-100 beats/min) 85 Dyspnea Shawn Scale (0-10) 3 Exertion Shawn Scale (6-20) 12 Full Laps Walked 12 Partial Lap, Number of Tiles Walked 19 Total Distance Walked (ft) 727 - Interpretation Interpretation: The patient was able to ambulate 727 feet over the course of 6 minutes. The patient was noted to be 87% on room air and was placed on 2 L nasal cannula with improvement to 94%. The patient required 6 L/min to maintain saturations of 88% or above. No significant tachycardia was noted. These findings are consistent with a respiratory limitation exercise tolerance. - Recommendations Recommendations: The patient requires 2 L nasal cannula oxygen at rest, but should be using 6 L/min with any ambulation.
== END ==
PROVIDERS: Family Provider Internal Medicine; PCP Internal Medicine; Referring Provider Internal Medicine Critical Care Medicine; Visit Provider Internal Medicine Critical Care Medicine
DX: R91.1 Solitary pulmonary nodule (principal)
CPT/HCPCS: 94618

== ENCOUNTER → 2019-09-01 07:50 | Outpatient (CLI) | payer MEDICAID, SELFPAY ==
[2019-08-16 08:19] VITALS: BMI 46.6
[2019-08-29 09:51] VITALS: BMI 44.1
--- NOTE | 2019-09-02 09:32 | PFTCOMP ---
COMPLETE PULMONARY FUNCTION TEST INTERPRETATION Brief HPI: Patient is a 58 year old female, currently under the care of Dr. Hernandes, who presents to [facility] for complete pulmonary function tests secondary to diagnosis of lung nodule. Respiratory therapist reports good effort and reproducible results. Interpretation: Forced expiration spirometry shows no large airways obstructive ventilatory defect with an FEV1 of 55% predicted. There is no significant bronchodilator response by strict ATS criteria. Spirograms are of good quality and plateau normally. The respiratory flow volume loop shows a normal pattern. Lung volumes by body plethysmography show a decreased total lung capacity at 4.53 L, 77% predicted. All other lung volumes are reduced symmetrically. Diffusion capacity by carbon monoxide is decreased at 50% predicted. The airway resistance is elevated. No previous pulmonary function tests were available for review. Impression: Mild restrictive ventilatory defect with reduction in diffusion capacity and a pattern consistent with interstitial lung disease
== END ==
PROVIDERS: Family Provider Internal Medicine; PCP Internal Medicine; Referring Provider Internal Medicine Critical Care Medicine; Visit Provider Internal Medicine Critical Care Medicine
DX: R91.1 Solitary pulmonary nodule (principal)
CPT/HCPCS: 94060; 94726; 94729

== ENCOUNTER → 2019-09-14 20:23 | Outpatient (CLI) | payer MEDICAID, SELFPAY ==
[2019-08-29 09:51] VITALS: BMI 44.1
[2019-09-14 08:34] VITALS: BMI 44.1
== END ==
PROVIDERS: Family Provider Internal Medicine; PCP Internal Medicine; Referring Provider Nurse Practitioner Family; Visit Provider Nurse Practitioner Family
DX: G47.10 Hypersomnia, unspecified (principal); R06.83 Snoring
CPT/HCPCS: 95811

== ENCOUNTER → 2019-09-25 08:04 | Outpatient (CLI) | payer MEDICAID, SELFPAY ==
[2019-09-14 08:34] VITALS: BMI 44.1
--- NOTE | 2019-09-25 08:00 | PET_ITS ---
EXAMINATION: FDG PET/CT INDICATIONS: A 68-year-old female with reported history of pulmonary nodularity. COMPARISON EXAMINATION: CT of the chest report dated 08/22/19 TECHNIQUE: Following the intravenous administration of 16.96 mCi of F-18 deoxyglucose via the left antecubital fossa, multiplanar image acquisitions of the neck, chest, abdomen and pelvis to level of mid thigh, obtained at one hour post radiopharmaceutical administration contemporaneously interpreted with the current CT of the neck, chest, abdomen and pelvis to level of mid thigh, dated 09/25/[address] of the chest report dated 08/22/19 reveal: SERUM GLUCOSE LEVEL: 114 mg/dl. HEIGHT: 69 inches. WEIGHT: 300 lbs. FINDINGS: 1. There is no quantitative scintigraphic evidence of abnormal increased glucose metabolism to correlate with an approximately 10.1-mm non-calcified ovoid shaped parenchymal density noted in the left lower anteromedial lung-lingula on review of coregistered CT of the chest dated 09/25/19. 2. Normal physiologic distribution of the radiopharmaceutical is apparent in the hepatic and splenic parenchyma, both renal units, bladder and visualized intestinal tract. The visualized portion of the cerebral cortex demonstrate symmetric and preserved glucose metabolism. Diffuse radiopharmaceutical concentration is noted in all four quadrants of the abdomen and pelvis. Prominent radiopharmaceutical concentration is demonstrated in the left ventricular myocardium. Pertinent CT findings are as follows: CHEST: Interfissural fluid in the left hemithorax major fissure demonstrates no evidence of facilitated quantitatively significant increased FDG concentration. Bilateral axillary soft tissue densities with fatty hilus are ametabolic. There is atherosclerotic calcification defined in the thoracic aorta without evidence of dilatation-aneurysm formation. ABDOMEN AND PELVIS: There is atherosclerotic calcification defined in the abdominal aorta without evidence of dilatation-aneurysm formation. Pelvic arterial calcification is observed. Colonic diverticulosis is defined with evidence of diverticulitis. Bilateral subcentimeter inguinal soft tissue densities are ametabolic. SKELETAL: Degenerative changes are noted in the cervical, thoracic and lumbar spine. PET/PET/CT Tumor Base -Thigh Init IMPRESSION: 1. NEGATIVE EXAMINATION. There is no quantitative scintigraphic evidence of abnormal increased glucose metabolism to correlate with an approximately 10.1-cm non-calcified ovoid shaped parenchymal density noted in the left lower anteromedial lung-lingula on review of coregistered CT of the chest dated 09/25/19. 2. Anatomic stability may be ensured in the nonglucose avid left hemithorax pulmonary parenchymal density with repeat CT of the thorax in 3-6 months. (Darrell, Seminars in Thoracic and Cardiovascular Surgery 14:292, 2002). Electronic Signature Osmany Jamil D.O. Electronically Signed: Osmany Jamil DO at 19:24 EST Tel , Service support ,
== END ==
PROVIDERS: Family Provider Internal Medicine; PCP Internal Medicine; Referring Provider Nurse Practitioner Acute Care; Visit Provider Nurse Practitioner Acute Care
DX: R91.8 Other nonspecific abnormal finding of lung field (principal)
CPT/HCPCS: 78815; A9552

== ENCOUNTER → 2019-10-02 11:00 | Outpatient (CLI) | payer MEDICAID, SELFPAY ==
[2019-09-14 08:34] VITALS: BMI 44.1
== END ==
PROVIDERS: Family Provider Internal Medicine; PCP Internal Medicine; Referring Provider Nurse Practitioner Family; Visit Provider Nurse Practitioner Family
DX: Z46.89 Encounter for fitting and adjustment of other specified devices (principal)

== ENCOUNTER → 2019-10-26 11:43 | Outpatient (CLI) | payer MEDICAID, SELFPAY ==
[2019-10-26 09:21] VITALS: BMI 45.0
[2019-10-26 12:24] LABS: Absolute Lymphocyte Count 0.65 X10^3/uL (0.83-4.51); Absolute Neutrophil Count 4.7 X10^3/uL (2.0-7.7); Basophil# 0.03 X10^3/uL; Basophil% 0.5 % (0-1); Eosinophil# 0.19 X10^3/uL; Hematocrit 36.3 % (37-47); Hemoglobin 11.3 g/dL (12.0-15.0); Lymphocyte # 0.65 X10^3/ul (4.0); Lymphocyte % 10.3 % (19-41); Mean Corp Hgb Conc 31.1 g/dL (32-36); Mean Corpuscular Hgb 27.1 pg (27.0-32.0); Mean Corpuscular Volume 87.1 fL (81-99); Mean Platelet Vol. 9.9 fl (6.2-12.0); Monocyte# 0.69 X10^3/uL; NRBC Flagged by Analyzer 0 % (0-5); Neutrophil % 74.6 % (47-70); POSITIVE MORPHOLOGY YES; Platelet Count 216 K/mm3 (150-450); RBC Distribution Width CV 20.8 % (11.6-14.6); RBC Distribution Width SD 65.5 fl (35.1-43.9); Red Blood Count 4.17 M/mm3 (4.2-5.4); White Blood Count 6.3 K/mm3 (4.4-11.0)
[2019-10-26 12:25] LABS: Differential Indicated SCAN CRITERIA MET
[2019-10-26 13:04] LABS: ALB/GLOB Ratio 0.8 RATIO (0.9-2.4); AST(SGOT) 10 U/L (15-37); Alanine Aminotransfer ALT/SGPT 15 U/L (13-56); Albumin, Serum 3.5 g/dL (3.2-5.0); Alkaline Phosphatase 92 U/L (45-117); Anion Gap 3 (5-15); BUN 24 mg/dL (7-18); BUN/Creat Ratio 22.2 RATIO (10-20); Calcium,Total 8.9 mg/dL (8.5-10.1); Chloride 108 mmol/L (98-107); Creatinine, Serum 1.08 mg/dL (0.55-1.02); EST Glomerular Filtration Rate 55 mL/min (>60); Est Glom Filt Rate - Afr Amer 67 mL/min (>60); Globulin 4.6 g/dL (2.2-4.2); Glucose 90 mg/dL (74-106); Potassium 4.7 mmol/L (3.5-5.1); Protein, Total 8.1 g/dL (6.4-8.2); Sodium Level 138 mmol/L (136-145)
[2019-10-26 13:08] LABS: AST(SGOT) 11 U/L (15-37); Alanine Aminotransfer ALT/SGPT 16 U/L (13-56); Albumin, Serum 3.4 g/dL (3.2-5.0); Alkaline Phosphatase 94 U/L (45-117); Bilirubin, Direct 0.12 mg/dL (0.00-0.30); Globulin 4.7 g/dL (2.2-4.2); Protein, Total 8.1 g/dL (6.4-8.2); Rheumatoid Factor < 10.0 IU/mL (<15)
[2019-10-26 13:09] LABS: Anisocytosis 1+; Hypochromasia RARE
[2019-10-27 14:08] LABS: ANTINUCLEAR ANTIBODIES DIRECT Positive (Negative); Anti-Centromere B Ab <0.2 AI (0.0-0.9); Anti-Chromatin 0.3 AI (0.0-0.9); Anti-Jo <0.2 AI (0.0-0.9); Anti-Scleroderma-70 AB <0.2 AI (0.0-0.9); RNP Ab 0.5 AI (0.0-0.9); SJOGREN'S Anti-SS-A test < 0.2 AI (0.0-0.9); SJOGREN'S Anti-SS-B test < 0.2 AI (0.0-0.9); Smith Ab 0.3 AI (0.0-0.9)
[2019-10-27 17:14] LABS: Anti-dsDNA Ab 2 IU/mL (0-9)
[2019-10-28 04:09] LABS: Cytoplasmic Ab (C-ANCA) <1:20 titer (Neg:<1:20)
[2019-10-29 10:34] LABS: CCP IgG Antibodies 16 units (0-19); Perinuclear Ab (P-ANCA) <1:20 titer (Neg:<1:20)
== END ==
PROVIDERS: PCP Internal Medicine; Referring Provider Internal Medicine Critical Care Medicine; Visit Provider Internal Medicine Critical Care Medicine
DX: I27.20 Pulmonary hypertension, unspecified (principal); G47.33 Obstructive sleep apnea (adult) (pediatric)
CPT/HCPCS: 36415; 80053; 80076; 85025; 86038; 86200; 86225; 86235; 86256; 86431

== ENCOUNTER → 2019-10-30 12:36 | Outpatient (CLI) | payer MEDICAID, SELFPAY ==
[2019-10-26 09:21] VITALS: BMI 45.0
--- NOTE | 2019-10-30 12:49 | RAD_ITS ---
STUDY: X-RAY - LUMBAR SPINE REASON FOR EXAM: Female, 58 years old. LOWER BACK PAIN. TECHNIQUE: 3 view(s) of the lumbar spine were obtained. COMPARISON: None FINDINGS: Normal lumbar lordosis. There is no substantial scoliosis. There is a normal alignment of the vertebrae. There is multilevel endplate spondylosis of the lumbar vertebrae. There is multi-level degenerative disc disease with multi-level disc space narrowing. There is no demonstrated fracture. The soft tissue structures are unremarkable. RAD/Lumbar Spine 2 or 3 Views IMPRESSION: Degenerative changes of the spine, as detailed above. Electronically Signed: Ki Kim DO at 12:51 EST Tel , Service support ,
--- NOTE | 2019-10-30 12:49 | RAD_ITS ---
STUDY: X-RAY - LEFT KNEE REASON FOR EXAM: Female, 58 years old. Bilateral knee pain. TECHNIQUE: 2 view(s) of the knee. COMPARISON: None. FINDINGS: Normal visualized distal femur. Normal visualized proximal tibia and fibula. Normal proximal tibiofibular articulation. There is no acute fracture, dislocation or destructive osseous pathology. Normal medial femorotibial compartment. Normal lateral femorotibial compartment. There is mild degenerative arthrosis of the patellofemoral articulation. There is no demonstrated joint effusion. The soft tissue structures are unremarkable. RAD/Knee 1 or 2 Views IMPRESSION: Mild arthrosis of patellofemoral pain. Electronically Signed: Jg Andrea DO at 23:57 EST Tel [phone], Service support ,
--- NOTE | 2019-10-30 12:53 | RAD_ITS ---
STUDY: X-RAY - RIGHT KNEE REASON FOR EXAM: Female, 58 years old. Bilateral knee pain. TECHNIQUE: 2 view(s) of the knee. COMPARISON: None. FINDINGS: Normal visualized distal femur. Normal visualized proximal tibia and fibula. Normal proximal tibiofibular articulation. There is no acute fracture, dislocation or destructive osseous pathology. Normal medial femorotibial compartment. Normal lateral femorotibial compartment. There is mild degenerative arthrosis of the patellofemoral articulation. There is no demonstrated joint effusion. The soft tissue structures are unremarkable. RAD/Knee 1 or 2 Views IMPRESSION: Mild arthrosis of the patellofemoral joint. Electronically Signed: Jg Andrea DO at 23:58 EST Tel [phone], Service support ,
[2019-10-30 13:34] LABS: Amphetamine Urine VISTA NEGATIVE (<1000 ng/mL); Barbiturate Urine VISTA NEGATIVE (< 200 ng/mL); Benzodiazepine Urine VISTA NEGATIVE (< 200 ng/mL); Cocaine Urine VISTA NEGATIVE (< 300 ng/mL); Ecstacy Urine VISTA POSITIVE (< 500 ng/mL); Methadone Urine VISTA NEGATIVE (< 300 ng/mL); PCP Urine VISTA NEGATIVE (< 25 ng/mL); THC Urine VISTA POSITIVE (< 50 ng/mL); Vista UDS pH Range 5
== END ==
PROVIDERS: PCP Internal Medicine; Referring Provider Anesthesiology Pain Medicine; Visit Provider Anesthesiology Pain Medicine
DX: F11.20 Opioid dependence, uncomplicated (principal); M54.9 Dorsalgia, unspecified; M25.562 Pain in left knee; M25.561 Pain in right knee
CPT/HCPCS: 72100; 73560; 80307

== ENCOUNTER → 2019-11-03 09:42 | Outpatient (CLI) | payer MEDICAID, SELFPAY ==
[2019-10-26 09:21] VITALS: BMI 45.0
--- NOTE | 2019-11-03 09:43 | NM_ITS ---
CLINICAL: Female, 58 years old. Short of Breath -- Former Smoker -- Spot seen on Lung NUCLEAR VENTILATION/PERFUSION - LUNG TECHNIQUE: The patient was administered 5 mCi of Tc MAA followed by a perfusion lung scan. The patient was administered 50 mCi of Tc DTPA aerosol followed by a ventilation lung scan. Comparison made to prior chest radiograph dated November 03, 2019. FINDINGS: The pulmonary perfusion study demonstrates uniform perfusion throughout both lung marques. There are no demonstrated segmental or subsegmental perfusion defects The ventilation study demonstrates uniform ventilation throughout both lung marques. There are no segmental or subsegmental ventilation abnormalities. NM/Lung Scan Vent/Perf IMPRESSION: Normal 99m Tc MAA pulmonary perfusion Tc DTPA aerosol ventilation imaging survey, according to revised PIOPED interpretive criteria. Electronically Signed: Isauro Sterling, at 11:10 EST , Service support ,
--- NOTE | 2019-11-03 10:34 | RAD_ITS ---
STUDY: X-RAY CHEST REASON FOR EXAM: Female, 58 years old. SOB/DYSPNEA; -- LEFT LUNG MASS, ASTHMA TECHNIQUE: PA and lateral views of the chest. COMPARISON: 08/22/2019. FINDINGS: The lungs are normally expanded with fullness of the central markings suggestive of mild vascular congestion. There is minimal bilateral basilar atelectasis. There is no demonstrated pleural abnormality. There is mild cardiac enlargement. Normal mediastinum and dipika. There is atherosclerotic calcification of the aortic arch with tortuosity. There is demineralization of the osseous structures. There is degenerative osteoarthritis of the bilateral shoulders and spine. There is no demonstrated abnormality of the visualized soft tissue structures of the upper abdomen. RAD/Chest PA and Lateral IMPRESSION: Mild vascular congestion with minimal bilateral basilar atelectasis. Overall improved aeration in the interval. Electronically Signed: Brittni Naidu MD at 4:02 EST , Service support ,
== END ==
PROVIDERS: PCP Internal Medicine; Referring Provider Internal Medicine Critical Care Medicine; Visit Provider Internal Medicine Critical Care Medicine
DX: R91.8 Other nonspecific abnormal finding of lung field (principal); I27.20 Pulmonary hypertension, unspecified
CPT/HCPCS: 71046; 78582; 78598; A9540; A9567

== ENCOUNTER → 2019-11-13 12:00 | Outpatient (CLI) | payer MEDICAID, SELFPAY ==
[2019-10-26 09:21] VITALS: BMI 45.0
[2019-11-13 13:20] LABS: Amphetamine Urine VISTA NEGATIVE (<1000 ng/mL); Barbiturate Urine VISTA NEGATIVE (< 200 ng/mL); Benzodiazepine Urine VISTA NEGATIVE (< 200 ng/mL); Cocaine Urine VISTA NEGATIVE (< 300 ng/mL); Ecstacy Urine VISTA POSITIVE (< 500 ng/mL); Methadone Urine VISTA NEGATIVE (< 300 ng/mL); PCP Urine VISTA NEGATIVE (< 25 ng/mL); THC Urine VISTA NEGATIVE (< 50 ng/mL); Vista UDS pH Range 5
== END ==
PROVIDERS: PCP Internal Medicine; Referring Provider Anesthesiology Pain Medicine; Visit Provider Anesthesiology Pain Medicine
DX: F11.20 Opioid dependence, uncomplicated (principal)
CPT/HCPCS: 80307

== ENCOUNTER → 2019-12-04 12:10 | Outpatient (CLI) | payer MEDICAID, SELFPAY ==
[2019-11-20 11:57] VITALS: BMI 45.0
[2019-12-04 13:05] LABS: Amphetamine Urine VISTA NEGATIVE (<1000 ng/mL); Barbiturate Urine VISTA NEGATIVE (< 200 ng/mL); Benzodiazepine Urine VISTA NEGATIVE (< 200 ng/mL); Cocaine Urine VISTA NEGATIVE (< 300 ng/mL); Ecstacy Urine VISTA POSITIVE (< 500 ng/mL); Methadone Urine VISTA NEGATIVE (< 300 ng/mL); PCP Urine VISTA NEGATIVE (< 25 ng/mL); THC Urine VISTA NEGATIVE (< 50 ng/mL); Vista UDS pH Range 5
== END ==
PROVIDERS: PCP Internal Medicine; Referring Provider Anesthesiology Pain Medicine; Visit Provider Anesthesiology Pain Medicine
DX: F11.20 Opioid dependence, uncomplicated (principal)
CPT/HCPCS: 80307

== ENCOUNTER → 2020-03-06 16:19 | Outpatient (CLI) | payer MEDICAID, SELFPAY ==
[2020-03-06 09:48] VITALS: BMI 45.0
[2020-03-09 13:08] LABS: HPV APTIMA, High Risk Negative (Negative)
== END ==
PROVIDERS: PCP Internal Medicine; Referring Provider Obstetrics & Gynecology; Visit Provider Obstetrics & Gynecology
DX: Z12.4 Encounter for screening for malignant neoplasm of cervix (principal)
CPT/HCPCS: 87624; 88175; G0145

== ENCOUNTER → 2020-04-22 11:11 | Outpatient (CLI) | payer MEDICAID, SELFPAY ==
[2019-11-20 11:57] VITALS: BMI 45.0
[2020-04-22 10:42] VITALS: BMI 45.0
[2020-04-22 12:54] LABS: Anion Gap 5 (5-15); BUN 26 mg/dL (7-18); BUN/Creat Ratio 21.1 RATIO (10-20); Calcium,Total 8.8 mg/dL (8.5-10.1); Chloride 105 mmol/L (98-107); Creatinine, Serum 1.23 mg/dL (0.55-1.02); EST Glomerular Filtration Rate 47 mL/min (>60); Est Glom Filt Rate - Afr Amer 57 mL/min (>60); Glucose 130 mg/dL (74-106); Potassium 4.5 mmol/L (3.5-5.1); Sodium Level 139 mmol/L (136-145)
--- NOTE | 2020-04-22 14:00 | CT_ITS ---
STUDY: CT CHEST WITHOUT CONTRAST REASON FOR EXAM: Female, 59 years old. LUNG NODULE, LEFT RADIATION DOSAGE (If Supplied By Facility): CTDIvol = ( 20.15 ) mGy, DLP = ( 760.27 ) mGycm TECHNIQUE: Transaxial imaging was performed without the administration of intravenous contrast material. Individualized dose optimization techniques were used for this CT. COMPARISON: 08/15/2019 FINDINGS: Lung windows again show a well-defined 9 mm nodule in the anterior left upper lobe best seen on axial image 57. Little significant interval change in its appearance. No new suspicious nodule no organized infiltrate or effusion. Soft tissue windows show normal-appearing thyroid gland. No suspicious axillary, mediastinal or perihilar adenopathy. Normal mediastinum. Normal hilar regions. Normal unenhanced pulmonary arteries. Normal aorta arch and descending thoracic aorta. There are multi-level degenerative changes of the thoracic spine. Limited cuts to the upper abdomen show a stable 2.2 cm left adrenal adenoma CT/Chest without Contrast IMPRESSION: Stable 9 mm noncalcified nodule in the anterior left upper lobe. Another six-month follow-up recommended to assure stability No new suspicious nodule, organized infiltrate or groundglass opacifications Degenerative bony changes Stable 2.2 cm left adrenal nodule Electronically Signed: Chet Reyes MD at 14:31 EDT , Service support ,
== END ==
PROVIDERS: PCP Internal Medicine; Referring Provider Internal Medicine Critical Care Medicine; Visit Provider Internal Medicine Critical Care Medicine
DX: F32.9 Major depressive disorder, single episode, unspecified (principal); I27.20 Pulmonary hypertension, unspecified; R91.1 Solitary pulmonary nodule
CPT/HCPCS: 36415; 71250; 80048

== ENCOUNTER → 2020-08-05 09:01 | Outpatient (CLI) | payer MEDICAID, SELFPAY ==
[2020-02-19 10:21] VITALS: BMI 45.0
[2020-08-05 08:19] VITALS: BMI 50.8
--- NOTE | 2020-08-05 09:01 | BI_ITS ---
MAMMOGRAPHY - BILATERAL SCREENING REASON FOR EXAM: Female, 59 years old. Routine annual screening examination. PERTINENT HISTORY: Non-contributory. TECHNIQUE: Digital bilateral breast kirill (3D mammographic acquisition) in the CC and MLO projections. 2-D mediolateral oblique (MLO) and craniocaudad (CC) views of both breasts were obtained. CAD: Full Field Digital Mammography with Computer Added Detection was performed. COMPARISON: Comparison is made with prior study 08/03/2019 and 06/09/2013. FINDINGS: Breast Composition: The breasts are heterogeneously dense, which may obscure small masses. There are no dominant masses or suspicious calcifications. Once again, there is stable asymmetry of breast tissue with more breast tissue is seen in the upper outer quadrant of the left breast as compared to the right side. A tissue clip marker is once again seen in the upper outer aspect of the left breast. No other significant abnormalities are identified. There has been no significant change since the prior study. BI/SCREEN MAMM (CAD) W/KIRILL BILAT IMPRESSION: Stable bilateral screening mammogram. Yearly follow-up mammogram recommended. (A) ASSESSMENT CATEGORY: BIRADS Category 2: Benign. A letter regarding these results will be sent to the patient by the facility within 30 days. Approximately 10% of breast cancers are not detected by mammography. A normal mammogram should not delay biopsy of a clinically suspicious abnormality. [id number] Pending Final Proof Editing
== END ==
PROVIDERS: PCP Internal Medicine; Referring Provider Nurse Practitioner Women's Health; Visit Provider Nurse Practitioner Women's Health
DX: Z12.31 Encounter for screening mammogram for malignant neoplasm of breast (principal)
CPT/HCPCS: 77063; 77067

== ENCOUNTER → 2020-10-21 11:24 | Outpatient (CLI) | payer MEDICAID, SELFPAY ==
[2020-10-21 10:41] VITALS: BMI 48.9
[2020-10-21 12:54] LABS: Absolute Lymphocyte Count 0.81 X10^3/uL (0.83-4.51); Absolute Neutrophil Count 4.3 X10^3/uL (2.0-7.7); Basophil# 0.04 X10^3/uL; Basophil% 0.7 % (0-1); Eosinophil# 0.13 X10^3/uL; Eosinophils% 2.2 % (0-5); Hematocrit 32.4 % (37-47); Hemoglobin 9.2 g/dL (12.0-15.0); Lymphocyte # 0.81 X10^3/ul (4.0); Lymphocyte % 13.8 % (19-41); Mean Corp Hgb Conc 28.4 g/dL (32-36); Mean Corpuscular Hgb 23.7 pg (27.0-32.0); Mean Corpuscular Volume 83.3 fL (81-99); Mean Platelet Vol. 9.7 fl (6.2-12.0); Monocyte# 0.52 X10^3/uL; Monocyte% 8.9 % (0-10); NRBC Flagged by Analyzer 0 % (0-5); Neutrophil # 4.32 X10^3/uL (2.7-7.7); Neutrophil % 73.9 % (47-70); Platelet Count 355 K/mm3 (150-450); RBC Distribution Width CV 15.9 % (11.6-14.6); RBC Distribution Width SD 48.3 fl (35.1-43.9); Red Blood Count 3.89 M/mm3 (4.2-5.4); White Blood Count 5.9 K/mm3 (4.4-11.0)
[2020-10-21 13:09] LABS: Hemoglobin A1c 6.1 % (3.8-5.6)
[2020-10-21 13:19] LABS: ALB/GLOB Ratio 0.7 RATIO (0.9-2.4); AST(SGOT) 12 U/L (15-37); Alanine Aminotransfer ALT/SGPT 18 U/L (13-56); Albumin, Serum 3.4 g/dL (3.2-5.0); Alkaline Phosphatase 85 U/L (45-117); Anion Gap 6 (5-15); BUN 21 mg/dL (7-18); BUN/Creat Ratio 16.5 RATIO (10-20); Calcium,Total 8.4 mg/dL (8.5-10.1); Chloride 108 mmol/L (98-107); Cholesterol 195 mg/dL (200); Creatinine, Serum 1.27 mg/dL (0.55-1.02); EST Glomerular Filtration Rate 46 mL/min (>60); Est Glom Filt Rate - Afr Amer 55 mL/min (>60); Globulin 4.6 g/dL (2.2-4.2); Glucose 110 mg/dL (74-106); High Density Lipoprotein 41 mg/dL; Potassium 4.2 mmol/L (3.5-5.1); Sodium Level 141 mmol/L (136-145); Triglycerides 275 mg/dL; Very Low Density Lipoprotein 55 mg/dL (5-40)
== END ==
PROVIDERS: PCP Internal Medicine; Visit Provider Internal Medicine
DX: J44.9 Chronic obstructive pulmonary disease, unspecified (principal); G47.33 Obstructive sleep apnea (adult) (pediatric); E66.01 Morbid (severe) obesity due to excess calories; Z68.42 Body mass index [BMI] 45.0-49.9, adult
CPT/HCPCS: 36415; 80053; 80061; 83036; 85025

== ENCOUNTER → 2020-10-22 13:10 | Outpatient (CLI) | payer MEDICAID, SELFPAY ==
[2020-10-21 10:41] VITALS: BMI 48.9
[2020-10-22 16:02] LABS: Amphetamine Urine VISTA NEGATIVE (<1000 ng/mL); Barbiturate Urine VISTA NEGATIVE (< 200 ng/mL); Benzodiazepine Urine VISTA NEGATIVE (< 200 ng/mL); Cocaine Urine VISTA NEGATIVE (< 300 ng/mL); Ecstacy Urine VISTA POSITIVE (< 500 ng/mL); Methadone Urine VISTA NEGATIVE (< 300 ng/mL); PCP Urine VISTA NEGATIVE (< 25 ng/mL); THC Urine VISTA POSITIVE (< 50 ng/mL); Vista UDS pH Range 6
== END ==
PROVIDERS: PCP Internal Medicine; Referring Provider Anesthesiology Pain Medicine; Visit Provider Anesthesiology Pain Medicine
DX: F11.20 Opioid dependence, uncomplicated (principal)
CPT/HCPCS: 80307

== ENCOUNTER → 2020-11-12 13:00 | Outpatient (CLI) | payer MEDICAID, SELFPAY ==
[2020-11-05 09:51] VITALS: BMI 48.7
== END ==
PROVIDERS: PCP Internal Medicine; Visit Provider Internal Medicine Critical Care Medicine
DX: Z46.89 Encounter for fitting and adjustment of other specified devices (principal)
CPT/HCPCS: 98960; G0463

== ENCOUNTER → 2021-01-20 08:59 | Outpatient (CLI) | payer MEDICAID, SELFPAY ==
[2021-01-20 08:59] VITALS: BMI 48.9
[2021-01-20 09:01] LABS: Mucous, Urine 0 SEEN /hpf (<or=2+); White Blood Cells 0 SEEN /hpf (0-5)
[2021-01-20 12:45] LABS: Color, Urine Yellow (Yellow); Glucose, Dipstick Normal (Normal); Ketone-Dipstick Negative (Negative); Leukocyte Esterase-Dipstick Negative /ul (Negative); Nitrite-Dipstick Negative (Negative); Occult Blood-Urine 10 /ul (Negative); Protein-Dipstick Negative (Negative); Urine Bilirubin Dipstick Negative (Negative); Urine Clarity Clear (Clear); Urine Urobilinogen Normal (Normal)
[2021-01-20 13:01] LABS: Hemoglobin A1c 5.9 % (3.8-5.6)
[2021-01-20 13:02] LABS: Ferritin 4 ng/mL (8-252); Iron 20 ug/dL (50-170); Iron Binding Capacity,Total 418 ug/dL (250-450)
[2021-01-20 13:08] LABS: Bacteria RARE /hpf (None Seen); Red Blood Cells-Urine 0-5 SEEN /hpf (0-5); Squamous Epithelial Cells - UA 0-5 SEEN /hpf (5-10)
[2021-01-20 13:13] LABS: Anion Gap 5 (5-15); BUN 22 mg/dL (7-18); Calcium,Total 8.4 mg/dL (8.5-10.1); Chloride 106 mmol/L (98-107); EST Glomerular Filtration Rate 54 mL/min (>60); Est Glom Filt Rate - Afr Amer 65 mL/min (>60); Glucose 133 mg/dL (74-106); Potassium 4.6 mmol/L (3.5-5.1); Sodium Level 141 mmol/L (136-145)
== END ==
PROVIDERS: PCP Internal Medicine; Referring Provider Internal Medicine; Visit Provider Internal Medicine
DX: I10 Essential (primary) hypertension (principal); D64.9 Anemia, unspecified; R73.03 Prediabetes
CPT/HCPCS: 36415; 80048; 81001; 82728; 83036; 83540; 83550

== ENCOUNTER → 2021-04-21 11:18 | Outpatient (CLI) | payer MEDICAID, SELFPAY ==
[2021-04-21 10:44] VITALS: BMI 48.9
[2021-04-21 12:25] LABS: Absolute Lymphocyte Count 0.79 X10^3/uL (0.83-4.51); Absolute Neutrophil Count 5.8 X10^3/uL (2.0-7.7); Basophil# 0.05 X10^3/uL; Basophil% 0.7 % (0-1); Eosinophil# 0.15 X10^3/uL; Hematocrit 31.2 % (37-47); Hemoglobin 8.8 g/dL (12.0-15.0); Lymphocyte # 0.79 X10^3/ul (0.83-4.51); Lymphocyte % 10.6 % (19-41); Mean Corp Hgb Conc 28.2 g/dL (32-36); Mean Corpuscular Hgb 21.8 pg (27.0-32.0); Mean Corpuscular Volume 77.2 fL (81-99); Mean Platelet Vol. 9.4 fl (6.2-12.0); Monocyte# 0.68 X10^3/uL; Monocyte% 9.1 % (0-10); NRBC Flagged by Analyzer 0 % (0-5); Neutrophil # 5.77 X10^3/uL (2.7-7.7); Neutrophil % 77.2 % (47-70); Platelet Count 309 K/mm3 (150-450); RBC Distribution Width CV 18.3 % (11.6-14.6); RBC Distribution Width SD 50.7 fl (35.1-43.9); Red Blood Count 4.04 M/mm3 (4.2-5.4); White Blood Count 7.5 K/mm3 (4.4-11.0)
[2021-04-21 12:42] LABS: ALB/GLOB Ratio 0.7 RATIO (0.9-2.4); AST(SGOT) 10 U/L (15-37); Alanine Aminotransfer ALT/SGPT 20 U/L (13-56); Albumin, Serum 3.5 g/dL (3.2-5.0); Alkaline Phosphatase 75 U/L (45-117); Anion Gap 6 (5-15); BUN 27 mg/dL (7-18); BUN/Creat Ratio 19.9 RATIO (10-20); Calcium,Total 8.7 mg/dL (8.5-10.1); Chloride 104 mmol/L (98-107); Creatinine, Serum 1.36 mg/dL (0.55-1.02); EST Glomerular Filtration Rate 42 mL/min (>60); Est Glom Filt Rate - Afr Amer 51 mL/min (>60); Globulin 4.7 g/dL (2.2-4.2); Glucose 104 mg/dL (74-106); Potassium 4.4 mmol/L (3.5-5.1); Protein, Total 8.2 g/dL (6.4-8.2); Sodium Level 137 mmol/L (136-145)
[2021-04-21 12:46] LABS: Hemoglobin A1c 5.4 % (3.8-5.6)
[2021-04-22 09:58] LABS: Ferritin 4 ng/mL (8-252); Iron 26 ug/dL (50-170); Iron Binding Capacity,Total 450 ug/dL (250-450)
== END ==
PROVIDERS: PCP Internal Medicine; Visit Provider Internal Medicine
DX: D64.9 Anemia, unspecified (principal); F32.9 Major depressive disorder, single episode, unspecified; R73.03 Prediabetes; F41.9 Anxiety disorder, unspecified
CPT/HCPCS: 36415; 80053; 82728; 83036; 83540; 83550; 85025

== ENCOUNTER → 2021-06-04 12:48 | Outpatient (CLI) | payer MEDICAID, SELFPAY ==
[2021-06-04 14:01] LABS: Amphetamine Urine VISTA NEGATIVE (<1000 ng/mL); Barbiturate Urine VISTA NEGATIVE (< 200 ng/mL); Benzodiazepine Urine VISTA NEGATIVE (< 200 ng/mL); Cocaine Urine VISTA NEGATIVE (< 300 ng/mL); Ecstacy Urine VISTA POSITIVE (< 500 ng/mL); Methadone Urine VISTA NEGATIVE (< 300 ng/mL); PCP Urine VISTA NEGATIVE (< 25 ng/mL); THC Urine VISTA POSITIVE (< 50 ng/mL); Vista UDS pH Range 5
== END ==
PROVIDERS: PCP Internal Medicine; Referring Provider Anesthesiology Pain Medicine; Visit Provider Anesthesiology Pain Medicine
DX: F11.20 Opioid dependence, uncomplicated (principal)
CPT/HCPCS: 80307

== ENCOUNTER → 2021-07-22 11:11 | Outpatient (CLI) | payer MEDICAID, SELFPAY ==
[2021-07-22 12:31] LABS: Absolute Lymphocyte Count 0.74 X10^3/uL (0.83-4.51); Absolute Neutrophil Count 5.1 X10^3/uL (2.0-7.7); Basophil# 0.04 X10^3/uL; Basophil% 0.6 % (0-1); Eosinophil# 0.19 X10^3/uL; Eosinophils% 2.9 % (0-5); Hematocrit 38.3 % (37-47); Hemoglobin 11.5 g/dL (12.0-15.0); Lymphocyte # 0.74 X10^3/ul (0.83-4.51); Lymphocyte % 11.1 % (19-41); Mean Corpuscular Hgb 27.1 pg (27.0-32.0); Mean Corpuscular Volume 90.1 fL (81-99); Mean Platelet Vol. 9.8 fl (6.2-12.0); Monocyte# 0.56 X10^3/uL; Monocyte% 8.4 % (0-10); NRBC Flagged by Analyzer 0 % (0-5); Neutrophil # 5.11 X10^3/uL (2.7-7.7); Neutrophil % 76.7 % (47-70); Platelet Count 232 K/mm3 (150-450); RBC Distribution Width CV 17.5 % (11.6-14.6); RBC Distribution Width SD 58.1 fl (35.1-43.9); Red Blood Count 4.25 M/mm3 (4.2-5.4); White Blood Count 6.7 K/mm3 (4.4-11.0)
== END ==
PROVIDERS: PCP Internal Medicine; Referring Provider Internal Medicine; Visit Provider Internal Medicine
DX: D64.9 Anemia, unspecified (principal)
CPT/HCPCS: 36415; 85025

== ENCOUNTER → 2021-07-29 08:15 | Outpatient (CLI) | payer MEDICAID, SELFPAY ==
--- NOTE | 2021-07-29 08:17 | CT_ITS ---
STUDY: CT CHEST WITHOUT CONTRAST REASON FOR EXAM: Female, 60 years old. Continued surveillance on known 9 mm nodule RADIATION DOSAGE (If Supplied By Facility): CTDIvol = ( 20.10 ) mGy, DLP = ( 713.36 ) mGycm TECHNIQUE: Transaxial imaging was performed without the administration of intravenous contrast material. Multiplanar coronal and sagittal images were reformatted. Individualized dose optimization techniques were used for this CT. COMPARISON: Comparison is made with prior examination dated 04/22/2020. FINDINGS: Stable small benign-appearing bilateral axillary lymph nodes. The previously seen nodule in the medial anterior aspect of the left upper lobe has increased in size. It presently measures 10.8 mm. Mild linear scarring at the lung bases. There is no demonstrated pleural abnormality. There are calcifications of the coronary arteries. There are multiple small lymph nodes within the mediastinum, which are normal in size and morphology most compatible with reactive lymph hyperplasia. Normal hilar regions. Normal unenhanced pulmonary arteries. There is atherosclerotic calcification of the aortic arch with tortuosity and elongation of the aortic arch and descending thoracic aorta. There are multi-level degenerative changes of the thoracic spine. Stable 2.2 sono hypodense nodule in the left adrenal gland suggestive of an adrenal adenoma. CT/Chest without Contrast IMPRESSION: Interval increase in size of the left upper lobe nodule presently measuring 10.2 mm. Electronically Signed: Isauro Sterling MD at 15:12 EDT , Service support ,
== END ==
PROVIDERS: PCP Internal Medicine Critical Care Medicine; Referring Provider Nurse Practitioner Acute Care; Visit Provider Nurse Practitioner Acute Care
DX: R91.1 Solitary pulmonary nodule (principal)
CPT/HCPCS: 71250

== ENCOUNTER → 2021-08-07 10:33 | Outpatient (CLI) | payer MEDICAID, SELFPAY ==
--- NOTE | 2021-08-08 07:33 | PFT ---
INTRODUCTION: The patient is a 60-year-old female that presents for pulmonary function studies secondary to a diagnosis of asthma. Respiratory therapy reported good patient effort. Bronchodilators were used during testing. INTERPRETATION: Forced expiration spirometry demonstrates no evidence of a large airways obstructive ventilatory defect. There was no significant response to aerosolized bronchodilators. Spirograms are of good quality and plateau normally. Body plethysmography was performed and revealed evidence of hyperinflation and air trapping. Diffusing capacity by single breath CO is moderately reduced at 55% of predicted. IMPRESSION: Stigmata of small airways disease with associated hyperinflation and air trapping. Diffusing capacity is moderately reduced.
== END ==
PROVIDERS: PCP Internal Medicine Critical Care Medicine; Referring Provider Nurse Practitioner Acute Care; Visit Provider Nurse Practitioner Acute Care
DX: J45.909 Unspecified asthma, uncomplicated (principal)
CPT/HCPCS: 94060; 94726; 94729

== ENCOUNTER → 2021-09-10 12:33 | Outpatient (CLI) | payer MEDICAID, SELFPAY ==
[2021-09-10 13:01] VITALS: PULSE 74; PULSE 78; PULSE 81; PULSE 92; PULSE 93; PULSE 94; PULSE 95; O2SAT 86; O2SAT 87; O2SAT 90; O2SAT 92; O2SAT 95
--- NOTE | 2021-09-10 13:05 | CPS ---
PATIENT BEGAN TESTING ON ROOM AIR. 2 REST BREAKS TAKEN, TO APPLY AND INCREASE OXYGEN FLOW. MILD INCREASE IN WOB NOTED BY PATIENT, OTHERWISE ASYMPTOMATIC. SPO2 MAINTAINED AT 90% ON 2LPM DURING WALK TEST. SHE OBTAINS OXYGEN FROM [facility] IN [place], HER BIPAP IS THROUGH [employer] [facility]
--- NOTE | 2021-09-10 14:56 | PCM.PSN.6M ---
PSN 6 Minute Walk Test 6 Minute Walk Test 6 Minute Walk Test: 6 Minute Walk Test PSN:6-Minute Walk Test Start: 09/10/21 13:01 Freq: Status: Active Protocol: RESP.6MINW Document 09/10/21 13:01 [facility] (Rec: 09/10/21 13:07 [facility] [id number]) 6 Minute Walk Test Date Performed 09/10/21 Time Performed 12:30 Height 5 ft 9 in Weight: 136.078 kg Weight in Pounds 300.[address]: Koko Hernandes Assistive device used: None Pre-test Oxygen Delivery Method Room Air Pulse Ox (%) 95 Pulse Rate (60-100 beats/min) 78 Dyspnea Shawn Scale (0-10) 0 1st minute Oxygen Delivery Method Room Air Pulse Ox (%) 92 Pulse Rate (60-100 beats/min) 81 Dyspnea Shawn Scale (0-10) 0 Number of Rests Taken 0 2nd minute Oxygen Delivery Method Room Air Pulse Ox (%) 86 Pulse Rate (60-100 beats/min) 93 Dyspnea Shawn Scale (0-10) 2 Number of Rests Taken 1 Reported Symptoms Increased Work of Breathing 3rd minute Oxygen Flow Rate (L/min) (L/min) 1 Oxygen Delivery Method Nasal Cannula Pulse Ox (%) 87 Pulse Rate (60-100 beats/min) 92 Dyspnea Shawn Scale (0-10) 2 Number of Rests Taken 1 Reported Symptoms Increased Work of Breathing 4th minute Oxygen Flow Rate (L/min) (L/min) 2 Oxygen Delivery Method Nasal Cannula Pulse Ox (%) 90 Pulse Rate (60-100 beats/min) 93 Dyspnea Shawn Scale (0-10) 2 Number of Rests Taken 0 Reported Symptoms Increased Work of Breathing 5th minute Oxygen Flow Rate (L/min) (L/min) 2 Oxygen Delivery Method Nasal Cannula Pulse Ox (%) 90 Pulse Rate (60-100 beats/min) 95 Dyspnea Shawn Scale (0-10) 2 Number of Rests Taken 0 Reported Symptoms Increased Work of Breathing 6th minute Oxygen Flow Rate (L/min) (L/min) 2 Oxygen Delivery Method Nasal Cannula Pulse Ox (%) 90 Pulse Rate (60-100 beats/min) 94 Dyspnea Shawn Scale (0-10) 2 Number of Rests Taken 0 Reported Symptoms Increased Work of Breathing Post-test Oxygen Flow Rate (L/min) (L/min) 2 Oxygen Delivery Method Nasal Cannula Pulse Ox (%) 95 Pulse Rate (60-100 beats/min) 74 Dyspnea Shawn Scale (0-10) 0 Full Laps Walked 16 Partial Lap, Number of Tiles Walked 13 Total Distance Walked (ft) 957 09/10/21 13:05 [facility] by [facility] [employer] PATIENT BEGAN TESTING ON ROOM AIR. 2 REST BREAKS TAKEN, TO APPLY AND INCREASE OXYGEN FLOW. MILD INCREASE IN WOB NOTED BY PATIENT, OTHERWISE ASYMPTOMATIC. SPO2 MAINTAINED AT 90% ON 2LPM DURING WALK TEST. SHE OBTAINS OXYGEN FROM [facility] IN [place], HER BIPAP IS THROUGH [employer] Initialized on 09/10/21 13:05 - END OF NOTE Interpretation Interpretation: The patient was noted to be 95% on room air, but desaturated to 86% in the second minute. The patient required 2 L nasal cannula to complete ambulation. In total, the patient traveled 957 feet over the course of 6 minutes with the assistance of 2 breaks, but no assistive devices. No significant tachycardia was noted. These findings are consistent with a respiratory limitation exercise tolerance. Recommendations Recommendations: No supplemental oxygen is indicated at rest, but patient should be using 2 L nasal cannula with any exertion.
== END ==
PROVIDERS: PCP Internal Medicine; Referring Provider Nurse Practitioner Acute Care; Visit Provider Nurse Practitioner Acute Care
DX: J96.11 Chronic respiratory failure with hypoxia (principal)
CPT/HCPCS: 94618

== ENCOUNTER 2021-10-22 11:11 | Outpatient (CLI) | payer MEDICAID, SELFPAY ==
[2021-10-22 12:41] LABS: Hemoglobin A1c 5.5 % (3.8-5.6)
[2021-10-22 12:57] LABS: Anion Gap 5 (5-15); BUN 23 mg/dL (7-18); BUN/Creat Ratio 19.2 RATIO (10-20); Calcium,Total 8.3 mg/dL (8.5-10.1); Chloride 106 mmol/L (98-107); EST Glomerular Filtration Rate 49 mL/min (>60); Est Glom Filt Rate - Afr Amer 59 mL/min (>60); Glucose 108 mg/dL (74-106); Potassium 4.3 mmol/L (3.5-5.1); Sodium Level 139 mmol/L (136-145)
== END 2021-10-22 23:59 | disposition short-term general hospital (02) ==
LOC: BIMLAB 11:12
PROVIDERS: PCP Internal Medicine; Referring Provider Internal Medicine; Visit Provider Internal Medicine
DX: I10 Essential (primary) hypertension (principal); R73.03 Prediabetes
CPT/HCPCS: 36415; 80048; 83036

== ENCOUNTER 2021-11-27 14:26 | Outpatient (CLI) | payer MEDICAID, SELFPAY ==
--- NOTE | 2021-11-27 14:28 | BI_ITS ---
MAMMOGRAPHY - BILATERAL SCREENING REASON FOR EXAM: Female, 60 years old. Routine annual screening examination. PERTINENT HISTORY: Non-contributory. TECHNIQUE: Digital bilateral breast kirill (3D mammographic acquisition) in the CC and MLO projections. 2-D mediolateral oblique (MLO) and craniocaudad (CC) views of both breasts were obtained. CAD: Full Field Digital Mammography with Computer Added Detection was performed. COMPARISON: Comparison is made with prior study dated 08/05/2020 and 08/03/2019. FINDINGS: Breast Composition: The breasts are heterogeneously dense, which may obscure small masses. There are no dominant masses or suspicious calcifications. Once again, there is stable asymmetry of breast tissue where more breast tissue seen in the upper-outer quadrant of the left breast as compared to right side. Interstitial markings once again seen in the upper outer aspect of the left breast. No other significant abnormalities are identified. There has been no significant change since the prior study. BI/SCRN MAMM (CAD)W/KIRILL BILAT IMPRESSION: Stable bilateral screening mammogram. Yearly follow-up mammogram recommended. (A) ASSESSMENT CATEGORY: BIRADS Category 2: Benign. A letter regarding these results will be sent to the patient by the facility within 30 days. Approximately 10% of breast cancers are not detected by mammography. A normal mammogram should not delay biopsy of a clinically suspicious abnormality. [id number] Electronically Signed: Isauro Sterling MD at 15:42 EST ,
--- NOTE | 2021-11-27 14:31 | BD_ITS ---
STUDY: DUAL ENERGY X-RAY ABSORPTIOMETRY / DXA REASON FOR EXAM: Female, 60 years old. Post Menopausal TECHNIQUE: Bone Mineral Density (BMD) measurements of lumbar spine and bilateral hips were obtained. COMPARISON: None. FINDINGS: Lumbar Spine (L1-L4): g/cm2 (0.919) / T-score (-1.7) / Z-score (-0.1) Findings are suggestive of osteopenia with a moderate fracture risk. Left Femur Total: g/cm2 (0.985) / T-score (0.4) / Z-score (1.4) Left Femoral Neck: g/cm2 (0.681) / T-score (-1.5) / Z-score (-0.2) Right Femur Total: g/cm2 (0.977) / T-score (0.3) / Z-score (1.3) Right Femoral Neck: g/cm2 (0.714) / T-score (-1.2) / Z-score (0.1) BD/Dexa Bone Density Study IMPRESSION: The patient is considered osteopenic as outlined below according to World A[employer] Organization (WHO) criteria with a moderate fracture risk. Reference Information: The T-score is the number of standard deviations above or below the standard which is normal for young adults at their peak bone mineral density. The World Health Organization (WHO) interprets the T-scores as follows: Above -1 Normal bone density Between -1 and -2.5 Osteopenia Equal to / or below -2.5 Osteoporosis As a practical clinical guideline, osteopenia may be graded as follows: Mild -1 through -1.5 Moderate -1.6 through -2.0 Severe -2.1 through -2.4 The Z-score is the number of standard deviations above or below age-matched controls. A Z-score of less than -1.5 would be considered abnormal. References: 1. NIH Osteoporosis and Related Bone Diseases www osteo.org 2. International Society for Clinical Densitometry www iscd.org 3. National Osteoporosis Foundation www nof.org Electronically Signed: Isauro Sterling MD at 8:42 EST ,
== END 2021-11-27 23:59 | disposition home or self-care (01) ==
LOC: OPBD 14:27
PROVIDERS: PCP Internal Medicine; Visit Provider Internal Medicine
DX: Z78.0 Asymptomatic menopausal state (principal); Z12.31 Encounter for screening mammogram for malignant neoplasm of breast
CPT/HCPCS: 77063; 77067; 77080

== ENCOUNTER → 2022-02-23 | Outpatient (CLI) | payer MEDICAID, SELFPAY ==
[2022-02-23 13:01] LABS: Anion Gap 3 (5-15); BUN 26 mg/dL (7-18); BUN/Creat Ratio 20.2 RATIO (10-20); Calcium,Total 8.9 mg/dL (8.5-10.1); Chloride 106 mmol/L (98-107); Creatinine, Serum 1.29 mg/dL (0.55-1.02); EST Glomerular Filtration Rate 45 mL/min (>60); Est Glom Filt Rate - Afr Amer 54 mL/min (>60); Glucose 106 mg/dL (74-106); Magnesium 2.5 mg/dL (1.6-2.6); Potassium 4.8 mmol/L (3.5-5.1); Sodium Level 138 mmol/L (136-145)
== END | disposition home or self-care (01) ==
LOC: BIMLAB 10:53
PROVIDERS: PCP Internal Medicine; Referring Provider Internal Medicine; Visit Provider Internal Medicine
DX: I10 Essential (primary) hypertension (principal)
CPT/HCPCS: 36415; 80048; 83735

== ENCOUNTER → 2022-03-05 | Outpatient (CLI) | payer MEDICAID, SELFPAY ==
[2022-03-05 16:01] LABS: Cholesterol 198 mg/dL (200); High Density Lipoprotein 48 mg/dL; Triglycerides 221 mg/dL; Very Low Density Lipoprotein 44 mg/dL (5-40)
== END | disposition home or self-care (01) ==
PROVIDERS: PCP Internal Medicine; Referring Provider Physician Assistant; Visit Provider Physician Assistant
DX: H02.61 Xanthelasma of right upper eyelid (principal); H02.64 Xanthelasma of left upper eyelid; D22.39 Melanocytic nevi of other parts of face; L81.4 Other melanin hyperpigmentation; L82.1 Other seborrheic keratosis; L90.5 Scar conditions and fibrosis of skin; D22.5 Melanocytic nevi of trunk
CPT/HCPCS: 36415; 80061

== ENCOUNTER → 2022-07-20 | Outpatient (CLI) | payer MEDICAID, SELFPAY ==
--- NOTE | 2022-07-20 07:56 | CT_ITS ---
STUDY: LOW DOSE CT LUNG CANCER SCREENING REASON FOR EXAM: Female, 61 years old. Smoker and gt; 40 pack years RADIATION DOSAGE (If Supplied By Facility): CTDIvol = ( 4.02 ) mGy, DLP = ( 139.44 ) mGycm TECHNIQUE: No contrast was administered. Low dose technique was utilized (average mAS-38 and kVp 120). 1.25 mm axial source images with a slice interval of 1.25-mm were reconstructed in lung windows. 2.5 mm axial source images with a slice interval of 2.5-mm were reconstructed in lung windows. 5.0 mm axial source images with a slice interval of 5.0-mm were reconstructed in soft tissue windows. COMPARISON: Comparison is made with prior study 07/29/2021. NODULES: Stable noncalcified 1 cm nodule in the medial anterior aspect of the left upper lobe as seen on axial image #105 and coronal image #119. Emphysema: Stable mild degree of emphysematous changes. Stable mild scarring at the lung bases. Endobronchial lesion: None Aorta: Mild degree of atherosclerotic plaque formation of the aortic arch. CORONARY ARTERIES: Coronary artery calcification is seen. Heart: Unremarkable Pulmonary artery: Unremarkable Mediastinal nodes: Unremarkable Other chest and abdominal findings: Stable 2.2 cm hypodense nodule in the left adrenal gland suggestive of adenoma. CT/Low Dose CT Lung Screening IMPRESSION: Lung-RADS category 2 - Continue annual screening with LDCT in 12 months. IMPORTANT NOTES FOR USE: ACR Lung-RADS Version 1.1 Assessment Categories Release Date: 2018 Category: Coded 0-4 bases on nodule(s) with highest degree of suspicion. Negative screen is defined as categories 1 and 2; a positive screen is defined as categories 3 and 4. Category 3 and 4A nodules that are unchanged on interval CT should be coded as category 2, and individuals returned to screening in 12 months. Category 4X: Category 3 or 4 nodules with additional imaging findings that increase the suspicion of lung cancer, such as spiculation, GGN that doubles in size in 1 year, enlarged lymph notes, etc. Category Modifiers: S (significant finding unrelated to lung cancer) Electronically Signed: Isauro Sterling MD at 14:06 EDT ,
== END | disposition home or self-care (01) ==
LOC: CT 07:55
PROVIDERS: PCP Internal Medicine; Referring Provider Nurse Practitioner Acute Care; Visit Provider Nurse Practitioner Acute Care
DX: F17.210 Nicotine dependence, cigarettes, uncomplicated (principal)
CPT/HCPCS: 71271

== ENCOUNTER → 2022-12-03 | Outpatient (CLI) | payer MEDICAID, SELFPAY ==
[2022-12-03 13:59] LABS: Amphetamine Urine VISTA NEGATIVE (<1000 ng/mL); Barbiturate Urine VISTA NEGATIVE (< 200 ng/mL); Benzodiazepine Urine VISTA NEGATIVE (< 200 ng/mL); Cocaine Urine VISTA NEGATIVE (< 300 ng/mL); Ecstacy Urine VISTA POSITIVE (< 500 ng/mL); Methadone Urine VISTA NEGATIVE (< 300 ng/mL); PCP Urine VISTA NEGATIVE (< 25 ng/mL); THC Urine VISTA POSITIVE (< 50 ng/mL); Vista UDS pH Range 5
== END | disposition home or self-care (01) ==
LOC: LAB 13:12
PROVIDERS: PCP Internal Medicine; Referring Provider Anesthesiology Pain Medicine; Visit Provider Anesthesiology Pain Medicine
DX: F11.20 Opioid dependence, uncomplicated (principal)
CPT/HCPCS: 80307

== ENCOUNTER 2023-02-08 04:51 | Inpatient (IN) | payer MEDICAID, SELFPAY ==
[2023-02-08] VITALS (10 sets, daily range): BP systolic 113–153; BP diastolic 54–84; PULSE 64–102; RESP 14–20; TEMP 36–38.1; O2SAT 93–96; BMI 40.6; BMI 41.3
--- NOTE | 2023-02-08 05:09 | CT_ITS ---
INDICATION: abscess -- left perirectal/gluteal EXAMINATION: CT PELVIS BONE - CT Pelvis W/O Contrast Injection TECHNIQUE: Routine noncontrast CT of the pelvis with sagittal and coronal reconstructed images. Individualized dose optimization techniques were used for this CT. IV Contrast dosage and agent: None. COMPARISON: None. FINDINGS: URINARY BLADDER: The unopacified bladder and distal ureters are unremarkable. BOWEL: Diverticulosis with no evidence of diverticulitis. PERITONEUM: No intrapelvic free fluid or free air. LYMPH NODES: No pathologically enlarged mesenteric or retroperitoneal lymph nodes. PELVIC WALL: No pelvic wall or inguinal hernia. Left perirectal/left gluteal soft tissue stranding and foci of gas. No organized fluid collection identified, given limitations of noncontrast technique. BONES: No fracture. Femoroacetabular joint spaces are normal an symmetric. The sacroiliac joints are unremarkable. No focal osseous abnormality. Gallstone seen in the partially visualized gallbladder with no evidence of cholecystitis. CT/Pelvis without IV Contrast IMPRESSION: 1. Extensive fat stranding and foci of air in the left perirectal/left gluteal soft tissues with no well-formed fluid collection identified. Findings are consistent with a gas-forming infectious process with phlegmonous changes and likely represents a developing abscess. 2. Cholelithiasis. 3. Diverticulosis. Electronically Signed: Familia Zavala DO at 6:27 EDT ,
--- NOTE | 2023-02-08 05:11 | EX.ED.DYSGE1 ---
HPI History of Present Illness Chief Complaint: Abscess Informant: patient Narrative Narrative: Increasing abscess left gluteal region over 2 days. Unclear fevers. Nondiabetic. Has had small ones in the past with spontaneous drainage. No history of I&D's. Allergy to penicillin and Bactrim however states has done Keflex in the past. [facility] Medical History Abdominal pannus Acute hypoxic respiratory failure Anemia Anxiety and depression Asthma Borderline type 2 diabetes mellitus Change in skin mole Chronic bronchitis COPD (chronic obstructive pulmonary disease) COPD exacerbation COVID-19 Flu vaccine need Frequent headaches History of COVID-19 History of pneumonia Hypertension IBS (irritable bowel syndrome) Insomnia Morbid obesity Normal colonoscopy Post-menopausal Home Medications acetaminophen 325 mg tablet 650 mg PO Q6H PRN PRN Pain Score 1-3/Temp > 100.7 F 08/27/19 [Rx Last Taken Unknown] hydrocortisone acetate 25 mg rectal suppository 25 mg [place] DAILY 03/06/20 [History Last Taken Unknown] Disability Placard #1 ea 08/05/20 [Rx Last Taken Unknown] albuterol sulfate 90 mcg/actuation aerosol inhaler 2 puff inhalation Q4H PRN shortness of breath or wheezing #1 device 11/05/20 [Rx Last Taken Unknown] fluticasone propionate 50 mcg/actuation nasal spray,suspension 2 spray intranasal DAILY #16 grams 02/10/22 [Rx Last Taken Unknown] potassium chloride 10 mEq capsule,extended release 10 meq PO BID #180 caps 04/16/22 [Rx Last Taken Unknown] triamcinolone acetonide 0.1 % topical cream 1 applic topical BID #80 grams 04/24/22 [Rx Last Taken Unknown] furosemide 20 mg tablet 20 mg PO BID #180 tabs 05/27/22 [Rx Last Taken Unknown] trazodone 100 mg tablet 100 mg PO QHS PRN insomnia 3 months #90 tabs 07/21/22 [Rx Last Taken Unknown] bupropion HCl 200 mg tablet,12 hr sustained-release 200 mg PO BID mood #180 ea 08/26/22 [Rx Last Taken Unknown] budesonide-formoterol HFA 160 mcg-4.5 mcg/actuation aerosol inhaler (Symbicort) 2 puff inhalation BID #1 ea 09/15/22 [Rx Last Taken Unknown] tiotropium bromide 2.5 mcg/actuation mist for inhalation (Spiriva Respimat) 2 puff inhalation QDAY #1 ea 09/15/22 [Rx Last Taken Unknown] fluoxetine 20 mg capsule 20 mg PO DAILY #90 caps 11/04/22 [Rx Last Taken Unknown] loratadine 10 mg capsule 10 mg PO QDAY #90 caps 11/20/22 [Rx Last Taken Unknown] famotidine 20 mg tablet 20 mg PO DAILY #90 tabs 11/24/22 [Rx Last Taken Unknown] Allergy/AdvReac Type Severity Reaction Status Date / Time Latex, Natural Rubber Allergy Severe Hives Verified 02/08/23 04:56 Penicillins Allergy Severe Anaphylaxis Verified 02/08/23 04:56 Sulfa (Sulfonamide Allergy Cannot Verified 02/08/23 04:56 Antibiotics) remember tetanus and diphtheria Allergy Swelling Verified 02/08/23 04:56 toxoids Family History Other Adopted Surgical History History of breast biopsy History of lung surgery History of removal of cyst history of right hand surgery History of tonsillectomy Social History Smoking Status: Former smoker Tobacco: How many years used: 42 how long ago did patient quit smokin months. second hand exposure: Yes quit status: has quit before counseling given: provider counseling alcohol intake: never substance use type: marijuana caffeine: Yes what type of physical activity do you participate in: walking seatbelt use: never do you feel safe at home: Yes additional social history: Jg- disability ROS ROS ED Constitutional Constitutional ED: Denies chills, fever(s) or sweats Eyes Eyes: Denies change in vision ENT ENT ED: Denies dysphagia or sore throat Cardiovascular Cardiovascular: Denies chest pain, leg edema, palpitations or racing heartbeat Respiratory/Chest Respiratory/Chest: Denies cough, dyspnea or dyspnea on exertion Gastrointestinal Gastrointestinal: Denies abdominal pain, diarrhea, nausea or vomiting Genitourinary Genitourinary ED: Denies dysuria, hematuria or urinary frequency Musculoskeletal Musculoskeletal: Denies back pain, extremity pain or neck pain Integumentary Reports abscess; Denies rash or wounds Neurologic Neurologic: Denies headache(s), paresthesias or weakness EXAM Physical Exam Const Vital Signs: 02/08/23 04:52 02/08/23 05:09 Temperature 96.8 F L Temperature Source Temporal Pulse Rate 94 Respiratory Rate 15 Blood Pressure 153/79 H Blood Pressure Mean 103 Pulse Ox 95 94 Oxygen Delivery Method Room Air Room Air Positive well nourished and well developed General Appearance ED: well developed and NAD HEENT Reports moist mucous membranes normocephalic and atraumatic Eyes PERRL, EOMs intact bilaterally and conjunctivae normal General Eye ED: Yes normal appearance of both eyes Neck no lymphadenopathy and supple General: Negative for tenderness Chest Wall Chest: Negative for tenderness Resp normal respiratory effort and normal air movement Effort and Inspection: symmetric chest movement; Negative for respiratory distress Cardio regular rate, regular rhythm and no murmurs Peripheral Pulses: pulses 2+ throughout GI normal to inspection, nondistended, normoactive bowel sounds and non-tender Palpation: Negative for guarding or rebound tenderness present Back/Spine no CVA tenderness and no thoracic nor lumbar tenderness Extremity normal to inspection General Extremety ED: Negative for edema or tenderness General Extremity: Negative for edema Neuro oriented x3 and no sensory deficits noted Sensorium / Orientation: awake and alert Skin Skin Narrative: Buttocks: There is left gluteal erythema induration more inferior with fluctuance near the perirectal region. There is no fluctuance of the rectum. No active drainage. MDM MDM MDM Narrative Medical decision making narrative: Interventions / MDM: Differential diagnosis: Gluteal abscess, perirectal abscess, cellulitis Diagnosis considered but do not suspect: N/A My EKG interpretation: N/A Imaging independently reviewed and interpreted by myself: CT pelvis without contrast: Inflammatory changes left gluteal, soft tissue bubbles noted, no loculations. Of note this CT was performed after the I&D with flushing. External documents reviewed: N/A Test considered but not ordered:N/A ED course: Patient extensive cellulitis left gluteal extending to the perirectal area, there is induration and fluctuance. Heart was 94, sepsis labs was ordered. I performed the I&D with wound cultures. Allergic to penicillin however tolerated Keflex. She is covered with Rocephin and vancomycin. Labs returning white count 10.6 lactic 0.7 creatinine 1.54 slightly higher than her previous 1.2. CT scan per radiology extensive inflammatory findings with stranding, foci air. This was read after the I&D. Blood pressure stable. I discussed with hospitalist Dr. Presley for admission to the medical floor. Re-evaluation: stable Disposition discussed with patient/family/significant other: Patient and family Case discussed with consulting clinician: Hospitalist Dr. Presley Lab Data Attestation: I reviewed the patient's lab results. Labs: Laboratory Results - last 24 hr 02/08/23 02/08/23 02/08/23 05:25 05:25 05:25 WBC 10.6 RBC 4.01 L Hgb 10.9 L Hct 34.1 L MCV 85.0 MCH 27.2 MCHC 32.0 RDW Std Deviation 47.6 H RDW Coeff of Seble 15.2 H Plt Count 253 MPV 9.6 Immature Gran % (Auto) 0.600 Neut % (Auto) 84.1 H Lymph % (Auto) 5.1 L [place] % (Auto) 7.2 Eos % (Auto) 2.7 Baso % (Auto) 0.3 Absolute Neuts (auto) 8.9 H Absolute Lymphs (auto) 0.54 L Nucleated RBC % 0 Anisocytosis 1+ Sodium 138 Potassium 3.9 Chloride 105 Carbon Dioxide 26.0 Anion Gap 7 BUN 37 H Creatinine 1.54 H Estim Creat Clear Calc 39.58 Est GFR (MDRD) Af Amer 44 L Est GFR (MDRD) Non-Af 36 L BUN/Creatinine Ratio 24.0 H Glucose 127 H Lactic Acid 0.7 Calcium 8.9 Total Bilirubin 0.30 AST 8 L ALT 18 Alkaline Phosphatase 66 Total Protein 8.1 Albumin 2.9 L Globulin 5.2 H Albumin/Globulin Ratio 0.6 L Radiography Diagnostic Testing: Clinical Impression(s) from Imaging Studies Pelvis CT 02/08/23 05:09 IMPRESSION: 1. Extensive fat stranding and foci of air in the left perirectal/left gluteal soft tissues with no well-formed fluid collection identified. Findings are consistent with a gas-forming infectious process with phlegmonous changes and likely represents a developing abscess. 2. Cholelithiasis. 3. Diverticulosis. Electronically Signed: Familia Zavala DO at 6:27 EDT , Discharge Plan Triage Chief Complaint: Abscess ED Provider: [facility] Dx/Rx/DC Orders Clinical Impression: Abscess, gluteal, left, Veronica-rectal abscess, Encounter for incision and drainage procedure Prescriptions: No Action hydrocortisone acetate 25 mg suppository 25 mg RC DAILY (DME) Disability Placard 0 .Route .MEDSUPPLY Qty: 1 0RF Rx Instructions: As directed albuterol sulfate 90 mcg/actuation HFA aerosol inhaler 2 puff inhalation Q4H PRN (Reason: shortness of breath or wheezing) Qty: 1 11RF Rx Instructions: administer with spacer furosemide 20 mg tablet 20 mg PO BID Qty: 180 3RF triamcinolone acetonide 0.1 % cream 1 applic topical BID Qty: 80 0RF bupropion HCl 200 mg tablet sustained-release 12 hr 200 mg PO BID Qty: 180 2RF Rx Instructions: Take 1 tablet by mouth twice daily budesonide-formoterol [Symbicort] 160-4.5 mcg/actuation HFA aerosol inhaler 2 puff inhalation BID Qty: 1 3RF Rx Instructions: administer with spacer, rinse mouth after each use Spiriva Respimat 2.5 mcg/actuation mist 2 puff inhalation QDAY Qty: 1 6RF Rx Instructions: administer at approximately the same time(s) each day acetaminophen 325 MG tablet 650 mg PO Q6H PRN PRN (Reason: Pain Score 1-3/Temp > 100.7 F) 0RF fluticasone propionate 50 mcg/actuation spray,suspension 2 spray intranasal DAILY Qty: 16 3RF potassium chloride 10 mEq capsule, extended release 10 meq PO BID Qty: 180 3RF trazodone 100 mg tablet 100 mg PO QHS PRN (Reason: insomnia) 90 Days Qty: 90 3RF fluoxetine 20 mg capsule 20 mg PO DAILY Qty: 90 1RF loratadine 10 mg capsule 10 mg PO QDAY Qty: 90 3RF famotidine 20 mg tablet 20 mg PO DAILY Qty: 90 3RF Primary Care Provider: Chino Encinas Referrals: Chino Encinas MD [Primary Care Provider] - Disposition Disposition: Acute Care Hospital [facility]
[2023-02-08 05:35] LABS: Absolute Lymphocyte Count 0.54 X10^3/uL (0.83-4.51); Absolute Neutrophil Count 8.9 X10^3/uL (2.0-7.7); Basophil# 0.03 X10^3/uL; Basophil% 0.3 % (0-1); Eosinophil# 0.29 X10^3/uL; Eosinophils% 2.7 % (0-5); Hematocrit 34.1 % (37-47); Hemoglobin 10.9 g/dL (12.0-15.0); Lymphocyte # 0.54 X10^3/ul (0.83-4.51); Lymphocyte % 5.1 % (19-41); Mean Corpuscular Hgb 27.2 pg (27.0-32.0); Mean Platelet Vol. 9.6 fl (6.2-12.0); Monocyte# 0.76 X10^3/uL; Monocyte% 7.2 % (0-10); NRBC Flagged by Analyzer 0 % (0-5); Neutrophil # 8.94 X10^3/uL (2.7-7.7); Neutrophil % 84.1 % (47-70); POSITIVE DIFFERENTIAL YES; Platelet Count 253 K/mm3 (150-450); RBC Distribution Width CV 15.2 % (11.6-14.6); RBC Distribution Width SD 47.6 fl (35.1-43.9); Red Blood Count 4.01 M/mm3 (4.2-5.4); White Blood Count 10.6 K/mm3 (4.4-11.0)
[2023-02-08 05:55] LABS: ALB/GLOB Ratio 0.6 RATIO (0.9-2.4); AST(SGOT) 8 U/L (15-37); Alanine Aminotransfer ALT/SGPT 18 U/L (13-56); Albumin, Serum 2.9 g/dL (3.2-5.0); Alkaline Phosphatase 66 U/L (45-117); Anion Gap 7 (5-15); BUN 37 mg/dL (7-18); Calcium,Total 8.9 mg/dL (8.5-10.1); Chloride 105 mmol/L (98-107); Creatinine, Serum 1.54 mg/dL (0.55-1.02); EST Glomerular Filtration Rate 36 mL/min (>60); Est Glom Filt Rate - Afr Amer 44 mL/min (>60); Estimated Creatinine Clearance 39.58 ml/min; Globulin 5.2 g/dL (2.2-4.2); Glucose 127 mg/dL (74-106); Potassium 3.9 mmol/L (3.5-5.1); Protein, Total 8.1 g/dL (6.4-8.2); Sodium Level 138 mmol/L (136-145)
[2023-02-08] MEDS: Lidocaine 1% /Epi 1:100 (20ml) 20 ML Vial INFILT (05:56)
[2023-02-08 06:10] LABS: Lactic Acid 0.7 mmol/L (0.4-1.9)
[2023-02-08 06:47] LABS: Differential Indicated SCAN CRITERIA MET
--- NOTE | 2023-02-08 07:06 | NURSING ---
MED SURG HUFF GLUTEAL ABSCESS
[2023-02-08 07:19] LABS: Anisocytosis 1+
--- NOTE | 2023-02-08 07:34 | PCM.HP.STD ---
HPI - General General Date of Admission: 02/08/23 Date of Service: 02/08/23 Chief Complaint: Left buttock pain and reddness HPI Narrative DANIEL BURTON, is a 62-year-old female history of anxiety and depression, CKD stage IIIb, asthma on 2L home O2, morbid obesity, pulmonary hypertension, SIM presented to [facility] 02/08/2023 with increasing gluteal abscess over 2 days. Said small areas that have opened and drained spontaneously however given the worsening with no drainage she presented. In the ED labs overall unremarkable and vitally stable. Given need for IV antibiotics hospitalist consulted for admission. Saw patient at bedside and she endorses history of boils that loss on tediously drain but she has had worsening erythema and pain over the past several days and due to the pain and not draining she presented to the hospital. She does not note any fevers at home but reports that she had been cold. Drinking water but poor p.o. intake as she is just felt somewhat fatigued and tired. No changes in bowel movements, no changes in urination. Denied any other acute complaints. [facility] Medical History (Updated 02/08/23 @ 08:45 by Cindy Reynolds) Abdominal pannus Acute hypoxic respiratory failure Anemia Anxiety and depression Asthma BiPAP (biphasic positive airway pressure) dependence Borderline type 2 diabetes mellitus Change in skin mole Chronic bronchitis COPD (chronic obstructive pulmonary disease) COPD exacerbation COVID-19 Flu vaccine need Former smoker Frequent headaches History of COVID-19 History of pneumonia Hypertension IBS (irritable bowel syndrome) Insomnia Kidney disease Marijuana use Morbid obesity Normal colonoscopy Post-menopausal Home Medications acetaminophen 325 mg tablet 650 mg PO Q6H PRN PRN Pain Score 1-3/Temp > 100.7 F 08/27/19 [Rx Last Taken Unknown] hydrocortisone acetate 25 mg rectal suppository 25 mg [place] DAILY PRN hemmorroids 03/06/20 [History Last Taken Unknown] Disability Placard #1 ea 08/05/20 [Rx Last Taken Unknown] albuterol sulfate 90 mcg/actuation aerosol inhaler 2 puff inhalation Q4H PRN shortness of breath or wheezing #1 device 11/05/20 [Rx Last Taken Unknown] fluticasone propionate 50 mcg/actuation nasal spray,suspension 2 spray intranasal DAILY #16 grams 02/10/22 [Rx Last Taken Unknown] potassium chloride 10 mEq capsule,extended release 10 meq PO BID #180 caps 04/16/22 [Rx Last Taken Unknown] furosemide 20 mg tablet 20 mg PO BID #180 tabs 05/27/22 [Rx Last Taken Unknown] trazodone 100 mg tablet 100 mg PO QHS PRN insomnia 3 months #90 tabs 07/21/22 [Rx Last Taken Unknown] bupropion HCl 200 mg tablet,12 hr sustained-release 200 mg PO BID mood #180 ea 08/26/22 [Rx Last Taken Unknown] budesonide-formoterol HFA 160 mcg-4.5 mcg/actuation aerosol inhaler (Symbicort) 2 puff inhalation BID #1 ea 09/15/22 [Rx Last Taken Unknown] tiotropium bromide 2.5 mcg/actuation mist for inhalation (Spiriva Respimat) 2 puff inhalation QDAY #1 ea 09/15/22 [Rx Last Taken Unknown] fluoxetine 20 mg capsule 20 mg PO DAILY #90 caps 11/04/22 [Rx Last Taken Unknown] loratadine 10 mg capsule 10 mg PO QDAY #90 caps 11/20/22 [Rx Last Taken Unknown] famotidine 20 mg tablet 20 mg PO DAILY #90 tabs 11/24/22 [Rx Last Taken Unknown] buprenorphine 5 mcg/hour weekly transdermal patch (Butrans) 5 mcg topical .WEDNESDAY PAIN 02/08/23 [History Last Taken Unknown] triamcinolone acetonide 0.1 % topical cream 1 applic topical BID PRN Skin Irritation 02/08/23 [History Last Taken Unknown] Allergy/AdvReac Type Severity Reaction Status Date / Time Latex, Natural Rubber Allergy Severe Hives Verified 02/08/23 04:56 Penicillins Allergy Severe Anaphylaxis Verified 02/08/23 04:56 Sulfa (Sulfonamide Allergy Cannot Verified 02/08/23 04:56 Antibiotics) remember tetanus and diphtheria Allergy Swelling Verified 02/08/23 04:56 toxoids Family History Other Adopted Surgical History History of breast biopsy History of lung surgery History of removal of cyst history of right hand surgery History of tonsillectomy Social History Smoking Status: Former smoker Tobacco: How many years used: 42 how long ago did patient quit smokin months. second hand exposure: Yes quit status: has quit before counseling given: provider counseling alcohol intake: never substance use type: marijuana caffeine: Yes what type of physical activity do you participate in: walking seatbelt use: never do you feel safe at home: Yes additional social history: Jg- disability ROS ROS Narrative General: Has been feeling cold HENT: Chronic intermittent headaches, denies stuffy nose, denies sore throat EYES: Denies changes in vision Resp: Denies cough, denies changes in shortness of breath Cardiac: Denies chest pain GI: Denies abdominal pain, denies changes in bowel, denies nausea/vomiting, left gluteal pain : Denies changes in urination Extremity: Denies swelling MSK: Denies weakness Neuro: Denies any numbness/tingling Heme: Denies any bleeding or bruising Skin: Erythema and left buttock area Psychiatric: No complaints voiced Vital Signs Vital Signs Vital Signs: 02/08/23 04:52 02/08/23 05:09 Temperature 96.8 F L Temperature Source Temporal Pulse Rate 94 Respiratory Rate 15 Blood Pressure 153/79 H Blood Pressure Mean 103 Pulse Ox 95 94 Oxygen Delivery Method Room Air Room Air Weight Weight: 124.738 kg Body Mass Index (BMI) 40.6 Physical Exam Narrative General: Alert, oriented, lying on her side HEENT: Atraumatic, normocephalic Eyes: Anicteric, normal conjunctiva, extraocular movements grossly intact Neck: Supple Respiratory: Clear to auscultation bilaterally, normal respiratory effort Cardiovascular: Regular rate and rhythm GI: Soft, nontender, nondistended Extremities: No edema Musculoskeletal: Moving all extremities Neuro: No overt focal neurological deficits Skin: Left buttock erythema with purulent drainage and tender to palpation Psych: Cooperative Results Lab / Micro Data Result Diagrams: 02/08/23 05:25 02/08/23 05:25 Labs: Laboratory Results - last 24 hr 02/08/23 05:25: WBC 10.6, RBC 4.01 L, Hgb 10.9 L, Hct 34.1 L, MCV 85.0, MCH 27.2, MCHC 32.0, RDW Std Deviation 47.6 H, RDW Coeff of Seble 15.2 H, Plt Count 253, MPV 9.6, Immature Gran % (Auto) 0.600, Neut % (Auto) 84.1 H, Lymph % (Auto) 5.1 L, [place] % (Auto) 7.2, Eos % (Auto) 2.7, Baso % (Auto) 0.3, Absolute Neuts (auto) 8.9 H, Absolute Lymphs (auto) 0.54 L, Nucleated RBC % 0, Anisocytosis 1+ 02/08/23 05:25: Sodium 138, Potassium 3.9, Chloride 105, Carbon Dioxide 26.0, Anion Gap 7, BUN 37 H, Creatinine 1.54 H, Estim Creat Clear Calc 39.58, Est GFR (MDRD) Af Amer 44 L, Est GFR (MDRD) Non-Af 36 L, BUN/Creatinine Ratio 24.0 H, Glucose 127 H, Calcium 8.9, Total Bilirubin 0.30, AST 8 L, ALT 18, Alkaline Phosphatase 66, Total Protein 8.1, Albumin 2.9 L, Globulin 5.2 H, Albumin/Globulin Ratio 0.6 L 02/08/23 05:25: Lactic Acid 0.[address] 02/08/23 05:09 IMPRESSION: 1. Extensive fat stranding and foci of air in the left perirectal/left gluteal soft tissues with no well-formed fluid collection identified. Findings are consistent with a gas-forming infectious process with phlegmonous changes and likely represents a developing abscess. 2. Cholelithiasis. 3. Diverticulosis. Electronically Signed: Familia Zavala DO at 6:27 EDT , Assessment & Plan Assessment/Plan (1) Abscess, gluteal, left: PLAN: Plan #Left perirectal abscess -Status post I&D in the ED -Pelvic CT done after I&D, discussed with ED physician and given his report of I&D and CT findings it is felt that the air was introduced during procedure and CT did not show any formed fluid collection is likely that I&D was sufficient -Culture sent and pending -Received Vanco and Rocephin in the ED due to penicillin allergy but has tolerated cephalosporins before -Continue vancomycin, start Metro and Cipro -MRSA swab -Consult wound care -Discussed with surgery, consult placed -Encourage showers and good hygiene, Epsom salt after discharge #CKD stage IIIb -Slightly elevated from baseline at 1.54 with most recent 1 year ago 1.29, will gently hydrate with fluids #SIM -Has seen Dr. Hernandes in the pulm office -Compliant with nocturnal BiPAP with pressure support -Order nightly #Asthma on 2L home O2 -Continue inhalers #Morbid obesity -BMI 40.6 kg/m? -Complicates treatment, prognosis, outcomes -Recommend weight loss and lifestyle changes #DVT ppx: hep subcu Alejandra Presley MD Time spent in the patient's overall evaluation,decision-making process, review of diagnostic data, adjustment of management, discussion with other providers, nursing nursing and ancillary staff involved in patient's care documentation, 60 minutes Charges/Coding Visit Charges Inpatient E&M: 77685 Init Hosp L2
[2023-02-08 08:38] LABS: International Normalized Ratio 1.1; Prothrombin Time (Protime)PT. 14.7 SECONDS (11.7-14.9)
[2023-02-08 08:40] LABS: Partial Thromboplast Time 36.7 Seconds (24.1-36.2)
[2023-02-08] MEDS: 0.9% Normal Saline 1,000 ML 100 ML IV (10:08)
[2023-02-08] MEDS: oxyCODONE 5 MG Tablet PO ×3 (10:08→21:13)
[2023-02-08] MEDS: Acetaminophen 325 MG Tablet 650 MG PO ×2 (10:09→17:14)
[2023-02-08] MEDS: Ciprofloxacin 400 MG/200 ML BAG 200 MG IV (10:10)
--- NOTE | 2023-02-08 10:59 | WOUNDNOTE ---
wound photo: left buttock
[2023-02-08] MEDS: Albuterol 2.5 MG/3 ML VIAL.NEB. INHALATION (12:23)
[2023-02-08] MEDS: metroNIDAZOLE 500 MG/100 ML BAG 100 MG IV (13:24)
[2023-02-08] MEDS: Heparin Injection (Vial) 5,000 UNIT/ML VIAL 5000 UNIT SC ×2 (13:28→21:12)
--- NOTE | 2023-02-08 13:55 | CHAPLAIN ---
Type of Pastoral Visit _x__ Initial Visit ___ Follow-up Visit ___ On-call Visit ___ General Patient Visit ___ Spiritual Assessment ___ Family Conference ___ Bereavement ___ Rapid Response ___ Code Blue ___ Other (describe below) Pastoral Care Referral From _x__ Patient ___ Family ___ Nurse ___ Physician ___ Aircraft Refueler ___ Cardiac Cath Tech ___ Other (describe below) Sacrament/Intervention _x__ Active listening ___ Anointing ___ Buddhist ___ Bereavement ___ Communion ___ Kristie exploration ___ ___ Life review _x__ Prayer ___ Reconciliation ___ Sacrament of Sick ___ Supportive presence ___ Wedding ___ Other (describe below) Pastoral Comments at first visit was interrupted by phone call and then breathing treatment; second visit the patient is eating lunch but welcomes to come to visit; pt gives her story and about her family; pt is disappointed about missing grandsons' birthday tomorrow but wants to get well to see all grandchildren grow; pt states that a prayer would be fine and she has no other needs
[2023-02-08 14:30] LABS: M R Staph aureus DNA By PCR Negative (Negative); Probe Check PASS; Specimen Processing Control PASS; Staph aureus DNA By PCR NEGATIVE (Negative)
--- NOTE | 2023-02-08 16:20 | PCM.RX.CS ---
Consult Pharmacy has been consulted to manage selected antiobiotic: Vancomycin Type of Consult: New start Labs: Sodium 138 mmol/L (136-145) 02/08/23 05:25 Potassium 3.9 mmol/L (3.5-5.1) 02/08/23 05:25 Chloride 105 mmol/L (98-107) 02/08/23 05:25 Carbon Dioxide 26.0 mmol/L (21.0-32.0) 02/08/23 05:25 Anion Gap 7 (5-15) 02/08/23 05:25 BUN 37 mg/dL (7-18) H 02/08/23 05:25 Creatinine 1.54 mg/dL (0.55-1.02) H 02/08/23 05:25 Est GFR (MDRD) Af Amer 44 mL/min (>60) L 02/08/23 05:25 Est GFR (MDRD) Non-Af 36 mL/min (>60) L 02/08/23 05:25 BUN/Creatinine Ratio 24.0 RATIO (10-20) H 02/08/23 05:25 Glucose 127 mg/dL (74-106) H 02/08/23 05:25 Microbiology: Microbiology 02/08/23 05:55 Rectal Abscess Gram Stain - Final Goal Trough: 15-20 mcg/mL Pharmacy Plan for Drug Dosing: NEW START IV VANCOMYCIN Consulting Physician: Fernandez Indication: Goal Trough: 15-20 SrCr: 1.54 CrCl: 54mls/min (using an adjusted body weight of 90kg) Comments: pt received a 2000mg dose in the ER on 02/08/23 at 0739 Vancomycin Dose: based on pts weight and renal function, recommend an initial dose of 1250mg q12h starting 02/08/23 at 2000. trough prior to the 4th total dose Pending Level: 02/09/23 at 1930 Pharmacy Service will continue to monitor and adjust dosing as required. Follow-Up Labs: Trough Vancomycin - 02/09/23 at 1930
--- NOTE | 2023-02-08 16:33 | EX.PCM.CON.S ---
Assessment & Plan Assessment/Plan (1) Abscess, gluteal, left: (2) Veronica-rectal abscess: PLAN: I do not think there is any further surgeries that I need to do at this time. Await the cultures and sensitivity. And see how she responds to the vancomycin and Flagyl. If the cellulitis worsens then we will have to take her to surgery and do a wider debridement but at this point I think we can continue to observe her. HPI Consult Data Date of Consult: 02/08/23 HPI Narrative HPI Narrative: DANIEL BURTON, is a 62 F ?history of anxiety and depression, CKD stage IIIb, asthma on 2L home O2, morbid obesity, pulmonary hypertension, SIM presented to [facility] 02/08/2023 with increasing gluteal abscess over 2 days.? Said small areas that have opened and drained spontaneously however given the worsening with no drainage she presented.? In the ED labs overall unremarkable and vitally stable.? Given need for IV antibiotics hospitalist consulted for admission.? Saw patient at bedside and she endorses history of boils that loss on tediously drain but she has had worsening erythema and pain over the past several days and due to the pain and not draining she presented to the hospital.? She does not note any fevers at home but reports that she had been cold.? Drinking water but poor p.o. intake as she is just felt somewhat fatigued and tired.? No changes in bowel movements, no changes in urination.? Denied any other acute complaints. CT scan of the pelvis IMPRESSION: 1. Extensive fat stranding and foci of air in the left perirectal/left gluteal soft tissues with no well-formed fluid collection identified. Findings are consistent with a gas-forming infectious process with phlegmonous changes and likely represents a developing abscess. 2. Cholelithiasis. 3. Diverticulosis. [facility] Medical History Abdominal pannus Acute hypoxic respiratory failure Anemia Anxiety and depression Asthma BiPAP (biphasic positive airway pressure) dependence Borderline type 2 diabetes mellitus Change in skin mole Chronic bronchitis COPD (chronic obstructive pulmonary disease) COPD exacerbation COVID-19 Flu vaccine need Former smoker Frequent headaches History of COVID-19 History of pneumonia Hypertension IBS (irritable bowel syndrome) Insomnia Kidney disease Marijuana use Morbid obesity Normal colonoscopy Post-menopausal Home Medications acetaminophen 325 mg tablet 650 mg PO Q6H PRN PRN Pain Score 1-3/Temp > 100.7 F 08/27/19 [Rx Last Taken Unknown] hydrocortisone acetate 25 mg rectal suppository 25 mg OK DAILY PRN hemmorroids 03/06/20 [History Last Taken Unknown] Disability Placard #1 ea 08/05/20 [Rx Last Taken Unknown] albuterol sulfate 90 mcg/actuation aerosol inhaler 2 puff inhalation Q4H PRN shortness of breath or wheezing #1 device 11/05/20 [Rx Last Taken Unknown] fluticasone propionate 50 mcg/actuation nasal spray,suspension 2 spray intranasal DAILY #16 grams 02/10/22 [Rx Last Taken Unknown] potassium chloride 10 mEq capsule,extended release 10 meq PO BID #180 caps 04/16/22 [Rx Last Taken Unknown] furosemide 20 mg tablet 20 mg PO BID #180 tabs 05/27/22 [Rx Last Taken Unknown] trazodone 100 mg tablet 100 mg PO QHS PRN insomnia 3 months #90 tabs 07/21/22 [Rx Last Taken Unknown] bupropion HCl 200 mg tablet,12 hr sustained-release 200 mg PO BID mood #180 ea 08/26/22 [Rx Last Taken Unknown] budesonide-formoterol HFA 160 mcg-4.5 mcg/actuation aerosol inhaler (Symbicort) 2 puff inhalation BID #1 ea 09/15/22 [Rx Last Taken Unknown] tiotropium bromide 2.5 mcg/actuation mist for inhalation (Spiriva Respimat) 2 puff inhalation QDAY #1 ea 09/15/22 [Rx Last Taken Unknown] fluoxetine 20 mg capsule 20 mg PO DAILY #90 caps 11/04/22 [Rx Last Taken Unknown] loratadine 10 mg capsule 10 mg PO QDAY #90 caps 11/20/22 [Rx Last Taken Unknown] famotidine 20 mg tablet 20 mg PO DAILY #90 tabs 11/24/22 [Rx Last Taken Unknown] buprenorphine 5 mcg/hour weekly transdermal patch (Butrans) 5 mcg topical .WEDNESDAY PAIN 02/08/23 [History Last Taken Unknown] triamcinolone acetonide 0.1 % topical cream 1 applic topical BID PRN Skin Irritation 02/08/23 [History Last Taken Unknown] Allergy/AdvReac Type Severity Reaction Status Date / Time Latex, Natural Rubber Allergy Severe Hives Verified 02/08/23 04:56 Penicillins Allergy Severe Anaphylaxis Verified 02/08/23 04:56 Sulfa (Sulfonamide Allergy Cannot Verified 02/08/23 04:56 Antibiotics) remember tetanus and diphtheria Allergy Swelling Verified 02/08/23 04:56 toxoids Family History Other Adopted Surgical History History of breast biopsy History of lung surgery History of removal of cyst history of right hand surgery History of tonsillectomy Social History Smoking Status: Former smoker Tobacco: How many years used: 42 how long ago did patient quit smokin months. second hand exposure: Yes quit status: has quit before counseling given: provider counseling alcohol intake: never substance use type: marijuana caffeine: Yes what type of physical activity do you participate in: walking seatbelt use: never do you feel safe at home: Yes additional social history: Jg- disability ROS Constitutional Constitutional: Denies chills or fever(s) Cardiovascular Cardiovascular: Denies chest pain Respiratory/Chest Respiratory/Chest: Denies cough or dyspnea Gastrointestinal Gastrointestinal: Denies abdominal pain Genitourinary Genitourinary: Denies dysuria Physical Exam Const alert, oriented x3 and no apparent distress HEENT normocephalic and head/scalp atraumatic Eyes PERRL and EOMs intact bilaterally Resp clear to auscultation bilaterally Cardio Rate: regular rate Rhythm: regular rhythm GI soft to palpation GI Narrative: Morbidly obese Skin Wound Narrative: Significant cellulitis over the left buttocks going into the mons pubis. I&D opening is identified. It is tender to touch there does not appear to be any undrained fluctuance. Lab / Micro Data Result Diagrams: 02/08/23 05:25 02/08/23 05:25 Labs: Laboratory Results - last 24 hr 02/08/23 05:25: WBC 10.6, RBC 4.01 L, Hgb 10.9 L, Hct 34.1 L, MCV 85.0, MCH 27.2, MCHC 32.0, RDW Std Deviation 47.6 H, RDW Coeff of [place]ble 15.2 H, Plt Count 253, MPV 9.6, Immature Gran % (Auto) 0.600, Neut % (Auto) 84.1 H, Lymph % (Auto) 5.1 L, [place] % (Auto) 7.2, Eos % (Auto) 2.7, Baso % (Auto) 0.3, Absolute Neuts (auto) 8.9 H, Absolute Lymphs (auto) 0.54 L, Nucleated RBC % 0, Anisocytosis 1+ 02/08/23 05:25: PT 14.7, INR 1.1, APTT 36.7 H 02/08/23 05:25: Sodium 138, Potassium 3.9, Chloride 105, Carbon Dioxide 26.0, Anion Gap 7, BUN 37 H, Creatinine 1.54 H, Estim Creat Clear Calc 39.58, Est GFR (MDRD) Af Amer 44 L, Est GFR (MDRD) Non-Af 36 L, BUN/Creatinine Ratio 24.0 H, Glucose 127 H, Calcium 8.9, Total Bilirubin 0.30, AST 8 L, ALT 18, Alkaline Phosphatase 66, Total Protein 8.1, Albumin 2.9 L, Globulin 5.2 H, Albumin/Globulin Ratio 0.6 L 02/08/23 05:25: Lactic Acid 0.7 02/08/23 10:50: S.aureus Protein A PCR NEGATIVE, MRSA (PCR) Negative Micro: Microbiology 02/08/23 05:55 Rectal Abscess Gram Stain - Final Radiology Impression Pelvis CT 02/08/23 05:09 IMPRESSION: 1. Extensive fat stranding and foci of air in the left perirectal/left gluteal soft tissues with no well-formed fluid collection identified. Findings are consistent with a gas-forming infectious process with phlegmonous changes and likely represents a developing abscess. 2. Cholelithiasis. 3. Diverticulosis. Electronically Signed: Familia Zavala DO at 6:27 EDT ,
[2023-02-08] MEDS: Furosemide 20 MG Tablet PO (17:13)
[2023-02-08] MEDS: Potassium Chloride Oral Tablet 10 MEQ PO (17:13)
[2023-02-08] MEDS: Juven (unflavored) Packet 1 PACKET PO (17:14)
[2023-02-08] MEDS: Budesonide Respules 0.5 MG/2 ML AMPUL.NEB. INHALATION (19:10)
[2023-02-08] MEDS: Ipratropium/Albuterol Sulfate 3 ML AMPUL.NEB INHALATION (19:10)
[2023-02-08] MEDS: buPROPion (SR) 100 MG TABLET.SA 200 MG PO (21:12)
--- NOTE | 2023-02-08 23:59 | CPS ---
Patient refused PAP therapy. Only wanting to wear O2 for the night. Patient on 2L 98%, RT placed patient on continuous pulse ox for the night.
[2023-02-09] VITALS (8 sets, daily range): BP systolic 129–153; BP diastolic 68–79; PULSE 65–95; RESP 16–18; TEMP 36.8–38; O2SAT 92–98
[2023-02-09] MEDS: Acetaminophen 325 MG Tablet 650 MG PO ×3 (00:19→20:10)
[2023-02-09] MEDS: MELATONIN 3 MG TABLET PO ×2 (00:19→22:59)
[2023-02-09] MEDS: 0.9% Normal Saline 1,000 ML 100 ML IV (00:20)
[2023-02-09] MEDS: oxyCODONE 5 MG Tablet PO ×4 (04:15→20:10)
[2023-02-09 06:42] LABS: Absolute Lymphocyte Count 0.59 X10^3/uL (0.83-4.51); Absolute Neutrophil Count 4.9 X10^3/uL (2.0-7.7); Basophil# 0.04 X10^3/uL; Basophil% 0.6 % (0-1); Eosinophil# 0.24 X10^3/uL; Eosinophils% 3.7 % (0-5); Hematocrit 31.4 % (37-47); Hemoglobin 9.5 g/dL (12.0-15.0); Lymphocyte # 0.59 X10^3/ul (0.83-4.51); Lymphocyte % 9.2 % (19-41); Mean Corp Hgb Conc 30.3 g/dL (32-36); Mean Corpuscular Hgb 26.5 pg (27.0-32.0); Mean Corpuscular Volume 87.7 fL (81-99); Mean Platelet Vol. 9.6 fl (6.2-12.0); Monocyte# 0.63 X10^3/uL; Monocyte% 9.8 % (0-10); NRBC Flagged by Analyzer 0 % (0-5); Neutrophil # 4.87 X10^3/uL (2.7-7.7); Neutrophil % 76.1 % (47-70); POSITIVE DIFFERENTIAL YES; Platelet Count 265 K/mm3 (150-450); RBC Distribution Width CV 15.2 % (11.6-14.6); RBC Distribution Width SD 48.9 fl (35.1-43.9); Red Blood Count 3.58 M/mm3 (4.2-5.4); White Blood Count 6.4 K/mm3 (4.4-11.0)
[2023-02-09 06:46] LABS: Differential Indicated SCAN CRITERIA MET
[2023-02-09] MEDS: Heparin Injection (Vial) 5,000 UNIT/ML VIAL 5000 UNIT SC ×3 (06:53→22:59)
[2023-02-09 07:01] LABS: Anion Gap 4 (5-15); BUN 29 mg/dL (7-18); BUN/Creat Ratio 26.1 RATIO (10-20); Calcium,Total 8.4 mg/dL (8.5-10.1); Chloride 113 mmol/L (98-107); Creatinine, Serum 1.11 mg/dL (0.55-1.02); EST Glomerular Filtration Rate 53 mL/min (>60); Est Glom Filt Rate - Afr Amer 64 mL/min (>60); Estimated Creatinine Clearance 54.92 ml/min; Glucose 134 mg/dL (74-106); Potassium 4.2 mmol/L (3.5-5.1); Sodium Level 141 mmol/L (136-145)
[2023-02-09 07:04] LABS: Differential Comment SCANNED
[2023-02-09] MEDS: Ipratropium/Albuterol Sulfate 3 ML AMPUL.NEB INHALATION ×3 (07:06→19:35)
[2023-02-09] MEDS: Budesonide Respules 0.5 MG/2 ML AMPUL.NEB. INHALATION ×2 (07:06→19:35)
--- NOTE | 2023-02-09 08:26 | PN.HOSP_ITS ---
Reason for Visit Reason for Visit: Diagnoses Rectal abscess (02/08/23) Cutaneous abscess of buttock (02/08/23) Subjective Subjective Still has pain but does overall feel better today Objective Data Objective Data Vital Signs: Vital Signs Temp Pulse Resp BP Pulse Ox O2 Del Method O2 Flow Rate 98.2 F 65 16 153/79 H 98 Room Air 2 02/09/23 04:04 02/09/23 07:09 02/09/23 07:09 02/09/23 04:04 02/09/23 07:12 02/09/23 07:12 02/09/23 07:09 Oxygen Flow Rate (L/min) 2 Oxygen Delivery Method Room Air Weight: 127 kg Body Mass Index (BMI) 41.3 Intake & Output: Intake and Output for Last 24 Hours 02/07/23 02/08/23 02/09/23 23:59 23:59 23:59 Intake Total 2915 / 2915 300 / 300 Balance 2915 / 2915 300 / 300 Lab / Micro Data Result Diagrams: 02/09/23 06:15 02/09/23 06:15 Labs: Laboratory Results - last 24 hr 02/08/23 05:25: PT 14.7, INR 1.1, APTT 36.7 H 02/08/23 10:50: S.aureus Protein A PCR NEGATIVE, MRSA (PCR) Negative 02/09/23 06:15: Sodium 141, Potassium 4.2, Chloride 113 H, Carbon Dioxide 24.0, Anion Gap 4 L, BUN 29 H, Creatinine 1.11 H, Estim Creat Clear Calc 54.92, Est GFR (MDRD) Af Amer 64, Est GFR (MDRD) Non-Af 53 L, BUN/Creatinine Ratio 26.1 H, Glucose 134 H, Calcium 8.4 L 02/09/23 06:15: WBC 6.4, RBC 3.58 L, Hgb 9.5 L, Hct 31.4 L, MCV 87.7, MCH 26.5 L , MCHC 30.3 L D, RDW Std Deviation 48.9 H, RDW Coeff of [place]ble 15.2 H, Plt Count 265, MPV 9.6, Immature Gran % (Auto) 0.600, Neut % (Auto) 76.1 H, Lymph % (Auto) 9.2 L, [place] % (Auto) 9.8, Eos % (Auto) 3.7, Baso % (Auto) 0.6, Absolute Neuts (auto) 4.9, Absolute Lymphs (auto) 0.59 L, Nucleated RBC % 0, Differential Comment SCANNED Micro: Microbiology 02/08/23 05:25 Blood Culture (Wb) - Venous Bacteria Detection (PCR) - Final Coag Negative Staph 02/08/23 05:25 Blood Culture (Wb) - Venous Blood Culture - Preliminary 02/08/23 06:35 Blood Culture (Wb) - Anticubital Right Blood Culture - Preliminary 02/08/23 05:55 Rectal Abscess Gram Stain - Final Physical Exam Narrative General: Alert, oriented, lying on her side HEENT: Atraumatic, normocephalic Eyes: Anicteric, normal conjunctiva, extraocular movements grossly intact Neck: Supple Respiratory: Clear to auscultation bilaterally, normal respiratory effort Cardiovascular: Regular rate and rhythm GI: Soft, nontender, nondistended Extremities: No edema Musculoskeletal: Moving all extremities Neuro: No overt focal neurological deficits Skin: Left buttock erythema improving, still does have some erythema and tenderness however Psych: Cooperative Assessment & Plan Assessment/Plan (1) Abscess, gluteal, left: PLAN: Plan #Left perirectal abscess -Status post I&D in the ED -Pelvic CT done after I&D, discussed with ED physician and given his report of I&D and CT findings it is felt that the air was introduced during procedure and CT did not show any formed fluid collection is likely that I&D was sufficient -Culture sent and pending -Received Vanco and Rocephin in the ED due to penicillin allergy but has tolerated cephalosporins before -Continue vancomycin, start Metro and Cipro -MRSA swab -Consult wound care -Discussed with surgery, consult placed -Encourage showers and good hygiene, Epsom salt after discharge -02/09: Surgery following in the event further surgical management necessary pichardo john at this time continue current management. Did spike temp of 100.5 on floor last night and antibiotics were adjusted to vancomycin and cefepime with no further fevers and she is improving. MRSA PCR negative however growing gram- positive cocci in clusters on 2 out of 2 blood cultures with first blood culture resulting with coag negative staph, given 2/2 will consult infectious disease, obtain echo, and continue current antibiotics, currently still awaiting wound cultures but prelim growing alpha hemolytic organism #CKD stage IIIb -Slightly elevated from baseline at 1.54 with most recent 1 year ago 1.29, will gently hydrate with fluids -02/09: Improved to 1.11 today #SIM -Has seen Dr. Hernandes in the pulm office -Compliant with nocturnal BiPAP with pressure support -Order nightly #Asthma on 2L home O2 -Continue inhalers #Morbid obesity -BMI 40.6 kg/m? -Complicates treatment, prognosis, outcomes -Recommend weight loss and lifestyle changes #DVT ppx: hep subcu Alejandra Presley MD Time spent in the patient's overall evaluation,decision-making process, review of diagnostic data, adjustment of management, discussion with other providers, nursing nursing and ancillary staff involved in patient's care documentation, 30 minutes Charges/Coding Visit Charges Inpatient E&M: 60313 Subs Hosp L2
--- NOTE | 2023-02-09 08:31 | ECHOD_ITS ---
Reason For Study: OTHER Procedure This was a 2D Doppler, Color Flow transthoracic echocardiogram. Exam performed portable in patient room. Left Ventricle Normal LV size. The estimated ejection fraction is 65 %. No evidence for diastolic dysfunction. No regional wall motion abnormalities noted. Right Ventricle Normal right ventricle. Normal systolic function. Atria Normal left atrium. Normal right atrium. No doppler evidence for ASD. Mitral Valve There is no mitral valve stenosis. No mitral valve insufficiency. Tricuspid Valve There is no tricuspid stenosis. Trivial tricuspid valve insufficiency. Unable to estimate RV systolic pressure due to insufficient tricuspid regurgitant envelope. Aortic Valve Trisinus/trileaflet aortic valve. There is no aortic stenosis. No aortic valve insufficiency. Pulmonic Valve There is no pulmonic valvular stenosis. No pulmonic valve insufficiency. Great Vessels Normal aortic root. Pericardium/Pleural No pericardial effusion. MMode/2D Measurements & Calculations LVIDd: 5.6 cm IVSd: 1.1 cm Ao root diam: 3.5 cm LVIDs: 3.6 cm LVPWd: 1.1 cm FS: 34.6 % LAV(MOD-bp): 54.5 ml LVAd ap4: 33.7 cm2 SV(MOD-sp4): 90.6 ml LAV(MOD-bp) Indexed: 22.9 ml/m2 LVLd ap4: 7.8 cm LAV(MOD-sp2): 40.1 ml EDV(MOD-sp4): 121.5 ml LAV(MOD-sp4): 57.2 ml EDV(sp4-el): 122.8 ml LVAs ap4: 14.9 cm2 LVLs ap4: 6.2 cm ESV(MOD-sp4): 30.9 ml ESV(sp4-el): 30.0 ml EF(MOD-sp4): 74.6 % EF(sp4-el): 75.5 % SV(sp4-el): 92.8 ml LA A4 area: 22.3 cm2 LA dimension(2D): 5.5 cm RA A4 area: 11.1 cm2 Time Measurements MV dec time: 0.21 sec Doppler Measurements & Calculations MV E max logan: 79.4 cm/sec Lat Peak E' Logan: 12.9 cm/sec Med Peak E' Logan: 11.1 cm/sec MV A max logan: 71.0 cm/sec E/E' lat: 6.2 E/E' med: 7.2 MV E/A: 1.1 MV V2 max: 106.3 cm/sec Ao V2 max: 211.3 cm/sec MV max P.5 mmHg MV dec slope: 390.7 cm/sec2 Ao max P.9 mmHg MV V2 mean: 69.1 cm/sec Ao V2 mean: 136.3 cm/sec MV mean P.1 mmHg Ao mean P.9 mmHg MV V2 VTI: 33.2 cm Ao V2 VTI: 41.5 cm AV (velocity ratio): 0.70 LV V1 max: 165.6 cm/sec PA V2 max: 162.4 cm/sec TR max logan: 276.9 cm/sec LV V1 max P.0 mmHg PA V2 mean: 112.5 cm/sec TR max P.7 mmHg LV V1 mean P.6 mmHg LV V1 mean: 97.0 cm/sec LV V1 VTI: 29.2 cm ECHO/Echo Complete Interpretation Summary The estimated ejection fraction is 65 %. No evidence for diastolic dysfunction. Ordering Physician: Alejandra Presley Referring Physician: Chino Encinas Performed By: Divya Luciano RCS
[2023-02-09] MEDS: Juven (unflavored) Packet 1 PACKET PO ×2 (09:53→16:55)
[2023-02-09] MEDS: Famotidine 20 MG Tablet PO (09:54)
[2023-02-09] MEDS: buPROPion (SR) 100 MG TABLET.SA 200 MG PO ×2 (09:54→22:59)
[2023-02-09] MEDS: Potassium Chloride Oral Tablet 10 MEQ PO ×2 (09:54→16:56)
[2023-02-09] MEDS: FLUoxetine 20 MG Capsule PO (09:54)
[2023-02-09] MEDS: Loratadine 10 MG Tablet PO (09:54)
--- NOTE | 2023-02-09 11:18 | CASEMGMT ---
KAITLYNN PATEL Assessment: Face to Face with pt for initial transition planning/care coordination assessment. RN JORGE introduced self and role at [facility], pt voices understanding and consents to assessment. Pt is A/O x4 and answers all questions appropriately at this time. Pt lying in bed in no dsitress on RA. Care providers, pharmacy, and demographics verified/updated. Admitting Dx: perirectal abscess PCP:Huang Specialists:seth Hernandes; Shi, pain mgmt Preferred Pharmacy: [facility] Insurance: [facility] Prescription Benefit: yes LNOK: Jg Resendiz, Living Arrangements: Pt lives with in a house that is converted into 2 apts. She lives on the main floor with 3 steps to enter. Pt reports she is I in ADL's and denies concerns at home. Transportation: Pt provides transportation as her license has . DME/HHC/SNF: Pt has oxygen through [employer] at 2L cont and bipap at night. Pt has portable tanks. She denies any AD. Pt denies hx of HHC or SNF stays. Pt states no concerns with going home at time of dc. RN CM to follow for any wound care needs. Pt states no further concerns/needs. CM to follow. Advised pt to ask CM if any further question/concerns/needs arise, voices understanding. Pt Goal: Home Plan: Home, follow for wound care needs.
--- NOTE | 2023-02-09 13:12 | PCM.PN.SRG ---
Subjective Subjective feels better still painful Objective Data Objective Data less red,softer Vital Signs: Vital Signs Temp Pulse Resp BP Pulse Ox O2 Del Method O2 Flow Rate 98.5 F 74 18 138/79 H 95 Room Air 2 02/09/23 10:00 02/09/23 10:00 02/09/23 10:00 02/09/23 10:00 02/09/23 10:00 02/09/23 10:00 02/09/23 07:09 Oxygen Flow Rate (L/min) 2 Oxygen Delivery Method Room Air Weight: 279 lb 15.793 oz Body Mass Index (BMI) 41.3 Intake & Output: Intake and Output for Last 24 Hours 02/07/23 02/08/23 02/09/23 23:59 23:59 23:59 Intake Total 2915 / 2915 1663.33 / 1663.33 Balance 2915 / 2915 1663.33 / 1663.33 Lab / Micro Data Result Diagrams: 02/09/23 06:15 02/09/23 06:15 Labs: Laboratory Results - last 24 hr 02/08/23 10:50: S.aureus Protein A PCR NEGATIVE, MRSA (PCR) Negative 02/09/23 06:15: Sodium 141, Potassium 4.2, Chloride 113 H, Carbon Dioxide 24.0, Anion Gap 4 L, BUN 29 H, Creatinine 1.11 H, Estim Creat Clear Calc 54.92, Est GFR (MDRD) Af Amer 64, Est GFR (MDRD) Non-Af 53 L, BUN/Creatinine Ratio 26.1 H, Glucose 134 H, Calcium 8.4 L 02/09/23 06:15: WBC 6.4, RBC 3.58 L, Hgb 9.5 L, Hct 31.4 L, MCV 87.7, MCH 26.5 L, MCHC 30.3 L D, RDW Std Deviation 48.9 H, RDW Coeff of [place] 15.2 H, Plt Count 265, MPV 9.6, Immature Gran % (Auto) 0.600, Neut % (Auto) 76.1 H, Lymph % (Auto) 9.2 L, [place] % (Auto) 9.8, Eos % (Auto) 3.7, Baso % (Auto) 0.6, Absolute Neuts (auto) 4.9, Absolute Lymphs (auto) 0.59 L, Nucleated RBC % 0, Differential Comment SCANNED Micro: Microbiology 02/08/23 05:55 Rectal Abscess Gram Stain - Final 02/08/23 05:55 Rectal Abscess Wound Culture - Preliminary Alpha hemolytic organism 02/08/23 05:25 Blood Culture (Wb) - Venous Bacteria Detection (PCR) - Final Coag Negative Staph 02/08/23 05:25 Blood Culture (Wb) - Venous Blood Culture - Preliminary 02/08/23 06:35 Blood Culture (Wb) - Anticubital Right Blood Culture - Preliminary Radiography Diagnostic Testing: Radiology Impression Echocardiogram 02/09/23 08:31 Interpretation Summary The estimated ejection fraction is 65 %. No evidence for diastolic dysfunction. Ordering Physician: Alejandra Presley Referring Physician: Chino Encinas Performed By: Divya Luciano RCS Assessment & Plan Assessment/Plan (1) Abscess, gluteal, left: PLAN: -cont iv anti bx -no surgery needed at this time -cont to obs
[2023-02-09 20:11] LABS: Vancomycin, Trough Level 19.2 ug/mL (5.0-15.0)
--- NOTE | 2023-02-09 20:17 | PCM.RX.CS ---
Consult Pharmacy has been consulted to manage selected antiobiotic: Vancomycin Type of Consult: Follow-up Prior Doses of Antibiotics Received/Current Regimen: current dose is vanc 1250mg IV q12h Labs: Sodium 141 mmol/L (136-145) 02/09/23 06:15 Potassium 4.2 mmol/L (3.5-5.1) 02/09/23 06:15 Chloride 113 mmol/L (98-107) H 02/09/23 06:15 Carbon Dioxide 24.0 mmol/L (21.0-32.0) 02/09/23 06:15 Anion Gap 4 (5-15) L 02/09/23 06:15 BUN 29 mg/dL (7-18) H 02/09/23 06:15 Creatinine 1.11 mg/dL (0.55-1.02) H 02/09/23 06:15 Est GFR (MDRD) Af Amer 64 mL/min (>60) 02/09/23 06:15 Est GFR (MDRD) Non-Af 53 mL/min (>60) L 02/09/23 06:15 BUN/Creatinine Ratio 26.1 RATIO (10-20) H 02/09/23 06:15 Glucose 134 mg/dL (74-106) H 02/09/23 06:15 Vancomycin Trough 19.2 ug/mL (5.0-15.0) H 02/09/23 19:17 Microbiology: Microbiology 02/08/23 05:55 Rectal Abscess Gram Stain - Final 02/08/23 05:55 Rectal Abscess Wound Culture - Preliminary Alpha hemolytic organism 02/08/23 05:25 Blood Culture (Wb) - Venous Bacteria Detection (PCR) - Final Coag Negative Staph 02/08/23 05:25 Blood Culture (Wb) - Venous Blood Culture - Preliminary 02/08/23 06:35 Blood Culture (Wb) - Anticubital Right Blood Culture - Preliminary Weight used for dosin kg Estimated Creatinine Clearance: 75ml/min Goal Trough: 15-20 mcg/mL Pharmacy Plan for Drug Dosing: The vanc trough drawn at 19:17 tonight was 19.2, which is within goal range. It was drawn at only 9.25 hrs after the previous dose since that was given late so it would have been a little lower if drawn closer to the desired 11.5 hrs, although most likely still within goal range. Will leave patient on same dose and repeat a trough in 2 days per protocol. The patient's CrCl of 75 ml/min was calculated using an adjusted body weight. Pharmacy Service will continue to monitor and adjust dosing as required. Follow-Up Labs: Trough Vancomycin Labs to be done on [date and time ordered]: 02/11/23 19:30
[2023-02-10 02:31] VITALS: BP 156/78; PULSE 76; RESP 18; TEMP 37.1; O2SAT 97
[2023-02-10] MEDS: Acetaminophen 325 MG Tablet 650 MG PO ×3 (02:39→20:09)
[2023-02-10] MEDS: oxyCODONE 5 MG Tablet PO ×3 (02:40→20:08)
[2023-02-10] MEDS: Heparin Injection (Vial) 5,000 UNIT/ML VIAL 5000 UNIT SC ×3 (06:13→22:24)
[2023-02-10 06:28] LABS: Absolute Neutrophil Count 4.6 X10^3/uL (2.0-7.7); Basophil# 0.06 X10^3/uL; Basophil% 0.9 % (0-1); Eosinophil# 0.38 X10^3/uL; Eosinophils% 5.5 % (0-5); Hematocrit 32.5 % (37-47); Mean Corp Hgb Conc 30.8 g/dL (32-36); Mean Corpuscular Hgb 27.2 pg (27.0-32.0); Mean Corpuscular Volume 88.3 fL (81-99); Mean Platelet Vol. 9.4 fl (6.2-12.0); Monocyte# 0.78 X10^3/uL; Monocyte% 11.3 % (0-10); NRBC Flagged by Analyzer 0 % (0-5); Neutrophil # 4.63 X10^3/uL (2.7-7.7); Neutrophil % 66.8 % (47-70); Platelet Count 322 K/mm3 (150-450); RBC Distribution Width CV 15.2 % (11.6-14.6); RBC Distribution Width SD 49.1 fl (35.1-43.9); Red Blood Count 3.68 M/mm3 (4.2-5.4); White Blood Count 6.9 K/mm3 (4.4-11.0)
[2023-02-10 06:59] LABS: Anion Gap 2 (5-15); BUN 25 mg/dL (7-18); BUN/Creat Ratio 22.3 RATIO (10-20); Calcium,Total 8.9 mg/dL (8.5-10.1); Chloride 113 mmol/L (98-107); Creatinine, Serum 1.12 mg/dL (0.55-1.02); EST Glomerular Filtration Rate 52 mL/min (>60); Est Glom Filt Rate - Afr Amer 63 mL/min (>60); Estimated Creatinine Clearance 54.43 ml/min; Glucose 123 mg/dL (74-106); Potassium 4.5 mmol/L (3.5-5.1); Sodium Level 142 mmol/L (136-145)
[2023-02-10] MEDS: Ipratropium/Albuterol Sulfate 3 ML AMPUL.NEB INHALATION ×2 (07:22→19:16)
[2023-02-10] MEDS: Budesonide Respules 0.5 MG/2 ML AMPUL.NEB. INHALATION ×2 (07:22→19:16)
[2023-02-10 07:23] VITALS: PULSE 80; RESP 18; O2SAT 97
[2023-02-10 08:19] VITALS: BP 138/74; PULSE 70; RESP 18; TEMP 36.9; O2SAT 97
[2023-02-10] MEDS: buPROPion (SR) 100 MG TABLET.SA 200 MG PO ×2 (08:27→22:24)
[2023-02-10] MEDS: Potassium Chloride Oral Tablet 10 MEQ PO ×2 (08:28→16:25)
[2023-02-10] MEDS: Famotidine 20 MG Tablet PO (08:28)
[2023-02-10] MEDS: Loratadine 10 MG Tablet PO (08:28)
[2023-02-10] MEDS: FLUoxetine 20 MG Capsule PO (08:28)
[2023-02-10] MEDS: Juven (unflavored) Packet 1 PACKET PO ×2 (08:28→16:25)
--- NOTE | 2023-02-10 09:06 | PN.HOSP_ITS ---
Reason for Visit Reason for Visit: Diagnoses Rectal abscess (02/08/23) Cutaneous abscess of buttock (02/08/23) Subjective Subjective Still has some pain but is continuing to feel better Objective Data Objective Data Vital Signs: Vital Signs Temp Pulse Resp BP Pulse Ox O2 Del Method O2 Flow Rate 98.5 F 70 18 138/74 H 97 Room Air 2 02/10/23 08:19 02/10/23 08:19 02/10/23 08:19 02/10/23 08:19 02/10/23 08:19 02/10/23 08:24 02/10/23 02:31 Oxygen Flow Rate (L/min) 2 Oxygen Delivery Method Room Air Weight: 127 kg Body Mass Index (BMI) 41.3 Intake & Output: Intake and Output for Last 24 Hours 02/08/23 02/09/23 02/10/23 23:59 23:59 23:59 Intake Total 2915 / 2915 3038.33 / 3038.33 1000 / 1000 Balance 2915 / 2915 3038.33 / 3038.33 1000 / 1000 Lab / Micro Data Result Diagrams: 02/10/23 06:00 02/10/23 06:00 Labs: Laboratory Results - last 24 hr 02/09/23 19:17: Vancomycin Trough 19.2 H 02/10/23 06:00: WBC 6.9, RBC 3.68 L, Hgb 10.0 L, Hct 32.5 L, MCV 88.3, MCH 27.2, MCHC 30.8 L, RDW Std Deviation 49.1 H, RDW Coeff of Seble 15.2 H, Plt Count 322, MPV 9.4, Immature Gran % (Auto) 2.500 H, Neut % (Auto) 66.8, Lymph % (Auto) 13.0 L, [place] % (Auto) 11.3 H, Eos % (Auto) 5.5 H, Baso % (Auto) 0.9, Absolute Neuts (auto) 4.6, Absolute Lymphs (auto) 0.90, Nucleated RBC % 0 02/10/23 06:00: Sodium 142, Potassium 4.5, Chloride 113 H, Carbon Dioxide 27.0, Anion Gap 2 L, BUN 25 H, Creatinine 1.12 H, Estim Creat Clear Calc 54.43, Est GFR (MDRD) Af Amer 63, Est GFR (MDRD) Non-Af 52 L, BUN/Creatinine Ratio 22.3 H, Glucose 123 H, Calcium 8.9 Micro: Microbiology 02/08/23 06:35 Blood Culture (Wb) - Anticubital Right Blood Culture - Preliminary 02/08/23 05:25 Blood Culture (Wb) - Venous Bacteria Detection (PCR) - Final Coag Negative Staph 02/08/23 05:25 Blood Culture (Wb) - Venous Blood Culture - Preliminary Coag Negative Staph 02/08/23 05:55 Rectal Abscess Gram Stain - Final 02/08/23 05:55 Rectal Abscess Wound Culture - Preliminary Alpha hemolytic organism Radiography Diagnostic Testing: Radiology Impression Echocardiogram 02/09/23 08:31 Interpretation Summary The estimated ejection fraction is 65 %. No evidence for diastolic dysfunction. Ordering Physician: Alejandra Presley Referring Physician: Chino Encinas Performed By: Divya Luciano RCS Physical Exam Narrative General: Alert, oriented, lying on her side HEENT: Atraumatic, normocephalic Eyes: Anicteric, normal conjunctiva, extraocular movements grossly intact Neck: Supple Respiratory: Clear to auscultation bilaterally, normal respiratory effort Cardiovascular: Regular rate and rhythm GI: Soft, nontender, nondistended Extremities: No edema Musculoskeletal: Moving all extremities Neuro: No overt focal neurological deficits Skin: Left buttock erythema continues improving, still does have some erythema and tenderness Psych: Cooperative Assessment & Plan Assessment/Plan (1) Abscess, gluteal, left: PLAN: Plan #Left perirectal abscess -Status post I&D in the ED -Pelvic CT done after I&D, discussed with ED physician and given his report of I&D and CT findings it is felt that the air was introduced during procedure and CT did not show any formed fluid collection is likely that I&D was sufficient -Culture sent and pending -Received Vanco and Rocephin in the ED due to penicillin allergy but has tolerated cephalosporins before -Continue vancomycin, start Metro and Cipro -MRSA swab -Consult wound care -Discussed with surgery, consult placed -Encourage showers and good hygiene, Epsom salt after discharge -02/09: Surgery following in the event further surgical management necessary however at this time continue current management. Did spike temp of 100.5 on floor last night and antibiotics were adjusted to vancomycin and cefepime with no further fevers and she is improving. MRSA PCR negative however growing gram-positive cocci in clusters on 2 out of 2 blood cultures with first blood culture resulting with coag negative staph, given /2 will consult infectious disease, obtain echo, and continue current antibiotics, currently still awaiting wound cultures but prelim growing alpha hemolytic organism -02/10: Echo not suggestive of any vegetation. Spoke with surgery, presently no need for further surgical indication. Final culture still pending, continue IV antibiotics at this time #CKD stage IIIb -Slightly elevated from baseline at 1.54 with most recent 1 year ago 1.29, will gently hydrate with fluids -02/09: Improved to 1.11 today #SIM -Has seen Dr. Hernandes in the pulm office -Compliant with nocturnal BiPAP with pressure support -Order nightly #Asthma on 2L home O2 -Continue inhalers #Morbid obesity -BMI 40.6 kg/m? -Complicates treatment, prognosis, outcomes -Recommend weight loss and lifestyle changes #DVT ppx: hep subcu Alejandra Presley MD Time spent in the patient's overall evaluation,decision-making process, review of diagnostic data, adjustment of management, discussion with other providers, nursing nursing and ancillary staff involved in patient's care documentation, 30 minutes Charges/Coding Visit Charges Inpatient E&M: 52262 Subs Hosp L2
--- NOTE | 2023-02-10 13:18 | WOUNDNOTE ---
In to reassess the buttock. redness continues to improve. there is still some mild induration noted. still moderate tenderness to the left inner buttock. less drainage noted today. patient states dressing has not been staying in place. encouraged patient to keep area clean and dry. pt states she plans to do Epson soaks at home as requested by Dr Holcomb.
--- NOTE | 2023-02-10 13:21 | PCM.PN.SRG ---
Subjective Subjective Patient had a bowel movement. States stated that it was somewhat painful. But the overall pain has been improved significantly. Objective Data Objective Data Much less red. Significant improvement. Vital Signs: Vital Signs Temp Pulse Resp BP Pulse Ox O2 Del Method O2 Flow Rate 98.5 F 70 18 138/74 H 97 Room Air 2 02/10/23 08:19 02/10/23 08:19 02/10/23 08:19 02/10/23 08:19 02/10/23 08:19 02/10/23 08:24 02/10/23 02:31 Oxygen Flow Rate (L/min) 2 Oxygen Delivery Method Room Air Weight: 279 lb 15.793 oz Body Mass Index (BMI) 41.3 Intake & Output: Intake and Output for Last 24 Hours 02/08/23 02/09/23 02/10/23 23:59 23:59 23:59 Intake Total 2915 / 2915 3038.33 / 3038.33 1275 / 1275 Balance 2915 / 2915 3038.33 / 3038.33 1275 / 1275 Lab / Micro Data Result Diagrams: 02/10/23 06:00 02/10/23 06:00 Labs: Laboratory Results - last 24 hr 02/09/23 19:17: Vancomycin Trough 19.2 H 02/10/23 06:00: WBC 6.9, RBC 3.68 L, Hgb 10.0 L, Hct 32.5 L, MCV 88.3, MCH 27.2, MCHC 30.8 L, RDW Std Deviation 49.1 H, RDW Coeff of Seble 15.2 H, Plt Count 322, MPV 9.4, Immature Gran % (Auto) 2.500 H, Neut % (Auto) 66.8, Lymph % (Auto) 13.0 L, [place] % (Auto) 11.3 H, Eos % (Auto) 5.5 H, Baso % (Auto) 0.9, Absolute Neuts (auto) 4.6, Absolute Lymphs (auto) 0.90, Nucleated RBC % 0 02/10/23 06:00: Sodium 142, Potassium 4.5, Chloride 113 H, Carbon Dioxide 27.0, Anion Gap 2 L, BUN 25 H, Creatinine 1.12 H, Estim Creat Clear Calc 54.43, Est GFR (MDRD) Af Amer 63, Est GFR (MDRD) Non-Af 52 L, BUN/Creatinine Ratio 22.3 H, Glucose 123 H, Calcium 8.9 Micro: Microbiology 02/08/23 05:55 Rectal Abscess Gram Stain - Final 02/08/23 05:55 Rectal Abscess Wound Culture - Preliminary Alpha hemolytic organism 02/08/23 06:35 Blood Culture (Wb) - Anticubital Right Blood Culture - Preliminary 02/08/23 05:25 Blood Culture (Wb) - Venous Bacteria Detection (PCR) - Final Coag Negative Staph 02/08/23 05:25 Blood Culture (Wb) - Venous Blood Culture - Preliminary Coag Negative Staph Assessment & Plan Assessment/Plan (1) Abscess, gluteal, left: PLAN: At this point she will stay another day for IV antibiotics and then be discharged home on oral antibiotics. Can follow-up with me in the office. I will sign off and see her in the office.
--- NOTE | 2023-02-10 13:33 | PCM.CONS.GEN ---
Assessment & Plan Assessment/Plan (1) Veronica-rectal abscess: PLAN: With CoNS bacteremia. Wound cx with strep-like. I&D done in ED 02/08. Sx improving. Cont vanc/cefepime for now. Plan on po abx at discharge. Will follow, thank you (2) Bacteremia due to coagulase-negative Staphylococcus: HPI Consult Data Date of Consult: 02/10/23 HPI Narrative Reason for Consultation: abscess HPI Narrative: DANIEL BURTON, is a 62 F with h/o CKD, asthma, htn, recurrent skin abscess, presented 02/08 with 2-3 days progressive L gluteal pain, swelling, redness. Pain became severe, stabbing with associated chills. Came to ED, I&D done, admitted on vanc/cipro/flagyl, then changed to vanc/cefepime. Feeling better. Full ROS performed and neg except as noted above. [facility] Medical History Abdominal pannus Acute hypoxic respiratory failure Anemia Anxiety and depression Asthma BiPAP (biphasic positive airway pressure) dependence Borderline type 2 diabetes mellitus Change in skin mole Chronic bronchitis COPD (chronic obstructive pulmonary disease) COPD exacerbation COVID-19 Flu vaccine need Former smoker Frequent headaches History of COVID-19 History of pneumonia Hypertension IBS (irritable bowel syndrome) Insomnia Kidney disease Marijuana use Morbid obesity Normal colonoscopy Post-menopausal Home Medications acetaminophen 325 mg tablet 650 mg PO Q6H PRN PRN Pain Score 1-3/Temp > 100.7 F 08/27/19 [Rx Last Taken Unknown] hydrocortisone acetate 25 mg rectal suppository 25 mg MD DAILY PRN hemmorroids 03/06/20 [History Last Taken Unknown] Disability Placard #1 ea 08/05/20 [Rx Last Taken Unknown] albuterol sulfate 90 mcg/actuation aerosol inhaler 2 puff inhalation Q4H PRN shortness of breath or wheezing #1 device 11/05/20 [Rx Last Taken Unknown] fluticasone propionate 50 mcg/actuation nasal spray,suspension 2 spray intranasal DAILY #16 grams 02/10/22 [Rx Last Taken Unknown] potassium chloride 10 mEq capsule,extended release 10 meq PO BID #180 caps 04/16/22 [Rx Last Taken Unknown] furosemide 20 mg tablet 20 mg PO BID #180 tabs 05/27/22 [Rx Last Taken Unknown] trazodone 100 mg tablet 100 mg PO QHS PRN insomnia 3 months #90 tabs 07/21/22 [Rx Last Taken Unknown] bupropion HCl 200 mg tablet,12 hr sustained-release 200 mg PO BID mood #180 ea 08/26/22 [Rx Last Taken Unknown] budesonide-formoterol HFA 160 mcg-4.5 mcg/actuation aerosol inhaler (Symbicort) 2 puff inhalation BID #1 ea 09/15/22 [Rx Last Taken Unknown] tiotropium bromide 2.5 mcg/actuation mist for inhalation (Spiriva Respimat) 2 puff inhalation QDAY #1 ea 09/15/22 [Rx Last Taken Unknown] fluoxetine 20 mg capsule 20 mg PO DAILY #90 caps 11/04/22 [Rx Last Taken Unknown] loratadine 10 mg capsule 10 mg PO QDAY #90 caps 11/20/22 [Rx Last Taken Unknown] famotidine 20 mg tablet 20 mg PO DAILY #90 tabs 11/24/22 [Rx Last Taken Unknown] buprenorphine 5 mcg/hour weekly transdermal patch (Butrans) 5 mcg topical .WEDNESDAY PAIN 02/08/23 [History Last Taken Unknown] triamcinolone acetonide 0.1 % topical cream 1 applic topical BID PRN Skin Irritation 02/08/23 [History Last Taken Unknown] Allergy/AdvReac Type Severity Reaction Status Date / Time Latex, Natural Rubber Allergy Severe Hives Verified 02/08/23 04:56 Penicillins Allergy Severe Anaphylaxis Verified 02/08/23 04:56 Sulfa (Sulfonamide Allergy Cannot Verified 02/08/23 04:56 Antibiotics) remember tetanus and diphtheria Allergy Swelling Verified 02/08/23 04:56 toxoids Family History Other Adopted Surgical History History of breast biopsy History of lung surgery History of removal of cyst history of right hand surgery History of tonsillectomy Social History Smoking Status: Former smoker Tobacco: How many years used: 42 how long ago did patient quit smokin months. second hand exposure: Yes quit status: has quit before counseling given: provider counseling alcohol intake: never substance use type: marijuana caffeine: Yes what type of physical activity do you participate in: walking seatbelt use: never do you feel safe at home: Yes additional social history: Jg- disability Physical Exam Const alert, oriented x3 and no apparent distress General Appearance: cooperative HEENT normocephalic and head/scalp atraumatic Eyes PERRL and EOMs intact bilaterally Neck supple and No nodes Resp normal air movement and clear to auscultation bilaterally Cardio regular rate and regular rhythm GI soft to palpation, non-tender and non-distended Extremity General Extremity: Negative for edema Skin Skin Narrative: Improving L gluteal redness and induration Neuro CN's II-XII intact bilaterally Lab / Micro Data Attestation: I reviewed the patient's lab results. Result Diagrams: 02/10/23 06:00 02/10/23 06:00 Labs: Laboratory Results - last 24 hr 02/09/23 19:17: Vancomycin Trough 19.2 H 02/10/23 06:00: WBC 6.9, RBC 3.68 L, Hgb 10.0 L, Hct 32.5 L, MCV 88.3, MCH 27.2, MCHC 30.8 L, RDW Std Deviation 49.1 H, RDW Coeff of Seble 15.2 H, Plt Count 322, MPV 9.4, Immature Gran % (Auto) 2.500 H, Neut % (Auto) 66.8, Lymph % (Auto) 13.0 L, [place] % (Auto) 11.3 H, Eos % (Auto) 5.5 H, Baso % (Auto) 0.9, Absolute Neuts (auto) 4.6, Absolute Lymphs (auto) 0.90, Nucleated RBC % 0 02/10/23 06:00: Sodium 142, Potassium 4.5, Chloride 113 H, Carbon Dioxide 27.0, Anion Gap 2 L, BUN 25 H, Creatinine 1.12 H, Estim Creat Clear Calc 54.43, Est GFR (MDRD) Af Amer 63, Est GFR (MDRD) Non-Af 52 L, BUN/Creatinine Ratio 22.3 H, Glucose 123 H, Calcium 8.9 Micro: Microbiology 02/08/23 05:55 Rectal Abscess Gram Stain - Final 02/08/23 05:55 Rectal Abscess Wound Culture - Preliminary Alpha hemolytic organism 02/08/23 06:35 Blood Culture (Wb) - Anticubital Right Blood Culture - Preliminary 02/08/23 05:25 Blood Culture (Wb) - Venous Bacteria Detection (PCR) - Final Coag Negative Staph 02/08/23 05:25 Blood Culture (Wb) - Venous Blood Culture - Preliminary Coag Negative Staph
[2023-02-10 14:53] VITALS: BP 125/68; PULSE 69; RESP 18; TEMP 37.3; O2SAT 96
[2023-02-10 19:17] VITALS: PULSE 102; RESP 20
[2023-02-10 19:57] VITALS: BP 144/69; PULSE 79; RESP 20; TEMP 37.1; O2SAT 97
[2023-02-10] MEDS: 0.9% Saline Lock 10 ML Syringe IV ×2 (20:08→22:24)
[2023-02-10] MEDS: MELATONIN 3 MG TABLET PO (22:24)
[2023-02-11 03:53] VITALS: BP 150/84; PULSE 69; RESP 18; TEMP 36.6; O2SAT 98
[2023-02-11] MEDS: Acetaminophen 325 MG Tablet 650 MG PO (03:57)
[2023-02-11] MEDS: oxyCODONE 5 MG Tablet PO (03:57)
[2023-02-11] MEDS: Heparin Injection (Vial) 5,000 UNIT/ML VIAL 5000 UNIT SC (05:57)
[2023-02-11 06:07] LABS: Hematocrit 33.7 % (37-47); Mean Corp Hgb Conc 29.7 g/dL (32-36); Mean Corpuscular Hgb 26.3 pg (27.0-32.0); Mean Corpuscular Volume 88.7 fL (81-99); Mean Platelet Vol. 9.7 fl (6.2-12.0); POSITIVE COUNT YES; POSITIVE MORPHOLOGY YES; Platelet Count 362 K/mm3 (150-450); RBC Distribution Width SD 48.7 fl (35.1-43.9)
[2023-02-11 06:19] LABS: Differential Indicated MANUAL DIFF
[2023-02-11 06:37] LABS: Anion Gap 3 (5-15); BUN 24 mg/dL (7-18); BUN/Creat Ratio 22.9 RATIO (10-20); Calcium,Total 9.3 mg/dL (8.5-10.1); Chloride 110 mmol/L (98-107); Creatinine, Serum 1.05 mg/dL (0.55-1.02); EST Glomerular Filtration Rate 56 mL/min (>60); Est Glom Filt Rate - Afr Amer 68 mL/min (>60); Estimated Creatinine Clearance 58.06 ml/min; Glucose 135 mg/dL (74-106); Potassium 4.3 mmol/L (3.5-5.1); Sodium Level 141 mmol/L (136-145)
[2023-02-11 07:19] LABS: Metamyelocyte 1 % (0-1); Myelocyte 2 % (0-0); Neutrophil-Band 1 % (0-5); Neutrophil-Segmented 73 % (47-70); Total Cells Counted 100 (MANUAL DIFF)
[2023-02-11 07:20] LABS: Basophil 1 % (0-1); Eosinophil 1 % (0-5); Lymphocyte 7 % (19-41); Monocyte 14 % (0-10); Platelet Estimate ADEQUATE (ADEQ)
[2023-02-11 07:21] LABS: Anisocytosis 1+; Hypochromasia 1+
[2023-02-11 07:22] LABS: Absolute Lymphocyte Count 0.56 X10^3/uL (0.83-4.51); Absolute Neutrophil Count 5.9 X10^3/uL (2.0-7.7); Lymphocyte # 0.56 X10^3/ul (0.83-4.51); Neutrophil # 5.92 X10^3/uL (2.7-7.7)
[2023-02-11 07:42] VITALS: PULSE 98; RESP 18; O2SAT 92
[2023-02-11] MEDS: Famotidine 20 MG Tablet PO (07:42)
[2023-02-11] MEDS: buPROPion (SR) 100 MG TABLET.SA 200 MG PO (07:42)
[2023-02-11] MEDS: Budesonide Respules 0.5 MG/2 ML AMPUL.NEB. INHALATION (07:42)
[2023-02-11] MEDS: Potassium Chloride Oral Tablet 10 MEQ PO (07:42)
[2023-02-11] MEDS: Juven (unflavored) Packet 1 PACKET PO (07:42)
[2023-02-11] MEDS: Ipratropium/Albuterol Sulfate 3 ML AMPUL.NEB INHALATION (07:42)
[2023-02-11] MEDS: FLUoxetine 20 MG Capsule PO (07:42)
[2023-02-11] MEDS: Loratadine 10 MG Tablet PO (07:44)
[2023-02-11 09:00] VITALS: BP 132/69; PULSE 70; RESP 18; TEMP 36.6; O2SAT 97
--- NOTE | 2023-02-11 10:53 | PCM.PN.ID ---
Physical Exam Narrative Feeling better, wants to go home. No fever. Const alert and no apparent distress General Appearance: cooperative Resp normal air movement and clear to auscultation bilaterally Cardio regular rate and regular rhythm GI soft to palpation, non-tender and non-distended Skin Skin Narrative: no new rash ID ID: Route of nutrition/ use of supplements: [] Nutritional Intake: [] IV Site: [] Simeon Catheter: [] Assessment & Plan Assessment/Plan (1) Veronica-rectal abscess: PLAN: With CoNS bacteremia. Wound cx with strep and actino. I&D done in ED 02/08. Sx improving. Ok for home with 2 weeks po doxy, keflex, flagyl. With presence of actino, may need course extended depending on how she's doing at the end of two weeks. Will follow as needed, wrote rx (2) Bacteremia due to coagulase-negative Staphylococcus:
[2023-02-11 14:09] VITALS: BP 138/71; PULSE 75; RESP 18; TEMP 36.1; O2SAT 94
--- NOTE | 2023-02-11 14:14 | PCM.DC.SUM ---
Providers Date of Admission: 02/08/23 Date of Discharge: 02/11/23 Primary Care Physician: Dr. Chino Encinas MD Consultations 02/08/23 08:29 Consult: General Surgery Routine Consulting Provider: Rashawn Holcomb Reason for Consult: perirectal abscess, s/p drainage EMERGENT Consult: No Notified: Yes Date Notified: 02/08/23 Time Notified: 07:34 Method of Notification: Verbal Consult: Onc/Wound/sock drier Routine Comment: Reason for Consult:: perianal abscess s/p I&D 02/09/23 08:31 Consult: Infectious Disease Routine Consulting Provider: Kenton Naidu Reason for Consult: staph epi 2/2 bld cx +, perirectal abscess prelim alpha hemolytic organism EMERGENT Consult: No Notified: Yes Date Notified: 02/09/23 Time Notified: 11:55 Method of Notification: Text Reason For Visit: PERIRECTAL ABSCESS Diagnosis Discharge Diagnosis (1) Veronica-rectal abscess: Status: Acute Code(s): K61.1 - Rectal abscess (2) Bacteremia due to coagulase-negative Staphylococcus: Status: Acute Code(s): R78.81 - Bacteremia; B95.7 - Other staphylococcus as the cause of diseases classified elsewhere Plan #Left perirectal abscess #CKD stage IIIb #SIM #Asthma on 2L home O2 #Morbid obesity Medications at Discharge Home Medications acetaminophen 325 mg tablet 650 mg PO Q6H PRN PRN Pain Score 1-3/Temp > 100.7 F 08/27/19 hydrocortisone acetate 25 mg rectal suppository 25 mg AK DAILY PRN hemmorroids 03/06/20 Disability Placard #1 ea 08/05/20 albuterol sulfate 90 mcg/actuation aerosol inhaler 2 puff inhalation Q4H PRN shortness of breath or wheezing #1 device 11/05/20 fluticasone propionate 50 mcg/actuation nasal spray,suspension 2 spray intranasal DAILY #16 grams 02/10/22 potassium chloride 10 mEq capsule,extended release 10 meq PO BID #180 caps 04/16/22 furosemide 20 mg tablet 20 mg PO BID #180 tabs 05/27/22 trazodone 100 mg tablet 100 mg PO QHS PRN insomnia 3 months #90 tabs 07/21/22 bupropion HCl 200 mg tablet,12 hr sustained-release 200 mg PO BID mood #180 ea 08/26/22 budesonide-formoterol HFA 160 mcg-4.5 mcg/actuation aerosol inhaler (Symbicort) 2 puff inhalation BID #1 ea 09/15/22 tiotropium bromide 2.5 mcg/actuation mist for inhalation (Spiriva Respimat) 2 puff inhalation QDAY #1 ea 09/15/22 fluoxetine 20 mg capsule 20 mg PO DAILY #90 caps 11/04/22 loratadine 10 mg capsule 10 mg PO QDAY #90 caps 11/20/22 famotidine 20 mg tablet 20 mg PO DAILY #90 tabs 11/24/22 buprenorphine 5 mcg/hour weekly transdermal patch (Butrans) 5 mcg topical .WEDNESDAY PAIN 02/08/23 triamcinolone acetonide 0.1 % topical cream 1 applic topical BID PRN Skin Irritation 02/08/23 cephalexin 500 mg capsule 500 mg PO TID #42 caps 02/11/23 doxycycline hyclate 100 mg capsule 100 mg PO BID #30 caps 02/11/23 metronidazole 500 mg tablet 500 mg PO TID #42 tabs 02/11/23 Hospital Course Procedures - (I&D, TTE) Summary of Care Provided Minutes Spent on Discharge: 31 Hospital Course: DANIEL BURTON, is a 62-year-old female history of anxiety and depression, CKD stage IIIb, asthma on 2L home O2, morbid obesity, pulmonary hypertension, SIM presented to [facility] 02/08/2023 with increasing gluteal abscess over 2 days.? Said small areas that have opened and drained spontaneously however given the worsening with no drainage she presented.? In the ED labs overall unremarkable and vitally stable.? Performed I&D in the ED. Given need for IV antibiotics hospitalist consulted for admission. Surgery contacted for additional evaluation and input on further need for surgical evaluation and ultimately it was felt that it could be followed up on an outpatient basis after several days of monitoring. She was on IV antibiotics and 2 of 2 blood cultures positive for coag negative staph and perirectal abscess positive for strep anginosus and actinomyces odontoidlyticus. ID consulted and patient did well and ultimately was discharged on 2 weeks of doxycycline, Keflex, Flagyl. Discharge instructions as follows: - Please follow-up with Dr. Holcomb with surgery upon discharge.? Please call their office to schedule hospital follow-up appointment upon discharge. -You will be discharged on 2 weeks of doxycycline, Keflex, Flagyl which have been sent to preferred pharmacy on file.? It is strongly recommended that he follow-up closely with your primary care physician to assess if these antibiotics need extended beyond the 2-week period. -Advised frequent hygiene with showers and warm soaks.? Additionally surgery advises Epsom salt baths upon discharge as well -Please call your primary care provider's office upon discharge to schedule a hospital follow up within 1 week. -For any concerning signs or symptoms please call 911 or proceed to the nearest emergency department Physical Exam Narrative General: Alert, oriented, lying on her side HEENT: Atraumatic, normocephalic Eyes: Anicteric, normal conjunctiva, extraocular movements grossly intact Neck: Supple Respiratory: Clear to auscultation bilaterally, normal respiratory effort Cardiovascular: Regular rate and rhythm GI: Soft, nontender, nondistended Extremities: No edema Musculoskeletal: Moving all extremities Neuro: No overt focal neurological deficits Skin: Left buttock erythema continues improving Psych: Cooperative Weight / BMI Weight Weight: 127 kg Body Mass Index (BMI) 41.3 ABG / Lab / Microbiology Data Result Diagrams: 02/11/23 05:30 02/11/23 05:30 Laboratory: Laboratory Results - last 24 hr 02/11/23 05:30: WBC 8.0, RBC 3.80 L, Hgb 10.0 L, Hct 33.7 L, MCV 88.7, MCH 26.3 L, MCHC 29.7 L, RDW Std Deviation 48.7 H, RDW Coeff of Seble 15.0 H, Plt Count 362, MPV 9.7, Neut % (Auto) Not Reportable, Absolute Neuts (auto) 5.9, Absolute Lymphs (auto) 0.56 L, Total Counted 100, Neutrophils % (Manual) 73 H, Band Neutrophils % 1, Lymphocytes % (Manual) 7 L, Monocytes % (Manual) 14 H, Eosinophils % (Manual) 1, Basophils % (Manual) 1, Metamyelocytes % 1, Myelocytes % 2 H, Diff Path Review May foll, Platelet Estimate ADEQUATE, Hypochromasia 1+, Anisocytosis 1+ 02/11/23 05:30: Sodium 141, Potassium 4.3, Chloride 110 H, Carbon Dioxide 28.0, Anion Gap 3 L, BUN 24 H, Creatinine 1.05 H, Estim Creat Clear Calc 58.06, Est GFR (MDRD) Af Amer 68, Est GFR (MDRD) Non-Af 56 L, BUN/Creatinine Ratio 22.9 H, Glucose 135 H, Calcium 9.3 Microbiology: Microbiology 02/08/23 05:55 Rectal Abscess Gram Stain - Final 02/08/23 05:55 Rectal Abscess Wound Culture - Preliminary Strep anginosus Actinomyces odontolyticus 02/08/23 06:35 Blood Culture (Wb) - Anticubital Right Blood Culture - Final Coag Negative Staph 02/08/23 05:25 Blood Culture (Wb) - Venous Bacteria Detection (PCR) - Final Coag Negative Staph 02/08/23 05:25 Blood Culture (Wb) - Venous Blood Culture - Final Staphylococcus capitis D/C Instructions Discharge Diet: No restrictions Call your doctor if your incision/area has: Continuous Slow Oozing, Sudden Increased Bleeding, Increased Pain/ Swelling, Increased Redness and Foul Smelling Discharge Call your doctor if you observe: Fever of 101 or Higher, Coldness, Increased Pain, Change in Color and Uncontrolled pain Cleanse incision/area with: Soap & Water Meaningful Use Info Meaningful Use Diagnoses (Choose all that apply): None applicable Discharge Plan Admission Admit Date/Time: 02/08/23 07:34 Primary Reason for Your Visit: Buttock pain and cellulitis Attending Provider: Alejandra Presley Primary Care Provider: Chino Encinas Consulting Providers: Rashawn Holcomb ; Kenton Naidu Instructions Patient Instructions: Abscess Drainage, ED Abscess Incision And Drainage Additional Instructions / Restrictions: DISCHARGE INSTRUCTIONS PLEASE READ *Please take this with you to your next doctors appointment* - Please follow-up with Dr. Holcomb with surgery upon discharge. Please call their office to schedule hospital follow-up appointment upon discharge. -You will be discharged on 2 weeks of doxycycline, Keflex, Flagyl which have been sent to preferred pharmacy on file. It is strongly recommended that he follow-up closely with your primary care physician to assess if these antibiotics need extended beyond the 2-week period. -Advised frequent hygiene with showers and warm soaks. Additionally surgery advises Epsom salt baths upon discharge as well -Please call your primary care provider's office upon discharge to schedule a hospital follow up within 1 week. -For any concerning signs or symptoms please call 911 or proceed to the nearest emergency department Discharge Orders/Prescriptions Prescriptions: New doxycycline hyclate 100 mg capsule 100 mg PO BID Qty: 30 0RF cephalexin 500 mg capsule 500 mg PO TID Qty: 42 0RF metronidazole 500 mg tablet 500 mg PO TID Qty: 42 0RF Continued hydrocortisone acetate 25 mg suppository 25 mg RC DAILY PRN (Reason: hemmorroids) (DME) Disability Placard 0 .Route .MEDSUPPLY Qty: 1 0RF Rx Instructions: As directed albuterol sulfate 90 mcg/actuation HFA aerosol inhaler 2 puff inhalation Q4H PRN (Reason: shortness of breath or wheezing) Qty: 1 11RF Rx Instructions: administer with spacer furosemide 20 mg tablet 20 mg PO BID Qty: 180 3RF bupropion HCl 200 mg tablet sustained-release 12 hr 200 mg PO BID Qty: 180 2RF Rx Instructions: Take 1 tablet by mouth twice daily budesonide-formoterol [Symbicort] 160-4.5 mcg/actuation HFA aerosol inhaler 2 puff inhalation BID Qty: 1 3RF Rx Instructions: administer with spacer, rinse mouth after each use Spiriva Respimat 2.5 mcg/actuation mist 2 puff inhalation QDAY Qty: 1 6RF Rx Instructions: administer at approximately the same time(s) each day acetaminophen 325 MG tablet 650 mg PO Q6H PRN PRN (Reason: Pain Score 1-3/Temp > 100.7 F) 0RF buprenorphine [Butrans] 5 mcg/hour patch weekly 5 mcg topical .WEDNESDAY Label Comments: APPLY 1 (ONE) PATCH TOPICALLY EVERY WEEK FOR 28 DAYS triamcinolone acetonide 0.1 % cream 1 applic topical BID PRN (Reason: Skin Irritation) fluticasone propionate 50 mcg/actuation spray,suspension 2 spray intranasal DAILY Qty: 16 3RF potassium chloride 10 mEq capsule, extended release 10 meq PO BID Qty: 180 3RF trazodone 100 mg tablet 100 mg PO QHS PRN (Reason: insomnia) 90 Days Qty: 90 3RF fluoxetine 20 mg capsule 20 mg PO DAILY Qty: 90 1RF loratadine 10 mg capsule 10 mg PO QDAY Qty: 90 3RF famotidine 20 mg tablet 20 mg PO DAILY Qty: 90 3RF Referrals / Follow Up: Rashawn Holcomb MD [Med Staff - Active Staff] - Within 2 Weeks Chino Encinas MD [Primary Care Provider] - Within 1 Week Disposition Disposition (needs filled in before D/C Order can be placed): Home, Self Care Charges/Coding Visit Charges Inpatient E&M: 55491 Disch Hosp >30min
[2023-02-15 09:02] LABS: Pathologist Review Reviewed
== END 2023-02-11 15:26 | disposition home or self-care (01) | DRG 383 ==
LOC: ED 07:40 → MS3 07:55
PROVIDERS: Admitting Provider Internal Medicine; Emergency Provider Emergency Medicine; PCP Internal Medicine; Visit Provider Internal Medicine
DX: L02.31 Cutaneous abscess of buttock (principal); K61.1 Rectal abscess; Z99.81 Dependence on supplemental oxygen; E66.01 Morbid (severe) obesity due to excess calories; J44.9 Chronic obstructive pulmonary disease, unspecified; N18.32 Chronic kidney disease, stage 3b; Z68.41 Body mass index [BMI] 40.0-44.9, adult; F41.9 Anxiety disorder, unspecified; G47.33 Obstructive sleep apnea (adult) (pediatric); I12.9 Hypertensive chronic kidney disease with stage 1 through stage 4 chronic kidney disease, or unspecified chronic kidney disease; B95.4 Other streptococcus as the cause of diseases classified elsewhere; F32.A Depression, unspecified; B95.7 Other staphylococcus as the cause of diseases classified elsewhere; L03.317 Cellulitis of buttock; Z79.899 Other long term (current) drug therapy; Z86.16 Personal history of COVID-19; Z87.891 Personal history of nicotine dependence
CPT/HCPCS: 36415; 72192; 80048; 80053; 80202; 83605; 85025; 85610; 85730; 87040; 87070; 87075; 87077; 87149; 87186; 87205; 87640; 93306; 94640; 94762; 99252; 99284; 99406; J7030; J7040; J7050; A4216; G0463; J0696; J0744

== ENCOUNTER → 2023-07-19 | Outpatient (CLI) | payer MEDICAID, SELFPAY ==
[2023-07-19 15:23] LABS: Absolute Lymphocyte Count 0.85 X10^3/uL (0.83-4.51); Absolute Neutrophil Count 5.4 X10^3/uL (2.0-7.7); Basophil# 0.04 X10^3/uL; Basophil% 0.6 % (0-1); Eosinophil# 0.11 X10^3/uL; Eosinophils% 1.6 % (0-5); Hematocrit 38.6 % (37-47); Hemoglobin 11.6 g/dL (12.0-15.0); Lymphocyte # 0.85 X10^3/ul (0.83-4.51); Lymphocyte % 12.2 % (19-41); Mean Corp Hgb Conc 30.1 g/dL (32-36); Mean Corpuscular Hgb 25.7 pg (27.0-32.0); Mean Corpuscular Volume 85.6 fL (81-99); Mean Platelet Vol. 9.6 fl (6.2-12.0); Monocyte# 0.57 X10^3/uL; Monocyte% 8.2 % (0-10); NRBC Flagged by Analyzer 0 % (0-5); Neutrophil # 5.35 X10^3/uL (2.7-7.7); Platelet Count 243 K/mm3 (150-450); RBC Distribution Width CV 16.7 % (11.6-14.6); RBC Distribution Width SD 52.2 fl (35.1-43.9); Red Blood Count 4.51 M/mm3 (4.2-5.4)
[2023-07-19 15:50] LABS: ALB/GLOB Ratio 0.8 RATIO (0.9-2.4); AST(SGOT) 10 U/L (15-37); Alanine Aminotransfer ALT/SGPT 21 U/L (13-56); Albumin, Serum 3.4 g/dL (3.2-5.0); Alkaline Phosphatase 67 U/L (45-117); Anion Gap 3 (5-15); BUN 27 mg/dL (7-18); BUN/Creat Ratio 17.3 RATIO (10-20); Calcium,Total 8.8 mg/dL (8.5-10.1); Chloride 106 mmol/L (98-107); Cholesterol 214 mg/dL (200); Creatinine, Serum 1.56 mg/dL (0.55-1.02); EST Glomerular Filtration Rate 36 mL/min (>60); Est Glom Filt Rate - Afr Amer 43 mL/min (>60); Globulin 4.5 g/dL (2.2-4.2); Glucose 101 mg/dL (74-106); High Density Lipoprotein 44 mg/dL; Potassium 4.1 mmol/L (3.5-5.1); Protein, Total 7.9 g/dL (6.4-8.2); Sodium Level 140 mmol/L (136-145); Triglycerides 349 mg/dL; Very Low Density Lipoprotein 70 mg/dL (5-40)
== END | disposition home or self-care (01) ==
LOC: BIMLAB 14:22
PROVIDERS: PCP Internal Medicine; Visit Provider Internal Medicine
DX: I10 Essential (primary) hypertension (principal)
CPT/HCPCS: 36415; 80053; 80061; 85025

== ENCOUNTER → 2023-09-01 | Outpatient (CLI) | payer MEDICAID, SELFPAY ==
--- NOTE | 2023-09-01 13:24 | CT_ITS ---
STUDY: LOW DOSE CT LUNG CANCER SCREENING REASON FOR EXAM: Female, 62 years old. smoking and gt; 20 pack years, quit 2018 RADIATION DOSAGE (If Supplied By Facility): CTDIvol = ( 4.02 ) mGy, DLP = ( 134.91 ) mGycm TECHNIQUE: No contrast was administered. Low dose technique was utilized (average mAS-38 and kVp 120). 1.25 mm axial source images with a slice interval of 1.25-mm were reconstructed in lung windows. 2.5 mm axial source images with a slice interval of 2.5-mm were reconstructed in lung windows. 5.0 mm axial source images with a slice interval of 5.0-mm were reconstructed in soft tissue windows. COMPARISON: Comparison is made with prior study dated July 20, 2022. NODULES: Stable 1.1 cm well-defined noncalcified nodule in the medial anterior aspect of the left upper lobe as seen on axial image #108. Emphysema: Mild emphysematous changes. Stable scarring at the lung apices. Stable scarring at the left lung base with pleural thickening. This is unchanged. Endobronchial lesion: None Aorta: Atherosclerotic plaque formation of the aortic arch. CORONARY ARTERIES: Coronary artery calcification is seen. Heart: I: Pulmonary artery: Unremarkable Mediastinal nodes: Unremarkable Other chest and abdominal findings: Stable 2.2 cm hypodense nodule in the left adrenal gland suggestive of adenoma. CT/Low Dose CT Lung Screening IMPRESSION: Lung-RADS category 2 - Continue annual screening with LDCT in 12 months. IMPORTANT NOTES FOR USE: ACR Lung-RADS Version 1.1 Assessment Categories Release Date: 2018 Category: Coded 0-4 bases on nodule(s) with highest degree of suspicion. Negative screen is defined as categories 1 and 2; a positive screen is defined as categories 3 and 4. Category 3 and 4A nodules that are unchanged on interval CT should be coded as category 2, and individuals returned to screening in 12 months. Category 4X: Category 3 or 4 nodules with additional imaging findings that increase the suspicion of lung cancer, such as spiculation, GGN that doubles in size in 1 year, enlarged lymph notes, etc. Category Modifiers: S (significant finding unrelated to lung cancer) Electronically Signed: Isauro Sterling MD at 15:50 EST ,
== END | disposition home or self-care (01) ==
LOC: CT 13:23
PROVIDERS: PCP Internal Medicine; Referring Provider Nurse Practitioner Acute Care; Visit Provider Nurse Practitioner Acute Care
DX: Z12.2 Encounter for screening for malignant neoplasm of respiratory organs (principal); F17.210 Nicotine dependence, cigarettes, uncomplicated
CPT/HCPCS: 71271

== ENCOUNTER → 2024-01-19 | Outpatient (CLI) | payer MEDICAID, SELFPAY ==
[2024-01-19 12:48] LABS: ALB/GLOB Ratio 0.7 RATIO (0.9-2.4); AST(SGOT) 17 U/L (15-37); Alanine Aminotransfer ALT/SGPT 20 U/L (13-56); Albumin, Serum 3.1 g/dL (3.2-5.0); Alkaline Phosphatase 62 U/L (45-117); Anion Gap 2 (5-15); BUN 22 mg/dL (7-18); BUN/Creat Ratio 16.1 RATIO (10-20); Chloride 110 mmol/L (98-107); Cholesterol 179 mg/dL (200); Creatinine, Serum 1.37 mg/dL (0.55-1.02); EST Glomerular Filtration Rate 41 mL/min (>60); Est Glom Filt Rate - Afr Amer 50 mL/min (>60); Globulin 4.3 g/dL (2.2-4.2); Glucose 133 mg/dL (74-106); High Density Lipoprotein 45 mg/dL; Potassium 4.8 mmol/L (3.5-5.1); Protein, Total 7.4 g/dL (6.4-8.2); Sodium Level 140 mmol/L (136-145); Triglycerides 165 mg/dL; Very Low Density Lipoprotein 33 mg/dL (5-40)
== END | disposition home or self-care (01) ==
LOC: BIMLAB 10:16
PROVIDERS: PCP Internal Medicine; Referring Provider Internal Medicine; Visit Provider Internal Medicine
DX: I10 Essential (primary) hypertension (principal)
CPT/HCPCS: 36415; 80053; 80061

== ENCOUNTER → 2024-08-16 | Outpatient (CLI) | payer MEDICAID, SELFPAY ==
[2024-08-16 12:16] LABS: Absolute Lymphocyte Count 0.81 X10^3/uL (0.83-4.51); Absolute Neutrophil Count 4.8 X10^3/uL (2.0-7.7); Basophil# 0.04 X10^3/uL; Basophil% 0.6 % (0-1); Eosinophil# 0.12 X10^3/uL; Eosinophils% 1.9 % (0-5); Hemoglobin 12.2 g/dL (12.0-15.0); Lymphocyte # 0.81 X10^3/ul (0.83-4.51); Lymphocyte % 12.5 % (19-41); Mean Corp Hgb Conc 31.3 g/dL (32-36); Mean Corpuscular Hgb 29.5 pg (27.0-32.0); Mean Corpuscular Volume 94.4 fL (81-99); Mean Platelet Vol. 9.6 fl (6.2-12.0); Monocyte# 0.68 X10^3/uL; Monocyte% 10.5 % (0-10); NRBC Flagged by Analyzer 0 % (0-5); Neutrophil # 4.79 X10^3/uL (2.7-7.7); Neutrophil % 74.2 % (47-70); Platelet Count 239 K/mm3 (150-450); RBC Distribution Width CV 13.9 % (11.6-14.6); Red Blood Count 4.13 M/mm3 (4.2-5.4); White Blood Count 6.5 K/mm3 (4.4-11.0)
[2024-08-16 12:41] LABS: ALB/GLOB Ratio 0.8 RATIO (0.9-2.4); AST(SGOT) 16 U/L (15-37); Alanine Aminotransfer ALT/SGPT 22 U/L (13-56); Albumin, Serum 3.5 g/dL (3.2-5.0); Alkaline Phosphatase 64 U/L (45-117); Anion Gap 5 (5-15); BUN 25 mg/dL (7-18); BUN/Creat Ratio 20.5 RATIO (10-20); Chloride 108 mmol/L (98-107); Creatinine, Serum 1.22 mg/dL (0.55-1.02); EST Glomerular Filtration Rate 47 mL/min (>60); Est Glom Filt Rate - Afr Amer 57 mL/min (>60); Globulin 4.5 g/dL (2.2-4.2); Glucose 87 mg/dL (74-106); Potassium 4.5 mmol/L (3.5-5.1); Sodium Level 140 mmol/L (136-145)
== END | disposition home or self-care (01) ==
LOC: BIMLAB 10:09
PROVIDERS: PCP Internal Medicine; Referring Provider Internal Medicine; Visit Provider Internal Medicine
DX: I10 Essential (primary) hypertension (principal)
CPT/HCPCS: 36415; 80053; 85025

== ENCOUNTER → 2024-09-02 | Outpatient (CLI) | payer MEDICAID, SELFPAY ==
--- NOTE | 2024-09-02 08:52 | CT_ITS ---
EXAM: CT CHEST, LUNG CANCER SCREENING WITHOUT INTRAVENOUS CONTRAST CLINICAL INDICATION: h/o Tobacco Dependency TECHNIQUE: Helically acquired images were obtained of the chest without intravenous contrast using low dose (LDCT) lung cancer screening protocol. This CT exam was performed using one or more of the following dose reduction techniques: automated exposure control, adjustment of the mA and/or kV according to patient size, and/or use of iterative reconstruction technique. COMPARISON: 09/01/2023 and 07/20/2022. PET/CT, 09/25/2019. FINDINGS: LUNGS AND PLEURAL SPACES: Right lower lobe granuloma. 1.1 cm round nodule within the lingula is unchanged since at least 09/25/2019. Minimal scarring in the lingula and in the lateral aspect of the basilar left lower lobe. Mild centrilobular emphysema. No pleural effusion or thickening. No pneumothorax. HEART: No significant abnormality. Heart size is normal. No pericardial effusion. No significant coronary artery calcifications. MEDIASTINUM: No significant abnormality. No mediastinal or hilar adenopathy. Esophagus is unremarkable. No hiatal hernia. THYROID: No significant abnormality. No thyroid lesions. BONES/JOINTS: Degenerative changes in the spine. No suspicious lytic or blastic abnormality. VASCULATURE: Atherosclerosis. Thoracic aorta is non-dilated. LYMPH NODES: No significant abnormality. No enlarged lymph nodes. ADRENALS: Partially visualized likely unchanged left adrenal nodule. CT/Low Dose CT Lung Screening IMPRESSION: ACR Lung CT Screening Reporting And Data System (Lung-RADS) score: 2 - Benign Appearance or Behavior. Recommend continued annual screening with a low-dose CT (LDCT) in 12 months. Electronically Signed: James Matthew DO at 17:25 EST ,
== END | disposition home or self-care (01) ==
PROVIDERS: PCP Internal Medicine; Referring Provider Internal Medicine Critical Care Medicine; Visit Provider Internal Medicine Critical Care Medicine
DX: F17.210 Nicotine dependence, cigarettes, uncomplicated (principal)
CPT/HCPCS: 71271

== ENCOUNTER → 2024-09-20 | Outpatient (CLI) | payer MEDICAID, SELFPAY | END | disposition home or self-care (01) | PROVIDERS: PCP Internal Medicine; Referring Provider Nurse Practitioner Acute Care; Visit Provider Nurse Practitioner Acute Care | DX: J44.9 Chronic obstructive pulmonary disease, unspecified (principal) | CPT/HCPCS: 87070; 87205 ==

== ENCOUNTER → 2024-10-17 | Outpatient (CLI) | payer MEDICAID, SELFPAY | END | disposition home or self-care (01) | LOC: SL 11:24 | PROVIDERS: PCP Internal Medicine; Referring Provider Nurse Practitioner Acute Care; Visit Provider Nurse Practitioner Acute Care | DX: Z46.89 Encounter for fitting and adjustment of other specified devices (principal) ==

== ENCOUNTER 2024-12-29 12:00 | Outpatient (RCR) | payer MEDICAID, SELFPAY ==
--- NOTE | 2024-11-10 10:44 | HP.PTEVAL ---
Patient's Visit Information Visit Information Visit Information: DANIEL BURTON is a 63 year old F referred to Physical Therapy by Dr. Jonathan Osullivan MD with a diagnosis of Back pain, neck pain.. Date of Evaluation: 11/10/24 Physical Therapist: Giovanni De Souza, DPT, OCS, CSCS Visit Plan Frequency: 2x /Week Duration: 4-6 Weeks Plan: 2x/week for 4-6 for insturct adn progress aquatic ex for calori burn, core strength, UE/LE strength adn fluid dynamics adn work to I. Current exit stratgey is pool program I. HS stretch oriented to pool today. Subjective Subjective: LBP for years. Seeing Shi for 4 yrs and managing with spinal injections, epidurals. Meds. Pain is in LB central and out to B hips and B knees and sometimes L ankle. Not sure what makes it worse. X rays long time ago showed some OA. No previous therapy. Has lost weight and that helps 310 down to 240. worse with houseework but does not stop Activities : does not avoid, does laundry stepping down to basement but can do easier since she lost weight. Carrying ein gorceries but that makes her hurt. Not employed. Spends day taking care of , grandkids, housework, dog out, laundry. 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 No numbness or tingling Pain LBP: Pain Intensity (Out of 10): 3 Pain Intensity Range: 7 Comment: sitting can be worse as well as housework. Objective Objective: Walks I into PT I, steps reciprocally slowly but I without pain today. Trasers chair and bed I but slow until challenged. UE and LE AROM WFL adn without pain today. HS mod tight adn -30 90/90 reflexes 2/3 patella adn achilles adn bi and tri. Sensation UE adn LE WNL to gross slight touch. strength 3+/5 core abs and ext. LE strength hips 3+ and knees and ankles 5/5, shoudler 4 rotation and 4 flexion, elbows and wrists 5/5 Lumbar ROM ext adn flexion min limited. SB min limited. cervcical ext 45 adn rotation 60 B without pain. Balance/Special Test Scores Oswestry Low Back Score: 10 30 Second Chair Rise Test Seconds: 16 Goals Goal 1:: Pain in LB 3/10 at worst and 60%6 better overall. Goal Time Frame: 4-6 Weeks Goal 2:: I appropriate pool ex to help with pain and weight loss Goal Time Frame: 4-6 Weeks Goal 3:: Back oswestry4 or less Rehabilitation Potential Physical Therapy Diagnosis: weakness and inactivity effecting comfortable function. Rehabilitation Potential: Fair Anticipated Interventions Patient/Client Instruction: Educate patient on: Condition and Risk Factors For the Purpose of:: To decrease pain, To improve nutrient delivery to tissue and To improve muscle performance and motor function Therapeutic Exercise to Include: Strength training, Flexibilty training, In an aquatic setting, Passive ROM and Active ROM For the Purpose of:: To decrease pain, To increase ROM, To improve muscle performance and motor function, To increase tolerance to activity/condition/position and To improve ability of physical actions for home/community/work/leisure Text: Thank you for the opportunity to evaluate your patient. For Medicare and Medicare HMO plans, please review the plan of care and approve it. It will need to be FAXED BACK to us at [phone] for Medicare purposes. For Medicare only, by signing this I certify the plan of care. Please let me know if there are questions or concerns regarding this plan of care. Physician Signature: Date:
--- NOTE | 2025-03-14 15:25 | HP.PTDCNRP_ITS ---
Patient Information Patient Information: DANIEL BURTON was seen in my office for initial evaluation on 11/10/24. The following Plan of Care was established for this patient: POC Established Initial Frequency: 2x /Week Initial Duration: 4-6 Weeks Anticipated Interventions Patient/Client Instruction: Educate patient on: Condition and Risk Factors For the Purpose of:: To decrease pain, To improve nutrient delivery to tissue and To improve muscle performance and motor function Therapeutic Exercise to Include: Strength training, Flexibilty training, In an aquatic setting, Passive ROM and Active ROM For the Purpose of:: To decrease pain, To increase ROM, To improve muscle performance and motor function, To increase tolerance to activity/condition/position and To improve ability of physical actions for home/community/work/leisure Last Seen Last Seen: This patient was last seen in our office 12/25/24. Pertinent comments regarding their Physical therapy will appear below: Pt seen 8 visits of POC and worked to I, [facility]u two weeks later but did not attend that visit. At this point, it has been over 2 months and I will discontinue from my care. At this point I will be discontinuing this patient from physical therapy. I would be happy to see this patient again in the future if found appropriate by the physician. Thank you! Giovanni De Souza, DPT, OCS, CSCS Balance/Gait/Functional tests Balance/Special Test Scores Oswestry Low Back Score: 10 30 Second Chair Rise Test Seconds: 16
== END 2024-12-29 19:00 | disposition home or self-care (01) ==
LOC: PT 12:00
PROVIDERS: PCP Internal Medicine; Referring Provider Anesthesiology Pain Medicine; Visit Provider Anesthesiology Pain Medicine
DX: M54.2 Cervicalgia (principal)
CPT/HCPCS: 97113; 97162

== ENCOUNTER → 2025-02-14 | Outpatient (CLI) | payer MEDICAID, SELFPAY ==
[2025-02-14 17:07] LABS: ALB/GLOB Ratio 1.1 RATIO (0.9-2.4); AST(SGOT) 16 U/L (<=31); Alanine Aminotransfer ALT/SGPT 11 U/L (<=34); Alkaline Phosphatase 85 U/L (35-104); Anion Gap 9 (5-15); BUN 22 mg/dL (4-19); BUN/Creat Ratio 20.4 RATIO (10-20); Calcium,Total 9.3 mg/dL (7.6-11.0); Carbon Dioxide 23.8 mmol/L (21.0-32.0); Chloride 105 mmol/L (98-108); Cholesterol 171 mg/dL (<=200); Creatinine, Serum 1.09 mg/dL (0.70-1.20); EST Glomerular Filtration Rate 57 (>60); Globulin 3.6 g/dL (2.2-4.2); Glucose 88 mg/dL (70-99); High Density Lipoprotein 49 mg/dL; Low Density Lipoprotein Calc. 95 mg/dL; Potassium 4.4 mmol/L (3.3-5.1); Protein, Total 7.6 g/dL (5.9-8.4); Sodium Level 138 mmol/L (133-145); Total Bilirubin 0.24 mg/dL (0.00-1.30); Triglycerides 134 mg/dL; Very Low Density Lipoprotein 27 mg/dL (5-40); Vitamin D,25 Hydroxy 13.6 ng/mL (30-100)
== END | disposition home or self-care (01) ==
LOC: BIMLAB 13:31
PROVIDERS: PCP Internal Medicine; Referring Provider Internal Medicine; Visit Provider Internal Medicine
DX: Z00.00 Encounter for general adult medical examination without abnormal findings (principal); I10 Essential (primary) hypertension
CPT/HCPCS: 36415; 80053; 80061; 82306

== ENCOUNTER 2025-04-13 19:03 | Emergency (ER) | payer MEDICAID, SELFPAY ==
[2025-04-13 19:03] VITALS: BP 138/79; PULSE 94; RESP 18; TEMP 36.6; O2SAT 97
--- NOTE | 2025-04-13 19:20 | RAD_ITS ---
PROCEDURE: KNEE 4 OR MORE VIEWS 04/13/2025 REASON FOR EXAM: PAIN TECHNIQUE: KNEE 4 OR MORE VIEWS COMPARISON: 07/29/2020. FINDINGS: No evidence of acute fracture or dislocation. Mild degenerative changes of the knee. No knee joint effusion. Significant soft tissue thickening overlying the patella which may represent bursitis. RAD/Knee 4 or More Views IMPRESSION: Possible prepatellar bursitis. Reading Location: [place] [id number]
--- NOTE | 2025-04-13 19:21 | EDS_ITS ---
HPI <MARY BETH Berger - Last Filed: 04/13/25 21:44> History of Present Illness Chief Complaint: Laceration Narrative Narrative: 64-year-old female slipped on a wet floor at a store and landed on her left knee causing a skin tear. This happened about 2 hours ago and she initially was able to walk on it but had significant pain and swelling which is limiting movement. There is also a small amount of bleeding from her right fourth toe but no pain. She denies head injury or LOC. She is not on blood thinners or antiplatelets. PFSH <MARY BETH Berger - Last Filed: 04/13/25 21:44> [facility] Medical History Obesity (BMI 30-39.9) Hyperlipidemia LLQ abdominal pain Health care maintenance Marijuana use Kidney disease Former smoker BiPAP (biphasic positive airway pressure) dependence Encounter for incision and drainage procedure Change in skin mole Abdominal pannus Post-menopausal Anxiety and depression Insomnia COVID-19 History of COVID-19 Flu vaccine need Hypertension Morbid obesity Borderline type 2 diabetes mellitus Anemia Acute hypoxic respiratory failure COPD exacerbation Normal colonoscopy History of pneumonia Chronic bronchitis COPD (chronic obstructive pulmonary disease) Frequent headaches IBS (irritable bowel syndrome) Asthma Home Medications ?Medication ?Instructions ?Recorded ?Last Taken ?Type acetaminophen 325 mg tablet 650 mg (2 x 325 mg) PO Q6H PRN PRN 08/27/19 Unknown Rx Pain Score 1-3/Temp > 100.7 F hydrocortisone acetate 25 mg 25 mg ID DAILY PRN hemmor roids 03/06/20 Unknown History rectal suppository Disability Placard #1 ea 08/05/20 Unknown Rx triamcinolone acetonide 0.1 % 1 applic topical BID PRN Skin 02/08/23 Unknown History topical cream Irritation albuterol sulfate 90 mcg/actuation 2 puff inhalation Q 4H PRN 10/06/23 Unknown Rx aerosol inhaler shortness of breath or wheez ing #1 device famotidine 20 mg tablet 20 mg PO DAILY #90 TABLETS 0 12/27/23 Unknown Rx fenofibrate nanocrystallized 48 mg 48 mg PO DAILY #60 tabs 03/17/24 Unknown Rx tablet cetirizine 10 mg tablet 10 mg PO DAILY PRN allergy 0 7/24/24 Unknown Rx symptoms #90 tabs potassium chloride 10 mEq 10 meq PO BID #180 caps 05/04 06/27 Unknown Rx capsule,extended release fluticasone propionate 50 2 spray intranasal DAILY #16 grams 07/28/24 Unknown Rx mcg/actuation nasal spray,suspension buprenorphine 5 mcg/hour weekly 1 patch topical QWEEK 08/16/24 Unknown History transdermal patch (Butrans) tiotropium bromide 2.5 2 puff inhalation QDAY #1 ea 10/27/24 Unknown Rx mcg/actuation mist for inhalation (Spiriva Respimat) fluoxetine 20 mg capsule 20 mg PO DAILY #90 caps 12/26 Unknown Rx bupropion HCl 200 mg tablet,12 hr 200 mg PO BID mood # 180 ea 12/07/24 Unknown Rx sustained-release trazodone 100 mg tablet 100 mg PO QHS PRN insomnia 3 12/20/24 Unknown Rx months #90 tabs furosemide 20 mg tablet 20 mg PO BID #180 tabs 01/09 Unknown Rx cholecalciferol (vitamin D3) 1,250 1,250 mcg PO QWEEK #14 caps 02/14/25 Unknown Rx mcg (50,000 unit) capsule budesonide-formoterol HFA 160 2 puff inhalation BID #3 ea 02/22/25 Unknown Rx mcg-4.5 mcg/actuation aerosol inhaler (Symbicort) hydrocodone-acetaminophen 5-325mg 1 tab PO Q6H PRN elvie n 3 days #12 04/13/25 Unknown Rx 5mg-325mg tabs Allergy/AdvReac Type Severity Reaction Status Date / Time Latex, Natural Rubber Allergy Severe Hives Verified 04/13/25 19:04 Penicillins Allergy Severe Anaphylaxis Verified 04/13/25 19:04 Sulfa (Sulfonamide Allergy Cannot Verified 04/13/25 19:04 Antibiotics) remember tetanus and diphtheria Allergy Swelling Verified 04/13/25 19:04 toxoids Family History Other Adopted Surgical History History of lung surgery History of removal of cyst history of right hand surgery History of tonsillectomy History of breast biopsy Social History (Updated 04/13/25 @ 19:59 by Jade Coronado) household members: spouse housing: house Smoking Status: Former smoker Tobacco: How many years used: 42 how long ago did patient quit smokin second hand exposure: Yes quit status: has quit before alcohol intake: never substance use type: marijuana caffeine: Yes what type of physical activity do you participate in: walking seatbelt use: never do you feel safe at home: Yes additional social history: Jg- disability ROS <MARY BETH Berger - Last Filed: 04/13/25 21:44> ROS ED ROS Narrative Neuro: Negative for motor/sensory dysfunction. Skin: Positive for skin tear. Musc: Positive for left knee pain, swelling, trauma. EXAM <MARY BETH Berger - Last Filed: 04/13/25 21:44> Physical Exam Narrative Exam Narrative: CONST: Patient sitting in no acute distress. EYES: Normal inspection. NECK: Normal inspection. RESP: No respiratory distress, CTAB. CVS: Regular rate and rhythm, no murmur, no gallop. SKIN: 1 cm skin tear left patella. EXTREMITIES: Bilateral lower extremities: Left knee has large hematoma and a skin tear. She is able to extend the knee. Diffuse tenderness over the knee but no gross laxity with anterior or posterior or varus or valgus testing. Unable to perform modified Shaw secondary to pain. No tenderness of the hip, ankle, or foot. Right lower extremity is nontender. There is a small amount of dried blood at the proximal aspect of the right fourth toenail but there is no avulsion and no subungual hematoma. Bilaterally she has 5/5 strength in dorsi flexion and plantarflexion, normal sensation, 2+ DP pulses. NEURO: Alert and answering questions appropriately. PSYCH: Normal affect. Const Vital Signs: 04/13/25 19:03 04/13/25 20:44 Temperature 98 F 98 F Temperature Source Oral Pulse Rate 94 94 Respiratory Rate 18 18 Blood Pressure 138/79 H 138/79 H Blood Pressure Mean 98 98 Pulse Ox 97 97 Oxygen Delivery Method Room Air <Dr. Pasha Alvarenga MD - Last Filed: 04/13/25 22:24> Physical Exam Const Vital Signs: 04/13/25 19:03 04/13/25 20:44 Temperature 98 F 98 F Temperature Source Oral Pulse Rate 94 94 Respiratory Rate 18 18 Blood Pressure 138/79 H 138/79 H Blood Pressure Mean 98 98 Pulse Ox 97 97 Oxygen Delivery Method Room Air [facility] <MARY BETH Berger - Last Filed: 04/13/25 21:44> [facility] Narrative Medical decision making narrative: History gathered from: Patient and spouse Differential includes knee hematoma, fracture, ligamentous or meniscal injury 64-year-old female had a mechanical fall onto her left knee and has a significant hematoma and small skin tear. She is very tender and swollen over the knee. She is able to extend. Distally neurovascularly intact. Left knee x-ray is negative for fracture or dislocation. Her right fourth toenail had a small amount of dried blood at the proximal nail but there is no tenderness or indication for x-ray. Her left knee skin tear was cleansed, dressed with bacitracin and bandage, Vito wrap applied, and she was given a walker. She was instructed to ice and avoid putting weight on the knee until follow-up with orthopedics. She is in pain management on a Butrans patch. She cannot take NSAIDs due to history of ulcers. I prescribed Percocet for breakthrough pain and recommended she talk to Dr. Osullivan on Wednesday for further management. She was able to ambulate with a walker and was discharged in stable condition. I have personally performed a face to face assessment of the patient and have reviewed the HITESH Note. I performed a substantive portion of the visit including all aspects of the following. My stokes findings include: History is remarkable for fall directly onto left knee. Patient has skin tear. She complains of pain. Exam is remarkable for a large hematoma and skin tear. Unable to appreciate if the patella is ballotable or not. There is no obvious of effusion of the joint. There is no laxity with varus valgus rest testing. There is no tenderness along the joint line. Modified Shaw's test was negative. This was a limited exam. Unable to perform Victorino's test adequately because of the swelling and pain. Medical Decision Making x-ray was obtained to evaluate for contusion with skin tear versus traumatic effusion versus fracture. Other additions or changes: [None] Radiography Diagnostic Testing: Clinical Impression(s) from Imaging Studies Knee X-Ray 04/13/25 19:20 IMPRESSION: Possible prepatellar bursitis. Reading Location: [id number] <Dr. Pasha Alvarenga MD - Last Filed: 04/13/25 22:24> [facility]DM Narrative Medical decision making narrative: I have personally performed a face to face assessment of the patient and have reviewed the HITESH Note. I performed a substantive portion of the visit including all aspects of the following. My stokes findings include: History is remarkable for fall directly onto left knee. Patient has skin tear. She complains of pain. Exam is remarkable for a large hematoma and skin tear. Unable to appreciate if the patella is ballotable or not. There is no obvious of effusion of the joint. There is no laxity with varus valgus rest testing. There is no tenderness along the joint line. Modified Shaw's test was negative. This was a limited exam. Unable to perform Victorino's test adequately because of the swelling and pain. Medical Decision Making x-ray was obtained to evaluate for contusion with skin tear versus traumatic effusion versus fracture. Other additions or changes: [None] Radiography Chest X-Ray - ED: Read by ED Physician (4 view x-ray of the knee reveals soft tissue swelling. There is no fracture of the patella. There is no effusion. There is nodular to the tibia, fibula or femoral condyles. Is independent reviewed interpreted by me.) Diagnostic Testing: Clinical Impression(s) from Imaging Studies Knee X-Ray 04/13/25 19:20 IMPRESSION: Possible prepatellar bursitis. Reading Location: [place] [id number] The impression by the radiologist was read. In light of this being trauma that occurred less than an hour ago this is not a prepatellar bursitis this is a hematoma due to contusion from direct blow to the knee. The x-ray was obtained to rule out fracture. Discharge Plan Triage Chief Complaint: Laceration ED Midlevel Provider: Gloria Berrios ED Provider: Pasha Alvarenga Dx/Rx/DC Orders Clinical Impression: Contusion of knee, left, Noninfected skin tear of left leg Instructions: Knee Pain, ED Skin Tear (Skin Avulsion) Prescriptions: New hydrocodone-acetaminophen 5-325 mg tablet 1 tab PO Q6H PRN (Reason: pain) 3 Days Qty: 12 0RF No Action hydrocortisone acetate 25 mg suppository 25 mg RC DAILY PRN (Reason: hemmorroids) (DME) Disability Placard 0 .Route .MEDSUPPLY Qty: 1 0RF Rx Instructions: As directed albuterol sulfate 90 mcg/actuation HFA aerosol inhaler 2 puff inhalation Q4H PRN (Reason: shortness of breath or wheezing) Qty: 1 11RF Rx Instructions: administer with spacer cetirizine 10 mg tablet 10 mg PO DAILY PRN (Reason: allergy symptoms) Qty: 90 3RF buprenorphine [Butrans] 5 mcg/hour patch weekly 1 patch topical QWEEK acetaminophen 325 MG tablet 650 mg PO Q6H PRN PRN (Reason: Pain Score 1-3/Temp > 100.7 F) 0RF triamcinolone acetonide 0.1 % cream 1 applic topical BID PRN (Reason: Skin Irritation) famotidine 20 mg tablet 20 mg PO DAILY Qty: 90 3RF fenofibrate nanocrystallized 48 mg tablet 48 mg PO DAILY Qty: 60 1RF potassium chloride 10 mEq capsule, extended release 10 meq PO BID Qty: 180 3RF fluticasone propionate 50 mcg/actuation spray,suspension 2 spray intranasal DAILY Qty: 16 3RF Spiriva Respimat 2.5 mcg/actuation mist 2 puff inhalation QDAY Qty: 1 6RF Rx Instructions: administer at approximately the same time(s) each day fluoxetine 20 mg capsule 20 mg PO DAILY Qty: 90 1RF bupropion HCl 200 mg tablet sustained-release 12 hr 200 mg PO BID Qty: 180 2RF Rx Instructions: Take 1 tablet by mouth twice daily trazodone 100 mg tablet 100 mg PO QHS PRN (Reason: insomnia) 90 Days Qty: 90 1RF furosemide 20 mg tablet 20 mg PO BID Qty: 180 1RF cholecalciferol (vitamin D3) 1,250 mcg (50,000 unit) capsule 1,250 mcg PO QWEEK Qty: 14 1RF budesonide-formoterol [Symbicort] 160-4.5 mcg/actuation HFA aerosol inhaler 2 puff inhalation BID Qty: 3 3RF Rx Instructions: administer with spacer, rinse mouth after each use Primary Care Provider: Chino Encinas Referrals: Jonathan Osullivan MD [[facility] Staff - Active Staff] - Chino Encinas MD [Primary Care Provider] - Osmani Álvarez DO [Med Staff - Active Staff] - Activity Restrictions/Additional Instructions: Ice her knee and 20-minute sessions throughout the day. Keep the wound clean and covered with bacitracin and bandage. You can continue your Butrans patches and take the hydrocodone as needed for breakthrough pain. You need to follow-up with both the orthopedic doctor and pain management. After your knee pain and swelling goes down, the orthopedic doctor will reexamine it to make sure you do not have injury to the tendons or ligaments. In the meantime use the walker and do not put weight onto the left leg. Print Language: Syriac Disposition Disposition: Home, Self Care Discharge Date/Time: 04/13/25 20:44
[2025-04-13] MEDS: HYDROcodone Bitartrate/Apap 5/325 Tablet PO (19:52)
[2025-04-13 20:44] VITALS: BP 138/79; PULSE 94; RESP 18; TEMP 36.6; O2SAT 97
== END 2025-04-13 20:44 | disposition home or self-care (01) ==
PROVIDERS: Emergency Provider Emergency Medicine; PCP Internal Medicine; Visit Provider Emergency Medicine
DX: S80.02XA Contusion of left knee, initial encounter (principal); J44.9 Chronic obstructive pulmonary disease, unspecified; S81.011A Laceration without foreign body, right knee, initial encounter; W01.0XXA Fall on same level from slipping, tripping and stumbling without subsequent striking against object, initial encounter; Y92.512 Supermarket, store or market as the place of occurrence of the external cause; I10 Essential (primary) hypertension; E78.5 Hyperlipidemia, unspecified; F41.9 Anxiety disorder, unspecified; F32.A Depression, unspecified; K58.9 Irritable bowel syndrome, unspecified; Z79.51 Long term (current) use of inhaled steroids; Z79.899 Other long term (current) drug therapy; Z87.891 Personal history of nicotine dependence
CPT/HCPCS: 73564; 99282

== ENCOUNTER → 2025-07-03 | Outpatient (CLI) | payer MEDICAID, SELFPAY | END | disposition home or self-care (01) | LOC: SL 09:20 | PROVIDERS: PCP Internal Medicine; Referring Provider Nurse Practitioner Acute Care; Visit Provider Nurse Practitioner Acute Care | DX: G47.33 Obstructive sleep apnea (adult) (pediatric) (principal) | CPT/HCPCS: 98960; G0463 ==

== ENCOUNTER → 2025-08-03 | Outpatient (CLI) | payer MEDICAID, SELFPAY ==
--- NOTE | 2025-08-03 15:38 | MRI_ITS ---
PROCEDURE: MRI/Lower Ext Joint Only (Routine)
== END | disposition home or self-care (01) ==
LOC: MRI 15:31
PROVIDERS: PCP Internal Medicine; Referring Provider Nurse Practitioner Family; Visit Provider Nurse Practitioner Family
DX: S83.412A Sprain of medial collateral ligament of left knee, initial encounter (principal); M23.92 Unspecified internal derangement of left knee
CPT/HCPCS: 73721

== ENCOUNTER → 2025-09-14 | Outpatient (CLI) | payer MEDICAID, SELFPAY ==
--- NOTE | 2025-09-14 18:37 | CT_ITS ---
PROCEDURE: LOW DOSE CT LUNG SCREENING 09/14/2025 REASON FOR EXAM: SMOKER QUIT 2019 TECHNIQUE: Procedure Code: [id number] Modality: CT Procedure: LOW DOSE CT LUNG SCREENING Coronal and Sagittal reconstruction series were provided. One or more dose reduction techniques were used (e.g., Automated exposure control, adjustment of the mA and/or kV according to patient size, use of iterative reconstruction technique). REFERENCE LINK: [employer] Lung-RADS RADIATION DOSE SUMMARY: CTDlvol: 3.18 mGy DLP: 102.84 mGycm COMPARISON: 09.02.2024 FINDINGS: LUNGS AND LARGE AIRWAYS: Stable appearing 1.1 cm solid nodule seen in the lingula. Stable right lower lung lobe calcified old granuloma. No newly noted pulmonary nodules or masses noted. Stable appearing diffuse centrilobular and paraseptal emphysema. No ground-glass opacities or consolidation are seen. Redemonstration of the bilateral streaky opacities are seen that may reflect subsegmental atelectasis and/or lungs scarring. PLEURA: Unremarkable. No pleural effusion or thickening. HEART AND PERICARDIUM: The heart size is normal. There is no pericardial effusion. VESSELS: Scattered thoracic aorta and coronary arteries atherosclerotic calcifications are again seen. The thoracic aorta is nondilated. The pulmonary trunk is also of normal size. MEDIASTINUM AND JASVIR: There is no pathologically enlarged mediastinal or hilar adenopathy. BONES: No suspicious lytic or blastic abnormality observed. Thoracic spondylosis is again seen. ABDOMEN: Limited noncontrast evaluation demonstrates no gross abnormalities. CT/Low Dose CT Lung Screening IMPRESSION: Stable appearing 1.1 cm lingula solid pulmonary nodule. Lung-RADS 2, recommend continued annual screening. Stable rest of the study chronic findings. Reading Location: [place] [id number]
--- OUTSIDE RECORDS SUMMARY | 2025-09-14 18:37 | XMS RPT_ITS | CCD ---
Author Organization [facility] Care Team Providers Care Casting Machine Control Board Operator Name Role Phone Dr. Chino Encinas Primary Care Provider [phone] Huang, Dr. Magana Referring Provider [phone] MARY BETH Raymundo Attending Provider [facility] Dr. [place] Attending Provider [phone] Huang, Dr. Magana Primary Care Provider [phone] Dr. Chino Encinas Attending Provider [phone] Huang, Dr. Magana Referring Provider [phone] Dr. Koko Hernandes Attending Provider [phone] Dr. Chino Encinas Primary Care Provider [phone] Dr. Chino Encinas Attending Provider [phone] Huang, Dr. Magana Referring Provider [phone] Dr. Chino Encinas Primary Care Provider [phone]) Dr. Chino Encinas Attending Provider [phone] Dr. Chino Encinas Referring Provider [phone] Dr. Chino Encinas Primary Care Provider [phone]) Dr. Chino Encinas Referring Provider [phone] Dr. Koko Hernandes Attending Provider [phone] Dr. Chino Encinas Attending Provider [phone] Dr. Chino Encinas MD Primary Care Provider Ashely MURILLO-CJennifer Attending Provider Ashely CUSTOMER SERVICE ENGINEER-C, Jennifer Referring Provider Huang MAURICE, Dr. Magana Referring Provider Shi MAURICE, Dr. Castillo Attending Provider Sih MAURICE, Dr. Castillo Referring Provider Huang MAURICE, Dr. Magana Attending Provider Huang MAURICE, Dr. Magana Primary Care Provider Ashely CUSTOMER SERVICE ENGINEER-C, Jennifer Attending Provider Huang MAURICE, Dr. Magana Primary Care Provider Huang MAURICE, Dr. Magana Referring Provider Lyle MAURICE, Dr. Pak Emergency Provider Jama CUSTOMER SERVICE ENGINEER-CMichelle Attending Provider Huang MAURICE, Dr. Magana Primary Care Provider Lyle MAURICE, Dr. Pak Attending Provider Ami MAURICE, Dr. Sharpe Attending Provider Huang MAURICE, Dr. Magana Primary Care Provider Huang MAURICE, Dr. Magana Referring Provider Ashely CUSTOMER SERVICE ENGINEER-C, Jennifer Attending Provider Huang MAURICE, Dr. Magana Primary Care Physician Lyle MAURICE, Dr. Pak Attending Physician Lyle MAURICE, Dr. Pka Emergency Department Physician Michelle Laurent Attending Physician Ami MAURICE, Dr. Sharpe Attending Physician Ashely CUSTOMER SERVICE ENGINEER-C, Jennifer Attending Physician Ashely CUSTOMER SERVICE ENGINEER-C, Jennifer Referring Provider Oleghe, Efewongbe Primary Care Unavailable Ashely CUSTOMER SERVICE ENGINEER, Jennifer Referring Unavailable Ashely CUSTOMER SERVICE ENGINEER, Jennifer Attending Unavailable Oleghe, Efewongbe Attending Unavailable Oleghe, Efewongbe Primary Care Unavailable Oleghe, Efewongbe Referring Unavailable Oleghe, Efewongbe Primary Care Unavailable Pasha Alvarenga Attending Unavailable Jonathan Osullivan Referring Unavailable BasaliJonathan Attending Unavailable Oleghe, Efewongbe Primary Care Unavailable Oleghe, Efewongbe Primary Care Unavailable Oleghe, Efewongbe Referring Unavailable Oleghe, Efewongbe Attending Unavailable Michelle Yun Referring Unavailable Michelle Yun Attending Unavailable Oleghe, Efewongbe Primary Care Unavailable BrownShermank Referring Unavailable BrownKoko Attending Unavailable Oleghe, Efewongbe Primary Care Unavailable Ashely CUSTOMER SERVICE ENGINEER, Jennifer Attending Unavailable Oleghe, Efewongbe Primary Care Unavailable Ashely CUSTOMER SERVICE ENGINEER, Jennifer Referring Unavailable Oleghe, Efewongbe Referring Unavailable Oleghe, Efewongbe Primary Care Unavailable Ashely CUSTOMER SERVICE ENGINEER, Jennifer Attending Unavailable Oleghe, Efewongbe Primary Care Unavailable Oleghe, Efewongbe Referring Unavailable Oleghe, Efewongbe Attending Unavailable Oleghe, Efewongbe Attending Unavailable Oleghe, Efewongbe Primary Care Unavailable Oleghe, Efewongbe Referring Unavailable Jennifer Lund NP Referring Unavailable Oleghe, Efewongbe Primary Care Unavailable Ashely CUSTOMER SERVICE ENGINEER, Jennifer Attending Unavailable Michelle Yun Attending Unavailable Oleghe, Efewongbe Primary Care Unavailable Oleghe, Efewongbe Referring Unavailable Michelle Yun Attending Unavailable Oleghe, Efewongbe Primary Care Unavailable Oleghe, Efewongbe Referring Unavailable Oleghe, Efewongbe Referring Unavailable Oleghe, Efewongbe Primary Care Unavailable Ashely CUSTOMER SERVICE ENGINEER, Jennifer Attending Unavailable Michelle Yun Attending Unavailable Oleghe, Efewongbe Primary Care Unavailable Oleghe, Efewongbe Referring Unavailable Oleghe, Efewongbe Attending Unavailable Oleghe, Efewongbe Primary Care Unavailable Oleghe, Efewongbe Referring Unavailable Oleghe, Efewongbe Primary Care Unavailable Oleghe, Efewongbe Referring Unavailable Sean Jacobson Attending Unavailable Ashely CUSTOMER SERVICE ENGINEER, Jennifer Attending Unavailable Oleghe, Efewongbe Primary Care Unavailable [facility], [facility] Ref[facility] Unavailable Dell Mueller Attending Unavailable Michelle Yun Attending [facility] Referring Unavailable Allergies Allergy Classification Reported Allergen(s) Allergy Type Date of Onset Reaction(s) Facility (15 sources) natural latex rubber Allergy to substance 2 Hives [facility] (15 sources) Penicillins Allergy to substance 2 Anaphylaxis [facility] (15 sources) Sulfonamides (Antibiotic) Allergy to substance 2 Cannot remember [facility] (16 sources) tetanus and diphtheria toxoids; Translations: [tetanus and diphtheria toxoids] Allergy to substance 2 Swelling [facility] (1 source) natural latex rubber Drug allergy (disorder) 5 [facility] (1 source) Penicillins Drug allergy (disorder) 5 [facility] (1 source) Sulfonamides (Antibiotic) Drug allergy (disorder) 5 [facility] Repository Medications Current Medications Medication Drug Class(es) Dates Sig (Normalized) Sig (Original) acetaminophen 325 mg oral tablet (20 sources) Start: 08-27-2019 Acetaminophen 325 MG tablet Active 650 mg PO EVERY 6 HOURS NEEDED as needed for Pain Score 1-3/Temp > 100.7 F 0 August 27, 2019 1:00am Complies with drug therapy Start: 01-31-2018 End: 08-29-2019 Acetaminophen 325 MG tablet Discontinued 650 mg PO EVERY 6 HOURS NEEDED as needed for Mild Pain (scale 0-3)/T>100.7 0 January 31, 2018 12:00am August 29, 2019 10:58am Start: 01-31-2018 End: 08-29-2019 take 650 mg by mouth every six hours as needed Acetaminophen Active 650 MG PO EVERY 6 HOURS NEEDED August 27, 2019 1:00am Budesonide-Formoterol (20 sources) Corticosteroid, beta2-Adrenergic Agonist Start: 05-01-2025 Budesonide-Formoterol (Symbicort) 160-4.5 mcg/actuation HFA aerosol inhaler Active 2 NMA INHALATION TWICE A DAY 3 3 May 01, 2025 10:22am Smoking greater than 40 pack years Nicotine dependence, cigarettes, uncomplicated administer with spacer, rinse mouth after each use Complies with drug therapy Start: 05-01-2025 Budesonide-For moterol (Symbicort) 160-4.5 mcg/actuation HFA aerosol inhaler Active 2 NMA INHALATION TWICE A DAY 3 3 May 01, 2025 10:22am Smoking greater than 40 pack years Nicotine dependence, cigarettes, uncomplicated administer with spacer, rinse mouth after each use Start: 02-22-2025 End: 05-01-2025 Budesonide-Formoterol (Symbi navi) 160-4.5 mcg/actuation HFA aerosol inhaler Discontinued 2 NMA INHALATION TWICE A DAY 3 3 February 22, 2025 4:03pm May 01, 2025 10:24am Smoking greater than 40 pack years Nicotine dependence, cigarettes, uncomplicated administer with spacer, rinse mouth after each use Start: 02-22-2025 Budesonide-For moterol (Symbicort) 160-4.5 mcg/actuation HFA aerosol inhaler Active 2 NMA INHALATION TWICE A DAY 3 3 February 22, 2025 4:03pm Smoking greater than 40 pack years Nicotine dependence, cigarettes, uncomplicated administer with spacer, rinse mouth after each use Start: 02-22-2025 Budesonide-For moterol (Symbicort) 160-4.5 mcg/actuation HFA aerosol inhaler Active 2 NMA INHALATION TWICE A DAY 3 February 22, 2025 4:03pm administer with spacer, rinse mouth after each use Start: 03-06-2024 End: 02-22-2025 Budesonide-Formoterol (Symbi navi) 160-4.5 mcg/actuation HFA aerosol inhaler Discontinued 2 NMA INHALATION TWICE A DAY 3 March 06, 2024 12:39pm February 22, 2025 4:03pm Smoking greater than 40 pack years Nicotine dependence, cigarettes, uncomplicated administer with spacer, rinse mouth after each use Start: 03-06-2024 End: 02-22-2025 Budesonide-Formoterol (Symbi navi) 160-4.5 mcg/actuation HFA aerosol inhaler Discontinued 2 NMA INHALATION TWICE A DAY March 06, 2024 12:39pm February 22, 2025 4:03pm administer with spacer, rinse mouth after each use Start: 03-06-2024 Budesonide-For moterol (Symbicort) 160-4.5 mcg/actuation HFA aerosol inhaler Active 2 NMA INHALATION TWICE A DAY 3 March 06, 2024 12:39pm administer with spacer, rinse mouth after each use Start: 03-17-2023 End: 03-06-2024 Budesonide-Formoterol (Symbi navi) 160-4.5 mcg/actuation HFA aerosol inhaler Discontinued 2 NMA INHALATION TWICE A DAY 3 March 17, 2023 11:04am March 06, 2024 12:40pm Smoking greater than 40 pack years Nicotine dependence, cigarettes, uncomplicated administer with spacer, rinse mouth after each use Start: 03-17-2023 End: 03-06-2024 Budesonide-Formoterol (Symbi navi) 160-4.5 mcg/actuation HFA aerosol inhaler Discontinued 2 NMA INHALATION TWICE A DAY 3 March 17, 2023 11:04am March 06, 2024 12:40pm administer with spacer, rinse mouth after each use Start: 03-17-2023 take 1 puff(s) by mo uth twice daily Budesonide-Formoterol (Symbicort) 160-4. 5 mcg/actuation HFA aerosol inhaler Active 2 PUFF INHALATION TWICE A DAY March 17, 2023 10:04am administer with spacer, rinse mouth after each use Start: 03-17-2023 take 1 puff(s) by mo uth twice daily Budesonide-Formoterol (Symbicort) 160-4. 5 mcg/actuation HFA aerosol inhaler Active 2 PUFF INHALATION TWICE A DAY March 17, 2023 11:04am administer with spacer, rinse mouth after each use Start: 09-15-2022 End: 03-17-2023 Budesonide-Formoterol (Symbi navi) 160-4.5 mcg/actuation HFA aerosol inhaler Discontinued 2 NMA INHALATION TWICE A DAY 1 September 15, 2022 12:37pm March 17, 2023 11:04am Smoking greater than 40 pack years Nicotine dependence, cigarettes, uncomplicated administer with spacer, rinse mouth after each use Start: 09-15-2022 End: 03-17-2023 Budesonide-Formoterol (Symbi navi) 160-4.5 mcg/actuation HFA aerosol inhaler Discontinued 2 NMA INHALATION TWICE A DAY 1 September 15, 2022 12:37pm March 17, 2023 11:04am administer with spacer, rinse mouth after each use Start: 09-15-2022 End: 03-17-2023 take 1 puff(s) by mouth twice daily Budesonide-Formoterol (Symbicort) 160-4. 5 mcg/actuation HFA aerosol inhaler Discontinued 2 PUFF INHALATION TWICE A DAY 1 September 15, 2022 11:37am March 17, 2023 10:04am administer with spacer, rinse mouth after each use Start: 09-15-2022 End: 03-17-2023 take 1 puff(s) by mouth twice daily Budesonide-Formoterol (Symbicort) 160-4. 5 mcg/actuation HFA aerosol inhaler Discontinued 2 PUFF INHALATION TWICE A DAY 1 September 15, 2022 12:37pm March 17, 2023 11:04am administer with spacer, rinse mouth after each use Start: 09-15-2022 take 1 puff(s) by mo uth twice daily Budesonide-Formoterol (Symbicort) 160-4. 5 mcg/actuation HFA aerosol inhaler Active 2 PUFF INHALATION TWICE A DAY 1 September 15, 2022 11:37am administer with spacer, rinse mouth after each use Start: 05-14-2022 End: 09-15-2022 Budesonide-Formoterol (Symbi navi) 160-4.5 mcg/actuation HFA aerosol inhaler Discontinued 2 NMA INHALATION TWICE A DAY 10 06May 14, 2022 1:03pm September 15, 2022 12:38pm Smoking greater than 40 pack years Nicotine dependence, cigarettes, uncomplicated administer with spacer, rinse mouth after each use Start: 05-14-2022 End: 09-15-2022 Budesonide-Formoterol (Symbi navi) 160-4.5 mcg/actuation HFA aerosol inhaler Discontinued 2 NMA INHALATION TWICE A DAY May 14, 2022 1:03pm September 15, 2022 12:38pm administer with spacer, rinse mouth after each use Start: 05-14-2022 End: 09-15-2022 take 1 puff(s) by mouth twice daily Budesonide-Formoterol (Symbicort) 160-4. 5 mcg/actuation HFA aerosol inhaler Discontinued 2 PUFF INHALATION TWICE A DAY 1 May 14, 2022 1:03pm September 15, 2022 12:38pm administer with spacer, rinse mouth after each use Start: 05-14-2022 End: 09-15-2022 take 1 puff(s) by mouth twice daily Budesonide-Formoterol (Symbicort) 160-4. 5 mcg/actuation HFA aerosol inhaler Discontinued 2 PUFF INHALATION TWICE A DAY 1 May 14, 2022 12:03pm September 15, 2022 11:38am administer with spacer, rinse mouth after each use Start: 05-14-2022 take 1 puff(s) by mo ut twice daily Budesonide-Formoterol (Symbicort) 160-4. 5 mcg/actuation HFA aerosol inhaler Active 2 PUFF INHALATION TWICE A DAY 1 May 14, 2022 1:03pm administer with spacer, rinse mouth after each use Start: 12-12-2021 End: 05-14-2022 Budesonide-Formoterol (Symbi navi) 160-4.5 mcg/actuation HFA aerosol inhaler Discontinued 2 NMA INHALATION TWICE A DAY 1 December 12, 2021 3:04pm May 14, 2022 1:04pm Smoking greater than 40 pack years Nicotine dependence, cigarettes, uncomplicated administer with spacer, rinse mouth after each use Start: 12-12-2021 End: 05-14-2022 Budesonide-Formoterol (Symbi navi) 160-4.5 mcg/actuation HFA aerosol inhaler Discontinued 2 NMA INHALATION TWICE A DAY 1 December 12, 2021 3:04pm May 14, 2022 1:04pm administer with spacer, rinse mouth after each use Start: 12-12-2021 End: 05-14-2022 take 1 puff(s) by mouth twice daily Budesonide-Formoterol (Symbicort) 160-4. 5 mcg/actuation HFA aerosol inhaler Discontinued 2 PUFF INHALATION TWICE A DAY 1 December 12, 2021 2:04pm May 14, 2022 12:04pm administer with spacer, rinse mouth after each use Start: 12-12-2021 End: 05-14-2022 take 1 puff(s) by mouth twice daily Budesonide-Formoterol (Symbicort) 160-4. 5 mcg/actuation HFA aerosol inhaler Discontinued 2 PUFF INHALATION TWICE A DAY December 12, 2021 3:04pm May 14, 2022 1:04pm administer with spacer, rinse mouth after each use Start: 08-08-2021 End: 12-12-2021 Budesonide-Formoterol (Symbi navi) 160-4.5 mcg/actuation HFA aerosol inhaler Discontinued 2 NMA INHALATION TWICE A DAY 10 06August 08, 2021 12:00am December 12, 2021 3:04pm Smoking greater than 40 pack years Nicotine dependence, cigarettes, uncomplicated administer with spacer, rinse mouth after each use Start: 08-08-2021 End: 12-12-2021 Budesonide-Formoterol (Symbi navi) 160-4.5 mcg/actuation HFA aerosol inhaler Discontinued 2 NMA INHALATION TWICE A DAY August 08, 2021 12:00am December 12, 2021 3:04pm administer with spacer, rinse mouth after each use Start: 08-08-2021 End: 12-12-2021 take 1 puff(s) by mouth twice daily Budesonide-Formoterol (Symbicort) 160-4. 5 mcg/actuation HFA aerosol inhaler Discontinued 2 PUFF INHALATION TWICE A DAY August 07, 2021 11:00pm December 12, 2021 2:04pm administer with spacer, rinse mouth after each use Start: 08-08-2021 End: 12-12-2021 take 1 puff(s) by mouth twice daily Budesonide-Formoterol (Symbicort) 160-4. 5 mcg/actuation HFA aerosol inhaler Discontinued 2 PUFF INHALATION TWICE A DAY August 08, 2021 12:00am December 12, 2021 3:04pm administer with spacer, rinse mouth after each use 168 hr buprenorphine 0.005 mg/hr transdermal system (20 sources) Partial Opioid Agonist Start: 08-16-2024 apply 5 ug topically every week Buprenorphine (Butrans) 5 mcg/hour patch weekly Active 1 NMA TOPICAL EVERY WEEK August 16, 2024 1:00am Complies with drug therapy Start: 10-06-2023 End: 08-16-2024 apply 7.5 ug transdermal route every hour Buprenorphine (Butrans) 7.5 mcg/hour patch weekly Discontinued TD October 06, 2023 1:00am August 16, 2024 10:26am Start: 02-08-2023 End: 10-06-2023 apply 5 ug topically every hour Buprenorphine (Butrans ) 5 mcg/hour patch weekly Discontinued 5 ug TOPICAL .WEDNESDAY February 08, 2023 12:00am October 06, 2023 8:12am PAIN cetirizine hydrochloride 10 mg oral tablet (16 sources) Histamine-1 Receptor Antagonist Start: 04-26-2024 End: 04-19-2025 take 1 tablet by mouth once daily as needed Cetirizine 10 mg tablet Active 10 mg PO DAILY as needed for allergy symptoms 90 April 19, 2025 3:31pm Complies with drug therapy cholecalciferol 1.25 mg oral capsule (9 sources) Vitamin D Start: 02-14-2025 take 1 capsule by mouth every week Cholecalciferol (Vitamin D3) 1,250 mcg (50,000 unit) capsule Active 1250 ug PO EVERY WEEK 14 February 14, 2025 12:00am Complies with drug therapy Disability Placard (20 sources) Start: 08-05-2020 Disability Placard Active 0 .Route .MEDSUPPLY 1 0 August 05, 2020 9:51am Solitary pulmonary nodule chronic respiratory distress J96.10 As directed Start: 08-05-2020 Disability Olvin card Active 0 .Route .MEDSUPPLY August 05, 2020 8:51am As directed Start: 08-05-2020 Disability Olvin card Active 0 .Route .MEDSUPPLY August 05, 2020 9:51am As directed Start: 09-14-2019 End: 08-05-2020 Disability Placard Discontin ued 0 .Route .MEDSUPPLY 1 0 September 14, 2019 1:00am September 07, 2020 1:00am August 05, 2020 9:51am chronic respiratory distress J96.10 As directed Start: 09-14-2019 End: 08-05-2020 Disability Placard Discontin ued 0 .Route .MEDSUPPLY 1 September 14, 2019 1:00am September 07, 2020 1:00am August 05, 2020 9:51am As directed Start: 09-14-2019 End: 08-05-2020 Disability Placard Discontin ued 0 .Route .MEDSUPPLY September 14, 2019 12:00am August 05, 2020 8:51am As directed Start: 09-14-2019 End: 08-05-2020 Disability Placard Discontin ued 0 .Route .MEDSUPPLY September 14, 2019 1:00am August 05, 2020 9:51am As directed hydrocortisone acetate 25 mg rectal suppository (20 sources) Corticosteroid Start: 03-06-2020 Hydrocortisone Acetate 25 mg suppository Active 25 mg RC DAILY as needed for hemmorroids March 06, 2020 12:00am Complies with drug therapy Start: 05-11-2018 End: 08-29-2019 take 25 mg rectal route twice daily as needed Hydrocortisone Acetate 25 MG suppository Discontinued 25 mg RECTAL TWICE DAILY NEEDED as needed for Bleeding 20 2 May 11, 2018 12:00am August 29, 2019 10:59am traZODone hydrochloride 100 mg oral tablet (20 sources) Serotonin Reuptake Inhibitor Start: 10-22-2021 End: 06-25-2025 take 1 tablet by mouth at bedtime as needed Trazodone 100 mg tablet Active 100 mg PO AT BEDTIME as needed for insomnia 90 90 June 25, 2025 11:07am Complies with drug therapy Start: 10-21-2020 End: 10-22-2021 Trazodone 50 mg tablet Disco ntinued 75 mg PO AT BEDTIME as needed for insomnia 45 1 August 08, 2021 2:06pm October 22, 2021 1:07pm Start: 10-21-2020 End: 10-22-2021 take 75 mg by mouth at bedtime Trazodone Discontinued 75 MG PO AT BEDTIME 45 August 08, 2021 2:06pm October 22, 2021 1:07pm Start: 04-22-2020 End: 10-21-2020 take 1 tablet by mouth at bedtime as needed Trazodone 50 mg tablet Discontinued 50 mg PO AT BEDTIME as needed for insomnia 30 August 19, 2020 12:41pm October 21, 2020 12:15pm Completed/Discontinued Medications Medication Drug Class(es) Dates Sig (Normalized) Sig (Original) acetaminophen 325 mg / HYDROcodone bitartrate 5 mg oral tablet (9 sources) Opioid Agonist Start: 04-13-2025 End: 04-20-2025 Hydrocodone-Acetami nophen 5-325 mg tablet Discontinued 1 {tbl} PO EVERY 6 HOURS as needed for pain 12 3 0 April 13, 2025 April 20, 2025 9:20am Contusion of left knee Contusion of left knee, initial encounter Start: 03-06-2020 take 1 tablet by mike th twice daily Hydrocodone-Acetaminophen Active 1 TABLE T PO TWICE A DAY March 05, 2020 11:00pm [id number] 200 actuat albuterol 0.09 mg/actuat metered dose inhaler (20 sources) beta2-Adrenergic Agonist Start: 08-16-2019 End: 10-06-2023 Albuterol Sulfate 90 mcg/actuation HFA aerosol inhaler Discontinued 2 NMA INHALATION Q4H as needed for shortness of breath or wheezing 1 November 01, 2019 2:20pm November 05, 2020 12:28pm administer with spacer Start: 08-16-2019 End: 10-06-2023 take 1 puff(s) by inhalation every four hours Albuterol Sulfate Discontinued 2 PUFF INHALATION Q4H November 01, 2019 2:20pm November 05, 2020 12:28pm administer with spacer Start: 03-03-2018 End: 07-07-2019 Albuterol Sulfate (Ventolin Hfa) 90 mcg/actuation HFA aerosol inhaler Discontinued 2 NMA INHALATION EVERY 6 HOURS as needed for Sob &/Or Wheezing March 03, 2018 12:00am July 07, 2019 2:34pm Start: 03-03-2018 End: 07-07-2019 take 1 puff(s) by inhalation every six hours Albuterol Sulfate (Ventolin Hfa) 90 mcg/actuation HFA aerosol inhaler Discontinued 2 PUFF INHALATION EVERY 6 HOURS March 03, 2018 12:00am July 07, 2019 2:34pm Start: 01-31-2018 End: 02-18-2018 Albuterol Sulfate 1 INHALER inhaler Discontinued 1 - 2 NMA INHALATION EVERY 4 HOURS NEEDED as needed for Shortness Of Breath 1 0 January 31, 2018 12:00am February 18, 2018 10:14am Start: 01-31-2018 End: 02-18-2018 take 1 puff(s) by inhalation every four hours as needed Albuterol Sulfate Discontinued 1 - 2 PUFF INHALATION EVERY 4 HOURS NEEDED January 31, 2018 12:00am February 18, 2018 10:14am 12 hr buPROPion hydrochloride 200 mg extended release oral tablet (20 sources) Aminoketone Start: 02-23-2022 End: 12-07-2024 take 1 tablet by mouth twice daily Bupropion Hcl 200 mg tablet sustained-release 12 hr Discontinued 200 mg PO TWICE A DAY 180 March 06, 2024 12:45pm December 07, 2024 5:46pm Depression Major depressive disorder, single episode, unspecified mood Take 1 tablet by mouth twice daily Start: 02-18-2018 End: 02-23-2022 take 1 tablet by mouth twice daily Bupropion Hcl 150 mg tablet sustained-release 12 hr Discontinued 150 mg PO TWICE A DAY 180 November 17, 2021 10:39am February 23, 2022 10:49am Depression Major depressive disorder, single episode, unspecified mood Take 1 tablet by mouth twice daily cephalexin 500 mg oral capsule (13 sources) Cephalosporin Antibacterial Start: 02-11-2023 End: 07-19-2023 take 1 capsule by mouth three times daily Cephalexin 500 mg capsule Discontinued 500 mg PO THREE TIMES A DAY 42 February 11, 2023 12:00am July 19, 2023 1:52pm Compress.Stocking ,Knee,Reg,Lrg (15 sources) Start: 11-02-2019 End: 07-29-2020 Compress.Stocking,K nee,Reg,Lrg Discontinued 0 .ROUTE .MEDSUPPLY 2 November 02, 2019 11:40am July 29, 2020 8:17am wear daily for venous insufficiency 20-30 mmHg Start: 11-02-2019 End: 07-29-2020 Compress.Stocking,Knee,Reg,L rg Discontinued 0 .ROUTE .MEDSUPPLY November 02, 2019 12:40pm July 29, 2020 9:17am wear daily for venous insufficiency 20-30 mmHg Start: 11-02-2019 End: 11-02-2019 Compress.Stocking,Knee,Reg,L rg Discontinued 0 .ROUTE .MEDSUPPLY November 02, 2019 11:38am November 02, 2019 11:40am wear daily for venous insufficiency 20-30 mmHg Start: 11-02-2019 End: 11-02-2019 Compress.Stocking,Knee,Reg,L rg Discontinued 0 .ROUTE .MEDSUPPLY 2 November 02, 2019 12:38pm November 02, 2019 12:40pm wear daily for venous insufficiency 20-30 mmHg Start: 07-07-2019 End: 11-02-2019 Compress.Stocking,Knee,Reg,L rg Discontinued 0 .ROUTE .MEDSUPPLY 2 July 06, 2019 11:00pm November 02, 2019 11:39am wear daily for venous insufficiency 20-30 mmHg Start: 07-07-2019 End: 11-02-2019 Compress.Stocking,Knee,Reg,L rg Discontinued 0 .ROUTE .MEDSUPPLY 2 July 07, 2019 12:00am November 02, 2019 12:39pm wear daily for venous insufficiency 20-30 mmHg Compress.Stocking,Knee,Reg,L rg misc (20 sources) Start: 11-02-2019 End: 07-29-2020 Compress.Stocking,Knee,Reg,L rg misc Discontinued 0 .ROUTE .MEDSUPPLY 2 1 November 02, 2019 12:40pm July 29, 2020 9:17am Venous insufficiency (chronic) (peripheral) wear daily for venous insufficiency 20-30 mmHg Start: 11-02-2019 End: 07-29-2020 Compress.Stocking,Knee,Reg,L rg misc Discontinued 0 .ROUTE .MEDSUPPLY 2 November 02, 2019 12:40pm July 29, 2020 9:17am wear daily for venous insufficiency 20-30 mmHg Start: 11-02-2019 End: 11-02-2019 Compress.Stocking,Knee,Reg,L rg misc Discontinued 0 .ROUTE .MEDSUPPLY 2 1 November 02, 2019 12:38pm November 02, 2019 12:40pm Venous insufficiency (chronic) (peripheral) wear daily for venous insufficiency 20-30 mmHg Start: 11-02-2019 End: 11-02-2019 Compress.Stocking,Knee,Reg,L rg misc Discontinued 0 .ROUTE .MEDSUPPLY 2 November 02, 2019 12:38pm November 02, 2019 12:40pm wear daily for venous insufficiency 20-30 mmHg Start: 07-07-2019 End: 11-02-2019 Compress.Stocking,Knee,Reg,L rg misc Discontinued 0 .ROUTE .MEDSUPPLY 2 July 07, 2019 12:00am November 02, 2019 12:39pm Venous insufficiency (chronic) (peripheral) wear daily for venous insufficiency 20-30 mmHg Start: 07-07-2019 End: 11-02-2019 Compress.Stocking,Knee,Reg,L rg misc Discontinued 0 .ROUTE .MEDSUPPLY 2 July 07, 2019 12:00am November 02, 2019 12:39pm wear daily for venous insufficiency 20-30 mmHg desoximetasone 0.5 mg/ml topical cream (15 sources) Corticosteroid Start: 04-21-2022 End: 04-24-2022 Desoximetasone 0.05 % cream Discontinued 1 NMA TOPICAL TWICE A DAY as needed for skin irritation 60 1 April 21, 2022 12:00am April 24, 2022 11:47am diclofenac sodium 0.01 mg/mg topical gel (15 sources) Nonsteroidal Anti-inflammatory Drug Start: 03-06-2020 End: 10-21-2020 apply 2 g topically once Diclofenac Sodium 1 % gel Discontinued 2 g TOPICAL ONCE March 06, 2020 12:00am October 21, 2020 11:47am apply to single elbow, wrist or hand; for hand includes palm/fingers/back of hand Start: 03-06-2020 End: 10-21-2020 apply 2 g topically once Diclofenac Sodium Discontinu ed 2 GM TOPICAL ONCE March 06, 2020 12:00am October 21, 2020 11:47am apply to single elbow, wrist or hand; for hand includes palm/fingers/back of hand doxycycline hyclate 100 mg oral capsule (13 sources) Tetracycline-class Drug Start: 02-11-2023 End: 07-19-2023 take 1 capsule by mouth twice daily Doxycycline Hyclate 100 mg capsule Discontinued 100 mg PO TWICE A DAY 30 0 February 11, 2023 12:00am July 19, 2023 1:52pm famotidine 20 mg oral tablet (20 sources) Histamine-2 Receptor Antagonist Start: 05-03-2018 End: 04-30-2025 take 1 tablet by mouth once daily Famotidine 20 mg tablet Discontinued 20 mg PO DAILY 90 3 December 27, 2023 4:27pm April 30, 2025 12:13pm fenofibrate 48 mg oral tablet (20 sources) Peroxisome Proliferator Receptor alpha Agonist Start: 07-21-2023 End: 04-20-2025 take 1 tablet by mouth once daily Fenofibrate Nanocrystallized 48 mg tablet Discontinued 48 mg PO DAILY 60 March 17, 2024 12:20pm April 20, 2025 9:20am ferrous sulfate 325 mg oral tablet (20 sources) Start: 07-22-2021 End: 10-22-2021 take 1 tablet by mouth every other day Ferrous Sulfate 325 mg (65 mg iron) tablet Discontinued 325 mg PO every other day 90 July 22, 2021 11:15am October 22, 2021 11:34am Start: 04-23-2021 End: 07-22-2021 take 1 tablet by mouth once daily Ferrous Sulfate 325 mg (65 mg iron) tablet Discontinued 325 mg PO DAILY 90 April 23, 2021 12:00am July 22, 2021 10:37am FLUoxetine 20 mg oral capsule (20 sources) Serotonin Reuptake Inhibitor Start: 11-15-2020 End: 04-30-2025 take 1 capsule by mouth once daily Fluoxetine 20 mg capsule Discontinued 20 mg PO DAILY 90 November 06, 2024 6:53pm April 30, 2025 12:13pm Start: 07-29-2020 End: 11-15-2020 take 1 capsule by mouth once daily Fluoxetine 10 mg capsule Discontinued 10 mg PO DAILY July 29, 2020 12:00am November 15, 2020 3:00pm Start: 11-20-2019 End: 07-29-2020 take 1 capsule by mouth once daily Fluoxetine 20 mg capsule Discontinued 20 mg PO DAILY 90 November 20, 2019 12:35pm July 29, 2020 9:16am Start: 10-23-2019 End: 11-20-2019 take 1 capsule by mouth once daily Fluoxetine 10 mg capsule Discontinued 10 mg PO DAILY 60 October 23, 2019 1:00am November 20, 2019 12:35pm fluticasone propionate 0.05 mg/actuat metered dose nasal spray (20 sources) Corticosteroid Start: 08-08-2021 End: 05-01-2025 Fluticasone Propionate 50 mcg/actuation spray,suspension Discontinued 2 NMA INTRANASAL DAILY 16 July 28, 2024 2:14pm May 01, 2025 10:24am Smoking greater than 40 pack years Nicotine dependence, cigarettes, uncomplicated Start: 08-08-2021 End: 10-15-2023 Fluticasone Propionate Activ e 2 SPRAY INTRANASAL DAILY 16 October 15, 2023 2:29pm 30 actuat fluticasone furoate 0.1 mg/actuat / vilanterol 0.025 mg/actuat dry powder inhaler (20 sources) Corticosteroid, beta2-Adrenergic Agonist Start: 03-22-2018 End: 11-20-2019 Fluticasone Furoate-Vilanterol (Breo Ellipta) 100-25 mcg/dose blister with device Discontinued 1 NMA INHALATION daily 60 3 April 07, 2019 8:04am July 24, 2019 2:24pm Start: 03-22-2018 End: 11-20-2019 Fluticasone Furoate-Vilanter ol (Breo Ellipta) 100-25 mcg/dose blister with device Discontinued 1 INH INHALATION daily 60 April 07, 2019 8:04am July 24, 2019 2:24pm furosemide 20 mg oral tablet (20 sources) Loop Diuretic Start: 10-23-2019 End: 01-09-2025 take 1 tablet by mouth twice daily Furosemide 20 mg tablet Discontinued 20 mg PO TWICE A DAY 180 1 June 19, 2024 12:08pm January 09, 2025 12:48pm Start: 10-23-2019 End: 10-23-2019 Furosemide 40 mg tablet Disc ontinued 20 mg PO TWICE DAILY October 23, 2019 2:13pm October 23, 2019 2:39pm Start: 10-23-2019 End: 10-23-2019 take 20 mg by mouth twice daily Furosemide Discontinue d 20 MG PO TWICE DAILY October 23, 2019 2:13pm October 23, 2019 2:39pm Start: 08-27-2019 End: 10-23-2019 take 1 tablet by mouth twice daily Furosemide 40 MG tablet Discontinued 40 mg PO TWICE DAILY 60 0 August 27, 2019 1:00am October 23, 2019 2:13pm loratadine 10 mg oral capsule (20 sources) Start: 08-08-2021 End: 04-26-2024 take 1 capsule by mouth once daily Loratadine 10 mg capsule Discontinued 10 mg PO daily 90 3 November 15, 2023 1:43pm April 26, 2024 9:18am Smoking greater than 40 pack years Nicotine dependence, cigarettes, uncomplicated metroNIDAZOLE 500 mg oral tablet (13 sources) Nitroimidazole Antimicrobial Start: 02-11-2023 End: 07-19-2023 take 1 tablet by mouth three times daily Metronidazole 500 mg tablet Discontinued 500 mg PO THREE TIMES A DAY 42 0 February 11, 2023 12:00am July 19, 2023 1:53pm 24 hr nicotine 0.875 mg/hr transdermal system (20 sources) Cholinergic Nicotinic Agonist Start: 08-27-2019 End: 10-23-2019 apply 21 mg transdermal route once daily Nicotine 21 MG patch Discontinued 21 mg TRANSDERM. DAILY 30 0 August 27, 2019 1:00am October 23, 2019 2:13pm Start: 08-01-2018 End: 07-07-2019 apply 1 dose transdermal route every twenty-four hours Nicotine 14 mg/24 hr patch 24 hour Discontinued 1 NMA TD DAILY 14 August 01, 2018 12:00am July 07, 2019 2:36pm Start: 08-01-2018 End: 07-07-2019 apply 1 dose transdermal route once daily Nicotine Discontinued 1 PATCH TD DAILY 14 August 01, 2018 12:00am July 07, 2019 2:36pm Start: 05-03-2018 End: 07-07-2019 Nicotine 7 mg/24 hr patch 24 hour Discontinued 1 NMA TD Q24H 14 May 03, 2018 12:00am July 07, 2019 2:36pm Start: 05-03-2018 End: 07-07-2019 apply 1 dose transdermal route every twenty-four hours Nicotine Discontinued 1 PATCH TD Q24H 14 May 03, 2018 12:00am July 07, 2019 2:36pm Start: 03-22-2018 End: 05-03-2018 apply 21 mg transdermal route once daily, then apply 14 mg transdermal route once daily, then apply 7 mg transdermal route once daily Nicotine 21-14-7 mg/24 hr patch, TD daily, sequential Discontinued 1 NMA TD daily 70 0 March 22, 2018 12:00am May 03, 2018 9:36am Tobacco use Apply 21 mg patch daily 6 weeks, then 14 mg patch daily 2 weeks, then 7 mg patch daily 2 weeks. Start: 03-22-2018 End: 05-03-2018 apply 21 mg transdermal route once daily, then apply 14 mg transdermal route once daily, then apply 7 mg transdermal route once daily Nicotine 21-14-7 mg/24 hr patch, TD daily, sequential Discontinued 1 NMA TD daily 70 March 22 2018 12:00am May 03, 2018 9:36am Apply 21 mg patch daily 6 weeks, then 14 mg patch daily 2 weeks, then 7 mg patch daily 2 weeks. Start: 03-22-2018 End: 05-03-2018 apply 21 mg transdermal route once daily, then apply 14 mg transdermal route once daily, then apply 7 mg transdermal route once daily Nicotine Discontinued 1 PATCH TD daily March 21, 2018 11:00pm May 03, 2018 8:36am Apply 21 mg patch daily 6 weeks, then 14 mg patch daily 2 weeks, then 7 mg patch daily 2 weeks. Start: 03-22-2018 End: 05-03-2018 apply 21 mg transdermal route once daily, then apply 14 mg transdermal route once daily, then apply 7 mg transdermal route once daily Nicotine Discontinued 1 PATCH TD daily March 22, 2018 12:00am May 03, 2018 9:36am Apply 21 mg patch daily 6 weeks, then 14 mg patch daily 2 weeks, then 7 mg patch daily 2 weeks. oxyCODONE hydrochloride 5 mg oral tablet (15 sources) Opioid Agonist Start: 01-31-2018 End: 02-18-2018 take 1 tablet by mouth every six hours as needed for pain Oxycodone 5 MG tablet Discontinued 5 mg PO EVERY 6 HOURS as needed for Moderate Pain (pain scale 4-5) 12 3 0 January 31, 2018 12:00am February 18, 2018 10:14am Acute pancreatitis Acute pancreatitis without necrosis or infection, unspecified pantoprazole 40 mg delayed release oral tablet (15 sources) Proton Pump Inhibitor Start: 01-31-2018 End: 03-22-2018 take 1 tablet by mouth twice daily Pantoprazole 40 MG tablet Discontinued 40 mg PO TWICE A DAY 60 0 January 31, 2018 12:00am March 22, 2018 9:33am potassium chloride 10 meq extended release oral capsule (20 sources) Start: 01-20-2021 End: 05-29-2025 take 1 capsule by mouth twice daily Potassium Chloride 10 mEq capsule, extended release Discontinued 10 meq PO TWICE A DAY 180 3 May 22, 2024 10:57am May 29, 2025 12:50pm Start: 11-27-2019 End: 01-20-2021 take 1 capsule by mouth once daily Potassium Chloride 10 mEq capsule, extended release Discontinued 10 meq PO DAILY 60 1 December 06, 2020 9:40am January 20, 2021 8:41am Start: 08-27-2019 End: 11-27-2019 take 2 capsules by mouth once daily Potassium Chloride 10 mEq capsule, extended release Discontinued 20 meq PO DAILY 60 1 September 26, 2019 11:02am November 27, 2019 5:54pm Start: 08-27-2019 End: 11-27-2019 take 20 mEq by mouth once daily Potassium Chloride Dis continued 20 MEQ PO DAILY 60 September 26, 2019 11:02am November 27, 2019 5:54pm sucralfate 1000 mg oral tablet (15 sources) Aluminum Complex Start: 01-31-2018 End: 02-18-2018 take 1 tablet by mouth 1 hour(s) before mealtime Sucralfate 1 GM tablet Discontinued 1 g PO ONE HOURS BEFORE MEALS & BED 30 0 January 31, 2018 12:00am February 18, 2018 10:14am 60 actuat tiotropium 0.0025 mg/actuat inhalation spray (20 sources) Anticholinergic Start: 08-08-2021 End: 06-18-2025 take 2.5 ug by inhalation once daily Tiotropium [place] (Spiriva Respimat) 2.5 mcg/actuation mist Discontinued 2 NMA INHALATION daily 1 October 27, 2024 11:55am June 18, 2025 10:40am Smoking greater than 40 pack years Nicotine dependence, cigarettes, uncomplicated administer at approximately the same time(s) each day Start: 08-08-2021 End: 06-28-2023 take 1 puff(s) by inhalation once daily Tiotropium [place] (Spiriva Respimat) 2.5 mcg/actuation mist Discontinued 2 PUFF INHALATION daily April 03, 2022 3:40pm September 15, 2022 12:38pm administer at approximately the same time(s) each day triamcinolone acetonide 1 mg/ml topical cream (20 sources) Corticosteroid Start: 04-24-2022 End: 02-08-2023 Triamcinolone Acetonide 0.1 % cream Discontinued 1 NMA TOPICAL TWICE A DAY 80 0 April 24, 2022 12:00am February 08, 2023 8:49am Start: 04-24-2022 End: 04-20-2025 Triamcinolone Acetonide 0.1 % cream Discontinued 1 NMA TOPICAL TWICE A DAY as needed for Skin Irritation February 08, 2023 8:49am April 20, 2025 9:20am Problems Active Problems Problem Classification Problem Date Documented Da te Episodic/Chronic Abdominal pain (12 sources) Left lower quadrant pain; Translations: [Left lower quadrant pain] 01-19-2024 Episodic Administrative/social admission (20 sources) Counseling procedure with explicit context; Translations: [Tobacco abuse counseling] 08-22-2019 Episodic Anal and rectal conditions (15 sources) Perirectal abscess; Translations: [Rectal abscess] 02-08-2023 Episodic Anxiety disorders (20 sources) Mixed anxiety and depressive disorder; Translations: [Anxiety disorder, unspecified] Chronic Asthma (17 sources) Asthma; Translations: [Unspecified asthma, uncomplicated] 08-08-2021 Chronic Bacterial infection; unspecified site (13 sources) Bacteremia caused by Gram-positive bacteria; Translations: [Bacteremia] 02-19-2023 Episodic Chronic obstructive pulmonary disease and bronchiectasis (20 sources) Acute exacerbation of chronic obstructive airways disease; Translations: [Chronic obstructive lung disease] Onset: 06-18-2025 Chronic Deficiency and other anemia (15 sources) Anemia; Translations: [Anemia, unspecified] 07-22-2021 Episodic Disorders of lipid metabolism (19 sources) Hyperlipidemia; Translations: [Hyperlipidemia, unspecified] 01-19-2024 Chronic Essential hypertension (20 sources) Hypertensive disorder; Translations: [Essential (primary) hypertension] Onset: 02-14-2025 Chronic Gastritis and duodenitis (15 sources) Acute gastritis; Translations: [Acute gastritis without bleeding] 08-22-2019 Episodic Gastroduodenal ulcer (except hemorrhage) (20 sources) Ulcer of duodenum; Translations: [Duodenal ulcer, unspecified as acute or chronic, without hemorrhage or perforation] 08-22-2019 Chronic Gastrointestinal hemorrhage (15 sources) Hemorrhage of rectum and anus; Translations: [Hemorrhage of anus and rectum] 08-22-2019 Episodic Headache; including migraine (15 sources) Frequent headache; Translations: [Frequent headaches] 05-11-2018 Episodic Immunizations and screening for infectious disease (17 sources) Needs influenza immunization; Translations: [Encounter for immunization] Onset: 06-18-2025 Episodic Joint disorders and dislocations; trauma-related (2 sources) Derangement of left knee; Translations: [Unspecified internal derangement of left knee] Onset: 07-06-2025 07-06-2025 Chronic Mood disorders (15 sources) Depressive disorder; Translations: [Depression] 08-22-2019 Chronic Open wounds of extremities (12 sources) Tear of skin; Translations: [Laceration without foreign body, left lower leg, initial encounter] 04-13-2025 Episodic Other and unspecified benign neoplasm (15 sources) Change in skin lesion; Translations: [Melanocytic nevi, unspecified] 01-21-2022 Episodic Other connective tissue disease (17 sources) Bursitis of knee; Translations: [Other bursitis of knee, unspecified knee] 04-20-2025 Episodic Comment on above: Traumatic prepatella r bursitis Other gastrointestinal disorders (15 sources) Irritable bowel syndrome; Translations: [Irritable bowel syndrome without diarrhea] 08-22-2019 Chronic Other lower respiratory disease (15 sources) Nodule of lung; Translations: [Solitary pulmonary nodule] 08-05-2020 Episodic Other lower respiratory disease (15 sources) H/O: pneumonia; Translations: [Personal history of pneumonia (recurrent)] 08-22-2019 Episodic Comment on above: with complications t hat required drainage tubes in the lungs, 1993 Other lower respiratory disease (15 sources) Lung mass; Translations: [Other nonspecific abnormal finding of lung field] 09-14-2019 Episodic Other lower respiratory disease (15 sources) Restrictive lung disease; Translations: [Other disorders of lung] 09-23-2021 Episodic Other lower respiratory disease (2 sources) Solitary pulmonary nodule; Translations: [Solitary pulmonary nodule] 09-15-2022 Episodic Other nutritional; endocrine; and metabolic disorders (15 sources) Excess panniculus of abdomen; Translations: [Localized adiposity] 10-22-2021 Chronic Other nutritional; endocrine; and metabolic disorders (15 sources) Morbid obesity; Translations: [Morbid (severe) obesity due to excess calories] 04-21-2021 Chronic Other nutritional; endocrine; and metabolic disorders (20 sources) Body mass index 30+ - obesity; Translations: [Body mass index (BMI) 39.0-39.9, adult] 05-11-2018 Chronic Other nutritional; endocrine; and metabolic disorders (20 sources) Body mass index 40+ - severely obese; Translations: [Morbid (severe) obesity due to excess calories] 10-21-2020 Chronic Other nutritional; endocrine; and metabolic disorders (2 sources) Morbid (severe) obesity due to excess calories; Translations: [Morbid obesity] 09-15-2022 Chronic Other skin disorders (1 source) Dyshidrosis [pompholyx]; Translations: [Dyshidrosis] Episodic Pancreatic disorders (not diabetes) (15 sources) Acute pancreatitis; Translations: [Acute pancreatitis without necrosis or infection, unspecified] 08-22-2019 Episodic Pulmonary heart disease (20 sources) Pulmonary hypertension; Translations: [Pulmonary hypertension, unspecified] 02-19-2020 Chronic Rehabilitation care; fitting of prostheses; and adjustment of devices (1 source) Encounter for fitting and adjustment of other specified devices; Translations: [Encounter for fitting and adjustment of other specified devices] Onset: 11-08-2024 Chronic Residual codes; unclassified (18 sources) Obstructive sleep apnea syndrome; Translations: [Obstructive sleep apnea (adult) (pediatric)] 03-17-2023 Chronic Residual codes; unclassified (3 sources) Obstructive sleep apnea (adult) (pediatric); Translations: [Obstructive sleep apnea (adult)(pediatric)] Onset: 07-27-2025 10-06-2023 Chronic Residual codes; unclassified (15 sources) Insomnia; Translations: [Insomnia, unspecified] 10-22-2021 Episodic Residual codes; unclassified (15 sources) Postmenopausal state; Translations: [Asymptomatic menopausal state] 10-22-2021 Episodic Residual codes; unclassified (15 sources) Past history of procedure; Translations: [Other specified postprocedural states] 10-26-2019 Episodic Residual codes; unclassified (2 sources) Insomnia, unspecified; Translations: [Insomnia, unspecified] Episodic Respiratory failure; insufficiency; arrest (adult) (16 sources) Chronic respiratory failure; Translations: [Chronic respiratory failure, unspecified whether with hypoxia or hypercapnia] 08-05-2020 Chronic Sprains and strains (18 sources) Sprain of left knee; Translations: [Sprain of unspecified site of left knee, initial encounter] Onset: 08-13-2025 04-20-2025 Episodic Substance-related disorders (20 sources) Tobacco dependence syndrome; Translations: [Nicotine dependence, unspecified, uncomplicated] Onset: 10-02-2024 05-11-2018 Chronic Comment on above: LDCT 08/2025 Viral infection (15 sources) Disease caused by 2019-nCoV; Translations: [COVID-19] 10-22-2021 Episodic Past or Other Problems Problem Classification Problem Date Documented Date Episodic/Chronic Diabetes mellitus without complication (19 sources) Prediabetes; Translations: [Prediabetes] Onset: 08-16-2024 04-21-2021 Episodic Other connective tissue disease (1 source) Prepatellar bursitis, left knee; Translations: [Prepatellar bursitis, left knee] Onset: 05-03-2025 Episodic Other screening for suspected conditions (not mental disorders or infectious disease) (1 source) Encounter for screening mammogram for malignant neoplasm of breast; Translations: [Encounter for screening mammogram for malignant neoplasm of breast] Onset: 09-22-2024 Episodic Residual codes; unclassified (1 source) Asymptomatic menopausal state; Translations: [Asymptomatic menopausal state] Onset: 09-22-2024 Episodic Respiratory failure; insufficiency; arrest (adult) (15 sources) Respiratory failure; insufficiency; arrest (adult) 06-22-2022 Superficial injury; contusion (20 sources) Contusion of left knee; Translations: [Contusion of left knee, initial encounter] Onset: 04-13-2025 04-13-2025 Episodic Comment on above: Patellar splinter wa s cleansed with normal saline and water. A foam dressing was applied to the skin tear site and secured with Vito wrap without compression. A hinged knee brace was fitted and adjusted for this provider with good fit and support. Distal motor sensor intact with brisk cap refill at 2 seconds. Positive good support with weightbearing with the brace Unclassified (15 sources) history of right hand surgery 10-26-2019 Results Test Name Value Interpretation Reference Range Facility Orthopedic Visit Reporton Orthopedic Visit Report [facility] [address] [place] [address] OFFICE VISIT Date of Service: 08/10/25 MR#: [id number] Acct: [id number] Name: DANIEL BURTON Rep #: [id number] : 1960 Provider: Dr. Sean arana DO Age/Sex: 64/F Location: [facility] Status: Signed Intake Vital Signs 07/06/25 08:08 Height 5 ft 9 in Weight: 243 lb BMI 35.9 Intake Visit Reasons: LEFT KNEE Chief Complaint: Left Knee MRI Review Accompanied by: Is patient in pain?: Yes Pain scale (1-10): 4 Allergies Latex, Natural Rubber Allergy (Severe, Verified 08/10/25 11:18) Hives Penicillins Allergy (Severe, Verified 08/10/25 11:18) Anaphylaxis Sulfa (Sulfonamide Antibiotics) Allergy (Verified 08/10/25 11:18) Cannot remember tetanus and diphtheria toxoids Allergy (Verified 08/10/25 11:18) Swelling Medications ???Medication ???Instructions ???Recorded ???Confirmed ???Type acetaminophen 325 mg tablet 650 mg (2 x 325 mg) PO Q6H PRN PRN 08/27/19 08/10/25 Rx Pain Score 1-3/Temp > 100.7 F hydrocortisone acetate 25 mg 25 mg ID DAILY PRN hemmorroids 12/2108/10/25 History rectal suppository albuterol sulfate 90 mcg/actuation 2 puff inhalation Q4H PRN 08/10/25 Rx aerosol inhaler shortness of breath or wheezing #1 device buprenorphine 5 mcg/hour weekly 1 patch topical QWEEK 08/16/2404/27 History transdermal patch (Butrans) bupropion HCl 200 mg tablet,12 hr 200 mg PO BID mood #180 ea 08/10/25 Rx sustained-release cetirizine 10 mg tablet 10 mg PO DAILY PRN allergy 5 08/10/25 Rx symptoms #90 tabs famotidine 20 mg tablet 20 mg PO DAILY #90 TABLETS 5 08/10/25 Rx fluoxetine 20 mg capsule 20 mg PO DAILY #90 caps 04/30/25 1 10/10/24 Rx budesonide-formoterol HFA 160 2 puff inhalation BID #3 ea 08/10/25 Rx mcg-4.5 mcg/actuation aerosol inhaler (Symbicort) fluticasone propionate 50 2 spray intranasal DAILY #16 grams 05/01/25 08/10/25 Rx mcg/actuation nasal spray,suspension potassium chloride 10 mEq 10 meq PO BID #180 caps 05/29/25 1 10/10/24 Rx capsule,extended release tiotropium bromide 2.5 2 puff inhalation QDAY #3 ea 06/1808/10/25 Rx mcg/actuation mist for inhalation (Spiriva Respimat) trazodone 100 mg tablet 100 mg PO QHS PRN insomnia 3 06/2508/10/25 Rx months #90 tabs furosemide 20 mg tablet 20 mg PO BID #180 tabs 07/09/25 Rx BIPAP -Bilevel Positive Airway 07/10/25 07/10/25 History Pressure ([facility] INFORMATIONAL USE ONLY) Disability Placard #1 ea 07/18/25 Rx COUNTS INCLUDE 234 BEDS AT THE [facility] Medical History Obesity (BMI 30-39.9) Hyperlipidemia LLQ abdominal pain Health care maintenance Marijuana use Kidney disease Former smoker BiPAP (biphasic positive airway pressure) dependence Encounter for incision and drainage procedure Change in skin mole Abdominal pannus Post-menopausal Anxiety and depression Insomnia COVID-19 History of COVID-19 Flu vaccine need Hypertension Morbid obesity Borderline type 2 diabetes mellitus Anemia Acute hypoxic respiratory failure COPD exacerbation Normal colonoscopy History of pneumonia Chronic bronchitis COPD (chronic obstructive pulmonary disease) Frequent headaches IBS (irritable bowel syndrome) Asthma Surgical History History of lung surgery History of removal of cyst history of right hand surgery History of tonsillectomy History of breast biopsy Family History Other Adopted Social History household members: spouse housing: house Smoking Status: Former smoker Tobacco: How many years used: 42 how long ago did patient quit smokin second hand exposure: Yes quit status: has quit before alcohol intake: never substance use type: marijuana caffeine: Yes what type of physical activity do you participate in: walking seatbelt use: never do you feel safe at home: Yes additional social history: Jg- disability HPI LEFT KNEE Details: This documentation accurately reflects the service provided and the decisions made by me, Dr. Sean Jacobson, DO 08/10/25 0800. Part of today???s visit was documented by Noelle Arzate ATC, acting as scribe. DANIEL BURTON is a 64 year old F here today for left knee MRI review. Patient states this happened on April 21 and she went into a store to grab a few things and she slipped and fell on liquid and landed on the knee. She states the pain did not kick in right away but when she walked out of the store and got into the car she noticed the knee. She did have abrasions on the (more content not included)... Normal [facility] Lower Ext Joint Only (Routin e)on 08-03-2025 Lower Ext Joint Only (Routine) [facility] [address] [place], [place] [id number] Lower Ext Joint Only (Routine) MR#: [id number] Acct: [id number] Name: DANIEL BURTON Rep #: [id number] : 1960 F 64 From: Prasad Faustin MD PCP: Dr. Chino Encinas MD Status: REG CLI Study: Lower Ext Joint Only (Routine) Date of Exam: 1 Exam# [id number] Ordering Dr: Michelle Yun CUSTOMER SERVICE ENGINEER-C PROCEDURE: LOWER EXT JOINT ONLY (ROUTINE) 08/03/2025 REASON FOR EXAM: INTERNAL DERANGEMENT KNEE AFTER INJ April TECHNIQUE: Procedure Code: MRILEJ Modality: MR Procedure: LOWER EXT JOINT ONLY (ROUTINE) T1, T2, PD multiplanar and multisequence images were obtained of the left knee without IV contrast administration. COMPARISON: COMPARISON : None FINDINGS: Bone Marrow: There is severe chondromalacia with associated subcortical cyst formation in the central portion of the medial and lateral patellar facet. There is no bony contusion or occult fracture. Cruciate ligaments: There is a edema and attenuation in the distal 3rd of the anterior cruciate ligament without laxity, grade 2 sprain. The posterior cruciate appears intact. Collateral ligaments: The medial collateral ligament appears intact. The lateral collateral ligament complex appears intact. Menisci: There is no tear in the medial or lateral meniscus. Effusion: There is a small joint effusion. There is a 3.4 x 0.8 cm Matos's cyst. Soft Tissues: The distal quadriceps and patellar tendons appear intact. There is a 0.35 cm full-thickness cartilage defect in the medial femoral condyle. MRI/Lower Ext Joint Only (Routine) IMPRESSION: There is severe chondromalacia with associated subcortical cyst formation in the central portion of the medial and lateral patellar facet. There is a edema and attenuation in the distal 3rd of the anterior cruciate ligament without laxity, grade 2 sprain. There is a 3.4 x 0.8 cm Matos's cyst. There is a small joint effusion. There is a 0.35 cm full-thickness cartilage defect in the medial femoral condyle. Reading Location: [facility] CC: JIL Yun; Dr. Chino Encinas MD Patient Relations Liaison: Signed Normal [facility] Orthopedic Visit Reporton Orthopedic Visit Report [facility] [address] [place] [address] OFFICE VISIT Date of Service: 07/06/25 MR#: [id number] Acct: [id number] Name: DANIEL BURTON Rep #: [id number] : 1960 Provider: JIL yuan Age/Sex: 64/F Location: [facility].CANDIDO Status: Signed Intake Vital Signs 04/20/25 09:14 06/18/25 08:22 07/06/25 08:08 Height 5 ft 9 in 5 ft 9 in 5 ft 9 in Weight: 241 lb 243 lb BMI 35.6 35.9 BP 129/75 H Blood Pressure Location Rt brachial Position Sitting Respiration 18 Pulse 59 L Pulse Source Monitor Temp 97.4 F L Pulse Oximetry (%) 97 Oxygen Delivery Method room air Intake Visit Reasons: LEFT KNEE Accompanied by: Self Is patient in pain?: Yes (left knee) Pain scale (1-10): 6 Allergies Latex, Natural Rubber Allergy (Severe, Verified 07/06/25 08:09) Hives Penicillins Allergy (Severe, Verified 07/06/25 08:09) Anaphylaxis Sulfa (Sulfonamide Antibiotics) Allergy (Verified 07/06/25 08:09) Cannot remember tetanus and diphtheria toxoids Allergy (Verified 07/06/25 08:09) Swelling Medications ???Medication ???Instructions ???Recorded ???Confirmed ???Type acetaminophen 325 mg tablet 650 mg (2 x 325 mg) PO Q6H PRN PRN 08/27/19 07/06/25 Rx Pain Score 1-3/Temp > 100.7 F hydrocortisone acetate 25 mg 25 mg ID DAILY PRN hemmorroids 12/2107/06/25 History rectal suppository Disability Placard #1 ea 08/05/20 07/06/25 Rx albuterol sulfate 90 mcg/actuation 2 puff inhalation Q4H PRN 07/06/25 Rx aerosol inhaler shortness of breath or wheezing #1 device buprenorphine 5 mcg/hour weekly 1 patch topical QWEEK 08/16/2412/26 History transdermal patch (Butrans) bupropion HCl 200 mg tablet,12 hr 200 mg PO BID mood #180 ea 07/06/25 Rx sustained-release furosemide 20 mg tablet 20 mg PO BID #180 tabs 01/09/25 Rx cholecalciferol (vitamin D3) 1,250 1,250 mcg PO QWEEK #14 caps 02/0107/06/25 Rx mcg (50,000 unit) capsule cetirizine 10 mg tablet 10 mg PO DAILY PRN allergy 5 07/06/25 Rx symptoms #90 tabs famotidine 20 mg tablet 20 mg PO DAILY #90 TABLETS 5 07/06/25 Rx fluoxetine 20 mg capsule 20 mg PO DAILY #90 caps 04/30/25 1 Rx budesonide-formoterol HFA 160 2 puff inhalation BID #3 ea 07/06/25 Rx mcg-4.5 mcg/actuation aerosol inhaler (Symbicort) fluticasone propionate 50 2 spray intranasal DAILY #16 grams 05/01/25 07/06/25 Rx mcg/actuation nasal spray,suspension potassium chloride 10 mEq 10 meq PO BID #180 caps 05/29/25 1 Rx capsule,extended release tiotropium bromide 2.5 2 puff inhalation QDAY #3 ea 06/1807/06/25 Rx mcg/actuation mist for inhalation (Spiriva Respimat) trazodone 100 mg tablet 100 mg PO QHS PRN insomnia 3 06/2507/06/25 Rx months #90 tabs PFSH Medical History Obesity (BMI 30-39.9) Hyperlipidemia LLQ abdominal pain Health care maintenance Marijuana use Kidney disease Former smoker BiPAP (biphasic positive airway pressure) dependence Encounter for incision and drainage procedure Change in skin mole Abdominal pannus Post-menopausal Anxiety and depression Insomnia COVID-19 History of COVID-19 Flu vaccine need Hypertension Morbid obesity Borderline type 2 diabetes mellitus Anemia Acute hypoxic respiratory failure COPD exacerbation Normal colonoscopy History of pneumonia Chronic bronchitis COPD (chronic obstructive pulmonary disease) Frequent headaches IBS (irritable bowel syndrome) Asthma Surgical History History of lung surgery History of removal of cyst history of right hand surgery History of tonsillectomy History of breast biopsy Family History Other Adopted Social History household members: spouse housing: house Smoking Status: Former smoker Tobacco: How many years used: 42 how long ago did patient quit smokin second hand exposure: Yes quit status: has quit before alcohol intake: never substance use type: marijuana caffeine: Yes what type of physical activity do you participate in: walking seatbelt use: never do you feel safe at home: Yes additional social history: Jg- disability HPI LEFT KNEE Details: This documentation accurately reflects the service provided and the decisions made by me, FRANKY OrtizC 07/06/25 0805. Part of today???s visit was documented by [ ], acting as scribe. DANIEL BURTON is a 64 year old F here today for continued left knee pain unchanged. Denies new injuries. Continues (more content not included)... Normal [facility] Pulmonary Visit Reporton Pulmonary Visit Report [facility] [place] [address] [place], [place] [id number] OFFICE VISIT Date of Service: 06/18/25 MR#: [id number] Acct: [id number] Name: DANIEL BURTON Rep #: [id number] : 1960 Provider: JIL Lund Age/Sex: 64/F Location: [facility].PMW Status: Signed Assessment and Plan Assessment and Plan (1) COPD (chronic obstructive pulmonary disease): Status: Chronic Qualifiers: COPD type: unspecified COPD Qualified Code(s): J44.9 - Chronic obstructive pulmonary disease, unspecified Plan: Stable, she does not appear to be an exacerbation of COPD today. No need for prednisone or antibiotic. Continue current maintenance medication, symptomatically controlled on triple therapy with use of Symbicort and Spiriva. No additional testing at this time. Contact the office for any new or worsening symptoms. An acute visit and typically be arranged within 1-2 days. Annual influenza vaccination provided today. Follow-up in 6 months. (2) SIM (obstructive sleep apnea): Status: Chronic Plan: Deteriorated, she is using and benefiting from Pap therapy, but compliance is less than optimal because the patient experiences a line of sores develops at the back of my head where the headgear rubs. No indication for titration study at this time. Sending her to PAP education to be evaluated for an alternative headgear. Contact the office for any new or worsening symptoms in the meantime. Follow-up in 6 months. (3) Smoking greater than 40 pack years: Status: Chronic Comment: LDCT 08/2025 Plan: Encourage ongoing smoking cessation. She remains appropriate for LDCT which will be due in August 2025, ordered previously. Follow-up in September to discuss test results. (4) Pulmonary hypertension: Status: Chronic Plan: Symptomatically stable. No additional testing at this time. (5) Morbid obesity with BMI of 45.0-49.9, adult: Status: Chronic Plan: Improving. Complicates exam, plan, care and prognosis. Continue to encourage healthy weight loss. Orders: Orders Self Mgmnt Educ Training 07/03/25 G47.33 - Obstructive sleep apnea (adult) (pediatric) Influenza Immunization Today Z23 - Encounter for immunization Medications: Refilled tiotropium bromide 2.5 mcg/actuation (Spiriva Respimat) administer at approximately the same time(s) each day 2 puffs inhalation QDAY 3 ea 3RF J44.9 - Chronic obstructive pulmonary disease, unspecified Plan Details Additional Comments: This note was generated with LogFire dictation software. It may contain incorrect words, spelling, and punctuation that were not noted in checking the note before signing. Follow Up: 09/03/25 HPI 6 M FU Chief Complaint: Routine follow-up HPI Comments Details: This patient presents to the office today for routine follow-up of her asthma complicated by obstructive sleep apnea. She is ambulatory with a right knee immobilizer on and on room air. She has not recently been seen in the ED or urgent care for any respiratory illness. She has not required any antibiotics or prednisone for any breathing problems. She is compliant with the use of Symbicort 2 puffs twice daily. She does report taking a drink of water after each use. She denies any medication side effect such as sore throat or thrush. She is also compliant with Flonase and Spiriva daily. She has not required the use of her albuterol rescue inhaler recently. She continues to smoke marijuana. If you recall, she quit smoking cigarettes back in 2019. She does have a greater than [id number] smoking history. She does have shortness of breath on exertion. She denies any cough, sputum production or hemoptysis. She denies any wheezing, chest tightness, chest pain or palpitations. She has not had any fever, chills or body aches. She wakes up feeling rested and refreshed with use of her Pap device. She explains that she has not been wearing it as frequently because she has developed a line of sores that has developed where the headgear rubs the back of her neck. She believes that this would be avoided if she was able to get headgear replaced more frequently. She admits to naps. She is not nodding off to sleep unintentionally. She denies any difficulty with nocturia. She is not having morning headaches or difficulty with dry mouth. Compliance report for the past 30 days shows 37 % compliance with average use of 8 hours and 3 minutes per night. Current setting is 19/15 cmH2O with residual AHI 0.5 events per hour. Leaks do not appear to be problematic. Intake Vital Signs 12/08/24 08:09 06/18/25 08:22 Height 5 ft 9 in 5 ft 9 in Weight: 241 lb BMI 35.6 BP 129/75 H Blood Pressure Location Rt brachial Position Sitting Respiration 18 Pulse 59 L Pulse Source Monitor Temp 97.4 F L Temperature S (more content not included)... Normal [facility] Orthopedic Visit Reporton Orthopedic Visit Report [facility] [address] [place] [address] [address] [place] [address] OFFICE VISIT Date of Service: 06/01/25 MR#: [id number] Acct: [id number] Name: DANIEL BURTON Rep #: [id number] : 1960 Provider: JIL yuan Age/Sex: 64/F Location: [facility] Status: Signed Intake Vital Signs 04/20/25 09:14 Height 5 ft 9 in Intake Visit Reasons: LEFT KNEE Chief Complaint: 4 week f/u Is patient in pain?: Yes Pain scale (1-10): 4 Allergies Latex, Natural Rubber Allergy (Severe, Verified 06/01/25 08:09) Hives Penicillins Allergy (Severe, Verified 06/01/25 08:09) Anaphylaxis Sulfa (Sulfonamide Antibiotics) Allergy (Verified 06/01/25 08:09) Cannot remember tetanus and diphtheria toxoids Allergy (Verified 06/01/25 08:09) Swelling Medications ???Medication ???Instructions ???Recorded ???Confirmed ???Type acetaminophen 325 mg tablet 650 mg (2 x 325 mg) PO Q6H PRN PRN 08/27/19 06/01/25 Rx Pain Score 1-3/Temp > 100.7 F hydrocortisone acetate 25 mg 25 mg ID DAILY PRN hemmorroids 12/2106/01/25 History rectal suppository Disability Placard #1 ea 08/05/20 06/01/25 Rx albuterol sulfate 90 mcg/actuation 2 puff inhalation Q4H PRN 06/01/25 Rx aerosol inhaler shortness of breath or wheezing #1 device buprenorphine 5 mcg/hour weekly 1 patch topical QWEEK 08/16/24 History transdermal patch (Butrans) tiotropium bromide 2.5 2 puff inhalation QDAY #1 ea 10/2706/01/25 Rx mcg/actuation mist for inhalation (Spiriva Respimat) bupropion HCl 200 mg tablet,12 hr 200 mg PO BID mood #180 ea 06/01/25 Rx sustained-release trazodone 100 mg tablet 100 mg PO QHS PRN insomnia 3 12/2006/01/25 Rx months #90 tabs furosemide 20 mg tablet 20 mg PO BID #180 tabs 01/09/25 Rx cholecalciferol (vitamin D3) 1,250 1,250 mcg PO QWEEK #14 caps 02/0106/01/25 Rx mcg (50,000 unit) capsule cetirizine 10 mg tablet 10 mg PO DAILY PRN allergy 5 06/01/25 Rx symptoms #90 tabs famotidine 20 mg tablet 20 mg PO DAILY #90 TABLETS 5 06/01/25 Rx fluoxetine 20 mg capsule 20 mg PO DAILY #90 caps 04/30/25 0 06/01/25 Rx budesonide-formoterol HFA 160 2 puff inhalation BID #3 ea 06/01/25 Rx mcg-4.5 mcg/actuation aerosol inhaler (Symbicort) fluticasone propionate 50 2 spray intranasal DAILY #16 grams 05/01/25 06/01/25 Rx mcg/actuation nasal spray,suspension potassium chloride 10 mEq 10 meq PO BID #180 caps 05/29/25 0 06/01/25 Rx capsule,extended release PFSH Medical History Obesity (BMI 30-39.9) Hyperlipidemia LLQ abdominal pain Health care maintenance Marijuana use Kidney disease Former smoker BiPAP (biphasic positive airway pressure) dependence Encounter for incision and drainage procedure Change in skin mole Abdominal pannus Post-menopausal Anxiety and depression Insomnia COVID-19 History of COVID-19 Flu vaccine need Hypertension Morbid obesity Borderline type 2 diabetes mellitus Anemia Acute hypoxic respiratory failure COPD exacerbation Normal colonoscopy History of pneumonia Chronic bronchitis COPD (chronic obstructive pulmonary disease) Frequent headaches IBS (irritable bowel syndrome) Asthma Surgical History History of lung surgery History of removal of cyst history of right hand surgery History of tonsillectomy History of breast biopsy Family History Other Adopted Social History household members: spouse housing: house Smoking Status: Former smoker Tobacco: How many years used: 42 how long ago did patient quit smokin second hand exposure: Yes quit status: has quit before alcohol intake: never substance use type: marijuana caffeine: Yes what type of physical activity do you participate in: walking seatbelt use: never do you feel safe at home: Yes additional social history: Jg- danitza HPI LEFT KNEE Details: This documentation accurately reflects the service provided and the decisions made by me, Michelle Yun NP-C 06/01/25 0804. Part of today???s visit was documented by Hattie SALDIVAR, acting as scribe. DANIEL BURTON is a 64 year old F here today for 4 week f/u left knee. Patient states that the knee is doing better but is still mildly painful. She rates her pain today a 4/10. The steroid injection that she received at her last visit was helpful and did take away some of the pain. She has been doing the AAOS exercises at home. She is taking Tylenol for pain. Agree with above. At least 50%+ improvement since cortisone (more content not included)... Normal [facility] Knee 3 Viewson 05-03-2025 Knee 3 Views [facility] [address] [place], [place] [id number] Knee 3 Views MR#: [id number] Acct: [id number] Name: DANIEL BURTON Rep #: [id number] : 1960 F 64 From: Chet Reyes MD PCP: Dr. Chino Encinas MD Status: DEP AMB Study: Knee 3 Views Date of Exam: 05/03/25 Exam# [id number] Ordering Dr: Michelle Yun CUSTOMER SERVICE ENGINEER-C PROCEDURE: KNEE 3 VIEWS 05/03/2025 REASON FOR EXAM: KNEE INJ F/U TECHNIQUE: KNEE 3 VIEWS COMPARISON: 04/13/2025 FINDINGS: Bones: No fracture or suspicious osseous lesion Joints: Mild patellofemoral joint space narrowing. Medial and lateral joint spaces well-preserved Effusion: No joint effusion, there is soft tissue swelling anterior to the patella suggesting hematoma RAD/Knee 3 Views IMPRESSION: Soft tissue swelling anterior to the patella suggesting hematoma No demonstrated fracture Mild patellofemoral joint space narrowing Reading Location: [id number] CC: JIL Yun; Dr. Chino Encinas MD Patient Relations Liaison: Signed Normal [facility] Orthopedic Visit Reporton Orthopedic Visit Report [facility] [address] [place] [address] [address] [place] [address] OFFICE VISIT Date of Service: 05/03/25 MR#: [id number] Acct: [id number] Name: DANIEL BURTON Rep #: [id number] : 1960 Provider: JIL yuan Age/Sex: 64/F Location: [facility] Status: Signed Intake Vital Signs 3 04/20/25 09:14 Height 5 ft 9 in Intake Visit Reasons: LEFT KNEE Chief Complaint: 2 week follow-up Accompanied by: Is patient in pain?: Yes Pain scale (1-10): 5 Allergies Latex, Natural Rubber Allergy (Severe, Verified 05/03/25 08:08) Hives Penicillins Allergy (Severe, Verified 05/03/25 08:08) Anaphylaxis Sulfa (Sulfonamide Antibiotics) Allergy (Verified 05/03/25 08:08) Cannot remember tetanus and diphtheria toxoids Allergy (Verified 05/03/25 08:08) Swelling Medications 3 ???Medication ???Instructions ???Recorded ???Confirmed ???Type acetaminophen 325 mg tablet 650 mg (2 x 325 mg) PO Q6H PRN PRN 08/27/19 05/03/25 Rx Pain Score 1-3/Temp > 100.7 F hydrocortisone acetate 25 mg 25 mg ID DAILY PRN hemmorroids 12/2105/03/25 History rectal suppository Disability Placard #1 ea 08/05/20 04/20/25 Rx albuterol sulfate 90 mcg/actuation 2 puff inhalation Q4H PRN 05/03/25 Rx aerosol inhaler shortness of breath or wheezing #1 device potassium chloride 10 mEq 10 meq PO BID #180 caps 05/22/24 0 05/03/25 Rx capsule,extended release buprenorphine 5 mcg/hour weekly 1 patch topical QWEEK 08/16/24 History transdermal patch (Butrans) tiotropium bromide 2.5 2 puff inhalation QDAY #1 ea 10/2705/03/25 Rx mcg/actuation mist for inhalation (Spiriva Respimat) bupropion HCl 200 mg tablet,12 hr 200 mg PO BID mood #180 ea 05/03/25 Rx sustained-release trazodone 100 mg tablet 100 mg PO QHS PRN insomnia 3 12/2005/03/25 Rx months #90 tabs furosemide 20 mg tablet 20 mg PO BID #180 tabs 01/09/25 Rx cholecalciferol (vitamin D3) 1,250 1,250 mcg PO QWEEK #14 caps 02/0105/03/25 Rx mcg (50,000 unit) capsule cetirizine 10 mg tablet 10 mg PO DAILY PRN allergy 5 05/03/25 Rx symptoms #90 tabs famotidine 20 mg tablet 20 mg PO DAILY #90 TABLETS 5 05/03/25 Rx fluoxetine 20 mg capsule 20 mg PO DAILY #90 caps 04/30/25 0 05/03/25 Rx budesonide-formoterol HFA 160 2 puff inhalation BID #3 ea 05/03/25 Rx mcg-4.5 mcg/actuation aerosol inhaler (Symbicort) fluticasone propionate 50 2 spray intranasal DAILY #16 grams 05/01/25 05/03/25 Rx mcg/actuation nasal spray,suspension COUNTS INCLUDE 234 BEDS AT [facility] Medical History Obesity (BMI 30-39.9) Hyperlipidemia LLQ abdominal pain Health care maintenance Marijuana use Kidney disease Former smoker BiPAP (biphasic positive airway pressure) dependence Encounter for incision and drainage procedure Change in skin mole Abdominal pannus Post-menopausal Anxiety and depression Insomnia COVID-19 History of COVID-19 Flu vaccine need Hypertension Morbid obesity Borderline type 2 diabetes mellitus Anemia Acute hypoxic respiratory failure COPD exacerbation Normal colonoscopy History of pneumonia Chronic bronchitis COPD (chronic obstructive pulmonary disease) Frequent headaches IBS (irritable bowel syndrome) Asthma Surgical History History of lung surgery History of removal of cyst history of right hand surgery History of tonsillectomy History of breast biopsy Family History Other Adopted Social History household members: spouse housing: house Smoking Status: Former smoker Tobacco: How many years used: 42 how long ago did patient quit smokin second hand exposure: Yes quit status: has quit before alcohol intake: never substance use type: marijuana caffeine: Yes what type of physical activity do you participate in: walking seatbelt use: never do you feel safe at home: Yes additional social history: Jg- disability HPI LEFT KNEE Details: This documentation accurately reflects the service provided and the decisions made by me, JIL Ortiz 05/03/25 0801. Part of today???s visit was documented by Noelle Arzate ATC, acting as scribe. DANIEL BURTON is a 64 year old F here today for left knee follow-up. Patient rates her pain today a 5/10 and states it is mainly over the anterior patella. She states the knee feels like it throbs and [place]. She states the wound that was present on the knee finally stopped bleeding on Wednesday. She continues to wear the brace and states it does give her support and helps her but at (more content not included)... Normal [facility] Orthopedic Visit Reporton Orthopedic Visit Report [facility] [address] [place] [address] OFFICE VISIT Date of Service: 04/20/25 MR#: [id number] Acct: [id number] Name: DANIEL BURTON Rep #: [id number] : 1960 Provider: JIL yuan Age/Sex: 64/F Location: [facility] Status: Signed Intake Vital Signs 04/13/25 19:03 04/20/25 09:14 Height 5 ft 9 in 5 ft 9 in Weight: 235 lb BMI 34.7 Intake Visit Reasons: LEFT KNEE Chief Complaint: Left knee pain Accompanied by: Self Is patient in pain?: Yes Pain scale (1-10): 7 Allergies Latex, Natural Rubber Allergy (Severe, Verified 04/20/25 09:18) Hives Penicillins Allergy (Severe, Verified 04/20/25 09:18) Anaphylaxis Sulfa (Sulfonamide Antibiotics) Allergy (Verified 04/20/25 09:18) Cannot remember tetanus and diphtheria toxoids Allergy (Verified 04/20/25 09:18) Swelling Medications ???Medication ???Instructions ???Recorded ???Confirmed ???Type acetaminophen 325 mg tablet 650 mg (2 x 325 mg) PO Q6H PRN PRN 08/27/19 04/20/25 Rx Pain Score 1-3/Temp > 100.7 F hydrocortisone acetate 25 mg 25 mg ID DAILY PRN hemmorroids 12/2104/20/25 History rectal suppository Disability Placard #1 ea 08/05/20 04/20/25 Rx albuterol sulfate 90 mcg/actuation 2 puff inhalation Q4H PRN 04/20/25 Rx aerosol inhaler shortness of breath or wheezing #1 device famotidine 20 mg tablet 20 mg PO DAILY #90 TABLETS 12/26/ 4 04/20/25 Rx potassium chloride 10 mEq 10 meq PO BID #180 caps 05/22/24 0 04/20/25 Rx capsule,extended release fluticasone propionate 50 2 spray intranasal DAILY #16 grams 07/28/24 04/20/25 Rx mcg/actuation nasal spray,suspension buprenorphine 5 mcg/hour weekly 1 patch topical QWEEK 08/16/24 History transdermal patch (Butrans) tiotropium bromide 2.5 2 puff inhalation QDAY #1 ea 10/2704/20/25 Rx mcg/actuation mist for inhalation (Spiriva Respimat) fluoxetine 20 mg capsule 20 mg PO DAILY #90 caps 11/06/24 0 04/20/25 Rx bupropion HCl 200 mg tablet,12 hr 200 mg PO BID mood #180 ea 04/20/25 Rx sustained-release trazodone 100 mg tablet 100 mg PO QHS PRN insomnia 3 12/2004/20/25 Rx months #90 tabs furosemide 20 mg tablet 20 mg PO BID #180 tabs 01/09/25 Rx cholecalciferol (vitamin D3) 1,250 1,250 mcg PO QWEEK #14 caps 02/0104/20/25 Rx mcg (50,000 unit) capsule budesonide-formoterol HFA 160 2 puff inhalation BID #3 ea 04/20/25 Rx mcg-4.5 mcg/actuation aerosol inhaler (Symbicort) cetirizine 10 mg tablet 10 mg PO DAILY PRN allergy 5 04/20/25 Rx symptoms #90 tabs Have you fallen in the past year?: Yes PFSH Medical History Obesity (BMI 30-39.9) Hyperlipidemia LLQ abdominal pain Health care maintenance Marijuana use Kidney disease Former smoker BiPAP (biphasic positive airway pressure) dependence Encounter for incision and drainage procedure Change in skin mole Abdominal pannus Post-menopausal Anxiety and depression Insomnia COVID-19 History of COVID-19 Flu vaccine need Hypertension Morbid obesity Borderline type 2 diabetes mellitus Anemia Acute hypoxic respiratory failure COPD exacerbation Normal colonoscopy History of pneumonia Chronic bronchitis COPD (chronic obstructive pulmonary disease) Frequent headaches IBS (irritable bowel syndrome) Asthma Surgical History History of lung surgery History of removal of cyst history of right hand surgery History of tonsillectomy History of breast biopsy Family History Other Adopted Social History household members: spouse housing: house Smoking Status: Former smoker Tobacco: How many years used: 42 how long ago did patient quit smokin second hand exposure: Yes quit status: has quit before alcohol intake: never substance use type: marijuana caffeine: Yes what type of physical activity do you participate in: walking seatbelt use: never do you feel safe at home: Yes additional social history: Jg- disability HPI LEFT KNEE Details: This documentation accurately reflects the service provided and the decisions made by me, JIL Ortiz 04/20/25 0914. Part of today???s visit was documented by Savannah Mitchell MA, acting as scribe. DANIEL BURTON is a 64 year old F here today for left knee pain and swelling. This occurred after a twist and fall on a slippery surface on 04/13/2025. Describes the pain as sharp, throbbing and achy all the time. Positive swelling and bruising (more content not included)... Normal [facility] Emergency Department Summary on 04-13-2025 Emergency Department Summary [facility] Medical Records Department [address] [place] [address] Emergency Department Summary 04/13/25 MR#: [id number] Acct: [id number] Name: DANIEL BURTON Rep #: [id number] : 1960 64 From: Pasha Alvarenga MD PCP: Dr. Chino Encinas MD Status:DEP ER Location: ED HPI History of Present Illness Chief Complaint: Laceration Narrative Narrative: 64-year-old female slipped on a wet floor at a store and landed on her left knee causing a skin tear. This happened about 2 hours ago and she initially was able to walk on it but had significant pain and swelling which is limiting movement. There is also a small amount of bleeding from her right fourth toe but no pain. She denies head injury or LOC. She is not on blood thinners or antiplatelets. [facility] Medical History Obesity (BMI 30-39.9) Hyperlipidemia LLQ abdominal pain Health care maintenance Marijuana use Kidney disease Former smoker BiPAP (biphasic positive airway pressure) dependence Encounter for incision and drainage procedure Change in skin mole Abdominal pannus Post-menopausal Anxiety and depression Insomnia COVID-19 History of COVID-19 Flu vaccine need Hypertension Morbid obesity Borderline type 2 diabetes mellitus Anemia Acute hypoxic respiratory failure COPD exacerbation Normal colonoscopy History of pneumonia Chronic bronchitis COPD (chronic obstructive pulmonary disease) Frequent headaches IBS (irritable bowel syndrome) Asthma Home Medications ???Medication ???Instructions ???Recorded ???Last Taken ???Type acetaminophen 325 mg tablet 650 mg (2 x 325 mg) PO Q6H PRN PRN 08/27/19 Unknown Rx Pain Score 1-3/Temp > 100.7 F hydrocortisone acetate 25 mg 25 mg ID DAILY PRN hemmorroids 12/21 Unknown History rectal suppository Disability Placard #1 ea 08/05/20 Unknown Rx triamcinolone acetonide 0.1 % 1 applic topical BID PRN Skin 05/0 05/26 Unknown History topical cream Irritation albuterol sulfate 90 mcg/actuation 2 puff inhalation Q4H PRN Unknown Rx aerosol inhaler shortness of breath or wheezing #1 device famotidine 20 mg tablet 20 mg PO DAILY #90 TABLETS 4 Unknown Rx fenofibrate nanocrystallized 48 mg 48 mg PO DAILY #60 tabs 03/17/24 Unknown Rx tablet cetirizine 10 mg tablet 10 mg PO DAILY PRN allergy 4 Unknown Rx symptoms #90 tabs potassium chloride 10 mEq 10 meq PO BID #180 caps 05/22/24 U nknown Rx capsule,extended release fluticasone propionate 50 2 spray intranasal DAILY #16 grams 07/28/24 Unknown Rx mcg/actuation nasal spray,suspension buprenorphine 5 mcg/hour weekly 1 patch topical QWEEK 08/16/24 Unk nown History transdermal patch (Butrans) tiotropium bromide 2.5 2 puff inhalation QDAY #1 ea 10/27 Unknown Rx mcg/actuation mist for inhalation (Spiriva Respimat) fluoxetine 20 mg capsule 20 mg PO DAILY #90 caps 11/06/24 U nknown Rx bupropion HCl 200 mg tablet,12 hr 200 mg PO BID mood #180 ea Unknown Rx sustained-release trazodone 100 mg tablet 100 mg PO QHS PRN insomnia 3 12/20 Unknown Rx months #90 tabs furosemide 20 mg tablet 20 mg PO BID #180 tabs 01/09/25 Un known Rx cholecalciferol (vitamin D3) 1,250 1,250 mcg PO QWEEK #14 caps 02/01 01/26 Unknown Rx mcg (50,000 unit) capsule budesonide-formoterol HFA 160 2 puff inhalation BID #3 ea Unknown Rx mcg-4.5 mcg/actuation aerosol inhaler (Symbicort) hydrocodone-acetaminophe n 5-325mg 1 tab PO Q6H PRN pain 3 days #12 04/13/25 Unknown Rx 5mg-325mg tabs Allergy/AdvReac Type Severity Reaction Status Date / Time Latex, Natural Rubber Allergy Severe Hives Verified 04/13/25 19:04 Penicillins Allergy Severe Anaphylaxis Verified 04/13/25 19:04 Sulfa (Sulfonamide Allergy Cannot Verified 04/13/25 19:04 Antibiotics) remember tetanus and diphtheria Allergy Swelling Verified 04/13/25 19:04 toxoids Family History Other Adopted Surgical History History of lung surgery History of removal of cyst history of right hand surgery History of tonsillectomy History of breast biopsy Social History (Updated 04/13/25 @ 19:59 by Jade Coronado) household members: spouse housing: house Smoking Status: Former smoker Tobacco: How many years used: 42 how long ago did patient quit smokin second hand exposure: Yes quit status: has quit before alcohol intake: never substance use type: marijuana caffeine: Yes what type of physical activity do you participate in: walking seatbelt use: never do you feel safe at home: Yes additional social history: Jung fernández (more content not included)... Normal [facility] Knee 4 or More Viewson 04-13 Knee 4 or More Views [facility] [address] [place] [id number] Knee 4 or More Views MR#: [id number] Acct: [id number] Name: DANIEL BURTON Rep #: [id number] : 1960 F 64 From: Jeremías Melendez MD PCP: Dr. Chino Encinas MD Status: PRE ER Study: Knee 4 or More Views Date of Exam: 04/13/25 Exam# [id number] Ordering Dr: Gloria Berrios PROCEDURE: KNEE 4 OR MORE VIEWS 04/13/2025 REASON FOR EXAM: PAIN TECHNIQUE: KNEE 4 OR MORE VIEWS COMPARISON: 07/29/2020. FINDINGS: No evidence of acute fracture or dislocation. Mild degenerative changes of the knee. No knee joint effusion. Significant soft tissue thickening overlying the patella which may represent bursitis. RAD/Knee 4 or More Views IMPRESSION: Possible prepatellar bursitis. Reading Location: [id number] CC: Dr. Chino Encinas MD; MARY BETH Berger Patient Relations Liaison: Signed Normal [facility] Anion gap in Serum or Plasma Ordered By: Chino Encinas on 02-14-2025 Anion gap [Moles/Vol] 9 mmol/L - [facility] BUN/creatinine ratioOrdered By: Chino Encinas on 02-14-2025 Urea nitrogen/Creatinine [Mass ratio] 20.4 mg/mg High 10- [facility] Bilirubin, totalOrdered By: Chino Encinas on 02-14-2025 Bilirubin [Mass/Vol] 0.24 mg/dL 0.00-1.30 [facility] Calculated very low density lipoprotein (VLDL) cholesterol measurementOrdered By: Chino Encinas on 02-14-2025 Calculated very low density lipoprotein (VLDL) cholesterol measurement 27 mg/dL - [facility] Carbon dioxide, total [Moles /volume] in Central venous bloodOrdered By: Chino Encinas on 02-14-2025 CO2 [Moles/Vol] 23.8 mmol/L 21.0-32.0 [facility] Chloride assayOrdered By: Adonis Encinas on 02-14-2025 Chloride [Moles/Vol] 105 mmol/L 98-108 [facility] Comprehensive Metabolic Prof ilon 02-14-2025 Albumin [Mass/Vol] 4.0 g/dL Normal 3.4-4.8 [facility] Comment on above: Performed By: #### L 500.4050, L506.1001, L500.4100 #### [facility] [address] [place], [place], [id number] Albumin/Globulin [Mass ratio] 1.1 {ratio} Normal 0.9-2.4 [facility] Comment on above: Performed By: #### L 500.4050, L506.1001, L500.4100 #### [facility] [address] [place], [address] ALK PHOS 85 U/L Normal 35-104 [facility] Comment on above: Performed By: #### L 500.4050, L506.1001, L500.4100 #### [facility] [address] [place], [address] ALT [Catalytic activity/Vol] 11 U/L Normal <=34 [facility] Comment on above: Performed By: #### L 500.4050, L506.1001, L500.4100 #### [facility] [address] [place], [address] AST [Catalytic activity/Vol] 16 U/L Normal <=31 [facility] Comment on above: Performed By: #### L 500.4050, L506.1001, L500.4100 #### [facility] [address] [place], [address] Bilirubin [Mass/Vol] 0.24 mg/dL Normal 0.00-1.30 [facility] Comment on above: Performed By: #### L 500.4050, L506.1001, L500.4100 #### [facility] [address] [place], [address] BUN/CRE 20.4 RATIO High 10-20 [facility] Comment on above: Performed By: #### L 500.4050, L506.1001, L500.4100 #### [facility] [address] [place], [address] Calcium [Mass/Vol] 9.3 mg/dL Normal 7.6-11.0 [facility] Comment on above: Performed By: #### L 500.4050, L506.1001, L500.4100 #### [facility] [address] [place], [address] Chloride [Moles/Vol] 105 mmol/L Normal 98-108 [facility] Comment on above: Performed By: #### L 500.4050, L506.1001, L500.4100 #### [facility] [address] [place], [address] CO2 [Moles/Vol] 23.8 mmol/L Normal 21.0-32.0 [facility] Comment on above: Performed By: #### L 500.4050, L506.1001, L500.4100 #### [facility] [address] [place], [address] Creatinine [Mass/Vol] 1.09 mg/dL Normal 0.70-1.20 [facility] Comment on above: Performed By: #### L 500.4050, L506.1001, L500.4100 #### [facility] [address] [place], [address] GAP 9 Normal 5-15 [facility] Comment on above: Performed By: #### L 500.4050, L506.1001, L500.4100 #### [facility] [address] [place], [address] GFR/1.73 sq M.predicted among non-blacks MDRD (S/P/Bld) [Vol rate/Area] 57 mL/min/{1.73_m2} Low >60 [facility] Comment on above: Result Comment: mL/m in/1.73m2 CKD-EPI Creatinine Equation (2020) Performed By: #### L 500.4050, L506.1001, L500.4100 #### [facility] [address] [place], [address] Globulin (S) [Mass/Vol] 3.6 g/dL Normal 2.2-4.2 [facility] Comment on above: Performed By: #### L 500.4050, L506.1001, L500.4100 #### [facility] [address] [place], [address] Glucose [Mass/Vol] 88 mg/dL Normal 70-99 [facility] Comment on above: Performed By: #### L 500.4050, L506.1001, L500.4100 #### [facility] [address] [place], [address] Potassium [Moles/Vol] 4.4 mmol/L Normal 3.3-5.1 [facility] Comment on above: Performed By: #### L 500.4050, L506.1001, L500.4100 #### [facility] [address] [place], [address] Sodium [Moles/Vol] 138 mmol/L Normal 133-145 [facility] Comment on above: Performed By: #### L 500.4050, L506.1001, L500.4100 #### [facility] [address] [place], [address] T PROT 7.6 g/dL Normal 5.9-8.4 [facility] Comment on above: Performed By: #### L 500.4050, L506.1001, L500.4100 #### [facility] [address] [place], [address] Urea nitrogen [Mass/Vol] 22 mg/dL High 4-19 [facility] Comment on above: Performed By: #### L 500.4050, L506.1001, L500.4100 #### [facility] [address] [place], [address] Glomerular filtration rate ( GFR) estimation/1.73 sq m using serum, plasma, or whole bOrdered By: Chino Encinas on 02-14-2025 GFR/1.73 sq M.predicted among non-blacks MDRD (S/P/Bld) [Vol rate/Area] 57 mL/min/{1.73_m2} Low >60 [facility] Comment on above: mL/min/1.73m2 CKD-EP I Creatinine Equation (2020) Internal Medicine Office Vis laron 02-14-2025 Internal Medicine Office Visit [facility] [address] [place], [place] [address] OFFICE VISIT Date of Service: 02/14/25 MR#: [id number] Acct: [id number] Name: DANIEL BURTON Rep #: [id number] : 1960 Provider: Dr. Chino hooks MD Age/Sex: 64/F Location: [facility] Status: Signed Intake Vital Signs 12/08/24 08:09 02/14/25 12:55 Height 5 ft 9 in 5 ft 9 in Weight: 245 lb BMI 36.1 BP 138/80 H Blood Pressure Location Lt brachial Position Sitting Respiration 19 H Pulse 88 Pulse Source Monitor Temp 98.3 F Temp Source Temporal Pulse Oximetry (%) 91 Oxygen Delivery Method room air Intake Visit Reasons: 6 M FU Chief Complaint: 6 M FU Is patient in pain?: Yes (5 lower back ) Allergies Latex, Natural Rubber Allergy (Severe, Verified 02/14/25 12:50) Hives Penicillins Allergy (Severe, Verified 02/14/25 12:50) Anaphylaxis Sulfa (Sulfonamide Antibiotics) Allergy (Verified 02/14/25 12:50) Cannot remember tetanus and diphtheria toxoids Allergy (Verified 02/14/25 12:50) Swelling Medications ???Medication ???Instructions ???Recorded ???Confirmed ???Type acetaminophen 325 mg tablet 650 mg (2 x 325 mg) PO Q6H PRN PRN 08/27/19 02/14/25 Rx Pain Score 1-3/Temp > 100.7 F hydrocortisone acetate 25 mg 25 mg ID DAILY PRN hemmorroids 12/2102/14/25 History rectal suppository Disability Placard #1 ea 08/05/20 02/14/25 Rx triamcinolone acetonide 0.1 % 1 applic topical BID PRN Skin 05/2602/14/25 History topical cream Irritation albuterol sulfate 90 mcg/actuation 2 puff inhalation Q4H PRN 02/14/25 Rx aerosol inhaler shortness of breath or wheezing #1 device famotidine 20 mg tablet 20 mg PO DAILY #90 TABLETS 4 02/14/25 Rx budesonide-formoterol HFA 160 2 puff inhalation BID #3 ea 02/14/25 Rx mcg-4.5 mcg/actuation aerosol inhaler (Symbicort) fenofibrate nanocrystallized 48 mg 48 mg PO DAILY #60 tabs 03/17/24 02/14/25 Rx tablet cetirizine 10 mg tablet 10 mg PO DAILY PRN allergy 4 02/14/25 Rx symptoms #90 tabs potassium chloride 10 mEq 10 meq PO BID #180 caps 05/22/24 0 02/14/25 Rx capsule,extended release fluticasone propionate 50 2 spray intranasal DAILY #16 grams 07/28/24 02/14/25 Rx mcg/actuation nasal spray,suspension buprenorphine 5 mcg/hour weekly 1 patch topical QWEEK 08/16/24 History transdermal patch (Butrans) tiotropium bromide 2.5 2 puff inhalation QDAY #1 ea 10/2702/14/25 Rx mcg/actuation mist for inhalation (Spiriva Respimat) fluoxetine 20 mg capsule 20 mg PO DAILY #90 caps 11/06/24 0 02/14/25 Rx bupropion HCl 200 mg tablet,12 hr 200 mg PO BID mood #180 ea 02/14/25 Rx sustained-release trazodone 100 mg tablet 100 mg PO QHS PRN insomnia 3 12/2002/14/25 Rx months #90 tabs furosemide 20 mg tablet 20 mg PO BID #180 tabs 01/09/25 Rx Have you fallen in the past year?: Yes (x1) Nurse's Note: pt states she had one fall about 5 months ago. COUNTS INCLUDE 234 BEDS AT [facility] Medical History Obesity (BMI 30-39.9) Hyperlipidemia LLQ abdominal pain Health care maintenance Marijuana use Kidney disease Former smoker BiPAP (biphasic positive airway pressure) dependence Encounter for incision and drainage procedure Change in skin mole Abdominal pannus Post-menopausal Anxiety and depression Insomnia COVID-19 History of COVID-19 Flu vaccine need Hypertension Morbid obesity Borderline type 2 diabetes mellitus Anemia Acute hypoxic respiratory failure COPD exacerbation Normal colonoscopy History of pneumonia Chronic bronchitis COPD (chronic obstructive pulmonary disease) Frequent headaches IBS (irritable bowel syndrome) Asthma Surgical History History of lung surgery History of removal of cyst history of right hand surgery History of tonsillectomy History of breast biopsy Family History Other Adopted Social History Smoking Status: Former smoker Tobacco: How many years used: 42 how long ago did patient quit smokin second hand exposure: Yes quit status: has quit before alcohol intake: never substance use type: marijuana caffeine: Yes what type of physical activity do you participate in: walking seatbelt use: never do you feel safe at home: Yes additional social history: Jg- disability Female Reproductive History Menstrual Ab induced: 1 Questionnaire PQH-9 BMS Over the last 2 weeks, how often have you been bothered by any of the following problems? 1. Little interest or pleasure in doing thi (more content not included)... Normal [facility] LDL calc ser/plasOrdered By: Chino Encinas on 02-14-2025 Cholesterol in LDL [Mass/Vol] 95 mg/dL [facility] Comment on above: Yrfygbinqs=666-131 m g/dL & Higher Lxky=990 mg/dL or greater Laboratory - Chemistry and C hemistry - challengeOrdered By: Chino Encinas on 02-14-2025 AST [Catalytic activity/Vol] 16 U/L <32 [facility] Lipid Profileon 02-14-2025 CHOL:HDL 3.50 Normal [facility] Comment on above: Performed By: #### L 500.4050, L506.1001, L500.4100 ####[facility] [address] [place], [address] Cholesterol [Mass/Vol] 171 mg/dL Normal <=200 [facility] Comment on above: Result Comment: Chol esterol level, Desirable <200 mg/dL Borderline high cholesterol 200-239 mg/dL High cholesterol >=240 mg/dL Recommendations of the NCEP Adult Treatment Panel for the following risk-cutoff thresholds for the [place] population. Performed By: #### L 500.4050, L506.1001, L500.4100 ####[facility] [address] [place], [address] Cholesterol in HDL [Mass/Vol] 49 mg/dL Normal [facility] Comment on above: Result Comment: Patricia onal Cholesterol Education Program (NCEP) guidelines: <40 mg/dL: Low HDL-cholesterol (major risk factor for CHD) >= 60 mg/dL: High HDL-cholesterol (negative risk factor for CHD) HDL-cholesterol is affected by a number of factors, e.g. smoking, exercise, hormones, sex and age. Performed By: #### L 500.4050, L506.1001, L500.4100 ####[facility] [address] [place], [address] Cholesterol in LDL [Mass/Vol] 95 mg/dL Normal [facility] Comment on above: Result Comment: Bord rybnle=898-501 mg/dL Higher Swjh=587 mg/dL or greater Performed By: #### L 500.4050, L506.1001, L500.4100 ####[facility] [address] [place], [address] Cholesterol in VLDL [Mass/Vol] 27 mg/dL Normal 5-40 [facility] Comment on above: Performed By: #### L 500.4050, L506.1001, L500.4100 ####[facility] [address] [place], [address] Triglyceride [Mass/Vol] 134 mg/dL Normal [facility] Comment on above: Result Comment: The drugs N-Acetylcysteine and Metamizole may falsely depress this assay. Normal range: <150 mg/dL Borderline High: 150-199 mg/dL High: 200-499 mg/dL Very High: >500 mg/dL Performed By: #### L 500.4050, L506.1001, L500.4100 ####[facility] [address] [place], [address] Potassium measurement (mass/ volume)Ordered By: Chino Encinas on 02-14-2025 Potassium (Unsp spec) [Mass/Vol] 4.4 mmol/L 3.3-5.1 [facility] Screening total cholesterol/ high density lipoprotein (HDL) cholesterol ratioOrdered By: Chino Enicnas on 02-14-2025 Cholesterol.total/Chol esterol in HDL [Mass ratio] 3.50 {ratio} [facility] Serum creatinine measurement (mass/volume)Ordered By: Chino Encinas on 02-14-2025 Creatinine [Mass/Vol] 1.09 mg/dL 0.70-1.20 [facility] Serum globulin measurementOr dered By: Chino Encinas on 02-14-2025 Globulin (S) [Mass/Vol] 3.6 g/dL 2.2-4.2 [facility] Serum glucose measurement (m ass/volume)Ordered By: Chino Encinas on 02-14-2025 Glucose [Mass/Vol] 88 mg/dL 70-99 [facility] Serum or plasma alanine verma otransferase (ALT) measurementOrdered By: Chino Encinas on 02-14-2025 ALT [Catalytic activity/Vol] 11 U/L <35 [facility] Serum or plasma albumin anuel urement (mass/volume)Ordered By: Chino Encinas on 02-14-2025 Albumin [Mass/Vol] 4.0 g/dL 3.4-4.8 [facility] Serum or plasma albumin/glob ulin mass ratioOrdered By: Chino Encinas on 02-14-2025 Albumin/Globulin [Mass ratio] 1.1 {ratio} 0.9-2.4 [facility] Serum or plasma alkaline josh sphatase measurementOrdered By: Chino Encinas on 02-14-2025 ALP [Catalytic activity/Vol] 85 U/L 35-104 [facility] Serum or plasma calcium anuel urement (mass/volume)Ordered By: Chino Encinas on 02-14-2025 Calcium [Mass/Vol] 9.3 mg/dL 7.6-11.0 [facility] Serum or plasma cholesterol in HDL measurement (mass/volume)Ordered By: Chino Encinas on 02-14-2025 Cholesterol in HDL [Mass/Vol] 49 mg/dL >40 [facility] Comment on above: National Cholesterol Education Program (NCEP) guidelines:<40 mg/dL: Low HDL-cholesterol (major risk factor for CHD)>= 60 mg/dL: High HDL-cholesterol (negative risk factor for CHD)HDL-cholesterol is affected by a number of factors, e.g. smoking, exercise, hormones, sex and age. Serum or plasma cholesterol measurement (mass/volume)Ordered By: Chino Encinas on 02-14-2025 Cholesterol [Mass/Vol] 171 mg/dL <201 [facility] Comment on above: Cholesterol level, D esirable <200 mg/dLBorderline high cholesterol 200-239 mg/dLHigh cholesterol >=240 mg/dLRecommendations of the NCEP Adult Treatment Panel for the following risk-cutoff thresholds for the [place] population. Serum or plasma urea nitroge n measurement (mass/volume)Ordered By: Chino Encinas on 02-14-2025 Urea nitrogen [Mass/Vol] 22 mg/dL High 4-19 [facility] Sodium levelOrdered By: Yojana Encinas on 02-14-2025 Sodium [Moles/Vol] 138 mmol/L 133-145 [facility] Total proteinOrdered By: Cayetano Encinas on 02-14-2025 Protein [Mass/Vol] 7.6 g/dL 5.9-8.4 [facility] Triglycerides measurementOrd ered By: Chino Encinas on 02-14-2025 Triglyceride [Mass/Vol] 134 mg/dL <199 [facility] Comment on above: The drugs N-Acetylcy steine and Metamizole may falsely depress this assay. Normal range: <150 mg/dLBorderline High: 150-199 mg/dLHigh: 200-499 mg/dLVery High: >500 mg/dL Vitamin D,25 Hydroxyon 02-14 Vitamin D 25-OH 13.6 ng/mL Low 30-100 [facility] Comment on above: Result Comment: Estefany min D Status Deficiency: <20 ng/mL (50nmol/L) Insufficiency: 20-30 ng/mL (50-75 nmol/L) Sufficiency: 30-100 ng/mL (75-250 nmol/L) Toxicity: >100 ng/mL (>250 nmol/L) Performed By: #### L 500.4050, L506.1001, L500.4100 ####[facility] [address] [place], [address] Pulmonary Visit Reporton Pulmonary Visit Report [facility] [place] [address] [place] [address] OFFICE VISIT Date of Service: 12/08/24 MR#: [id number] Acct: [id number] Name: DANIEL BURTON Rep #: [id number] : 1960 Provider: JIL Lund Age/Sex: 64/F Location: [facility] Status: Signed Assessment and Plan Assessment and Plan (1) COPD (chronic obstructive pulmonary disease): Status: Chronic Qualifiers: COPD type: unspecified COPD Qualified Code(s): J44.9 - Chronic obstructive pulmonary disease, unspecified Plan: Stable, she does not appear to be an exacerbation of COPD today. No need for prednisone or antibiotic. Continue current maintenance medication, symptomatically controlled on triple therapy with use of Symbicort and Spiriva. No additional testing at this time. Contact the office for any new or worsening symptoms. An acute visit and typically be arranged within 1-2 days. Follow-up in 6 months. (2) SIM (obstructive sleep apnea): Status: Chronic Plan: She is using and benefiting from Pap therapy. No indication for titration study at this time. Contact the office for any new or worsening symptoms in the meantime. Follow-up in 6 months. (3) Smoking greater than 40 pack years: Status: Chronic Comment: LDCT 08/2025 Plan: Encourage ongoing smoking cessation. She remains appropriate for LDCT which will be due in August 2025, ordered previously. (4) Pulmonary hypertension: Status: Chronic Plan: Symptomatically stable. No additional testing at this time. (5) Morbid obesity with BMI of 45.0-49.9, adult: Status: Chronic Plan: Complicates exam, plan, care and prognosis. Continue to encourage healthy weight loss. HPI 3 M FU Chief Complaint: Routine follow-up HPI Comments Details: This patient presents to the office today for routine follow-up of her asthma complicated by obstructive sleep apnea and to discuss test results.. She is ambulatory and currently on room air. She has not recently been seen in the ED or urgent care for any respiratory illness. She has not required any antibiotics or prednisone for any breathing problems. She is compliant with the use of Symbicort 2 puffs twice daily. She does report taking a drink of water after each use. She denies any medication side effect such as sore throat or thrush. She is also compliant with Flonase and Spiriva daily. She has not required the use of her albuterol rescue inhaler recently. She continues to smoke marijuana. If you recall, she quit smoking cigarettes back in 2019. She does have a greater than 03-rgde-lfti smoking history. She does have shortness of breath on exertion. She has a cough that is productive of green-colored phlegm, but she denies any hemoptysis. She denies any wheezing, chest tightness, chest pain or palpitations. She has not had any fever, chills or body aches. She wakes up feeling rested and refreshed with use of her Pap device. She admits to naps. She is not nodding off to sleep unintentionally. She denies any difficulty with nocturia. She is not having morning headaches or difficulty with dry mouth. She reports that the machine is 5 years old. Compliance report for the past 30 days shows 100% compliance with average use of 8 hours and 12 minutes per night. Current setting is 19/15 cmH2O with residual AHI 0.5 events per hour. Leaks do not appear to be problematic. 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: [email or web address] Accompanied by: Self Is patient in pain?: No Allergies Latex, Natural Rubber Allergy (Severe, Verified 12/08/24 09:52) Hives Penicillins Allergy (Severe, Verified 12/08/24 09:52) Anaphylaxis Sulfa (Sulfonamide Antibiotics) Allergy (Verified 12/08/24 09:52) Cannot remember tetanus and diphtheria toxoids Allergy (Verified 12/08/24 09:52) Swelling Medications ???Medication ???Instructions ???Recorded ???Confirmed ???Type acetaminophen 325 mg tablet 650 mg (2 x 325 mg) PO Q6H PRN PRN 08/27/19 12/08/24 Rx Pain Score 1-3/Temp > 100.7 F hydrocortisone acetate 25 mg 25 mg ID DAILY PRN hemmorroids 12/2112/08/24 History rectal suppository Disability Placard #1 ea 08/05/20 12/08/24 Rx triamcinolone acetonide 0.1 % 1 applic topical BID PRN Skin 05/0 05/2612/08/24 History topical cream Irritation albuterol sulfate 90 mcg/actuation 2 puff inhalation Q4H PRN 12/08/24 Rx aerosol inhaler shortness of breath or wheezin (more content not included)... Normal [facility] Inital Evaluation (1) - PTon 11-10-2024 Inital Evaluation (1) - PT [facility] Physical Therapy [facility] [place] [address] / REHABILITATION SERVICES INITIAL EVALUATION MR#: [id number] Acct: [id number] Name: DANIEL BURTON Rep #: [id number] : 1960 63 From: Giovanni De Souza DPT, OCS, CSCS Referring Dr.: Dr. Jonathan Osullivan MD Status: REG RCR Insurance: [facility] SEL[employer] PAY INSURANCE Patient's Visit Information Visit Information Visit Information: DANIEL BURTON is a 63 year old F referred to Physical Therapy by Dr. Jonathan Osullivan MD with a diagnosis of Back pain, neck pain.. Date of Evaluation: 11/10/24 Physical Therapist: Giovanni De Souza, DPT, OCS, CSCS Visit Plan Frequency: 2x /Week Duration: 4-6 Weeks Plan: 2x/week for 4-6 for insturct adn progress aquatic ex for calori burn, core strength, UE/LE strength adn fluid dynamics adn work to I. Current exit stratgey is pool program I. HS stretch oriented to pool today. Subjective Subjective: LBP for years. Seeing Shi for 4 yrs and managing with spinal injections, epidurals. Meds. Pain is in LB central and out to B hips and B knees and sometimes L ankle. Not sure what makes it worse. X rays long time ago showed some OA. No previous therapy. Has lost weight and that helps 310 down to 240. worse with houseework but does not stop Activities : does not avoid, does laundry stepping down to basement but can do easier since she lost weight. Carrying ein gorceries but that makes her hurt. Not employed. Spends day taking care of , grandkids, housework, dog out, laundry. 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 No numbness or tingling Pain LBP: Pain Intensity (Out of 10): 3 Pain Intensity Range: 7 Comment: sitting can be worse as well as housework. Objective Objective: Walks I into PT I, steps reciprocally slowly but I without pain today. Trasnfers chair and bed I but slow until challenged. UE and LE AROM WFL adn without pain today. HS mod tight adn -30 90/90 reflexes 2/3 patella adn achilles adn bi and tri. Sensation UE adn LE WNL to gross slight touch. strength 3+/5 core abs and ext. LE strength hips 3+ and knees and ankles 5/5, shoudler 4 rotation and 4 flexion, elbows and wrists 5/5 Lumbar ROM ext adn flexion min limited. SB min limited. cervcical ext 45 adn rotation 60 B without pain. Balance/Special Test Scores Oswestry Low Back Score: 10 30 Second Chair Rise Test Seconds: 16 Goals Goal 1:: Pain in LB 3/10 at worst and 60%6 better overall. Goal Time Frame: 4-6 Weeks Goal 2:: I appropriate pool ex to help with pain and weight loss Goal Time Frame: 4-6 Weeks Goal 3:: Back oswestry4 or less Rehabilitation Potential Physical Therapy Diagnosis: weakness and inactivity effecting comfortable function. Rehabilitation Potential: Fair Anticipated Interventions Patient/Client Instruction: Educate patient on: Condition and Risk Factors For the Purpose of:: To decrease pain, To improve nutrient delivery to tissue and To improve muscle performance and motor function Therapeutic Exercise to Include: Strength training, Flexibilty training, In an aquatic setting, Passive ROM and Active ROM For the Purpose of:: To decrease pain, To increase ROM, To improve muscle performance and motor function, To increase tolerance to activity/condition/posit ion and To improve ability of physical actions for home/community/work/leis ure Text: Thank you for the opportunity to evaluate your patient. For Medicare and Medicare HMO plans, please review the plan of care and approve it. It will need to be FAXED BACK to us at [phone] for Medicare purposes. For Medicare only, by signing this I certify the plan of care. Please let me know if there are questions or concerns regarding this plan of care. Physician Signature: Date: ____ 11/10/24 1044 CC: Dr. Jonathan Osullivan MD; Dr. Chino Encinas MD EBG Signed Normal [facility] Respiratory Cultureon 2023 RESPC Mixed normal respira tory jimmy. No Streptococcus pneumoniae, beta-hemolytic Streptococcus or Staphylococcus aureus isolated. Normal [facility] Comment on above: Performed By: #### M 100.2000, M100.2400 ####[facility] [address] [place], [place], [id number] Gram Stainon 09-20-2024 GS Acceptable Specimen? Yes (<25 Epithelial cells per/lpf) Gram Stain 2+ White Blood Cells 2+ Gram positive cocci 1+ Gram negative rods Normal [facility] Comment on above: Performed By: #### M 100.2000, M100.2400 ####[facility] [address] [place], [place], [id number] Pulmonary Visit Reporton Pulmonary Visit Report [facility] [place] [address] [place] [address] OFFICE VISIT Date of Service: 09/20/24 MR#: [id number] Acct: [id number] Name: DANIEL BURTON Rep #: [id number] : 1960 Provider: JIL Lund Age/Sex: 63/F Location: [facility] Status: Signed Assessment and Plan Assessment and Plan (1) COPD (chronic obstructive pulmonary disease): Status: Chronic Qualifiers: COPD type: unspecified COPD Qualified Code(s): J44.9 - Chronic obstructive pulmonary disease, unspecified Plan: Unclear if she is in an exacerbation. She was able to provide a sputum for culture and sensitivity. I will hold off on ordering antibiotics until those results are final. She will be notified by phone of results and plan. No change in maintenance medications, she has been stable on triple therapy with the use of Symbicort and Spiriva. No additional testing at this time. Follow up in 3 months. Call the office with an new or worsening symptoms in the meantime. (2) SIM (obstructive sleep apnea): Status: Chronic Plan: She is using and benefiting from Pap therapy. No indication for titration study at this time. She is eligible for a new machine, ordered. Contact the office for any new or worsening symptoms in the meantime. Follow-up in 3 months. (3) Smoking greater than 40 pack years: Status: Chronic Comment: LDCT 08/2025 Plan: Encourage ongoing smoking cessation. She remains appropriate for LDCT which will be due in August 2025, ordered accordingly. (4) Pulmonary hypertension: Status: Chronic Plan: Symptomatically stable. No additional testing at this time. (5) Morbid obesity with BMI of 45.0-49.9, adult: Status: Chronic Plan: Improving. Continue to encourage healthy weight loss. Orders: Orders Low Dose CT Lung Screening 08/04/25 F17.200 - Nicotine dependence, unspecified, uncomplicated, F17.210 - Nicotine dependence, cigarettes, uncomplicated Culture, Sputum Today J44.9 - Chronic obstructive pulmonary disease, unspecified Plan Details Follow Up: 3 Months ([facility]) HPI 5 m fu Chief Complaint: cough HPI Comments Details: This patient presents to the office today for routine follow-up of her asthma complicated by obstructive sleep apnea and to discuss test results.. She is ambulatory and currently on room air. She has not recently been seen in the ED or urgent care for any respiratory illness. She has not required any antibiotics or prednisone for any breathing problems. She is compliant with the use of Symbicort 2 puffs twice daily. She does report taking a drink of water after each use. She denies any medication side effect such as sore throat or thrush. She is also compliant with Flonase and Spiriva daily. She has not required the use of her albuterol rescue inhaler recently. She continues to smoke marijuana. If you recall, she quit smoking cigarettes back in 2019. She does have a greater than 62-yngt-yvzh smoking history. She does have shortness of breath on exertion, it has not gotten worse. She denies any wheezing, chest tightness, chest pain or palpitations. She has a cough that is productive of green-colored phlegm. She denies any hemoptysis. She has not had any fever, chills or body aches. She wakes up feeling rested and refreshed with use of her Pap device. She admits to naps. She is not nodding off to sleep unintentionally. She denies any difficulty with nocturia. She is not having morning headaches or difficulty with dry mouth. She reports that the machine is 5 years old. Compliance report for the past 30 days shows 100% compliance with average use of 8 hours and 37 minutes per night. Current setting is 19/15 cmH2O with residual AHI 0.7 events per hour. Leaks do not appear to be problematic. Test results personally with patient: Low-dose CT lung screening completed on September 02, 2024. Noted is a 1.1 cm round nodule within the lingula that is unchanged since study completed on September 25, 2019. Recommendation is to repeat LDCT in 12 months. Intake Vital Signs 04/26/24 07:43 08/16/24 09:24 09/20/24 07:45 Height 5 ft 9 in 5 ft 9 in 5 ft 9 in Weight: 251 lb BMI 37.0 BP 136/77 H Blood Pressure Location Lt brachial Position Sitting Respiration 20 H Pulse 70 Pulse Source Monitor Temp 97.0 F L Temperature Source Temporal Artery Pulse Oximetry (%) 96 Oxygen Delivery Method room air Intake Visit Reasons: 5 m fu Foundry Engineer Required: No DME Vendor: [email or web address] Accompanied by: Self Is patient in pain?: No Allergies Latex, Natural Rubber Allergy (Severe, Verified 09/20/24 07:56) Hives Penicillins Allergy (Severe, Verified 09/20/24 07:56) Anaphylaxis Sulfa (Sulfonamide Antibiotics) Allergy (Verified 09/20/24 07:56) Cannot remember tetanus and diphtheri (more content not included)... Normal [facility] Low Dose CT Lung Screeningon 09-02-[address] Lung Screening [facility] [address] [place] [id number] Lung Screening MR#: [id number] Acct: [id number] Name: DANIEL BURTON Rep #: [id number] : 1960 F 63 From: James bryan DO PCP: Dr. Chino Encinas MD Status: [facility] Study: Low Dose CT Lung Screening Date of Exam: 09/02 Exam# [id number] Ordering Dr: Koko Hernandes DO [id number] EXAM: CT CHEST, LUNG CANCER SCREENING WITHOUT INTRAVENOUS CONTRAST CLINICAL INDICATION: h/o Tobacco Dependency TECHNIQUE: Helically acquired images were obtained of the chest without intravenous contrast using low dose (LDCT) lung cancer screening protocol. This CT exam was performed using one or more of the following dose reduction techniques: automated exposure control, adjustment of the mA and/or kV according to patient size, and/or use of iterative reconstruction technique. COMPARISON: 09/01/2023 and 07/20/2022. PET/CT, 09/25/2019. FINDINGS: LUNGS AND PLEURAL SPACES: Right lower lobe granuloma. 1.1 cm round nodule within the lingula is unchanged since at least 09/25/2019. Minimal scarring in the lingula and in the lateral aspect of the basilar left lower lobe. Mild centrilobular emphysema. No pleural effusion or thickening. No pneumothorax. HEART: No significant abnormality. Heart size is normal. No pericardial effusion. No significant coronary artery calcifications. MEDIASTINUM: No significant abnormality. No mediastinal or hilar adenopathy. Esophagus is unremarkable. No hiatal hernia. THYROID: No significant abnormality. No thyroid lesions. BONES/JOINTS: Degenerative changes in the spine. No suspicious lytic or blastic abnormality. VASCULATURE: Atherosclerosis. Thoracic aorta is non-dilated. LYMPH NODES: No significant abnormality. No enlarged lymph nodes. ADRENALS: Partially visualized likely unchanged left adrenal nodule. CT/Low Dose CT Lung Screening IMPRESSION: ACR Lung CT Screening Reporting And Data System (Lung-RADS) score: 2 - Benign Appearance or Behavior. Recommend continued annual screening with a low-dose CT (LDCT) in 12 months. Electronically Signed: James Matthew DO at 17:25 EST , CC: Dr. Koko Hernandes DO; Dr. Chino Encinas MD Patient Relations Liaison: Signed Normal [facility] CBC W/Diff, Automatedon 11-1 Absolute Lymph 0.81 X10 3/uL Low 0.83-4.51 [facility] Comment on above: Performed By: #### L 500.4050, L100.0100 ####[facility] [address] [place], [address] Absolute Neut 4.8 X10 3/uL Normal 2.0-7.7 [facility] Comment on above: Performed By: #### L 500.4050, L100.0100 ####[facility] [address] [place], [address] Basophils/100 WBC (Bld) 0.6 % Normal 0-1 [facility] Comment on above: Performed By: #### L 500.4050, L100.0100 ####[facility] [address] [place], [address] Eosinophils/100 WBC (Bld) 1.9 % Normal 0-5 [facility] Comment on above: Performed By: #### L 500.4050, L100.0100 ####[facility] [address] [place], [address] Erythrocyte distribution width (RBC) [Ratio] 13.9 % Normal 11.6-14.6 [facility] Comment on above: Performed By: #### L 500.4050, L100.0100 ####[facility] [address] [place], [address] Hematocrit (Bld) [Volume fraction] 39.0 % Normal 37-47 [facility] Comment on above: Performed By: #### L 500.4050, L100.0100 ####[facility] [address] [place], [address] Hemoglobin (Bld) [Mass/Vol] 12.2 g/dL Normal 12.0-15.0 [facility] Comment on above: Performed By: #### L 500.4050, L100.0100 ####[facility] [address] [place], [address] IG% 0.300 Normal 0.0-0.9 [facility] Comment on above: Result Comment: IG% - Immature Granulocytes (promyelocytes, myelocytes and metamyelocytes) > 1% indicates that a LEFT SHIFT is Present. Performed By: #### L 500.4050, L100.0100 ####[facility] [address] [place], [address] Lymphocytes/100 WBC (Bld) 12.5 % Low 19-41 [facility] Comment on above: Performed By: #### L 500.4050, L100.0100 ####[facility] [address] [place], [address] MCH (RBC) [Entitic mass] 29.5 pg Normal 27.0-32.0 [facility] Comment on above: Performed By: #### L 500.4050, L100.0100 ####[facility] [address] [place], [address] MCHC (RBC) [Mass/Vol] 31.3 g/dL Low 32-36 [facility] Comment on above: Performed By: #### L 500.4050, L100.0100 ####[facility] [address] [place], [address] MCV (RBC) [Entitic vol] 94.4 fL Normal 81-99 [facility] Comment on above: Performed By: #### L 500.4050, L100.0100 ####[facility] [address] [place], [address] Monocytes/100 WBC (Bld) 10.5 % High 0-10 [facility] Comment on above: Performed By: #### L 500.4050, L100.0100 ####[facility] [address] [place], [address] Neutrophils/100 WBC (Bld) 74.2 % High 47-70 [facility] Comment on above: Performed By: #### L 500.4050, L100.0100 ####[facility] [address] [place], [address] Nucleated RBC (Bld) [#/Vol] 0 10*3/uL Normal 0-5 [facility] Comment on above: Performed By: #### L 500.4050, L100.0100 ####[facility] [address] [place], [address] Platelet mean volume (Bld) [Entitic vol] 9.6 fL Normal 6.2-12.0 [facility] Comment on above: Performed By: #### L 500.4050, L100.0100 ####[facility] [address] [place], [address] Platelets (Bld) [#/Vol] 239 10*3/uL Normal 150-450 [facility] Comment on above: Performed By: #### L 500.4050, L100.0100 ####[facility] [address] [place], [address] RBC (Bld) [#/Vol] 4.13 10*6/uL Low 4.2-5.4 [facility] Comment on above: Performed By: #### L 500.4050, L100.0100 ####[facility] [address] [place], [address] RDW SD 48.0 fl High 35.1-43.9 [facility] Comment on above: Performed By: #### L 500.4050, L100.0100 ####[facility] [address] [place], [address] WBC (Bld) [#/Vol] 6.5 10*3/uL Normal 4.4-11.0 [facility] Comment on above: Performed By: #### L 500.4050, L100.0100 ####[facility] [address] [place], [address] Comprehensive Metabolic Prof [facility] 08-16-2024 Albumin [Mass/Vol] 3.5 g/dL Normal 3.2-5.0 [facility] Comment on above: Performed By: #### L 500.4050, L100.0100 ####[facility] [address] [place], [address] Albumin/Globulin [Mass ratio] 0.8 {ratio} Low 0.9-2.4 [facility] Comment on above: Performed By: #### L 500.4050, L100.0100 ####[facility] [address] [place], [address] ALK P 64 U/L Normal 45-117 [facility] Comment on above: Performed By: #### L 500.4050, L100.0100 ####[facility] [address] [place], [address] ALT [Catalytic activity/Vol] 22 U/L Normal 13-56 [facility] Comment on above: Performed By: #### L 500.4050, L100.0100 ####[facility] [address] [place], [address] AST [Catalytic activity/Vol] 16 U/L Normal 15-37 [facility] Comment on above: Performed By: #### L 500.4050, L100.0100 ####[facility] [address] [place], [address] Bilirubin [Mass/Vol] 0.30 mg/dL Normal 0.20-1.00 [facility] Comment on above: Result Comment: For patients on eltrombopag therapy, use of Dimension Oakes TBIL is not recommended. Performed By: #### L 500.4050, L100.0100 ####[facility] [address] [place], [address] BUN/CRE 20.5 RATIO High 10-20 [facility] Comment on above: Performed By: #### L 500.4050, L100.0100 ####[facility] [address] [place], [address] CA,Total 9.0 mg/dL Normal 8.5-10.1 [facility] Comment on above: Performed By: #### L 500.4050, L100.0100 ####[facility] [address] [place], [address] Chloride [Moles/Vol] 108 mmol/L High 98-107 [facility] Comment on above: Performed By: #### L 500.4050, L100.0100 ####[facility] [address] [place], [address] CO2 [Moles/Vol] 28.0 mmol/L Normal 21.0-32.0 [facility] Comment on above: Performed By: #### L 500.4050, L100.0100 ####[facility] [address] [place], [address] Creatinine [Mass/Vol] 1.22 mg/dL High 0.55-1.02 [facility] Comment on above: Result Comment: The validity of the calculated GFR GFRAA in patients over 70 years has not been determined. Clinical correlation is essential. Performed By: #### L 500.4050, L100.0100 ####[facility] [address] [place], [address] EST GFR - AA 57 mL/min Low >60 [facility] Comment on above: Result Comment: Afri can Ghanaian GFR Calc Performed By: #### L 500.4050, L100.0100 ####[facility] [address] [place], [address] GAP 5 Normal 5-15 [facility] Comment on above: Performed By: #### L 500.4050, L100.0100 ####[facility] [address] [place], [address] GFR/1.73 sq M.predicted among non-blacks MDRD (S/P/Bld) [Vol rate/Area] 47 mL/min/{1.73_m2} Low >60 [facility] Comment on above: Result Comment: Non- GFR Calc Performed By: #### L 500.4050, L100.0100 ####[facility] [address] [place], [address] Globulin (S) [Mass/Vol] 4.5 g/dL High 2.2-4.2 [facility] Comment on above: Performed By: #### L 500.4050, L100.0100 ####[facility] [address] [place], [address] Glucose [Mass/Vol] 87 mg/dL Normal 74-106 [facility] Comment on above: Performed By: #### L 500.4050, L100.0100 ####[facility] [address] [place], [address] Potassium [Moles/Vol] 4.5 mmol/L Normal 3.5-5.1 [facility] Comment on above: Performed By: #### L 500.4050, L100.0100 ####[facility] [address] [place], [address] Sodium [Moles/Vol] 140 mmol/L Normal 136-145 [facility] Comment on above: Performed By: #### L 500.4050, L100.0100 ####[facility] [address] [place], [address] T PROT 8.0 g/dL Normal 6.4-8.2 [facility] Comment on above: Performed By: #### L 500.4050, L100.0100 ####[facility] [address] [place], [address] Urea nitrogen [Mass/Vol] 25 mg/dL High 7-18 [facility] Comment on above: Performed By: #### L 500.4050, L100.0100 ####[facility] [address] [place], [address] Internal Medicine Office Vis laron 08-16-2024 Internal Medicine Office Visit [facility] [address] [place] [address] [place] [address] OFFICE VISIT Date of Service: 08/16/24 MR#: [id number] Acct: [id number] Name: DANIEL BURTON Rep #: [id number] : 1960 Provider: Dr. Chino hooks MD Age/Sex: 63/F Location: [facility] Status: Signed Intake Vital Signs 04/26/24 07:43 08/16/24 09:24 Height 5 ft 9 in 5 ft 9 in Weight: 256 lb BMI 37.8 BP 130/80 H Blood Pressure Location Lt brachial Position Sitting Respiration 16 Pulse 84 Pulse Source Monitor Temp 99.1 F Temp Source Temporal Pulse Oximetry (%) 90 Oxygen Delivery Method room air Intake Visit Reasons: fu Chief Complaint: Follow-up chronic conditions Foundry Engineer Required: No Is patient in pain?: No Allergies Latex, Natural Rubber Allergy (Severe, Verified 08/16/24 09:17) Hives Penicillins Allergy (Severe, Verified 08/16/24 09:17) Anaphylaxis Sulfa (Sulfonamide Antibiotics) Allergy (Verified 08/16/24 09:17) Cannot remember tetanus and diphtheria toxoids Allergy (Verified 08/16/24 09:17) Swelling Medications ???Medication ???Instructions ???Recorded ???Confirmed ???Type acetaminophen 325 mg tablet 650 mg (2 x 325 mg) PO Q6H PRN PRN 08/27/19 08/16/24 Rx Pain Score 1-3/Temp > 100.7 F hydrocortisone acetate 25 mg 25 mg ID DAILY PRN hemmorroids 03/06/20 08/16/24 History rectal suppository Disability Placard #1 ea 08/05/20 08/16/24 Rx triamcinolone acetonide 0.1 % 1 applic topical BID PRN Skin 02/08/23 08/16/24 History topical cream Irritation albuterol sulfate 90 mcg/actuation 2 puff inhalation Q4H PRN 10/06/23 08/16/24 Rx aerosol inhaler shortness of breath or wheezing #1 device famotidine 20 mg tablet 20 mg PO DAILY #90 TABLETS 12/27/23 08/16/24 Rx budesonide-formoterol HFA 160 2 puff inhalation BID #3 ea 03/06/24 08/16/24 Rx mcg-4.5 mcg/actuation aerosol inhaler (Symbicort) bupropion HCl 200 mg tablet,12 hr 200 mg PO BID mood #180 ea 03/06/24 08/16/24 Rx sustained-release tiotropium bromide 2.5 2 puff inhalation QDAY #1 ea 03/06/24 08/16/24 Rx mcg/actuation mist for inhalation (Spiriva Respimat) fenofibrate nanocrystallized 48 mg 48 mg PO DAILY #60 tabs 03/17/24 08/16/24 Rx tablet cetirizine 10 mg tablet 10 mg PO DAILY PRN allergy 04/26/24 08/16/24 Rx symptoms #90 tabs potassium chloride 10 mEq 10 meq PO BID #180 caps 05/22/24 08/16/24 Rx capsule,extended release furosemide 20 mg tablet 20 mg PO BID #180 tabs 06/19/24 08/16/24 Rx trazodone 100 mg tablet 100 mg PO QHS PRN insomnia 3 06/19/24 08/16/24 Rx months #90 tabs fluoxetine 20 mg capsule 20 mg PO DAILY #90 caps 07/24/24 08/16/24 Rx fluticasone propionate 50 2 spray intranasal DAILY #16 grams 07/28/24 08/16/24 Rx mcg/actuation nasal spray,suspension buprenorphine 5 mcg/hour weekly 1 patch topical QWEEK 08/16/24 08/16/24 History transdermal patch (Butrans) COUNTS INCLUDE 234 BEDS AT THE [facility] Medical History (Updated 08/16/24 @ 12:[address] Chino Encinas MD) Obesity (BMI 30-39.9) Hyperlipidemia LLQ abdominal pain Health care maintenance Marijuana use Kidney disease Former smoker BiPAP (biphasic positive airway pressure) dependence Encounter for incision and drainage procedure Change in skin mole Abdominal pannus Post-menopausal Anxiety and depression Insomnia COVID-19 History of COVID-19 Flu vaccine need Hypertension Morbid obesity Borderline type 2 diabetes mellitus Anemia Acute hypoxic respiratory failure COPD exacerbation Normal colonoscopy History of pneumonia Chronic bronchitis COPD (chronic obstructive pulmonary disease) Frequent headaches IBS (irritable bowel syndrome) Asthma Surgical History History of lung surgery History of removal of cyst history of right hand surgery History of tonsillectomy History of breast biopsy Family History Other Adopted Social History Smoking Status: Former smoker Tobacco: How many years used: 42 how long ago did patient quit smokin second hand exposure: Yes quit status: has quit before alcohol intake: never substance use type: marijuana caffeine: Yes what type of physical activity do you participate in: walking seatbelt use: never do you feel safe at home: Yes additional social history: Jg- disability Female Reproductive History Menstrual Ab induced: 1 HPI HPI Chief Complaint: Follow-up chronic conditions Details: DANIEL BURTON, is a 63 F who presents to the office today for follow-up of her chronic conditions. No acute concerns at this time. History of borderline diabetes, has made significant lifesty (more content not included)... Normal [facility] Basophil percentageOrdered B y: Chino Encinas on 01-19-2024 Bilirubin [Mass/Vol] 0.20 mg/dL 0.20-1.00 [facility] Comment on above: For patients on eltr ombopag therapy, use of Dimension Oakes TBIL is not recommended. Chloride [Moles/Vol] 110 mmol/L 98-107 [facility] Cholesterol [Mass/Vol] 179 mg/dL <200 [facility] Comment on above: <200 mg/dL Desirable 200-240 mg/dL Borderline >240 mg/dL High Risk Glucose [Mass/Vol] 133 mg/dL 74-106 [facility] Comment on above: Fasting Glucose resu lt greater than or equal to 126 mg/dL suggests DIABETES MELLITUS per A.D.A. criteria. Potassium [Moles/Vol] 4.8 mmol/L 3.5-5.1 [facility] Protein [Mass/Vol] 7.4 g/dL 6.4-8.2 [facility] Sodium [Moles/Vol] 140 mmol/L 136-145 [facility] Triglyceride [Mass/Vol] 165 mg/dL <199 [facility] Comment on above: The drugs N-Acetylcy steine and Metamizole may falsely depress this assay.Serum Triglycerides Reference Interval Normal <150 mg/dL Borderline high 150 - 199 mg/dL High 200 - 499 mg/dL Very High > or = 500 mg/dL Laboratory - Chemistry and C hemistry - challengeOrdered By: Chino Encinas on 01-19-2024 Albumin/Globulin [Mass ratio] 0.7 {ratio} 0.9-2.4 [facility] ALP [Catalytic activity/Vol] 62 U/L 45-117 [facility] ALT [Catalytic activity/Vol] 20 U/L 13-56 [facility] Cholesterol in HDL [Mass/Vol] 45 mg/dL >40 [facility] Comment on above: The drugs N-Acetylcy steine and Metamizole may falsely depress this assay. Reference Range HDL <40 mg/dL Low HDL Cholesterol HDL >or= 60 mg/dL High HDL Cholesterol Cholesterol in LDL [Mass/Vol] 101 mg/dL 0-130 [facility] CO2 [Moles/Vol] 28.0 mmol/L 21.0-32.0 [facility] Globulin (S) [Mass/Vol] 4.3 g/dL 2.2-4.2 [facility] Urea nitrogen/Creatinine [Mass ratio] 16.1 mg/mg 10-20 [facility] Laboratory - Hematology and Cell countson 01-19-2024 HbA1c (Bld) [Mass fraction] 6.0 % 4.2-6.3 [facility] No Panel InformationOrdered By: Chino Encinas on 01-19-2024 Estimated GFR (MDRD) Amer 50 mL/min >60 [facility] Comment on above: GFR Calc Estimated GFR (MDRD) Non-Af Amer 41 mL/min >60 [facility] Comment on above: Non- GFR Calc VLDL Cholesterol 33 mg/dL 5-40 [facility] Serum or plasma calcium anuel urement (mass/volume)Ordered By: Chino Encinas on 01-19-2024 Calcium [Mass/Vol] 9.0 mg/dL 8.5-10.1 [facility] Serum or plasma creatinine m easurement (mass/volume)Ordered By: Chino Encinas on 01-19-2024 Creatinine [Mass/Vol] 1.37 mg/dL 0.55-1.02 [facility] Comment on above: The validity of the calculated GFR & GFRAA in patients over 70 years has not been determined. Clinical correlation is essential. Serum or plasma urea nitroge n measurement (mass/volume)Ordered By: Garlandvianney Zimmermanjaimemaren on 01-19-2024 Urea nitrogen [Mass/Vol] 22 mg/dL 7-18 [facility] Thin prep Papanicolaou smear with manual screeningOrdered By: Chino nEcinas on 01-19-2024 Thin prep Papanicolaou smear with manual screening 3.1 g/dL 3.2-5.0 [facility] Thin prep Papanicolaou smear with manual screening 17 U/L - [facility] Thin prep Papanicolaou smear with manual screening 2 5-15 [facility] Absolute lymphocyte countOrd ered By: Adonisrajialonsovianney Zimmermanjaimemaren on 07-19-2023 Lymphocytes Auto (Unsp spec) [#/Vol] 0.85 10*3/uL 0.83-4.51 [facility] Basophil percentageOrdered B y: Garlandvianney Zimmermanjaimemaren on 07-19-2023 Basophils/100 WBC (Bld) 0.6 % 0-1 [facility] Bilirubin [Mass/Vol] 0.20 mg/dL 0.20-1.00 [facility] Comment on above: For patients on eltr ombopag therapy, use of Dimension Oakes TBIL is not recommended. Chloride [Moles/Vol] 106 mmol/L 98-107 [facility] Cholesterol [Mass/Vol] 214 mg/dL <200 [facility] Comment on above: <200 mg/dL Desirable 200-240 mg/dL Borderline >240 mg/dL High Risk Eosinophils/100 WBC (Bld) 1.6 % 0-5 [facility] Glucose [Mass/Vol] 101 mg/dL 74-106 [facility] Comment on above: Fasting Glucose resu lt from 100 to 125 mg/dL suggests IMPAIRED HOMEOSTASIS per A.D.A. criteria. Neutrophils (Bld) [#/Vol] 5.4 10*3/uL 2.0-7.7 [facility] Neutrophils/100 WBC (Bld) 77.0 % 47-70 [facility] Potassium [Moles/Vol] 4.1 mmol/L 3.5-5.1 [facility] Protein [Mass/Vol] 7.9 g/dL 6.4-8.2 [facility] Sodium [Moles/Vol] 140 mmol/L 136-145 [facility] Triglyceride [Mass/Vol] 349 mg/dL <199 [facility] Comment on above: The drugs N-Acetylcy steine and Metamizole may falsely depress this assay.Serum Triglycerides Reference Interval Normal <150 mg/dL Borderline high 150 - 199 mg/dL High 200 - 499 mg/dL Very High > or = 500 mg/dL WBC (Bld) [#/Vol] 7.0 10*3/uL 4.4-11.0 [facility] Blood erythrocytes count (nu mber/volume)Ordered By: Chino Encinas on 07-19-2023 RBC (Bld) [#/Vol] 4.51 10*6/uL 4.2-5.4 [facility] Blood hemoglobin measurement (mass/volume)Ordered By: Chino Encinas on 07-19-2023 Hemoglobin (Bld) [Mass/Vol] 11.6 g/dL 12.0-15.0 [facility] Blood lymphocytes/100 leukoc ytesOrdered By: Chino Encinas on 07-19-2023 Lymphocytes/100 WBC (Bld) 12.2 % 19-41 [facility] Blood monocytes/100 leukocyt esOrdered By: Chino Encinas on 07-19-2023 Monocytes/100 WBC (Bld) 8.2 % 0-10 [facility] Blood platelet mean volumeOr dered By: Chino Encinas on 07-19-2023 Platelet mean volume (Bld) [Entitic vol] 9.6 fL 6.2-12.0 [facility] Determination of erythrocyte mean corpuscular volume (MCV)Ordered By: Chino Encinas on 07-19-2023 MCV (RBC) [Entitic vol] 85.6 fL 81-99 [facility] Hematocrit Auto (Bld) [Volum e fraction]Ordered By: Chino Encinas on 07-19-2023 Hematocrit (Bld) [Volume fraction] 38.6 % 37-47 [facility] Laboratory - Chemistry and C hemistry - challengeOrdered By: Chino Encinas on 07-19-2023 ALP [Catalytic activity/Vol] 67 U/L 45-117 [facility] ALT [Catalytic activity/Vol] 21 U/L 13-56 [facility] CO2 [Moles/Vol] 31.0 mmol/L 21.0-32.0 [facility] Globulin (S) [Mass/Vol] 4.5 g/dL 2.2-4.2 [facility] Urea nitrogen/Creatinine [Mass ratio] 17.3 mg/mg 10-20 [facility] Laboratory - Hematology and Cell countsOrdered By: Chino Encinas on 07-19-2023 Erythrocyte distribution width (RBC) [Entitic vol] 52.2 fL 35.1-43.9 [facility] Erythrocyte distribution width (RBC) [Ratio] 16.7 % 11.6-14.6 [facility] Immature granulocytes/100 WBC (Bld) 0.400 % 0.0-0.9 [facility] Comment on above: IG% - Immature Granu locytes (promyelocytes, myelocytes and metamyelocytes) > 1% indicates that a LEFT SHIFT is Present. MCH (RBC) [Entitic mass] 25.7 pg 27.0-32.0 [facility] Nucleated RBC/100 WBC (Bld) [Ratio] 0 % 0-5 [facility] Laboratory - Hematology and Cell countson 07-19-2023 HbA1c (Bld) [Mass fraction] 6.0 % 4.2-6.3 [facility] MCHC Auto (RBC) [Mass/Vol]Or dered By: Chino Encinas on 07-19-2023 MCHC (RBC) [Mass/Vol] 30.1 g/dL 32-36 [facility] No Panel InformationOrdered By: Chino Encinas on 07-19-2023 Estimated GFR (MDRD) Amer 43 mL/min >60 [facility] Comment on above: GFR Calc Estimated GFR (MDRD) Non-Af Amer 36 mL/min >60 [facility] Comment on above: Non- GFR Calc Platelets bldOrdered By: Cayetano Encinas on 07-19-2023 Platelets (Bld) [#/Vol] 243 10*3/uL 150-450 [facility] Serum or plasma albumin anuel urement (mass/volume)Ordered By: Chino Encinas on 07-19-2023 Albumin [Mass/Vol] 3.4 g/dL 3.2-5.0 [facility] Serum or plasma albumin/glob ulin mass ratioOrdered By: Chino Encinas on 07-19-2023 Albumin/Globulin [Mass ratio] 0.8 {ratio} 0.9-2.4 [facility] Serum or plasma calcium anuel urement (mass/volume)Ordered By: Chino Encinas on 07-19-2023 Calcium [Mass/Vol] 8.8 mg/dL 8.5-10.1 [facility] Serum or plasma cholesterol in HDL measurement (mass/volume)Ordered By: Chino Encinas on 07-19-2023 Cholesterol in HDL [Mass/Vol] 44 mg/dL >40 [facility] Comment on above: The drugs N-Acetylcy steine and Metamizole may falsely depress this assay. Reference Range HDL <40 mg/dL Low HDL Cholesterol HDL >or= 60 mg/dL High HDL Cholesterol Serum or plasma cholesterol in VLDL measurement (mass/volume)Ordered By: Chino Encinas on 07-19-2023 Cholesterol in VLDL [Mass/Vol] 70 mg/dL 5-40 [facility] Serum or plasma creatinine m easurement (mass/volume)Ordered By: Chino Encinas on 07-19-2023 Creatinine [Mass/Vol] 1.56 mg/dL 0.55-1.02 [facility] Comment on above: The validity of the calculated GFR & GFRAA in patients over 70 years has not been determined. Clinical correlation is essential. Serum or plasma low density lipoprotein (LDL) cholesterol measurement (mass/volume)Ordered By: Chino Encinas on 07-19-2023 Cholesterol in LDL [Mass/Vol] 100 mg/dL 0-130 [facility] Serum or plasma urea nitroge n measurement (mass/volume)Ordered By: Chino Encinas on 07-19-2023 Urea nitrogen [Mass/Vol] 27 mg/dL 7-18 [facility] Thin prep Papanicolaou smear with manual screeningOrdered By: Chino Encinas on 07-19-2023 Thin prep Papanicolaou smear with manual screening 10 U/L 15-37 [facility] Thin prep Papanicolaou smear with manual screening 3 5-15 [facility] Laboratory - Drug toxicology Ordered By: Dr. Osullivan on 12-03-2022 Amphetamines Ql (U) Negative <1000 ng/mL [facility] Benzodiazepines Ql (U) Negative < 200 ng/mL [facility] Cannabinoids Screen Ql (U) Positive < 50 ng/mL [facility] Cocaine Ql (U) Negative < 300 ng/mL [facility] Opiates Ql (U) Negative < 300 ng/mL [facility] No Panel InformationOrdered By: Dr. Osullivan on 12-03-2022 MDMA (Ecstasy) Screen Positive < 500 ng/mL [facility] Urine Barbiturates Screen Negative < 200 ng/mL [facility] Urine Drug Screen Comment [facility] Comment on above: CONFIRMATORY TESTING FOR ALL POSITIVE URINE DRUG SCREENRESULTS WILL ONLY BE SENT OUT UPON PHYSICIAN ORDER. VISTA Urine Drug Screen methods provide only preliminaryanalytical test results. A more specific alternate chemicalmethod must be used in order to obtain a confirmedanalytical result. Gas chromatography/mass spectrometery(GC/MS) is the preferred confirmatory method. Clinicalconsideration and professional judgement should be appliedto any drug of abuse test result, particularly whenpreliminary positive results are used. URINE TCA TESTING MUST BE ORDERED SEPARATELY. USE TESTMNEMONIC: [facility] Urine Methadone Screen Negative < 300 ng/mL [facility] Urine phencyclidine (PCP) de tectionOrdered By: Dr. Osullivan on 12-03-2022 Phencyclidine Ql (U) Negative < 25 ng/mL [facility] Laboratory - Hematology and Cell countson 08-26-2022 HbA1c (Bld) [Mass fraction] 5.4 % 4.2-6.3 [facility] Vital Signs Date Time Vital Sign Value Performing Clinician Faci lity 07-06-2025 08:08-0400 Body height 175.[address] Chino Encinas MD Work Phone: [facility] 07-06-2025 08:08-0400 Body mass index (BMI) [Ratio] 35.9 kg/m2 Dr. Chino Encinas MD Work Phone: [facility] 07-06-2025 08:08-0400 Body weight 110.[address] Chino Encinas MD Work Phone: [facility] 06-18-2025 08:22-0400 Body mass index (BMI) [Ratio] 35.6 kg/m2 Dr. Chino Encinas MD Work Phone: [facility] 06-18-2025 08:22-0400 Body temperature 97.4 [degF] Dr. Chino Encinas MD Work Phone: [facility] 06-18-2025 08:22-0400 Body weight 109.[address] Chino Encinas MD Work Phone: [facility] 06-18-2025 08:22-0400 Diastolic blood pressure 75 mm[Hg] Dr. Chino Encinas MD Work Phone: [facility] 06-18-2025 08:22-0400 Heart rate 59 /min Dr. Chino Encinas MD Work Phone: [facility] 06-18-2025 08:22-0400 Respiratory rate 18 /min Dr. Chino Encinas MD Work Phone: [facility] 06-18-2025 08:22-0400 SaO2% (BldA) [Mass fraction] 97 % Dr. Chino Encinas MD Work Phone: [facility] 06-18-2025 08:22-0400 Systolic blood pressure 129 mm[Hg] Dr. Chino Encinas MD Work Phone: [facility] 04-20-2025 09:14-0400 Body height 175.[address] Chino Encinas MD Work Phone: [facility] 04-20-2025 09:14-0400 Body mass index (BMI) [Ratio] 34.7 kg/m2 Dr. Chino Encinas MD Work Phone: [facility] 04-20-2025 09:14-0400 Body weight 106.[address] Chino Encinas MD Work Phone: [facility] 04-13-2025 20:44-0400 Body temperature 98 [degF] Dr. Chino Encinas MD Work Phone: [facility] 04-13-2025 20:44-0400 Diastolic blood pressure 79 mm[Hg] Dr. Chino Encinas MD Work Phone: [facility] 04-13-2025 20:44-0400 Heart rate 94 /min Dr. Chino Encinas MD Work Phone: [facility] 04-13-2025 20:44-0400 Respiratory rate 18 /min Dr. Chino Encinas MD Work Phone: [facility] 04-13-2025 20:44-0400 SaO2% (BldA) [Mass fraction] 97 % Dr. Chino Encinas MD Work Phone: [facility] 04-13-2025 20:44-0400 Systolic blood pressure 138 mm[Hg] Dr. Chino Encinas MD Work Phone: [facility] 04-13-2025 19:03-0400 Body height 175.[address] Chino Encinas MD Work Phone: [facility] 02-14-2025 12:55-0400 Body height 175.[address] Chino Encinas MD Work Phone: [facility] 02-14-2025 12:55-0400 Body mass index (BMI) [Ratio] 36.1 kg/m2 Dr. Chino Encinas MD Work Phone: [facility] 02-14-2025 12:55-0400 Body temperature 98.3 [degF] Dr. Chino Encinas MD Work Phone: [facility] 02-14-2025 12:55-0400 Body weight 111.[address] Chino Encinas MD Work Phone: [facility] 02-14-2025 12:55-0400 Diastolic blood pressure 80 mm[Hg] Dr. Chino Encinas MD Work Phone: [facility] 02-14-2025 12:55-0400 Heart rate 88 /min Dr. Chino Encinas MD Work Phone: [facility] 02-14-2025 12:55-0400 Respiratory rate 19 /min Dr. Chino Encinas MD Work Phone: [facility] 02-14-2025 12:55-0400 SaO2% (BldA) [Mass fraction] 91 % Dr. Chino Encinas MD Work Phone: [facility] 02-14-2025 12:55-0400 Systolic blood pressure 138 mm[Hg] Dr. Chino Encinas MD Work Phone: [facility] 12-08-2024 08:09-0500 Body mass index (BMI) [Ratio] 35.4 kg/m2 Dr. Chino Encinas MD Work Phone: [facility] 12-08-2024 08:09-0500 Body temperature 97.4 [degF] Dr. Chino Encinas MD Work Phone: [facility] 12-08-2024 08:09-0500 Body weight 108.[address] Chino Encinas MD Work Phone: [facility] 12-08-2024 08:09-0500 Diastolic blood pressure 81 mm[Hg] Dr. Chino Encinas MD Work Phone: [facility] 12-08-2024 08:09-0500 Heart rate 71 /min Dr. Chino Encinas MD Work Phone: [facility] 12-08-2024 08:09-0500 Respiratory rate 20 /min Dr. Chino Encinas MD Work Phone: [facility] 12-08-2024 08:09-0500 SaO2% (BldA) [Mass fraction] 96 % Dr. Chino Encinas MD Work Phone: [facility] 12-08-2024 08:09-0500 Systolic blood pressure 130 mm[Hg] Dr. Chino Encinas MD Work Phone: [facility] 01-19-2024 09:37-0400 Body height 175.[address] Chino Encinas Work Phone: [facility] 01-19-2024 09:37-0400 Body mass index (BMI) [Ratio] 41 kg/m2 Dr. Chino Encinas Work Phone: [facility] 01-19-2024 09:37-0400 Body temperature 99.5 [degF] Dr. Chino Encinas Work Phone: [facility] 01-19-2024 09:37-0400 Body weight 126.[address] Chino Encinas Work Phone: [facility] 01-19-2024 09:37-0400 Diastolic blood pressure 78 mm[Hg] Dr. Chino Encinas Work Phone: [facility] 01-19-2024 09:37-0400 Heart rate 86 /min Dr. Chino Encinas Work Phone: [facility] 01-19-2024 09:37-0400 Respiratory rate 18 /min Dr. Chino Encinas Work Phone: [facility] 01-19-2024 09:37-0400 SaO2% (BldA) [Mass fraction] 91 % Dr. Chino Encinas Work Phone: [facility] 01-19-2024 09:37-0400 Systolic blood pressure 130 mm[Hg] Dr. Chino Encinas Work Phone: [facility] 10-06-2023 06:16-0500 Body mass index (BMI) [Ratio] 42.8 kg/m2 Dr. Chino Encinas Work Phone: [facility] 10-06-2023 06:16-0500 Body temperature 97.3 [degF] Dr. Chino Encinas Work Phone: [facility] 10-06-2023 06:16-0500 Body weight 131.[address] Chino Encinas Work Phone: [facility] 10-06-2023 06:16-0500 Diastolic blood pressure 99 mm[Hg] Dr. Chino Encinas Work Phone: [facility] 10-06-2023 06:16-0500 Heart rate 67 /min Dr. Chino Encinas Work Phone: [facility] 10-06-2023 06:16-0500 Respiratory rate 20 /min Dr. Chino Encinas Work Phone: [facility] 10-06-2023 06:16-0500 SaO2% (BldA) [Mass fraction] 98 % Dr. Chino Encinas Work Phone: [facility] 10-06-2023 06:16-0500 Systolic blood pressure 138 mm[Hg] Dr. Chino Encinas Work Phone: [facility] 07-19-2023 13:55-0400 Body height 175.[address] Chino Encinas Work Phone: [facility] 07-19-2023 13:55-0400 Body mass index (BMI) [Ratio] 42.7 kg/m2 Dr. Chino Encinas Work Phone: [facility] 07-19-2023 13:55-0400 Body temperature 99 [degF] Dr. Chino Encinas Work Phone: [facility] 07-19-2023 13:55-0400 Body weight 131.[address] Chino Encinas Work Phone: [facility] 07-19-2023 13:55-0400 Diastolic blood pressure 78 mm[Hg] Dr. Chino Encinas Work Phone: [facility] 07-19-2023 13:55-0400 Heart rate 90 /min Dr. Chino Encinas Work Phone: [facility] 07-19-2023 13:55-0400 Respiratory rate 16 /min Dr. Chino Encinas Work Phone: [facility] 07-19-2023 13:55-0400 SaO2% (BldA) [Mass fraction] 89 % Dr. Chino Encinas Work Phone: [facility] 07-19-2023 13:55-0400 Systolic blood pressure 116 mm[Hg] Dr. Chino Encinas Work Phone: [facility] 09-15-2022 08:16-0500 Body height 175.[address] Chino Encinas Work Phone: [facility] 09-15-2022 08:16-0500 Body mass index (BMI) [Ratio] 42.5 kg/m2 Dr. Chino Encinas Work Phone: [facility] 09-15-2022 08:16-0500 Body temperature 98.3 [degF] Dr. Chino Encinas Work Phone: [facility] 09-15-2022 08:16-0500 Body weight 130.[address] Chino Encinas Work Phone: [facility] 09-15-2022 08:16-0500 Diastolic blood pressure 82 mm[Hg] Dr. Chino Encinas Work Phone: [facility] 09-15-2022 08:16-0500 Heart rate 80 /min Dr. Chino Encinas Work Phone: [facility] 09-15-2022 08:16-0500 Inhaled oxygen flow rate 3 L/min Dr. Chino Encinas Work Phone: [facility] 09-15-2022 08:16-0500 Respiratory rate 20 /min Dr. Chino Encinas Work Phone: [facility] 09-15-2022 08:16-0500 SaO2% (BldA) [Mass fraction] 97 % Dr. Chino Encinas Work Phone: [facility] 09-15-2022 08:16-0500 Systolic blood pressure 123 mm[Hg] Dr. Chino Encinas Work Phone: [facility] 08-26-2022 10:18-0500 Body temperature 97.9 [degF] Dr. Chino Encinas Work Phone: [facility] 08-26-2022 10:18-0500 Body weight 131.[address] Chino Encinas Work Phone: [facility] 08-26-2022 10:18-0500 Diastolic blood pressure 86 mm[Hg] Dr. Chino Encinas Work Phone: [facility] 08-26-2022 10:18-0500 Heart rate 90 /min Dr. Chino Encinas Work Phone: [facility] 08-26-2022 10:18-0500 Respiratory rate 20 /min Dr. Chino Encinas Work Phone: [facility] 08-26-2022 10:18-0500 SaO2% (BldA) [Mass fraction] 98 % Dr. Chino Encinas Work Phone: [facility] 08-26-2022 10:18-0500 Systolic blood pressure 118 mm[Hg] Dr. Chino Encinas Work Phone: [facility] 05-27-2022 09:32-0400 Body height 175.[address] Chino Encinas Work Phone: [facility] Work Phone: 05-27-2022 09:32-0400 Body mass index (BMI) [Ratio] 43.8 kg/m2 Dr. Chino Encinas Work Phone: [facility] Work Phone: 05-27-2022 09:32-0400 Body temperature 98 [degF] Dr. Chino Encinas Work Phone: [facility] Work Phone: 05-27-2022 09:32-0400 Body weight 134.[address] Chino Encinas Work Phone: [facility] Work Phone: 05-27-2022 09:32-0400 Diastolic blood pressure 80 mm[Hg] Dr. Chino Encinas Work Phone: [facility] Work Phone: 05-27-2022 09:32-0400 Heart rate 66 /min Dr. Chino Encinas Work Phone: [facility] Work Phone: 05-27-2022 09:32-0400 Inhaled oxygen flow rate 3 L/min Dr. Chino Encinas Work Phone: [facility] Work Phone: 05-27-2022 09:32-0400 Respiratory rate 16 /min Dr. Chino Encinas Work Phone: [facility] Work Phone: 05-27-2022 09:32-0400 SaO2% (BldA) [Mass fraction] 98 % Dr. Chino Encinas Work Phone: [facility] Work Phone: 05-27-2022 09:32-0400 Systolic blood pressure 140 mm[Hg] Dr. Chino Encinas Work Phone: [facility] Work Phone: 04-21-2022 08:29-0400 Body mass index (BMI) [Ratio] 43 kg/m2 Dr. Chino Encinas Work Phone: [facility] Work Phone: 04-21-2022 08:29-0400 Body temperature 98 [degF] Dr. Chino Encinas Work Phone: [facility] Work Phone: 04-21-2022 08:29-0400 Body weight 131.[address] Chino Encinas Work Phone: [facility] Work Phone: 04-21-2022 08:29-0400 Diastolic blood pressure 88 mm[Hg] Dr. Chino Encinas Work Phone: [facility] Work Phone: 04-21-2022 08:29-0400 Heart rate 88 /min Dr. Chino Encinas Work Phone: [facility] Work Phone: 04-21-2022 08:29-0400 Respiratory rate 14 /min Dr. Chino Encinas Work Phone: [facility] Work Phone: 04-21-2022 08:29-0400 SaO2% (BldA) [Mass fraction] 97 % Dr. Chino Encinas Work Phone: [facility] Work Phone: 04-21-2022 08:29-0400 Systolic blood pressure 126 mm[Hg] Dr. Chino Encinas Work Phone: [facility] Work Phone: Encounters Encounter Date Encounter Type Care Provider Facility Start: 08-10-2025 End: 08-10-2025 ambulatory Chino Encinas Facility:[facility] Start: 08-03-2025 End: 08-03-2025 ambulatory Michelle Yun Facility:[facility] Start: 07-06-2025 End: 07-06-2025 Patient encounter procedure Michelle Yun NP-C -[facility] Work Phone: Start: 07-06-2025 End: 07-06-[address] Chino Encinas MD Work Phone: -[facility] Start: 07-03-2025 Patient encounter procedure Jennifer Lund NP-Y[facility] -[facility] Work Phone: Start: 07-03-2025 End: 07-03-[facility] Start: 06-18-2025 End: 06-18-2025 Patient encounter procedure Jennifer WILKINSC -[facility] Work Phone: Start: 06-18-2025 End: 06-18-[address] Chino Encinas MD Work Phone: -[facility] Start: 06-01-2025 End: 06-01-2025 Patient encounter procedure Michelle WILKINSC -[facility] Work Phone: Start: 06-01-2025 End: 06-01-[address] Chino Encinas MD Work Phone: -[facility] Start: 05-03-2025 End: 05-03-[address] Dell Mueller MD -[facility] Start: 05-03-2025 End: 05-03-[address] Chino Encinas MD Work Phone: -[facility] Start: 04-20-2025 End: 04-20-2025 Patient encounter procedure Michelle Yun CUSTOMER SERVICE ENGINEER-Yohan -[facility] Work Phone: Start: 04-20-2025 End: 04-20-[address] Chino Encinas MD Work Phone: -[facility] Start: 04-13-2025 End: 04-13-2025 Emergency department patient visit Dr. Chino Encinas MD Work Phone: -Emergency Department Work Phone: Start: 02-16-2025 Encounter for genera l adult medical examination without abnormal findings Chino Encinas [facility] Start: 02-14-2025 End: 02-14-[address] Chino Encinas MD -[facility] Work Phone: Start: 02-14-2025 End: 02-14-[address] Chino Encinas MD Work Phone: [facility] Work Phone: Start: 02-14-2025 End: 02-14-2025 ambulatory Chino Encinas Facility:[facility] Start: 12-29-2024 End: 12-29-[address] Chino Encinas MD Work Phone: [facility] Work Phone: Start: 12-29-2024 End: 12-29-[address] Jonathan Osullivan MD -Physical Therapy Work Phone: Start: 12-29-[address] Jonathan Sarmiento i, MD -Physical Therapy Work Phone: Start: 12-08-2024 End: 12-08-2024 Patient encounter procedure Jennifer Lund NP-C -[facility] Work Phone: Start: 12-08-2024 End: 12-08-2024 ambulatory Chino Encinas Facility:[facility] Start: 10-17-2024 End: 10-17-2024 Patient encounter procedure Jennifer Lund CUSTOMER SERVICE ENGINEER-C -[facility] Work Phone: Start: 10-17-2024 End: 10-17-2024 ambulatory Jennifer Lund CUSTOMER SERVICE ENGINEER Facility:[facility] Start: 09-22-2024 ambulatory Chino Encinas Facili ty:[facility] Start: 09-20-2024 End: 09-20-2024 ambulatory Jennifer Lund CUSTOMER SERVICE ENGINEER Facility:[facility] Start: 09-20-2024 End: 09-20-2024 ambulatory Jennifer Lund CUSTOMER SERVICE ENGINEER Facility:[facility] Start: 09-02-2024 End: 09-02-2024 ambulatory Koko Hernandes Facility:[facility] Start: 08-16-2024 End: 08-16-2024 ambulatory Efrajijani Encinas Facility:[facility] Start: 08-16-2024 End: 08-16-2024 ambulatory Efewongbe Shortye Facility:[facility] Start: 01-19-2024 End: 01-19-[address] Chino Encinas Work Phone: [facility] Work Phone: Start: 01-19-2024 End: 01-19-[address] Chino Encinas Work Phone: [facility] Internal Medicine Work Phone: Start: 10-06-2023 End: 10-06-[address] Chino Encinas Work Phone: [facility] Pulmonary Medicine Work Phone: Start: 09-01-2023 End: 09-01-[address] Chino Encinas Work Phone: [facility] Work Phone: Start: 09-01-2023 End: 09-01-[address] Chino Encinas Work Phone: [facility] Work Phone: Start: 07-19-2023 End: 07-19-[address] Chino Encinas Work Phone: [facility] Work Phone: Start: 07-19-[address] Chino Encinas Work Phone: [facility] Start: 07-19-2023 End: 07-19-2023 Encounter for general adult medical examination without abnormal findings Dr. Chino Encinas Work Phone: [facility] Start: 07-19-2023 End: 07-19-[address] Chino Encinas Work Phone: [facility] Internal Medicine Work Phone: Start: 12-03-2022 End: 12-03-[address] Chino Encinas Work Phone: [facility] Work Phone: Start: 12-03-2022 End: 12-03-[address] Chino Encinas Work Phone: [facility]-Laboratory Start: 09-15-2022 End: 09-15-[address] Chino Encinas Work Phone: [facility]-Pulmonary Medicine [facility] Start: 08-26-2022 End: 08-26-[address] Chino Encinas Work Phone: [facility] Internal Medicine Start: 07-20-2022 End: 07-20-[address] Chino Encinas Work Phone: [facility] Work Phone: Start: 07-20-2022 End: 07-20-[address] Chino Encinas Work Phone: [facility] Start: 05-27-2022 End: 05-27-[address] Chino Encinas Work Phone: [facility] Internal [facility] Start: 04-21-2022 End: 04-21-[address] Chino Encinas Work Phone: [facility] Internal Medicine Start: 08-01-[address] Garland Encinas Work Phone: [facility] Comment on above: 2018 Procedures Date Procedure Procedure Detail Performing Clinician Start: 05-03-2025 XR knee, [address] Adonis Encinas MD Work Phone: Start: 04-13-2025 X-ray of knee, four or more views Dr. Chino Encinas MD Work Phone: Start: 02-14-2025 Vitamin D, 25-hydrox y measurement Dr. Chino Encinas MD Work Phone: Comment on above: Vitamin D StatusDefi ciency: <20 ng/mL (50nmol/L)Insufficiency: 20-30 ng/mL (50-75 nmol/L)Sufficiency: 30-100 ng/mL (75-250 nmol/L)Toxicity: >100 ng/mL (>250 nmol/L) Start: 09-01-[address] Melchor Encinas Work Phone: Start: 07-20-[address] Melchor Encinas Work Phone: H/O: surgery History of remov al of cyst Dr. Chino Encinas Work Phone: Comment on above: Rt Scapular area 201 8 History of tonsillectomy History of tonsillectomy Dr. Chino Encinas Work Phone: Plan of Treatment Date Care Activity Detail Author Start: 05-03-2025 XR Knee 3 Views [facility] Start: 05-03-2025 XR knee, 3 views Knee 3 Views [facility] Start: 04-13-2025 [facility] Start: 02-14-2025 Comprehensive metabo lic 2000 panel - Serum or Plasma [facility] Start: 02-14-2025 Lipid 1996 panel - S amarilis or Plasma [facility] Start: 02-14-2025 Vitamin D, 25-hydrox y measurement [facility] Start: 12-03-2022 Procedure [facility] Start: 05-27-2022 Patient referral [facility] Work Phone: Start: 04-21-2022 Patient referral [facility] Work Phone: Alanine aminotransfe rase [Enzymatic activity/volume] in Serum or Plasma [facility] Albumin [Mass/volume ] in Serum or Plasma [facility] Alkaline phosphatase [Enzymatic activity/volume] in Serum or Plasma [facility] Anion gap in Serum or Plasma [facility] Bilirubin, total measurement [facility] Blood chemistry [facility] BUN/Creatinine ratio [facility] Calcium [Mass/volume ] in Serum or Plasma [facility] Carbon dioxide, tota l [Moles/volume] in Central venous blood [facility] Cholesterol [Mass/vo lume] in Serum or Plasma [facility] Cholesterol in HDL [Mass/volume] in Serum or Plasma [facility] Creatinine [Mass/vol ume] in Serum or Plasma [facility] CT Chest [facility] Glucose [Mass/volume ] in Serum or Plasma [facility] Low density lipoprot ein cholesterol measurement [facility] Measurement of renal function [facility] MG Breast - bilatera l Screening [facility] MR Lower Extremity Joint [facility] Patient Education Knee Pain ED S kin Tear (Skin Avulsion) [facility] Work Phone: Patient referral [facility] Work Phone: Potassium measurement [facility] Serum chloride measurement [facility] Sodium measurement [facility] Total cholesterol:HD L ratio measurement [facility] Total protein measurement [facility] Triglycerides measurement [facility] Urea nitrogen [Mass/ volume] in Serum or Plasma [facility] US Abdomen limited [facility] VLDL cholesterol measurement [facility] Immunizations Immunization Date Immunization Notes Care Provider Fa cility 06-18-2025 influenza, injectabl e, madin daphney canine kidney, preservative free Dr. Chino Encinas MD Work Phone: [facility] 08-16-2024 influenza, injectabl e, madin daphney canine kidney, preservative free Dr. Chino Encinas MD Work Phone: [facility] 07-19-2023 influenza, injectabl e, quadrivalent, preservative free Dr. Chino Encinas Work Phone: [facility] 03-05-2021 Covid (Moderna) Dr. Calderon Encinas Work Phone: [facility] 02-04-2021 Covid (Moderna) Dr. Calderon Encinas Work Phone: [facility] 10-23-2019 pneumococcal conjuga te vaccine, [address] Chino Encinas Work Phone: [facility] 08-23-2019 influenza, injectabl e, quadrivalent, preservative free Dr. Chino Encinas Work Phone: [facility] 08-23-2019 influenza, seasonal, injectable Dr. Chino Encinas Work Phone: [facility] Payers Date Payer Category Payer Self-pay [id number] 2023 Unknown [id number] Unknown [employer] [id number] Unknown [id number] 2.16.8 [id number] Unknown [id number] 2.16.8 [id number] Unknown [id number] 2.16.8 [id number] Unknown [id number] 2.16.8 [id number] Unknown [id number] 2.16.8 [id number] Unknown [id number] 2.16.8 [id number] Unknown [id number] 2.16.8 40.1.044007.3.579.2.462 Unknown [id number] 2.16.8 40.1.873176.3.579.2.462 Unknown [id number] 2.16.8 40.1.809292.3.579.2.462 Unknown [id number] 2.16.8 40.1.786432.3.579.2.462 Unknown [id number] 2.16.8 40.1.125474.3.579.2.462 Unknown [id number] 2.16.8 40.1.176194.3.579.2.462 Unknown [id number] 2.16.8 40.1.608616.3.579.2.462 Unknown [id number] 2.16.8 40.1.016880.3.579.2.462 Unknown [id number] 2.16.8 40.1.188608.3.579.2.462 Unknown [id number] 2.16.8 40.1.517472.3.579.2.462 Unknown [id number] 2.16.8 40.1.728012.3.579.2.462 Unknown [id number] 2.16.8 40.1.080832.3.579.2.462 Unknown [id number] 2.16.8 [id number] Unknown [id number] 2.16.8 [id number] Unknown [id number] 2.16.8 [id number] Social History Date Type Detail Facility Start: 05-27-2022 End: 01-19-2024 Tobacco smoking status NHIS Unknown if ever smoked [facility] Start: 1960 Sex Assigned At Female [facility] Start: 01-19-2024 End: 04-13-2025 Tobacco smoking status NHIS Ex-smoker (finding) [facility] Sex Female [facility] Clinical Notes 12-08-2024 to 04-20-2025 Note Date & Type Note Facility 04-20-2025 Evaluation note Diagnosis Onset Date Resolution Knee bursitis acute April 20, 2025 9:00am Sprain of left knee acute April 20, 2025 9:00am Contusion of knee, left inactive J mathew 2024 9:00am Noninfected skin tear of left leg inactive April 20, 2025 9:00am Knee bursitis acute May 03, 2025 7:59am Sprain of left knee acute May 03, 2025 7:59am Contusion of knee, left inactive J mathew 2024 7:59am Knee bursitis acute May 8:00am Sprain of left knee acute Augus t 2024 8:00am Contusion of knee, left inactive A ugust 2024 8:00am COPD (chronic obstructive pulmonary disease) chronic June 18, 2025 10:10am Morbid obesity with BMI of 45.0-49.9, adult chronic June 182024 10:10am SIM (obstructive sleep apnea) chronic June 18, 2025 10:10am Pulmonary hypertension chronic Se pt2024 10:10am Smoking greater than 40 pack years chronic June 18, 2025 10:10am [facility] Work Phone: 1(269) 697-457407-11-2025 Radiology Diagnostic study note [facility] Imaging Services [address] [place] [address] Knee 4 or More Views MR#: [id number] Acct: [id number] Name: DANIEL BURTON Rep #: [id number] : 1960 F 64 From: Michael Melendez MD PCP: Dr. Chino Encinas MD Status: P RE ER Study:Knee 4 or More Views Date of Exam: 04/13/25 Exam# [id number] Ordering Dr: Gloria Huffman PROCEDURE: KNEE 4 OR MORE VIEWS 04/13/2025 REASON FOR EXAM: PAIN TECHNIQUE: KNEE 4 OR MORE VIEWS COMPARISON: 07/29/2020. FINDINGS: No evidence of acute fracture or dislocation. Mild degenerative changes of the knee. No knee joint effusion. Significant soft tissue thickening overlying the patella which may represent bursitis. RAD/Knee 4 or More Views IMPRESSION: Possible prepatellar bursitis. Reading Location: [id number] CC: Dr. Chino Encinas MD; MARY BETH Berger ~ Patient Relations Liaison: Signed [facility]06-11-2025 Discharge summary Author Giovanni De Souza [facility] Note Date/Time March 14, 2025 3:25 pm [facility] Physical Therapy [facility] [address] [place] [address] [address] [place] [address] / REHABILITATION SERVICES DISCHARGE SUMMARY MR#: [id number] Acct: [id number] Name: DANIEL BURTON Rep #: [id number] : 1960 64 From: Giovanni De Souza DPT, OCS, CSCS Referring Dr.: Dr. Jonathan Osullivan MD Status: REG RCR Insurance: [facility] [employer] INSURANCE Patient Information Patient Information: DANIEL BURTON was seen in my office for initial evaluation on 11/10/24. The following Plan of Care was established for this patient: POC Established Initial Frequency: 2x /Week Initial Duration: 4-6 Weeks Anticipated Interventions Patient/Client Instruction: Educate patient on: Condition and Risk Factors For the Purpose of:: To decrease pain, To improve nutrient delivery to tissue and To improve muscle performance and motor function Therapeutic Exercise to Include: Strength training, Flexibilty training, In an aquatic setting, Passive ROM and Active ROM For the Purpose of:: To decrease pain, To increase ROM, To improve muscle performance and motor function, To increase tolerance to activity/condition/position and To improve ability of physical actions for home/community/work/leisure Last Seen Last Seen: This patient was last seen in our office 12/25/24. Pertinent comments regardingtheir Physical therapy will appear below: Pt seen 8 visits of POC and worked to I, She was to valencia on her own and f/u two weeks later but did not attend that visit. At this point, it has been over 2 months and I will discontinue from my care. At this point I will be discontinuing this patient from physical therapy. I would be happy to see this patient again in the future if found appropriate by the physician. Thank you! Giovanni De Souza DPT, MICHELLE, CSCS Balance/Gait/Functional tests Balance/Special Test Scores Oswestry Low Back Score: 10 30 Second Chair Rise Test Seconds: 16 <Electronically signed by Giovanni De Souza DPT, MICHELLE, CSCS> 03/14/25 1525 CC: Dr. Jonathan Osullivan MD; Dr. Chino Encinas MD ~ EBG Signed [facility] Work Phone: 1(320) 370-929606-11-2025 Discharge summary [facility] Physical Therapy [facility] [place] [address] / REHABILITATION SERVICES DISCHARGE SUMMARY MR#: [id number] Acct: [id number] Name: DANIEL BURTON Rep #: [id number] : 1960 64 From: Giovanni De Souza DPT, MICHELLE, CSCS Referring Dr.: Dr. Jonathan Osullivan MD Status: REG R Insurance: [facility] [employer]URANCE Patient Information Patient Information: DANIEL BURTON was seen in my office for initial evaluation on 11/10/24. The following Plan of Care was established for this patient: POC Established Initial Frequency: 2x /Week Initial Duration: 4-6 Weeks Anticipated Interventions Patient/Client Instruction: Educate patient on: Condition and Risk Factors For the Purpose of:: To decrease pain, To improve nutrient delivery to tissue and To improve muscleperformance and motor function Therapeutic Exercise to Include: Strength training, Flexibilty training, In an aquatic setting, Passive ROM and Active ROM For the Purpose of:: To decrease pain, To increase ROM, To improve muscle performance and motor function, To increase tolerance to activity/condition/position and To improve ability of physical actions for home/community/work/leisure Last Seen Last Seen: This patient was last seen in our office 12/25/24. Pertinent comments regardingtheir Physical therapy will appear below: Pt seen 8 visits of POC and worked to I, She was to brett on her own and f/u two weeks later butdid not attend that visit. At this point, it has been over 2 months and I will discontinue from my care. At this point I will be discontinuing this patient from physical therapy. I would be happy to see this patient again in the future if found appropriate by the physician. Thank you! Giovanni De Souza, DPT, OCS, CSCS Balance/Gait/Functional tests Balance/Special Test Scores Oswestry Low Back Score: 10 30 Second Chair Rise Test Seconds: 16 03/14/25 1525 CC: Dr. Jonathan Osullivan MD; Dr. Chino Encinas MD ~ EBG Signed [facility]05-14-2025 Evaluation note* Diagnosis Onset Date Resolution Status Admit Date Anxiety and depression chronic Ma 2024 12:46pm COPD (chronic obstructive pulmonary disease) chronic February 14 12:46pm Hyperlipidemia chronic February 14, 2025 12:46pm Hypertension chronic February 14 12:46pm [facility] Work Phone: [phone]) 732-505405-14-2025 Evaluation note* Diagnosis Onset Date Resolution Status Admit Date Anxiety and depression chronic Ma y 2024 12:46pm COPD (chronic obstructive pulmonary disease) chronic February 14 12:46pm Hyperlipidemia chronic February 14, 2025 12:46pm Hypertension chronic February 14 12:46pm Contusion of knee, left acute J mathew 2024 9:00am Haugan [facility] Work Phone: 1([phone]) 536-520305-14-2025 Evaluation note* Diagnosis Onset Date Resolution Status Admit Date Anxiety and depression chronic Ma y 2024 12:46pm COPD (chronic obstructive pulmonary disease) chronic February 14 12:46pm Hyperlipidemia chronic February 14, 2025 12:46pm Hypertension chronic February 14 12:46pm Knee bursitis acute April 20, 2025 9:00am Sprain of left knee acute April 20, 2025 9:00am Contusion of knee, left inactive J mathew 2024 9:00am Noninfected skin tear of lef t leg inactive April 20, 2025 9:00am Haugan [employer] [facility] Work Phone: 1(808) 490-872305-14-2025 Evaluation note* Diagnosis Onset Date Resolution Status Admit Date Anxiety and depression chronic Ma y 2024 12:46pm COPD (chronic obstructive pulmonary disease) chronic February 14 12:46pm Hyperlipidemia chronic February 14, 2025 12:46pm Hypertension chronic February 14 12:46pm Knee bursitis acute April 20, 2025 9:00am Sprain of left knee acute April 20, 2025 9:00am Contusion of knee, left inactive J mathew 2024 9:00am Noninfected skin tear of lef t leg inactive April 20, 2025 9:00am Knee bursitis acute May 03, 2025 7:59am Sprain of left knee acute May 03, 2025 7:59am Contusion of knee, left inactive J mathew 2024 7:59am Knee bursitis acute May 8:00am Sprain of left knee acute Augus t 2024 8:00am Contusion of knee, left inactive A ugust 2024 8:00am [facility] [employer] Work Phone: [phone]) 218-897303-07-2025 Evaluation note* Diagnosis Onset Date Resolution Status Admit Date COPD (chronic obstructive pulmonary disease) chronic December 08 9:50am Morbid obesity with BMI of 45.0-49.9, adult chronic December 08, 2024 9:50am SIM (obstructive sleep apnea) chroni c December 08, 2024 9:50am Pulmonary hypertension chronic Ma [facility] 2024 9:50am Smoking greater than 40 pack years chronic December 08, 2024 9:50am [facility] Work Phone: [phone]) 613-764903-07-2025 Evaluation note* Diagnosis Onset Date Resolution Status Admit Date COPD (chronic obstructive pulmonary disease) chronic December 08 9:50am Morbid obesity with BMI of 45.0-49.9, adult chronic December 08, 2024 9:50am SIM (obstructive sleep apnea) chroni c December 08, 2024 9:50am Pulmonary hypertension chronic Ma [facility] 2024 9:50am Smoking greater than 40 pack years chronic December 08, 2024 9:50am Anxiety and depression chronic Ma y 2024 12:46pm COPD (chronic obstructive pulmonary disease) chronic February 14 12:46pm Hyperlipidemia chronic February 14, 2025 12:46pm Hypertension chronic February 14 12:46pm [facility] Work Phone: Evaluation note* Diagnosis Onset Date Resolution Status Dyshidrotic eczema noneactiv e Flu vaccine need acute Anxiety and depression chron ic COPD (chronic obstructive pulmonary disease) chronic Hypertension chronic Insomnia [facility] Work Phone: Evaluation note* Diagnosis Onset Date Resolution Status Anxiety and depression chron ic COPD (chronic obstructive pulmonary disease) chronic Hypertension chronic Insomnia chronic Nicotine dependence, cigarettes, uncomplicated acute Asthma chronic Chronic respiratory failure chronic Lung nodule chronic Morbid obesity with BMI of 45.0-49.9, adult [facility] Work Phone: Evaluation note* Diagnosis Onset Date Resolution Status Health care maintenance acut e Veronica-rectal abscess acute Anxiety and depression chron ic Borderline type 2 diabetes mellitus chronic COPD (chronic obstructive pulmonary disease) chronic Hypertension [facility] Work Phone: Evaluation note* Diagnosis Onset Date Resolution Status Asthma chronic Lung nodule chronic Morbid obesity with BMI of 45.0-49.9, adult chronic SIM (obstructive sleep apnea) chronic Borderline type 2 diabetes mellitus chronic COPD (chronic obstructive pulmonary disease) chronic Hyperlipidemia chronic Hypertension chronic LLQ abdominal pain chronic SIM (obstructive sleep apnea) [facility] Work Phone: Hospital Discharge instructionsAdditional Instructions Ice her knee and 20-minute sessions throughout the day. Keep the wound clean and covered with bacitracin and bandage. You can continue your Butrans patches and take the hydrocodone as needed for breakthrough pain. You need to follow-up with both the orthopedic doctor and pain management. After your knee pain and swelling goes down, the orthopedic doctor will reexamine it to make sure you do not have injury to the tendons or ligaments. In the meantime use the walker and do not put weight onto the left leg.[facility] Work Phone: Reason for referral (narrative)No reason for referral information available[facility] Work Phone: Chief Complaint and Reason for Visit Chief Complaint SKIN IRRITATION ON H ANDS 3 M FU SMOKER > 40 PK YRS Reason for Visit Dyshidrotic eczema Flu vaccine need Anxiety and depression COPD (chronic obstructive pulmonary disease) Hypertension Insomnia Chief Complaint 3 m fu 2 M FU Reason for Visit Anxiety and depressi on COPD (chronic obstructive pulmonary disease) Hypertension Insomnia Nicotine dependence, cigarettes, uncomplicated Asthma Chronic respiratory failure Lung nodule Morbid obesity with BMI of 45.0-49.9, adult Chief Complaint she wants to see me Reason for Visit Health care maintena nce Veronica-rectal abscess Anxiety and depression Borderline type 2 diabetes mellitus COPD (chronic obstructive pulmonary disease) Hypertension Chief Complaint she wants to see me NICOTINE DEP Reason for Visit Health care maintena nce Veronica-rectal abscess Anxiety and depression Borderline type 2 diabetes mellitus COPD (chronic obstructive pulmonary disease) Hypertension Chief Complaint 5 m fu 6 m fu Reason for Visit Asthma Lung nodule Morbid obesity with BMI of 45.0-49.9, adult SIM (obstructive sleep apnea) Borderline type 2 diabetes mellitus COPD (chronic obstructive pulmonary disease) Hyperlipidemia Hypertension LLQ abdominal pain SIM (obstructive sleep apnea) Chief Complaint Admit Date NEEDS NEW MACHINE October 17, 2024 1 1:00am 3 M FU December 08, 2024 9:50 am BACK/NECK PAIN. RX HERE December 29, 2024 12:00pm 6 M FU February 14, 2025 12:46 pm Reason for Visit Admit Date COPD (chronic obstructive pulmonary dise ase) December 08, 2024 9:50am Morbid obesity with BMI of 45.0-49.9, ad ult December 08, 2024 9:50am SIM (obstructive sleep apnea) December 08, 2024 9:50am Pulmonary hypertension December 08, 2024 9 :50am Smoking greater than 40 pack years December 08, 2024 9:50am Chief Complaint Admit Date 3 M FU December 08, 2024 9:50 am BACK/NECK PAIN. RX HERE December 29, 2024 12:00pm 6 M FU February 14, 2025 12:46 pm Reason for Visit Admit Date COPD (chronic obstructive pulmonary dise ase) December 08, 2024 9:50am Morbid obesity with BMI of 45.0-49.9, ad ult December 08, 2024 9:50am SIM (obstructive sleep apnea) December 08, 2024 9:50am Pulmonary hypertension December 08, 2024 9 :50am Smoking greater than 40 pack years December 08, 2024 9:50am Anxiety and depression February 14, 2025 12 :46pm COPD (chronic obstructive pulmonary dise ase) February 14, 2025 12:46pm Hyperlipidemia February 14, 2025 12:46 pm Hypertension February 14, 2025 12:46 pm Chief Complaint Admit Date BACK/NECK PAIN. RX HERE December 29, 2024 12:00pm 6 M FU February 14, 2025 12:46 pm lower extremity April 13, 2025 7:03 pm Reason for Visit Admit Date Anxiety and depression February 14, 2025 12 :46pm COPD (chronic obstructive pulmonary dise ase) February 14, 2025 12:46pm Hyperlipidemia February 14, 2025 12:46 pm Hypertension February 14, 2025 12:46 pm Chief Complaint Admit Date BACK/NECK PAIN. RX HERE December 29, 2024 12:00pm 6 M FU February 14, 2025 12:46 pm lower extremity April 13, 2025 7:03 pm LEFT KNEE April 20, 2025 9:00 am Reason for Visit Admit Date Anxiety and depression February 14, 2025 12 :46pm COPD (chronic obstructive pulmonary dise ase) February 14, 2025 12:46pm Hyperlipidemia February 14, 2025 12:46 pm Hypertension February 14, 2025 12:46 pm Contusion of knee, left April 20, 2025 9:00am Chief Complaint Admit Date 6 M FU February 14, 2025 12:46 pm lower extremity April 13, 2025 7:03 pm LEFT KNEE April 20, 2025 9:00 am LEFT KNEE May 03, 2025 7:59 am Room 2 May 03, 2025 8:10 am Reason for Visit Admit Date Anxiety and depression February 14, 2025 12 :46pm COPD (chronic obstructive pulmonary dise [facility]) February 14, 2025 12:46pm Hyperlipidemia February 14, 2025 12:46 pm Hypertension February 14, 2025 12:46 pm Knee bursitis April 20, 2025 9:00 am Sprain of left knee April 20, 2025 9:00 am Contusion of knee, left April 20, 2025 9:00am Noninfected skin tear of left leg April [id number] 9:00am Chief Complaint Admit Date 6 M FU February 14, 2025 12:46 pm lower extremity April 13, 2025 7:03 pm LEFT KNEE April 20, 2025 9:00 am LEFT KNEE May 03, 2025 7:59 am Room 2 May 03, 2025 8:10 am LEFT KNEE June 01, 2025 8: 00am Reason for Visit Admit Date Anxiety and depression February 14, 2025 12 :46pm COPD (chronic obstructive pulmonary dise [facility]) February 14, 2025 12:46pm Hyperlipidemia February 14, 2025 12:46 pm Hypertension February 14, 2025 12:46 pm Knee bursitis April 20, 2025 9:00 am Sprain of left knee April 20, 2025 9:00 am Contusion of knee, left April 20, 2025 9:00am Noninfected skin tear of left leg April [id number] 9:00am Knee bursitis May 03, 2025 7:59 am Sprain of left knee May 03, 2025 7:59 am Contusion of knee, left May 03, 2025 7:59am Knee bursitis June 01, 2025 8: 00am Sprain of left knee June 01, 2025 8: 00am Contusion of knee, left June 01 8:00am Chief Complaint Admit Date lower extremity April 13, 2025 7:03 pm LEFT KNEE April 20, 2025 9:00 am LEFT KNEE Autumn 31st, 2025 7:59 am Room 2 May 03, 2025 8:10 am LEFT KNEE June 01, 2025 8: 00am 6 M FU June 18, 2025 10:10am Reason for Visit Admit Date Knee bursitis April 20, 2025 9:00 am Sprain of left knee April 20, 2025 9:00 am Contusion of knee, left April 20, 2025 9:00am Noninfected skin tear of left leg April [id number] 9:00am Knee bursitis May 03, 2025 7:59 am Sprain of left knee May 03, 2025 7:59 am Contusion of knee, left May 03, 2025 7:59am Knee bursitis June 01, 2025 8: 00am Sprain of left knee June 01, 2025 8: 00am Contusion of knee, left June 01 8:00am COPD (chronic obstructive pulmonary dise ase) June 18, 2025 10:10am Morbid obesity with BMI of 45.0-49.9, ad ult June 18, 2025 10:10am SIM (obstructive sleep apnea) June 18, 2025 10:10am Pulmonary hypertension June 18, 2 025 10:10am Smoking greater than 40 pack years Jose Ramon [facility] 2024 10:10am Chief Complaint Admit Date lower extremity April 13, 2025 7:03 pm LEFT KNEE April 20, 2025 9:00 am LEFT KNEE May 03, 2025 7:59 am Room 2 May 03, 2025 8:10 am LEFT KNEE June 01, 2025 8: 00am 6 M FU June 18, 2025 10:10am G47.33 - Obstructive sleep apnea (adult) (pediatri July 03, 2025 9:00am LEFT KNEE July 06, 2025 8: 00am Advance Directives No Advanced Directives Records Found Advance Directive Response Recorded Date/ Time Living Will No August 22, 2 019 1:15pm Power of Supply Service Worker No August 22, 2019 1:15pm Advance Directive Response Recorded Date/ Time Living Will No August 22, 2 019 12:15pm Power of Supply Service Worker No August 22, 2019 12:15pm Advance Directive Response Recorded Date/ Time Living Will No February 08, 2023 8: 39am Power of Supply Service Worker No February 08, 2023 8:39am Advance Directive Response Recorded Date/ Time Living Will No February 08, 2023 7: 39am Power of Supply Service Worker No February 08, 2023 7:39am Advance Directive Response Recorded Date/ Time Do you have a Healthcare Power of Supply Service Worker? No April 13, 2025 7:20pm Summary Purpose Family History No Family History Records Found Additional Source Comments Goals (unrecognized section and content) Goals may be documented in a n alternate sectionGoals may be documented in an alternate sectionGoals may be documented in an alternate sectionGoals may be documented in an alternate sectionGoals may be documented in an alternate sectionGoals may be documented in an alternate sectionGoals may be documented in an alternate sectionGoals may be documented in an alternate sectionGoals may be documented in an alternate sectionGoals may be documented in an alternate sectionGoals may be documented in an alternate sectionGoals may be documented in an alternate sectionGoals may be documented in an alternate sectionGoals may be documented in an alternate sectionGoals may be documented in an alternate section Care Teams (unrecognized sec tion and content) Team Status: Active Member Role Status Dates Dr. Chino Encinas MD Family Provider Active Dr. Chino Encinas MD Primary Care Provider Active Team Status: Inactive Member Role Status Dates Dr. Chino Encinas MD Primary Care P feroz, Attending Provider, Referring Provider Active Team Status: Inactive Member Role Status Dates Dr. Chino Encinas MD Primary Care Provider, Refer ring Provider Active Dr. Koko Hernandes DO Attending Provider Active Team Status: Inactive Member Role Status Dates Dr. Chino Encinas MD Primary Care Provider Active Dr. Jonathan Osullivan MD Attending Provider, Referring Pr ovider Active Team Status: Inactive Member Role Status Dates Dr. Chino Encinas MD Primary Care Provider, Atten ding Provider Active Team Status: Inactive Member Role Status Dates Dr. Chino Encinas MD Primary Care Provider Active Jennifer Lund CUSTOMER SERVICE ENGINEER, CUSTOMER SERVICE ENGINEER-C Attending Provider, Referrin g Provider Active Team Status: Active Member Role Status Dates Dr. Chino Encinas MD Primary Care Provider Active Team Status: Inactive Member Role Status Dates Dr. Chino Encinas MD Primary Care Provider Active Start: October 17, 2024 End: October 17, 2024 Jennifer Lund CUSTOMER SERVICE ENGINEER, CUSTOMER SERVICE ENGINEER-C Attending Provider Active Start: October 17, 2024 End: October 17, 2024 Jennifer Lund CUSTOMER SERVICE ENGINEER, CUSTOMER SERVICE ENGINEER-C Referring Provider Active Start: October 17, 2024 End: October 17, 2024 Team Status: Inactive Member Role Status Dates Dr. Chino Encnias MD Primary Care Provider Active Start: December 08, 2024 End: December 08, 2024 Dr. Chino Encinas MD Referring Provider Active Start: December 08, 2024 End: December 08, 2024 Jennifer Lund CUSTOMER SERVICE ENGINEER, CUSTOMER SERVICE ENGINEER-C Attending Provider Active Start: December 08, 2024 End: December 08, 2024 Team Status: Active Member Role Status Dates Dr. Chino Encinas MD Primary Care Provider Active Start: December 29, 2024 Dr. Jonathan Osullivan MD Attending Provider Active Start: December 29, 2024 Dr. Jonathan Osullivan MD Referring Provider Active Start: December 29, 2024 Team Status: Inactive Member Role Status Dates Dr. Chino Encinas MD Primary Care Provider Active Start: February 14, 2025 End: February 14, 2025 Dr. Chino Encinas MD Attending Provider Active Start: February 14, 2025 End: February 14, 2025 Dr. Chino Encinas MD Referring Provider Active Start: February 14, 2025 End: February 14, 2025 Team Status: Active Member Role Status Dates Dr. Chino Encinas MD Primary Care Provider Active Start: February 14, 2025 Dr. Chino Encinas MD Attending Provider Active Start: February 14, 2025 Dr. Chino Encinas MD Referring Provider Active Start: February 14, 2025 Team Status: Inactive Member Role Status Dates Dr. Chino Encinas MD Primary Care Provider Active Start: December 29, 2024 End: December 29, 2024 Dr. Jonathan Osullivan MD Attending Provider Active Start: December 29, 2024 End: December 29, 2024 Dr. Jonathan Osullivan MD Referring Provider Active Start: December 29, 2024 End: December 29, 2024 Team Status: Active Member Role/Relationship Status Dates Dr. Chino Encinas MD Primary Care Provider Active Team Status: Inactive Member Role/Relationship Status Dates Dr. Chino Encinas MD Primary Care Provider Active Start: December 29, 2024 End: December 29, 2024 Dr. Jonathan Osullivan MD Attending Provider Active Start: December 29, 2024 End: December 29, 2024 Dr. Jonathan Osullivan MD Referring Provider Active Start: December 29, 2024 End: December 29, 2024 Team Status: Inactive Member Role/Relationship Status Dates Dr. Chino Encinas MD Primary Care Provider Active Start: February 14, 2025 End: February 14, 2025 Dr. Chino Encinas MD Attending Provider Active Start: February 14, 2025 End: February 14, 2025 Dr. Chino Encinas MD Referring Provider Active Start: February 14, 2025 End: February 14, 2025 Team Status: Inactive Member Role/Relationship Status Dates Dr. Chino Encinas MD Primary Care Provider Active Start: February 14, 2025 End: February 14, 2025 Dr. Chino Encinas MD Attending Provider Active Start: February 14, 2025 End: February 14, 2025 Dr. Chino Encinas MD Referring Provider Active Start: February 14, 2025 End: February 14, 2025 Team Status: Inactive Member Role/Relationship Status Dates Dr. Chino Encinas MD Primary Care Provider Active Start: April 13, 2025 End: April 13, 2025 Dr. Pasha Alvarenga MD Emergency Provider Active Sta rt: April 13, 2025 End: April 13, 2025 Team Status: Inactive Member Role/Relationship Status Dates Dr. Chino Encinas MD Primary Care Provider Active Start: April 20, 2025 End: April 20, 2025 Dr. Chino Enicnas MD Referring Provider Active Start: April 20, 2025 End: April 20, 2025 JIL Ortiz Attending Provider Active Start: April 20, 2025 End: April 20, 2025 Team Status: Inactive Member Role/Relationship Status Dates Dr. Chino Encinas MD Primary Care Provider Active Start: February 14, 2025 End: February 14, 2025 Dr. Chino Encinas MD Attending Provider Active Start: February 14, 2025 End: February 14, 2025 Dr. Chino Encinas MD Referring Provider Active Start: February 14, 2025 End: February 14, 2025 Team Status: Inactive Member Role/Relationship Status Dates Dr. Chino Encinas MD Primary Care Provider Active Start: April 13, 2025 End: April 13, 2025 Dr. Pasha Alvarenga MD Attending Provider Active Sta rt: April 13, 2025 End: April 13, 2025 Dr. Pasha Alvarenga MD Emergency Provider Active Sta rt: April 13, 2025 End: April 13, 2025 Team Status: Inactive Member Role/Relationship Status Dates Dr. Chino Encinas MD Primary Care Provider Active Start: April 20, 2025 End: April 20, 2025 Dr. Chino Encinas MD Referring Provider Active Start: April 20, 2025 End: April 20, 2025 JIL Ortiz Attending Provider Active Start: April 20, 2025 End: April 20, 2025 Team Status: Active Member Role/Relationship Status Dates Dr. Chino Encinas MD Primary Care Provider Active Start: May 03, 2025 Dr. Chino Encinas MD Referring Provider Active Start: May 03, 2025 JIL Ortiz Attending Provider Active Start: May 03, 2025 Team Status: Inactive Member Role/Relationship Status Dates Dr. Chino Encinas MD Primary Care Provider Active Start: May 03, 2025 End: May 03, 2025 Dr. Dell Mueller MD Attending Provider Active S tart: May 03, 2025 End: May 03, 2025 Team Status: Inactive Member Role/Relationship Status Dates Dr. Chino Encinas MD Primary Care Provider Active Start: May 03, 2025 End: May 03, 2025 Dr. Chino Encinas MD Referring Provider Active Start: May 03, 2025 End: May 03, 2025 Michelle Yun , CUSTOMER SERVICE ENGINEER-C Attending Provider Active Start: May 03, 2025 End: May 03, 2025 Team Status: Inactive Member Role/Relationship Status Dates Dr. Chino Encinas MD Primary Care Provider Active Start: June 01, 2025 End: June 01, 2025 Dr. Chino Encinas MD Referring Provider Active Start: June 01, 2025 End: June 01, 2025 JIL Ortiz Attending Provider Active Start: June 01, 2025 End: June 01, 2025 Team Status: Inactive Member Role/Relationship Status Dates Dr. Chino Encinas MD Primary Care Provider Active Start: April 13, 2025 End: April 13, 2025 Dr. Pasha Alvaregna MD Attending Provider Active Sta rt: April 13, 2025 End: April 13, 2025 Dr. Pasha Alvarenga MD Emergency Provider Active Sta rt: April 13, 2025 End: April 13, 2025 Team Status: Inactive Member Role/Relationship Status Dates Dr. Chino Encinas MD Primary Care Provider Active Start: April 20, 2025 End: April 20, 2025 Dr. Chino Encinas MD Referring Provider Active Start: April 20, 2025 End: April 20, 2025 JIL Ortiz Attending Provider Active Start: April 20, 2025 End: April 20, 2025 Team Status: Inactive Member Role/Relationship Status Dates Dr. Chino Encinas MD Primary Care Provider Active Start: May 03, 2025 End: May 03, 2025 Dr. Chino Encinas MD Referring Provider Active Start: May 03, 2025 End: May 03, 2025 JIL Ortiz Attending Provider Active Start: May 03, 2025 End: May 03, 2025 Team Status: Inactive Member Role/Relationship Status Dates Dr. Chino Encinas MD Primary Care Provider Active Start: May 03, 2025 End: May 03, 2025 Dr. Dell Mueller MD Attending Provider Active S tart: May 03, 2025 End: May 03, 2025 Team Status: Inactive Member Role/Relationship Status Dates Dr. Chino Encinas MD Primary Care Provider Active Start: June 01, 2025 End: June 01, 2025 Dr. Chino Encinas MD Referring Provider Active Start: June 01, 2025 End: June 01, 2025 JIL Ortiz Attending Provider Active Start: June 01, 2025 End: June 01, 2025 Team Status: Inactive Member Role/Relationship Status Dates Dr. Chino Encinas MD Primary Care Provider Active Start: June 18, 2025 End: June 18, 2025 Dr. Chion Encinas MD Referring Provider Active Start: June 18, 2025 End: June 18, 2025 FRANKY Chaudhary NPC Attending Provider Active Start: June 18, 2025 End: June 18, 2025 Team Status: Active Member Role/Relationship Status Dates Dr. Chino Encinas MD Primary care physician Activ e Team Status: Inactive Member Role/Relationship Status Dates Dr. Chino Encinas MD Primary care physician Activ e Start: April 13, 2025 End: April 13, 2025 Dr. Pasha Alvarenga MD Attending physician Active St art: April 13, 2025 End: April 13, 2025 Dr. Pasha Alvarenga MD Emergency Department Physician Active Start: April 13, 2025 End: April 13, 2025 Team Status: Inactive Member Role/Relationship Status Dates Dr. Chino Encinas MD Primary care physician Activ e Start: April 20, 2025 End: April 20, 2025 Dr. Chino Encinas MD Referring Provider Active Start: April 20, 2025 End: April 20, 2025 JIL Ortiz Attending physician Active Start: April 20, 2025 End: April 20, 2025 Team Status: Inactive Member Role/Relationship Status Dates Dr. Chino Encinas MD Primary care physician Activ e Start: May 03, 2025 End: May 03, 2025 Dr. Chino Encinas MD Referring Provider Active Start: May 03, 2025 End: May 03, 2025 JIL Ortiz Attending physician Active Start: May 03, 2025 End: May 03, 2025 Team Status: Inactive Member Role/Relationship Status Dates Dr. Chino Encinas MD Primary care physician Activ e Start: May 03, 2025 End: May 03, 2025 Dr. Dell Mueller MD Attending physician Active Start: May 03, 2025 End: May 03, 2025 Team Status: Inactive Member Role/Relationship Status Dates Dr. Chino Encinas MD Primary care physician Activ e Start: June 01, 2025 End: June 01, 2025 Dr. Chino Encinas MD Referring Provider Active Start: June 01, 2025 End: June 01, 2025 JIL Ortiz Attending physician Active Start: June 01, 2025 End: June 01, 2025 Team Status: Inactive Member Role/Relationship Status Dates Dr. Chino Encinas MD Primary care physician Activ e Start: June 18, 2025 End: June 18, 2025 Dr. Chino Encinas MD Referring Provider Active Start: June 18, 2025 End: June 18, 2025 Jennifer Lund NP CUSTOMER SERVICE ENGINEER-C Attending physician Active Start: June 18, 2025 End: June 18, 2025 Team Status: Active Member Role/Relationship Status Dates Dr. Chino Encinas MD Primary care physician Activ e Start: July 03, 2025 Jennifer Lund NP CUSTOMER SERVICE ENGINEER-C Attending physician Active Start: July 03, 2025 Jennifer Lund NP CUSTOMER SERVICE ENGINEER-C Referring Provider Active Start: July 03, 2025 Team Status: Inactive Member Role/Relationship Status Dates Dr. Chino Encinas MD Primary care physician Activ e Start: July 06, 2025 End: July 06, 2025 Dr. Chino Encinas MD Referring Provider Active Start: July 06, 2025 End: July 06, 2025 JIL Ortiz Attending physician Active Start: July 06, 2025 End: July 06, 2025 INFORMATION SOURCE (unrecogn ized section and content) DATE CREATED AUTHOR 08/15/2025 [facility] FOR RECORDS PERTAINING TO PATIENTS WHO ARE OR HAVE BEEN ENROLLED IN A CHEMICAL DEPENDENCY/SUBSTANCEABUSE PROGRAM, SOME INFORMATION MAY BE OMITTED. This clinical summary was aggregated from multiple sources. Caution should be exercised in using it in the provision of clinical care. This summary normalizes information from multiple sources, and as a consequence, information in this document may materially change the coding, format and clinical context of patient data. In addition, data may be omitted in some cases. CLINICAL DECISIONS SHOULD BE BASED ON THE PRIMARY CLINICAL RECORDS. [facility]. provides no warranty or guarantee of the accuracy or completeness of information in this document.
== END | disposition home or self-care (01) ==
LOC: CT 18:34
PROVIDERS: PCP Internal Medicine; Referring Provider Nurse Practitioner Acute Care; Visit Provider Nurse Practitioner Acute Care
DX: Z87.891 Personal history of nicotine dependence (principal)
CPT/HCPCS: 71271

== ENCOUNTER → 2025-09-21 | Outpatient (CLI) | payer MEDICAID, SELFPAY ==
--- NOTE | 2025-09-21 08:30 | BI_ITS ---
EXAM: SCRN MAMM (CAD)W/KIRILL BILAT DATE: 09/21/2025 CLINICAL HISTORY: F, Age 64 y/o , BREAST CANCER SCREENING TECHNIQUE: Procedure Code: [id number] Modality: MG Procedure: SCRN MAMM (CAD)W/KIRILL BILAT COMPARISON: Prior exam(s) dated 11/27/2021, 08/05/2020. FINDINGS: TISSUE DENSITY: The breasts are heterogeneously dense, which may obscure small masses. The mammogram demonstrates that the patient has dense breasts. Supplemental screening with whole breast ultrasound or MRI may be considered for further evaluation. Bilateral Breast Mammographic Findings: No significant masses, calcifications or other abnormalities are identified. BI/SCRN MAMM (CAD)W/KIRILL BILAT IMPRESSION: There is no mammographic evidence of malignancy. OVERALL FINAL ASSESSMENT BI-RADS 1: NEGATIVE. RECOMMENDATION: Routine annual follow-up in 1 Year Additional Recommendation none A letter with findings and recommendations will be mailed to the patient. Reading Location: [id number]
== END | disposition home or self-care (01) ==
LOC: OPBI 08:28
PROVIDERS: PCP Internal Medicine; Referring Provider Internal Medicine; Visit Provider Internal Medicine
DX: Z12.31 Encounter for screening mammogram for malignant neoplasm of breast (principal)
CPT/HCPCS: 77063; 77067